=== PATIENT | female | born 1950 | race Caucasian/White ===

== ENCOUNTER 2022-05-21 11:13 | Emergency (ER) | payer MEDICARE, SELFPAY ==
--- NOTE | ~2022-05-21 | XR_ITS ---
EXAMINATION: XR chest 2V DATE: 05/21/2022 11:54 INDICATION: Cough and fever TECHNIQUE: PA and lateral views of the chest are obtained. COMPARISON: None available FINDINGS: The lungs are free of acute opacities. No pleural effusion or pneumothorax. The cardiomedia stinal silhouette is normal. There is moderate thoracic spondylosis. IMPRESSION: 1. No acute cardiopulmonary abnormality. Reviewed, dictated and finalized at location A.
[2022-05-21 11:22] VITALS: BP 155/83; PULSE 110; RESP 18; TEMP 37.1; O2SAT 97
[2022-05-21 11:24] VITALS: BP 155/83; PULSE 110; RESP 18; TEMP 37.1; O2SAT 97
--- NOTE | 2022-05-21 11:43 | ED.GENADULT ---
HPI - General Adult General Chief complaint: Upper Respiratory Infection Stated complaint: FEVER/CONGESTION Source: patient Mode of arrival: ambulatory Limitations: no limitations History of Present Illness HPI narrative: Patient presents for evaluation of sick symptoms for the last 2 days. Symptoms include fever, chills, nausea, productive cough of green/yellow sputum, sinus congestion, sinus drainage, sore throat, bilateral ear fullness, generalized body aches, exertional dyspnea, pleuritic chest pain and back pain. Her granddaughter has similar symptoms and they live in the same household. She has been taking tylenol for her symptoms. No personal hx of COVID. She received both doses of her COVID vaccine and a booster. She took a home COVID test yesterday which was negative. She does not smoke. She is diabetic. She states home BS run between 125-140. Related Data Home Medications Medication Instructions Recorded Confirmed allopurinol 300 mg tablet mg 05/21/22 candesartan 32 tablet 05/21/22 mg-hydrochlorothiazide 12.5 mg tablet meloxicam 7.5 mg tablet mg 05/21/22 metformin 500 mg tablet mg 05/21/22 simvastatin 20 mg tablet mg 05/21/22 Allergies Allergy/AdvReac Type Severity Reaction Status Date / Time erythromycin base Allergy Hives Verified 05/21/22 11:23 losartan Allergy Rash Verified 05/21/22 11:23 Penicillins Allergy Hives Verified 05/21/22 11:23 acetaminophen [From Percocet] AdvReac Nausea and Verified 05/21/22 11:23 Vomiting oxycodone [From Percocet] AdvReac Nausea and Verified 05/21/22 11:23 Vomiting Review of Systems Review of Systems: CONSTITUTIONAL: Reports fever and chills. EYES: Denies visual changes, redness, or discharge. ENT: Reports sinus congestion, drainage, sore throat and bilateral ear fullness CARDIOVASCULAR: Reports pleuritic chest pain. Denies chest pain otherwise. Denies palpitations, or edema. RESPIRATORY:Reports productive cough of yellow/green sputum and exertional dyspnea. Denies SOB at rest GASTROINTESTINAL: Reports nausea. Denies abdominal pain, vomiting, or diarrhea. GENITOURINARY: Denies dysuria or hematuria. SKIN: Denies rash or itching. MUSCULOSKELETAL: Reports generalized body aches and back pain NEUROLOGIC: Denies headache, numbness, dizziness, or weakness. PSYCHIATRIC: Denies anxiety or depression. PMFSH Past Medical History Medical History (Updated 05/21/22 @ 12:29 by Thomas Rinaldi [facility], ) Diabetes Hyperlipidemia Hypertension Surgical History Surgical History History of carpal tunnel surgery History of hysterectomy History of left knee replacement Family History Family History Mother Heart disease Social History Social History Smoking status: Never smoker Substance use: never Living arrangements: with family Spiritual care concerns: No Exam Narrative: GENERAL: Well-appearing, well-nourished, and in no acute distress. HEAD: Normocephalic, atraumatic. EYES: PERRLA and EOMI. ENT: Nares clear, no rhinorrhea or epistaxis. Mucous membranes moist. Oropharynx without tonsillar hypertrophy exudate or other lesions. Bilateral TMs pearly cummings nonbulging NECK: Supple. No adenopathy or masses. No carotid bruits or JVD CHEST: Clear to auscultation. No respiratory distress. No wheezes rales or rhonchi HEART: Regular rate and rhythm. No murmur heard. Normal peripheral pulses. ABDOMEN: Soft, nontender, nondistended, normal active bowel sounds. EXTREMITIES: Normal range of motion. No edema. SKIN: Warm, dry, no rash. NEURO: No focal deficits. Alert and oriented x3. PSYCH: Normal mood and affect. Course Course Emergency Course: This is a 71-year-old female who presented for evaluation of sick symptoms. Chest x-ray was normal. COVID was negat
== END 2022-05-21 12:45 | disposition home or self-care (01) ==
PROVIDERS: Emergency Provider Nurse Practitioner
DX: B34.9 Viral infection, unspecified (principal); Z20.822 Contact with and (suspected) exposure to COVID-19; E11.9 Type 2 diabetes mellitus without complications; E78.5 Hyperlipidemia, unspecified; I10 Essential (primary) hypertension; Z96.652 Presence of left artificial knee joint
CPT/HCPCS: 71046; 87426; 99213; C9803; G0463

== ENCOUNTER 2022-06-24 16:30 | Emergency (ER) | payer MEDICARE, SELFPAY ==
[2022-06-24 16:35] VITALS: BP 158/93; PULSE 112; RESP 16; O2SAT 98
--- NOTE | 2022-06-24 16:36 | ED.SKABFB ---
HPI - Skin/Abscess/Foreign Bdy General Chief complaint: Extremity Problem,Nontraumatic Stated complaint: INFECTION IN GROIN AREA Time Seen by Provider: 06/24/22 16:36 Source: patient Mode of arrival: ambulatory Limitations: no limitations History of Present Illness HPI narrative: Ms. Rice is a 71-year-old female patient presenting to the clinic today with complaints of possible infection in her groin. She reports that she has been having right-sided hip/groin pain for over 1 month. Recently had x-rays done approximately 2 weeks ago that showed mild to moderate osteoarthritis of the right hip. She feels as though her right hip is more swollen and tender to palpation over her right hip joint. Pain is more so in the morning but as she gets moving during the day the pain eases some. She is having trouble sleeping at night due to this pain as well. Pain is sharp and radiating into the back of her hip and down her right leg. She has been taking Tylenol and meloxicam for the pain with little relief. Rates pain currently 8/10. She denies any recent falls or any trauma to the right hip. She denies any urinary symptoms. Pain does not worsen when she bears down or is sitting on the stool. Related Data Home Medications Medication Instructions Recorded Confirmed allopurinol 300 mg tablet 100 mg PO DAILY 05/21/22 06/24/22 candesartan 32 1 tablet PO DAILY 05/21/22 06/24/22 mg-hydrochlorothiazide 12.5 mg tablet meloxicam 7.5 mg tablet 7.5 mg PO BID 05/21/22 06/24/22 metformin 500 mg tablet 500 mg PO BID 05/21/22 06/24/22 simvastatin 20 mg tablet 20 mg PO DAILY 05/21/22 06/24/22 cholecalciferol (vitamin D3) 125 125 mcg PO DAILY 06/24/22 06/24/22 mcg (5,000 unit) tablet (Vitamin D3) cyclobenzaprine 10 mg tablet 10 mg PO DAILY PRN Muscle Pain 06/24/22 06/24/22 lansoprazole 15 mg capsule,delayed 15 mg PO DAILY 06/24/22 06/24/22 release Allergies Allergy/AdvReac Type Severity Reaction Status Date / Time erythromycin base Allergy Hives Verified 06/24/22 16:46 losartan Allergy Rash Verified 06/24/22 16:46 Penicillins Allergy Hives Verified 06/24/22 16:46 acetaminophen [From Percocet] AdvReac Nausea and Verified 06/24/22 16:46 Vomiting lisinopril AdvReac Unknown Verified 06/24/22 16:46 oxycodone [From Percocet] AdvReac Nausea and Verified 06/24/22 16:46 Vomiting Review of Systems Review of Systems: Pertinent positives per HPI. Patient denies any fever, chills, rash, headache, visual changes, dizziness, cough, runny nose, sore throat, shortness of breath, chest pain, palpitations, nausea, vomiting, diarrhea, constipation, abdominal pain, or any urinary issues. [facility] Past Medical History Medical History Diabetes Hyperlipidemia Hypertension Surgical History Surgical History History of carpal tunnel surgery History of hysterectomy History of left knee replacement Family History Family History Mother Heart disease Social History Social History Smoking status: Never smoker Substance use: never Spiritual care concerns: No Comments At the time of my signature, I reviewed and agree with the nursing past medical, surgical, social, and family history. There is no relevant family history pertinent to the patient complaint. Exam Narrative: General: Well-developed, well nourished, obese, in no apparent distress Head: Normocephalic, atraumatic. Cardio: Regular rate and rhythm, s1 and s2 normal, no murmur appreciated. Resp: Clear to auscultation bilaterally, no rhonchi, rales, wheezing or rubs. Musculoskeletal: No deformity, no swelling when compared to the left hip, tender to palpation over the right lateral and anterior hip, worsening of pain with hip
== END 2022-06-24 17:19 | disposition home or self-care (01) ==
PROVIDERS: Emergency Provider Nurse Practitioner Family
DX: M25.551 Pain in right hip (principal); E11.9 Type 2 diabetes mellitus without complications; E78.5 Hyperlipidemia, unspecified; I10 Essential (primary) hypertension; Z96.652 Presence of left artificial knee joint
CPT/HCPCS: 99213; G0463

== ENCOUNTER 2022-08-09 09:23 | Outpatient (RCR) | payer MEDICARE, SELFPAY ==
--- NOTE | 2022-08-09 14:57 | PTOPEVAL1 ---
Assessment and note entered by Jose Rueda, PT Evaluation Information Assessment Status Evaluation Diagnosis R hip pain Onset about 3 months ago Subjective Information Patient reports about 3 months ago she noticed she was having trouble sleeping on her R side and she started to feel a bump on the R hip. Since then she has had more pain causing her to progress from a cane to a wheeled walker. Patient's leg has given out on her. She reports she previously has had a lipoma on her back and it has presented like this. She has an MD appt with a surgeon on to look at it. Reported Pain Level Pain Score 5: Self Report Additional Pain Score Comments Main pain is in her R hip, but also has some pain in her groin and knee. Assessment PT Clinical Summary Natalia is a 72 year old female coming into the clinic today with R hip pain, She has tightness in the hamstring and IT band along with weakness in the R hip. Patient may benefit from skilled physical therapy to work on her tightness and strengthen her hip along with US and manual therapy to help decrease pain and loosen tight muscles. Plan of Care Interventions Gait Training,Hot Pack/Cold Pack,Manual Therapy, Neuro Re-education,Patient/Caregiver Educati, Therapeutic Activities,Therapeutic Exercise, Ultrasound PT Services Indicated Yes Treatment Frequency and 1-2x/wk per 3 weeks Duration These treatments will address the objective and functional deficits as defined above. The patient will be advanced safely and appropriately in order for the patient to progress towards his/her prior level of function. Additional exercises will be introduced and as well as a comprehensive home exercise program upon discharge, if needed, ?to ensure carryover of functional gains achieved in the clinic. This treatment plan has been reviewed and agreement upon by the patient.
--- NOTE | 2022-10-31 13:06 | PCPTNOTE ---
Admitting Provider: Attending Provider: Dennis Isaac Patient:Natalia Rice Date of :1950 Patient has not returned for any further treatments since 08/09/2022, therefore (he/she) will be discharged at this time. Patient?s initial visit was on 08/09/2022 09:30 and (he/she) had a total of ____1____ visits and cancelled all three scheduled appointments The goals have been not met. Thank you for referring this patient to [facility]. Please review, sign, date and return this discharge summary LUDMILA. I have been updated about the patient's current status and I agree with discharge from the above service at this time. Referring Physician Date
== END 2022-10-31 14:58 | disposition home or self-care (01) ==
LOC: ANHPT 09:23
DX: M25.551 Pain in right hip (principal)
CPT/HCPCS: 97035; 97110; 97161

== ENCOUNTER 2022-09-08 01:53 | Day surgery (SDC) | payer MEDICARE, SELFPAY ==
[2022-09-07 16:02] VITALS: BMI 36.1
[2022-09-08] VITALS (10 sets, daily range): BP systolic 101–158; BP diastolic 50–90; PULSE 66–94; RESP 12–20; TEMP 37.1; O2SAT 96–100; BMI 36.3
[2022-09-08 08:03] LABS: Basophils Absolute Auto 0.1 K/mm3 (0.0-0.1); Basophils Percent Auto 0.8 % (0.2-1.2); Eosinophils Absolute Auto 0.2 K/mm3 (0-0.3); Eosinophils Percent Auto 1.7 % (0-4.4); Hematocrit 40.8 % (37.0-47.0); Hemoglobin 13.2 g/dL (12.0-15.0); Immature Granulocyte Absolute 0.04 K/mm3 (0.00-0.031); Immature Granulocyte Percent A 0.4 % (0-0.5); Lymphocytes Absolute Auto 3.07 K/mm3 (0.9-3.2); Lymphocytes Percent Auto 31.3 % (18.3-44.2); Mean Corpuscular HGB Conc 32.4 g/dl (32-36); Mean Corpuscular Hemoglobin 28.8 pg (26-34); Mean Corpuscular Volume 89.1 fl (80-100); Mean Platelet Volume 9.7 fl (7.4-10.4); Monocytes Absolute Auto 0.9 K/mm3 (0.1-0.6); Monocytes Percent Auto 9.1 % (2.6-8.5); Neutrophils Absolute Auto 5.6 K/mm3 (1.3-6.7); Neutrophils Percent Auto 56.7 % (45.5-73.1); Platelet Count Result 382 k/mm3 (150-375); Red Blood Count 4.58 M/mm3 (4.2-5.4); White Blood Count 9.8 K/mm3 (4.5-10.0)
[2022-09-08 08:10] LABS: Anion Gap 12 mmol/L (8-16); Blood Urea Nitrogen 22 mg/dL (7-17); Calcium 9.4 mg/dL (8.4-10.2); Carbon Dioxide 22 mmol/L (22-30); Chloride 105 mmol/L (98-107); Estimated CRCL calculation 51 ml/min; Estimated Glomerular Filt Rate > 60; Glucose 154 mg/dL (65-110); Potassium 3.8 mmol/L (3.4-5.0); Sodium 139 mmol/L (137-145)
[2022-09-08 08:36] LABS: INR 1.1; Prothrombin Time 13.3 Seconds (11.1-14.7)
--- NOTE | 2022-09-08 09:34 | WPDHPUPDATE1 ---
History and Physical Update Update Date/Time: 09/08/22 09:34 History and Physical has been reviewed, including an updated exam of the patient. There are NO changes in the patient's condition. Risks, benefits, and alternatives have been discussed and questions answered. Patient agrees to proceed with procedure.
--- NOTE | 2022-09-08 09:34 | WPDMODSED ---
Moderate Sedation Note-Pt Data Patient Data Diagnosis: Abnormal stress test Present Complaint: Abnormal stress test Procedure to be performed/Plan: Coronary angiography, LHC, +/- PCI Allergies Allergy/AdvReac Type Severity Reaction Status Date / Time erythromycin base Allergy Hives Verified 09/08/22 07:31 losartan Allergy Rash Verified 09/08/22 07:31 Penicillins Allergy Hives Verified 09/08/22 07:31 lisinopril AdvReac Unknown Verified 09/08/22 07:31 oxycodone [From Percocet] AdvReac Nausea and Verified 09/08/22 07:31 Vomiting Home Medications Medication Instructions Recorded Confirmed Type allopurinol 300 mg tablet 100 mg PO DAILY 05/21/22 09/07/22 History candesartan 32 1 tablet PO DAILY 05/21/22 09/07/22 History mg-hydrochlorothiazide 12.5 mg tablet meloxicam 7.5 mg tablet 7.5 mg PO BID 05/21/22 09/07/22 History metformin 500 mg tablet 500 mg PO BID 05/21/22 09/07/22 History simvastatin 20 mg tablet 20 mg PO DAILY 05/21/22 09/07/22 History cholecalciferol (vitamin D3) 125 125 mcg PO DAILY 06/24/22 09/07/22 History mcg (5,000 unit) tablet (Vitamin D3) lansoprazole 15 mg capsule,delayed 15 mg PO DAILY 06/24/22 09/07/22 History release Current Medications: Active Medications Sodium Chloride (Normal Saline Iv) 500 mls @ 100 mls/hr IV CONT .Q5H YAMEL Sedation/Anesthesia: No previous sedation/anesthesia problems (including family history). [facility] Past Medical History Medical History Diabetes Hyperlipidemia Hypertension Surgical History Surgical History History of carpal tunnel surgery History of hysterectomy History of left knee replacement Family History Family History Mother Heart disease Social History Social History Smoking status: Never smoker Alcohol use details: occasional Substance use: never Substance use type: does not use Living arrangements: with family Spiritual care concerns: No Mod Sed Physical Exam Physical Exam Pre Procedural Exam: Normal: Appearance, Lungs, Heart Rate, Heart Rhythm, Neuro Exam, Abdomen, Extremities and Skin Hours since solid foods: 12 Hours since liquid intake: 8 Mallampati Classification: class III Internal Medicine - PN: Obj Da Vital Signs Vital Signs: Vital Signs - 24 hr 09/08/22 07:33 Temperature 37.1 C Pulse Rate 94 Respiratory Rate 19 Blood Pressure 158/90 H Pulse Oximetry 97 Oxygen Delivery Room Air Meds/Results Medications: Active Medications Generic Name Dose Route Start Last Admin Trade Name Freq PRN Reason Stop Dose Admin Sodium Chloride 500 mls @ 100 mls/hr 09/08/22 07:00 Normal Saline Iv IV CONT .Q5H YAMEL Labs 09/08/22 07:30 09/08/22 07:30 Labs: Laboratory Results - last 24 hr 09/08/22 09/08/22 09/08/22 07:30 07:30 07:30 WBC 9.8 RBC 4.58 Hgb 13.2 Hct 40.8 MCV 89.1 MCH 28.8 MCHC 32.4 RDW 14.0 Plt Count 382 H MPV 9.7 Immature Gran % (Auto) 0.4 Neut % (Auto) 56.7 Lymph % (Auto) 31.3 Garfield % (Auto) 9.1 H Eos % (Auto) 1.7 Baso % (Auto) 0.8 Lymph # (Auto) 3.07 Garfield # (Auto) 0.9 H Eos # (Auto) 0.2 Baso # (Auto) 0.1 Abs Immat Gran (auto) 0.04 H Absolute Neuts (auto) 5.6 Absolute Nucleated RBC 0.0 Nucleated RBC % 0.0 PT 13.3 INR 1.1 Sodium 139 Potassium 3.8 Chloride 105 Carbon Dioxide 22 Anion Gap 12 BUN 22 H Creatinine 0.90 Estim Creat Clear Calc 51 Estimated GFR > 60 Glucose 154 H Calcium 9.4 ASA Classification/Sedation ASA Classification/Sedation ASA Class: II Emergent: No Risks: Risks, benefits and alternatives explained and patient/family accepted plan for sedation. Patient re-evaluated immed
--- NOTE | 2022-09-08 09:36 | WPDCARDPROC ---
Cardiac Cath Procedure Note Date of procedure:: 09/08/22 Performing physician:: CATHETERIZATION LABORATORY REPORT Procedure Date: 09/08/2022 Casino Gaming Inspector: Obdulio Alfonso M.D., [facility]? Referring Physician: Dr. Taylor ? Anesthesia: Versed and Fentanyl were ordered and given in my presence at 09:30, procedure ended at 10:00. Supervision of nurse monitored moderate sedation with Versed and Fentanyl was provided for 30 minutes. Total of Versed 2mg and Fentanyl 50mcg were administered by the Wind Development Director RN Gabby Castaneda. Pre-op Diagnosis: Coronary artery disease Post-op Diagnosis: Nonobstructive coronary arteries Procedure(s): Coronary angiography Access Site: Right radial artery Brief History and Clinical Indications: Patient is a 72-year-old female who is referred for cardiac cath for abnormal stress test. All risks, benefits and alternatives to left heart catheterization with or without percutaneous coronary intervention was discussed at length with the patient. Risk of complications including but not limited to bleeding, infection, arrhythmia, stroke, worsening kidney function, blood loss, groin hematoma, limb loss, emergency coronary artery bypass grafting, and even were discussed with the patient and all questions were answered. The patient understood and wished to proceed. Time out called, patient name, date of , medical record number, allergies, procedure performed, identify Casino Gaming Inspector, patient and staff member concurred with accurate data, procedure carried on. Findings: LEFT HEART CATHETERIZATION FINDINGS: 1. Left main: The left main coronary artery is widely patent without any significant obstructive disease. 2. Left anterior descending: The LAD and the diagonal branches have mild luminal irregularities without any significant obstructive angiographic disease. 3. Left circumflex: The left circumflex artery and the main marginal branches have mild luminal irregularities without any significant obstructive angiographic disease. 4. Right coronary artery: The RCA has mild luminal irregularities without any significant obstructive angiographic disease. The RCA is the dominant vessel. Description of Procedure: Informed consent signed and placed in the chart. Patient transferred to research laboratory manager room. Prepped and draped in usual sterile fashion. 2% lidocaine injected subcutaneously in right wrist area. 22-gauge venipuncture catheter used to access the right radial artery with the Seldinger technique. 6-FR slender sheath placed in right radial artery. Nitroglycerine and Verapamil were given intraarterial through the sheath. [employer] wire advanced under fluoroscopy 5F FL 3.5 diagnostic catheter engaged Left Main Coronary Artery. 5F Tig 4 diagnostic catheter engaged Right Coronary Artery Multiple orthogonal angiogram obtained and reviewed Unable to cross the LV to obtain LVEDP with a 5F Pigtail catheter. Hemostasis was achieved by application of TR band. ? Assessment: Nonobstructive coronary arteries Post Operative Condition: Stable No significant blood loss Disposition: Home Plan: The patient will be monitored in the recovery area. Discharge home after post-cath bed rest is completed The above findings were discussed with the referring physician. Continue aggressive medical therapy and risk factor modification. ? Obdulio Alfonso M.D. Interventional Cardiology
--- NOTE | 2022-09-08 10:40 | SUR.PHASEII ---
phase II started @1030 in [employer] MACHINE OPERATOR 5. TR band over right radial puncture site with 12cc of air. No bleeding for hematoma, see meditech for vitals. pt educated about restricting movement of right arm. call light placed within reach.
== END 2022-09-08 13:40 | disposition home or self-care (01) ==
PROVIDERS: Visit Provider Internal Medicine
PROC: (CPT 93454; principal; 2022-09-08 08:30)
DX: I25.10 Atherosclerotic heart disease of native coronary artery without angina pectoris (principal); R94.39 Abnormal result of other cardiovascular function study; I10 Essential (primary) hypertension; E11.9 Type 2 diabetes mellitus without complications; E78.5 Hyperlipidemia, unspecified; Z79.84 Long term (current) use of oral hypoglycemic drugs
CPT/HCPCS: 36415; 80048; 85025; 85610; 93454; A9270; C1769; C1887; C1894; J1644; J2250; J3010; J7040

== ENCOUNTER 2023-06-05 10:00 | Outpatient (RCR) | payer MEDICARE, SELFPAY ==
--- NOTE | 2023-03-10 14:44 | PTOPEVAL1 ---
Assessment and note entered by Jose Rueda, PT Evaluation Information Assessment Status Evaluation Diagnosis low back pain Subjective Information Patient reports having low back pain that is also going down the RLE all the way down to the toes and besides pain causing a feeling of the leg feeling heavy or that it will give out on her. Increased symptoms when she stiffens up, but also with more than about 5 minutes of activity at a time. Was here last July for R hip pain and she was going to have a surgeon look at removing a lipoma, but had cardiac concerns that have now been taken care of. Patient also stopped taking her Simvastatin because she heard it causes cramping. (Told patient to check with her doctor and she should never just stop taking any medicine cold turkey without letting her doctor know.) Has been having this increased cramping for 3-4 weeks is going to see her primary to check her electrolytes. Patient also has trouble with sleeping and is using a rollator to get around. Reported Pain Level Pain Score 5: Self Report Assessment PT Clinical Summary Linn is a 72 year old female coming into the clinic with a diagnosis of low back pain. The pain radiated down the RLE. Patient has a very tight piriformis on the R along with tenderness in palpation of that piriformis and BECKY PSIS. Weakness in her core and hips, along with a forward lean gait pattern. Physical therapy will work on stretching and strengthening noted deficits along with manual and modalities for pain as warranted. Plan of Care Interventions Electrical Stimulation,Gait Training,Hot Pack/Cold Pack,Manual Therapy,Mechanical Traction,Neuro Re- education,Patient/Caregiver Education,Therapeutic Activities,Therapeutic Exercise,Ultrasound Other Interventions cupping, taping, IASTM PT Services Indicated Yes Treatment Frequency and 1-2x/wk for 4 weeks Duration These treatments will address the objective and functional deficits as defined above. The patient will be advanced safely and appropriately in order for the patient to progress towards his/her prior level of function. Additional exercises will be introduced and as well as a comprehensive home exercise program upon discharge, if needed, ?to ensure carryover of functional gains achieved in the clinic. This treatment plan has been reviewed and agreement upon by the patient.
--- NOTE | 2023-03-10 14:44 | OPREHPOC ---
Outpatient Therapy Plan of Care This is a Multidisciplinary Plan of Care that may contain components documented by all disciplines (PT, OT, and ST.) PT Problem 1 PT Problem #1 Knowledge Deficit PT Goal 1 Goal Independent with HEP Target Visit 6 PT Problem 2 PT Problem #2 Pain PT Goal 1 Goal decreased pain to 5/10 at worst first thing in the morning Target Visit 6 PT Goal 2 Goal centralized pain to above the R knee instead of down to the toes. Target Visit 6 PT Problem 3 PT Problem #3 Impaired Flexibility PT Goal 1 Goal Mild tightness of the R piriformis. Target Visit 6 PT Problem 4 PT Problem #4 Impaired Strength PT Goal 1 Goal grossly 4+/5 BECKY LE Target Visit 6 PT Goal 2 Goal Able to do 15 posterior pelvic tilts supine without increased pain Target Visit 6
--- NOTE | 2023-04-04 15:46 | PTOPPROG ---
Assessment and note entered by Michael Jimenez, PT Evaluation Information Assessment Status Progress Diagnosis low back pain Subjective Information Reports that she feels therapy has really helped at this time. Pain is down but she still has trouble off and on and is still limited in transfers and mobility. Pain is no longer radiating all the way to her foot and is now to her knee. Feels therapy has really helped and would like to continue. Assessment PT Clinical Summary Patient has made excellent progress with therapy but is still limited by pain and mobility issues. She has responded well to hip mobilization and core activation and will continue to do so with the integration of lateral hip strength. She has requested continuation as she feels it has significantly helped her. Plan of Care Interventions Gait Training,Manual Therapy,Neuro Re-education, Therapeutic Activities,Therapeutic Exercise Other Interventions cupping, taping, IASTM PT Services Indicated Yes Treatment Frequency and 2x/week for 4 weeks Duration These treatments will address the objective and functional deficits as defined above. The patient will be advanced safely and appropriately in order for the patient to progress towards his/her prior level of function. Additional exercises will be introduced and as well as a comprehensive home exercise program upon discharge, if needed, ?to ensure carryover of functional gains achieved in the clinic. This treatment plan has been reviewed and agreement upon by the patient.
--- NOTE | 2023-04-04 15:47 | OPREHPOC ---
Outpatient Therapy Plan of Care This is a Multidisciplinary Plan of Care that may contain components documented by all disciplines (PT, OT, and ST.) PT Problem 1 PT Problem #1 Knowledge Deficit PT Goal 1 Goal Independent with HEP Target Visit 6 Progress Partially Met PT Problem 2 PT Problem #2 Pain PT Goal 1 Goal decreased pain to 5/10 at worst first thing in the morning Target Visit 6 Progress Partially Met PT Goal 2 Goal centralized pain to above the R knee instead of down to the toes. Target Visit 6 Progress Partially Met Comment At and slightly below kneebut not consistenly PT Problem 3 PT Problem #3 Impaired Flexibility PT Goal 1 Goal Mild tightness of the R piriformis. Target Visit 6 Progress Partially Met Comment Mobility improve but some hinderance in groin pain PT Problem 4 PT Problem #4 Impaired Strength PT Goal 1 Goal grossly 4+/5 BECKY LE Target Visit 6 Progress Partially Met Comment Continues to show some hip weakness and Left knee weakness, but improving PT Goal 2 Goal Able to do 15 posterior pelvic tilts supine without increased pain Target Visit 6 Progress Met
--- NOTE | 2023-04-25 08:33 | PCPTNOTE ---
Pt. canceled 04/25/23 appointment noting that she is sick today.
--- NOTE | 2023-05-02 13:15 | OPREHPOC ---
Outpatient Therapy Plan of Care This is a Multidisciplinary Plan of Care that may contain components documented by all disciplines (PT, OT, and ST.) PT Problem 1 PT Problem #1 Knowledge Deficit PT Goal 1 Goal Independent with HEP Target Visit 6 Progress Partially Met PT Problem 2 PT Problem #2 Pain PT Goal 1 Goal decreased pain to 5/10 at worst first thing in the morning Target Visit 6 Progress Met PT Goal 2 Goal centralized pain to above the R knee instead of down to the toes. Target Visit 6 Progress Met Comment At and slightly below kneebut not consistenly PT Problem 3 PT Problem #3 Impaired Flexibility PT Goal 1 Goal Mild tightness of the R piriformis. Target Visit 6 Progress Met Comment Mobility improve but some hinderance in groin pain PT Problem 4 PT Problem #4 Impaired Strength PT Goal 1 Goal grossly 4+/5 BECKY LE Target Visit 6 Progress Partially Met Comment Continues to show some hip abductors and extensors weakness compared to the rest of the LE. PT Goal 2 Goal Able to do 15 posterior pelvic tilts supine without increased pain Target Visit 6 Progress Met PT Problem 5 PT Problem #5 Pain PT Goal 1 Goal centralize pain to the groin or above Target Visit 20 PT Goal 2 Goal no more than 3/10 pain in the last week Target Visit 20
--- NOTE | 2023-05-02 13:15 | PTOPPROG ---
Assessment and note entered by Jose Rueda, PT Evaluation Information Assessment Status Progress Diagnosis low back pain Subjective Information Patient reports it is getting better a little bit at a time, pain no longer below her knee. She reports she is trying to do more including going to the [facility] which has a walking path and NuStep machine she can use to help stay more active. Also is seeing her primary doctor soon and is going to let them know about progress, but also ask if there are less conservative treatment options. Assessment PT Clinical Summary Linn is a 72 year old female coming into the clinic with a diagnosis of low back pain. The patient was evaluated 03/10/23 and has attended 13 visits so far. Patient's radiating pain is continuing to centralize now completely above the knee and pain has improved to no more than 5/10 in the AM when she is at her most stiff. Physical therapy recommend continue to work with her to try to centralize to no more radiating than the groin along with reducing pain to no more than 3/10. Plan of Care Interventions Electrical Stimulation,Gait Training,Hot Pack/Cold Pack,Manual Therapy,Neuro Re-education,Patient/ Caregiver Education,Therapeutic Activities, Therapeutic Exercise,Ultrasound Other Interventions cupping, taping, IASTM PT Services Indicated Yes Treatment Frequency and 1-2x/wk for 8 visits Duration These treatments will address the objective and functional deficits as defined above. The patient will be advanced safely and appropriately in order for the patient to progress towards his/her prior level of function. Additional exercises will be introduced and as well as a comprehensive home exercise program upon discharge, if needed, ?to ensure carryover of functional gains achieved in the clinic. This treatment plan has been reviewed and agreement upon by the patient.
--- NOTE | 2023-05-24 10:22 | PCPTNOTE ---
Pt. canceled 05/24/23 appointment noting that she had an emergency and would not be able to make it.
--- NOTE | 2023-05-30 13:38 | PCPTNOTE ---
Pt. canceled 05/30/23 and 06/01/23 appointments stating she fell over the weekend and has been hurting a lot.
--- NOTE | 2023-06-05 12:09 | OPREHPOC ---
Outpatient Therapy Plan of Care This is a Multidisciplinary Plan of Care that may contain components documented by all disciplines (PT, OT, and ST.) PT Problem 1 PT Problem #1 Knowledge Deficit PT Goal 1 Goal Independent with HEP Target Visit 22 Progress Met PT Problem 2 PT Problem #2 Pain PT Goal 1 Goal decreased pain to 5/10 at worst first thing in the morning Target Visit 22 Progress Partially Met PT Goal 2 Goal centralized pain to above the R knee instead of down to the toes. Target Visit 22 Progress Partially Met Comment At and slightly below kneebut not consistenly PT Problem 3 PT Problem #3 Impaired Flexibility PT Goal 1 Goal Mild tightness of the R piriformis. Target Visit 6 Progress Met Comment Mobility improve but some hinderance in groin pain PT Problem 4 PT Problem #4 Impaired Strength PT Goal 1 Goal grossly 4+/5 BECKY LE Target Visit 22 Progress Partially Met Comment Continues to show some hip abductors and extensors weakness compared to the rest of the LE. PT Goal 2 Goal Able to do 15 posterior pelvic tilts supine without increased pain Target Visit 6 Progress Met PT Problem 5 PT Problem #5 Pain PT Goal 1 Goal centralize pain to the groin or above Target Visit 22 PT Goal 2 Goal no more than 3/10 pain in the last week Target Visit 22
--- NOTE | 2023-06-05 12:09 | PTOPPROG ---
Assessment and note entered by Michael Jimenez, PT Evaluation Information Assessment Status Progress Diagnosis Low back pain Subjective Information Reports that she felt she was doing really well prior to fall. Her back is still improved but she continues to struggle with pain in the back and buttock. She contacted her knee MD to let him know about her injury. She feels that she is not inhibited by her knee trauma and does not feel there is any structural issue. Assessment PT Clinical Summary Patient has made considerable progress with pain levels and mobility. Continues to be hindered by pain and gait but has improved objectively in motion and gait cycle. Will continue to benefit from skilled therapy to continue to emphasize pain centralization and diminishment and monitor recent trauma to L knee. Plan of Care Interventions Electrical Stimulation,Gait Training,Hot Pack/Cold Pack,Manual Therapy,Neuro Re-education,Patient/ Caregiver Education,Therapeutic Activities, Therapeutic Exercise,Ultrasound Other Interventions cupping, taping, IASTM PT Services Indicated Yes Treatment Frequency and 1-2x/wk for 8 visits Duration These treatments will address the objective and functional deficits as defined above. The patient will be advanced safely and appropriately in order for the patient to progress towards his/her prior level of function. Additional exercises will be introduced and as well as a comprehensive home exercise program upon discharge, if needed, ?to ensure carryover of functional gains achieved in the clinic. This treatment plan has been reviewed and agreement upon by the patient.
--- NOTE | 2023-06-14 11:13 | PCPTNOTE ---
This treatment is being continued on visit number [id number] Please see documentation on both accounts to view progress. Completed interventions, outcomes, and problems have been marked as Inactive to facilitate the copying of the Care plan routine for recurring accounts.
== END 2023-06-05 11:15 | disposition home or self-care (01) ==
LOC: ANHPT 10:00
DX: M54.50 Low back pain, unspecified (principal)
CPT/HCPCS: 97110; 97140; 97161

== ENCOUNTER 2023-07-03 11:00 | Outpatient (RCR) | payer MEDICARE, SELFPAY ==
--- NOTE | 2023-06-14 11:15 | PCPTNOTE ---
This treatment is being continued from visit number [id number]. Please see documentation on both accounts to view progress. Completed interventions, outcomes, and problems have been marked as Inactive to facilitate the copying of the Care plan routine for recurring accounts.
--- NOTE | 2023-07-03 12:21 | OPREHPOC ---
Outpatient Therapy Plan of Care This is a Multidisciplinary Plan of Care that may contain components documented by all disciplines (PT, OT, and ST.) PT Problem 1 PT Problem #1 Knowledge Deficit PT Goal 1 Goal Independent with HEP Target Visit 6 Progress Met PT Problem 2 PT Problem #2 Pain PT Goal 1 Goal decreased pain to 5/10 at worst first thing in the morning Target Visit 6 Progress Met PT Goal 2 Goal centralized pain to above the R knee instead of down to the toes. Target Visit 6 Progress Met Comment At and slightly below kneebut not consistency PT Problem 3 PT Problem #3 Impaired Flexibility PT Goal 1 Goal Mild tightness of the R piriformis. Target Visit 6 Progress Met Comment Mobility improve but some hinderance in groin pain PT Problem 4 PT Problem #4 Impaired Strength PT Goal 1 Goal grossly 4+/5 BECKY LE Target Visit 6 Progress Partially Met Comment Continues to show some hip abductors and extensors weakness compared to the rest of the LE. PT Goal 2 Goal Able to do 15 posterior pelvic tilts supine without increased pain Target Visit 6 Progress Met PT Problem 5 PT Problem #5 Pain PT Goal 1 Goal centralize pain to the groin or above Target Visit 20 Progress Met PT Goal 2 Goal no more than 3/10 pain in the last week Target Visit 20 Progress Met
--- NOTE | 2023-07-03 12:21 | PTOPDC ---
Assessment and note entered by Michael Jimenez, PT Discharge Information Assessment Status Discharge Diagnosis low back pain Subjective Information Reports that she is much improved since starting therapy. Pain is significantly down and overall she is seeing improved mobility. Agrees that she is suitable for discharge to HEP at this time. Reported Pain Level Pain Score 4: Self Report Assessment PT Clinical Summary Patient has met all goals for therapy at this time and is suitable for discharge to HEP. Needs to continues to emphasize hip strengthening as part of HEP. Plan of Care PT Services Indicated No
== END 2023-07-03 13:13 | disposition home or self-care (01) ==
LOC: ANHPT 11:00
DX: M54.50 Low back pain, unspecified (principal)
CPT/HCPCS: 97110; 97140

== ENCOUNTER 2023-08-28 16:20 | Emergency (ER) | payer MEDICARE, SELFPAY ==
--- NOTE | 2023-08-28 16:23 | ED.URI ---
HPI - URI/Sore Throat General Chief Complaint: Upper Respiratory Infection Stated Complaint: Cough;Bodyache;Flu test Time Seen by Provider: 08/28/23 16:23 Source: patient Mode of arrival: ambulatory Limitations: no limitations History of Present Illness HPI Narrative: Patient is a 73-year-old female who presents cough, sinus congestion, body aches and fatigue. Patient has been exposed to influenza B and symptoms started yesterday. Patient denies any fever, chills, nausea, vomiting, diarrhea. Patient has history of pneumonia. Has been taking [id number] medication with moderate relief. Related Data Home Medications Medication Instructions Recorded Confirmed allopurinol 300 mg tablet 100 mg PO DAILY 05/21/22 08/28/23 candesartan 32 1 tablet PO DAILY 05/21/22 08/28/23 mg-hydrochlorothiazide 12.5 mg tablet meloxicam 7.5 mg tablet 7.5 mg PO BID 05/21/22 08/28/23 metformin 500 mg tablet 500 mg PO BID 05/21/22 08/28/23 simvastatin 20 mg tablet 20 mg PO DAILY 05/21/22 08/28/23 cholecalciferol (vitamin D3) 125 125 mcg PO DAILY 06/24/22 08/28/23 mcg (5,000 unit) tablet (Vitamin D3) lansoprazole 15 mg capsule,delayed 15 mg PO DAILY 06/24/22 08/28/23 release albuterol sulfate 90 mcg/actuation 2 puff inhalation QID PRN 08/28/23 08/28/23 aerosol inhaler (ProAir HFA) Shortness Of Breath Or Wheezing metoprolol succinate 25 mg 25 mg PO DAILY 08/28/23 08/28/23 tablet,extended release 24 hr Allergies Allergy/AdvReac Type Severity Reaction Status Date / Time erythromycin base Allergy Hives Verified 09/08/22 07:31 losartan Allergy Rash Verified 09/08/22 07:31 Penicillins Allergy Hives Verified 09/08/22 07:31 tramadol Allergy Hallucinati Verified 08/28/23 16:33 ng lisinopril AdvReac Unknown Verified 09/08/22 07:31 oxycodone [From Percocet] AdvReac Nausea and Verified 09/08/22 07:31 Vomiting Lavendar Allergy Sneezing Uncoded 08/28/23 16:39 Pneumonia Vaccine Allergy Swelling Uncoded 08/28/23 16:39 Ragweed Allergy Sneezing Uncoded 08/28/23 16:39 Shingles Vaccine Allergy Swelling Uncoded 08/28/23 16:39 Review of Systems Review of Systems: All systems reviewed & are unremarkable except as noted in HPI and below Constitutional: Constitutional: Denies body ache(s), Reports chills, Reports fatigue, Reports fever(s), Denies headache(s), Denies malaise and Denies weakness Eyes: Eyes: Denies blurry vision, Denies itchy eyes and Denies loss of vision ENT: Denies otalgia, Denies headache(s), Reports nasal congestion, Denies sinus pain and Denies sore throat Cardiovascular: Cardiovascular: Denies chest pain, Denies irregular heart rhythm and Denies dyspnea Respiratory: Respiratory: Reports cough and Denies dyspnea Gastrointestinal: Gastrointestinal: Denies abdominal pain, Denies diarrhea, Denies nausea and Denies vomiting Musculoskeletal: Musculoskeletal: Denies back pain, Denies myalgias and Denies arthralgias Integumentary/Breasts: Skin/Breast: Denies pruritus and Denies rash Neurologic: Denies headache(s), Denies loss of vision and Denies weakness Psychiatric: Psychiatric: Reports no additional psychiatric complaints Endocrine: Endocrine: Denies fatigue Allergic/Immunologic: Allergic/Immunologic: Denies itchy eyes PMFSH Past Medical History Medical History Diabetes Hyperlipidemia Hypertension Surgical History Surgical History History of carpal tunnel surgery History of hysterectomy History of left knee replacement Family History Family History Mother Heart disease Social History Social History Smoking status: Never smoker Alcohol use details: occasional Substance use: never Substance use type: does not use Living arrangements: with family Spiritual
[2023-08-28 16:39] VITALS: BP 132/83; PULSE 86; RESP 16; TEMP 37.3; O2SAT 100
[2023-08-28 16:40] VITALS: BP 132/83; PULSE 86; RESP 16; TEMP 37.3; O2SAT 100
== END 2023-08-28 17:21 | disposition home or self-care (01) ==
PROVIDERS: Emergency Provider Nurse Practitioner Family
DX: J10.1 Influenza due to other identified influenza virus with other respiratory manifestations (principal); Z20.822 Contact with and (suspected) exposure to COVID-19; E11.9 Type 2 diabetes mellitus without complications; Z79.84 Long term (current) use of oral hypoglycemic drugs; E78.5 Hyperlipidemia, unspecified; I10 Essential (primary) hypertension; Z96.652 Presence of left artificial knee joint
CPT/HCPCS: 87426; 87804; 99213; C9803; G0463

== ENCOUNTER 2024-04-18 09:42 | Outpatient (CLI) | payer MEDICARE, SELFPAY ==
--- NOTE | ~2024-04-18 | MR_ITS ---
EXAMINATION: MR lumbar spine wo con DATE: 04/18/2024 11:10 INDICATION: Low back pain and right leg radiculopathy TECHNIQUE: Magnetic resonance imaging (MRI) of the lumbar spine was performed without intravenous con trast. Sequences included sagittal T2-weighted FSE, sagittal T2-weighted FS FSE, sagittal T1-weighted FSE, and axial T2-weighted FSE. COMPARISON: None FINDINGS: 15 degrees lumbar dextroscoliosis. 2 mm retrolisthesis L1 on L2. 4 mm anterolisthesis L4 on L5. Verte bral body heights are normal. Severe disc height loss at L1-L2. Moderate left-sided predominant disc height loss at L2-L3, moderate right-sided predominant disc height loss at L5-S1, mild to moderate ri ght-sided predominant disc height loss at L4-L5 and mild disc height loss at L3-L4. Fibrofatty degene rative endplate changes at L1-L2 and along the left superior endplate of L4. Marrow signal is otherwi se unremarkable. The conus medullaris terminates at L1. There is normal signal in the caudal spinal c ord. Paravertebral soft tissues are unremarkable. The following disc levels are specifically discusse d: T12-L1: Disc is minimally bulging. There is mild left and moderate right facet joint osteoarthritis. There is no neural foraminal stenosis. There is no central canal stenosis. L1-L2: Disc is bulging. There is hypertrophy of the ligamentum flavum. There is moderate right and se mallory left facet joint osteoarthritis. There is moderate right and mild to moderate left neural forami nal stenosis. There is moderate central canal stenosis. L2-L3: Disc is mildly bulging. There is severe bilateral facet joint osteoarthritis. There is moderat e left and mild right neural foraminal stenosis. There is mild to moderate central canal stenosis. L3-L4: Disc is bulging. There is hypertrophy of the ligamentum flavum. There is severe bilateral fac et joint osteoarthritis. There is mild right and mild to moderate left neural foraminal stenosis. The re is moderate central canal stenosis. L4-L5: Disc is bulging with annular fissure and central disc extrusion which extends 1.5 cm cephalad to the level of the inferior endplate of L4. There is hypertrophy of the ligamentum flavum. There is severe bilateral facet joint osteoarthritis. There is moderate bilateral neural foraminal stenosis. T here is severe central canal stenosis. L5-S1: Disc is bulging with annular fissure and superimposed central small disc protrusion. There is moderate left and severe right facet joint osteoarthritis. There is mild left and moderate right neur al foraminal stenosis. There is mild central canal stenosis. IMPRESSION: 1. 15 degrees lumbar dextroscoliosis with severe spondylosis. Reviewed, dictated and finalized at location A.
== END 2024-04-18 09:43 | disposition home or self-care (01) ==
LOC: CHSIMG 09:45
DX: M54.16 Radiculopathy, lumbar region (principal); M43.06 Spondylolysis, lumbar region; M41.86 Other forms of scoliosis, lumbar region
CPT/HCPCS: 72148

== ENCOUNTER 2024-05-30 12:35 | Emergency (ER) | payer MEDICARE, SELFPAY ==
--- NOTE | 2024-05-30 12:38 | ED.URI ---
HPI - URI/Sore Throat General Chief Complaint: Upper Respiratory Infection Stated Complaint: Sore Throat/Fever/BodyAche Time Seen by Provider: 05/30/24 12:38 Source: patient, RN notes reviewed and old records reviewed Mode of arrival: ambulatory Limitations: no limitations History of Present Illness HPI Narrative: Patient presents accompanied by her daughter. She reports 3 days of fever,ear pain, cough, sore throat, nasal congestion. Coincidentally, she was bitten by a mosquito. She is hopeful that her symptoms are not indicative of West Nile virus. patient was reassured that she appears very healthy, and this is an unlikely diagnosis Related Data Home Medications Medication Instructions Recorded Confirmed allopurinol 300 mg tablet 100 mg PO DAILY 05/21/22 05/30/24 candesartan 32 1 tablet PO DAILY 05/21/22 05/30/24 mg-hydrochlorothiazide 12.5 mg tablet meloxicam 7.5 mg tablet 7.5 mg PO BID 05/21/22 05/30/24 metformin 500 mg tablet 500 mg PO BID 05/21/22 05/30/24 simvastatin 20 mg tablet 20 mg PO DAILY 05/21/22 05/30/24 lansoprazole 15 mg capsule,delayed 15 mg PO DAILY 06/24/22 05/30/24 release albuterol sulfate 90 mcg/actuation 2 puff inhalation QID PRN 08/28/23 05/30/24 aerosol inhaler (ProAir HFA) Shortness Of Breath Or Wheezing metoprolol succinate 25 mg 25 mg PO DAILY 08/28/23 05/30/24 tablet,extended release 24 hr coenzyme Q10 300 mg capsule (Co 300 mg PO DAILY 05/30/24 05/30/24 Q-10) gabapentin 100 mg capsule 100 mg PO TID 05/30/24 05/30/24 hydrocodone 10 mg-acetaminophen 1 tablet PO BID 05/30/24 05/30/24 325 mg tablet magnesium glycinate 100 mg (as 200 mg PO DAILY 05/30/24 05/30/24 glycinate) tablet Allergies Allergy/AdvReac Type Severity Reaction Status Date / Time erythromycin base Allergy Hives Verified 09/08/22 07:31 losartan Allergy Rash Verified 09/08/22 07:31 Penicillins Allergy Hives Verified 09/08/22 07:31 tramadol Allergy Hallucinati Verified 08/28/23 16:33 ng lisinopril AdvReac Unknown Verified 09/08/22 07:31 oxycodone [From Percocet] AdvReac Nausea and Verified 09/08/22 07:31 Vomiting Lavendar Allergy Sneezing Uncoded 08/28/23 16:39 Pneumonia Vaccine Allergy Swelling Uncoded 08/28/23 16:39 Ragweed Allergy Sneezing Uncoded 08/28/23 16:39 Shingles Vaccine Allergy Swelling Uncoded 08/28/23 16:39 Review of Systems Review of Systems: All systems reviewed & are unremarkable except as noted in HPI and below Constitutional: Constitutional: Reports as per HPI and Reports no additional constitutional complaints ENT: Reports system reviewed and no additional complaints, except as documented and Reports as per HPI Cardiovascular: Cardiovascular: Reports as per HPI and Reports no additional cardiovascular complaints Respiratory: Respiratory: Reports as per HPI and Reports no additional respiratory complaints Gastrointestinal: Gastrointestinal: Reports no additional gastrointestinal complaints [facility] Past Medical History Medical History Diabetes Hyperlipidemia Hypertension Surgical History Surgical History History of carpal tunnel surgery History of hysterectomy History of left knee replacement Family History Family History Mother Heart disease Social History Social History Smoking status: Never smoker Alcohol use details: occasional Substance use: never Substance use type: does not use Living arrangements: with family Spiritual care concerns: No Comments At the time of my signature, I reviewed and agree with the nursing past medical, surgical, social, and family history. There is no relevant family history pertinent to the patient complaint. Exam Const: General: cooperative, no acute distress, alert and awake
[2024-05-30 12:50] VITALS: BP 144/81; PULSE 97; RESP 16; TEMP 36.6; O2SAT 98
[2024-05-30 13:00] LABS: EDSTREPNEGPOS1 Negative
[2024-05-30 13:04] LABS: EDINFLUASCREEN Negative; EDINFLUBSCREEN Negative
== END 2024-05-30 13:22 | disposition home or self-care (01) ==
PROVIDERS: Emergency Provider Nurse Practitioner Family
DX: H66.002 Acute suppurative otitis media without spontaneous rupture of ear drum, left ear (principal); Z20.822 Contact with and (suspected) exposure to COVID-19; E11.9 Type 2 diabetes mellitus without complications; E78.5 Hyperlipidemia, unspecified; I10 Essential (primary) hypertension
CPT/HCPCS: 87426; 87804; 87880; 99213; G0463

== ENCOUNTER 2024-07-20 12:22 | Outpatient (CLI) | payer MEDICARE, SELFPAY ==
[2024-07-20 13:42] LABS: Anion Gap 11 mmol/L (4-12); Blood Urea Nitrogen 17 mg/dL (7-17); Calcium 9.6 mg/dL (8.4-10.2); Carbon Dioxide 24 mmol/L (22-30); Chloride 104 mmol/L (98-107); Estimated Glomerular Filt Rate 55; Glucose 124 mg/dL (65-110); Potassium 4.2 mmol/L (3.4-5.0); Sodium 139 mmol/L (137-145)
== END 2024-07-20 12:23 | disposition home or self-care (01) ==
DX: N28.9 Disorder of kidney and ureter, unspecified (principal); I10 Essential (primary) hypertension
CPT/HCPCS: 36415; 80048

== ENCOUNTER 2024-09-16 17:13 | Outpatient (CLI) | payer MEDICARE, SELFPAY ==
[2024-09-16 18:14] LABS: Anion Gap 7 mmol/L (4-12); Blood Urea Nitrogen 19 mg/dL (7-17); Calcium 8.9 mg/dL (8.4-10.2); Carbon Dioxide 25 mmol/L (22-30); Chloride 105 mmol/L (98-107); Estimated Glomerular Filt Rate 54; Glucose 117 mg/dL (65-110); Potassium 3.9 mmol/L (3.4-5.0); Sodium 137 mmol/L (137-145)
== END 2024-09-16 17:14 | disposition home or self-care (01) ==
DX: E87.5 Hyperkalemia (principal); N28.9 Disorder of kidney and ureter, unspecified; I10 Essential (primary) hypertension
CPT/HCPCS: 36415; 80048

== ENCOUNTER 2024-10-14 11:39 | Outpatient (CLI) | payer MEDICARE, SELFPAY ==
[2024-10-14 13:36] LABS: Hematocrit 40.5 % (37.0-47.0); Mean Corpuscular HGB Conc 32.1 g/dl (32-36); Mean Corpuscular Hemoglobin 29.1 pg (26-34); Mean Corpuscular Volume 90.8 fl (80-100); Platelet Count Result 337 k/mm3 (150-375); Red Blood Count 4.46 M/mm3 (4.2-5.4); Red Cell Distribution Width 13.6 % (11.5-14.5); White Blood Count 10.3 K/mm3 (4.5-10.0)
[2024-10-14 13:37] LABS: Add Urine Microscopic? NO; Appearance Urine Clear (Clear); Bilirubin Urine Negative (Negative); Blood Urine Negative (Negative); Color Urine Yellow (Yellow); Glucose Urine UA 1+ mg/dL (Negative); Ketones Urine Negative (Negative); Leukocyte Esterase Ur Negative LEU/UL (Negative); Nitrate Urine Negative (Negative); Protein Urine Negative (Negative); Specific Grav Ur 1.011 (1.001-1.035); Urobilinogen Urine 0.2 mg/dL (<2.0)
[2024-10-14 13:46] LABS: Prothrombin Time 13.9 Seconds (11.1-14.7)
[2024-10-14 13:47] LABS: Partial Thromboplastin Time 24.8 Seconds (22.3-36.8)
[2024-10-14 14:15] LABS: Hemoglobin A1C 7.2 % (<5.7)
--- OUTSIDE RECORDS SUMMARY | 2024-10-17 13:06 | XMS_ITS | Data Portability ---
Author Organization [place] - [facility], DISP[facility] Vascular Address [address] [place] [address] Assessment No assessment recorded. Plan of Treatment Reminders Order Date Submit Date Provider Last Modified By Organization Details Last Modified Time Details Appointments None recorded. Lab None recorded. Referral physical therapist referral - patient has right-sided buttock pain with radiation down her leg consistent with sciatica as well as osteoarthri tis in her right knee please call patient to schedule appointment for physical therapy 2022 023 [email or web address] [facility] (Outpatient Physical Therapy), [address], [place], [address], 3 12:38:38 Procedures None recorded. Surgeries None recorded. Imaging None recorded. Medication Orders Kenalog 40 mg/mL suspension for injection 2022 023 [email or web address] Not available 10:07:54 tramadol 50 mg tablet 2022 023 [facility] #[id number], [address] [place], [address], 21:32:26 Patient TargetsNo targets recorded. Patient Instructions Encounter Date Encounter Id Patient Instructions Last Modified By Organization Details Last Modified Time 02/23/[id number] at this point we elected to inject her knee this is done under sterile technique and patient tolerated well we will see how she progresses with this as well as some tramadol we are going to put her in a physical therapy program and see how she does over time I will see her back for re-evaluation in 6 weeks [email or web address] Not available 02/24/2023 21:34:56 Reason for Referral Physical Therapist Referral for Low back pain patient has right-sided buttock pain with radiation down her leg consistent with sciatica as well as osteoarthritis in her right knee please call patient to schedule appointment for physical therapy Referring Physician: Pedro Isaac, Orthopedic Surgery, Encounter Date: 02/23/2023 Results Created Date Observation Date Name Description Value Unit Range Abnormal Flag Note LastModifiedBy Organization Detail LastModifiedTime 07/29/20 22 2022 XR, knee, 4 or more view No observ ation record ed. [id number] [facility] [address], [place], [address], 01/10/2023 20:44:21 Result Notes None recorded. Problems Name Problem SNOMED Code Status Onset Date Resolution Date Notes Provider Name and Address Organization Details Recorded Time Osteoarthri tis of right knee joint 0496185223178 00 Active 2022 Pedro Isaac MD [address] [place] [address], [id number] , [facility] 3 21:30:25 Low back pain 658769475 Active 2022 Pedro Isaac MD [address] [place] [address], [phone] , [facility] 3 21:32:45 Pain of right knee joint 6042848788967 00 Active 2022 Marianela Marley [facility] 3 15:54:34 Pain of right knee joint 4402962130588 00 Active 2022 Pedro Isaac MD [address] [place] [address], [address] , [facility] 3 15:55:12 Problem Notes None recorded. Procedures Surgical History Date Name Laterality Status Provider Name and Address Organization Details Recorded Time 02/24/20 23 Cortisone Injection (Dequervains/ Greater Trochantric/ Lateral Epicondylitis/ Medial Epicondylitis / Shoulder/ Subacromial Space/ Knee/ Trigger Finger or Plantar Fascia) completed Pedro Isaac MD [address] [place], [address], [facility] 02/24/2023 21:30:11 01/27/20 17 total replacement of right knee joint completed Not Available [facility] 10/02/2022 05:13:17 Hand completed Not Available [facility] 04/2023 05:13:17 Hysterectomy completed Not Available [facility] 10/02/2022 05:13:17 Imaging Results Imaging Date Name Status LastModified by Organiz ation Details LastModified Time 2022 XR, knee, 4 or more view completed [id number] [facility] [address], [place], [address], 01/10/2023 20:44:21 Procedure Notes None recorded. Medical Equipment None Reported. Allergies Allergen ID Allergen Name Allergen Category Reaction Reaction Severity Criticality Documentation Date Start Date Code Code System Note Provider Name and Address Organization Details Recorded Time 120375 Prinivil medicatio n Not available Not available Not available 10/02/2022 91985 4 RxNorm Not Available [facility] 3 05:15:29 749141 acetamino phen / oxycodone medicatio n Not available Not available Not available 10/02/2022 91647 3 RxNorm Not Available [facility] 3 05:15:29 080244 Product containin g penicilli n and antibioti c (product) medicatio n Not available Not available Not available 10/02/2022 99634 05 SNOMED Not Available [facility] 3 05:15:29 224848 losartan medicatio n Not available Not available Not available 10/02/2022 35772 RxNorm Not Available [facility] 3 05:15:29 987922 erythromy clara medicatio n Not available Not available Not available 10/02/2022 4053 RxNorm Not Available [facility] 3 05:15:29 403235 lavender extract food Not available Not available Not available 02/23/2023 10230 67 RxNorm Patsy Kujawa [facility] 3 12:05:40 568211 ragweed pollen environme nt Not available Not available Not available 02/23/2023 78404 UNK Patsy Farrell [facility] 3 12:05:47 820581 Shingrix medicatio n Not available Not available Not available 02/23/2023 23095 26 RxNorm Patsy Farrell [facility] 3 12:05:59 714808 Pneumococ sue vaccine Not available Not available Not available Not available 02/23/2023 75548 7 [facility] 12:06:06 310991 tramadol medicatio n nausea Not available Not available 05/26/2023 66509 RxNorm Marianela - VIVIAN Marley [facility] 3 14:29:46 Medications Name Sig Start Date Stop Date Status Note LastModified by Organization Details LastModified Time metformin 500 mg tablet TAKE 1 TABLET BY MOUTH TWICE A DAY active Not Available Not Available No t Available candesartan 32 mg-hydrochl orothiazide 12.5 mg tablet TAKE 1 TABLET BY MOUTH EVERY DAY active Not Available Not Available No t Available clindamycin HCl 300 mg capsule 02/23 completed Not Available Not Available Not Available hydrocodone 5 mg-acetamin ophen 325 mg tablet Take 1 tablet every 6 hours by oral route. 2022 active Not Available Not Available Not Avai lable prednisone 20 mg tablet 02/23 completed Not Available Not Available Not Available clindamycin HCl 150 mg capsule 02/23 completed Not Available Not Available Not Available Tylenol Arthritis Pain 650 mg tablet,exte nded release Take 2 tablets every 8 hours by oral route as needed. active Not Available Not Available No t Available sulfamethox azole 800 mg-trimetho prim 160 mg tablet TAKE 1 TABLET BY MOUTH EVERY 12 HOURS DIRECTED FOR 3 DAYS active Not Available Not Available No t Available hydrocodone 10 mg-acetamin ophen 325 mg tablet TAKE 1 TABLET BY MOUTH EVERY 6 HOURS active Not Available Not Available No t Available tramadol 50 mg tablet TAKE 1 TABLET BY MOUTH EVERY 6 HOURS active Not Available Not Available No t Available Prevacid 15 mg capsule,del ayed release Take 1 capsule every day by oral route. 2021 active Not Available Not Available Not Demetrius labchuck Kenalog 40 mg/mL suspension for injection Take 40 mg by injection route. 2022 active Not Available Not Available Not Demetrius labchuck meloxicam 7.5 mg tablet TAKE 2 TABLETS BY MOUTH EVERY DAY active Not Available Not Available No t Available Tylenol 500 mg tablet Take 2 tablets every 6 hours by oral route. 02/23 completed Not Available Not Available Not Available simvastatin 20 mg tablet TAKE 1 TABLET BY MOUTH EVERY DAY IN THE EVENING active Not Available Not Available No t Available allopurinol 300 mg tablet TAKE 1 TABLET BY MOUTH EVERY DAY active Not Available Not Available No t Available metoprolol succinate ER 25 mg tablet,exte nded release 24 hr TAKE 1 TABLET BY MOUTH EVERY DAY active Not Available Not Available No t Available methylpredn isolone 4 mg tablets in a dose pack TAKE 6 TABLETS ON DAY 1 DIRECTED ON PACKAGE AND DECREASE BY 1 TAB EACH DAY FOR A TOTAL OF 6 DAYS active Not Available Not Available No t Available ondansetron 4 mg disintegrat ing tablet active Not Available Not Available N ot Available Arthritis Rub Extra Strength Stop Pain brand of arthritis rub 2021 active Not Available Not Available Not Demetrius labchuck ProAir HFA 90 mcg/actuati on aerosol inhaler Inhale 2 puffs every 4 hours by inhalatio n route. 2021 active Not Available Not Available Not Demetrius labchuck Caltrate 600 plus D 1 daily 2021 active Not Available Not Available Not Avai lable TRUEplus Lancets 33 gauge TEST ONCE DAILY DX: E11.9 active Not Available Not Available No t Available True Metrix Glucose Test Strip USE TO TEST DAILY FOR DX E11.9 active Not Available Not Available No t Available Vitals Date Recorded Body height Provider Name an d Address Organization Details Last Updated DateTime 02/23/2023 154.94 cm Patsy Farrell [facility] 02/23/2023 12:17:31 Date Recorded Body mass index (BMI) Body weight Provider Name and Address Organization Details Last Updated DateTime 02/23/2023 37.9 kg/m2 13534.63 g [facility]23 12:04:39 Date Recorded Pain severity - 0-10 verbal numeric rating [Score] - Reported Provider Name and Address Organization Details Last Updated DateTime 02/23/2023 6 [facility] 02/23/2023 12:04:41 Date Recorded Pain severity - 0-10 verbal numeric rating [Score] - Reported Body weight Provider Name and Address Organization Details Last Updated DateTime 10/02/2022 6 72413.1 g Not Available [facility] 05:14:02 Social History Question Answer Notes LastModified by Organizat ion Details LastModified Time Tobacco Smoking Status Never Smoker Not Available [facility] 10/02/2022 05:13:11 What Was The Date Of Your Most Recent Tobacco Screening? 02/23/2023 [email or web address] Information not available 02/23/2023 Sex: Unknown Functional Status None recorded. Mental Status None recorded. Family History Nothing Reported. Medical History No medical history recorded. Gynecological HistoryNo gynecological history recorded. Obstetrics History GPAL:G 0 P 0 0 0 0 Past Encounters Encounter ID Performer Location Encounter Start Date Encounter Closed Date Diagnosis/Indication Diagnosis SNOMED-CT Code Diagnosis ICD10 Code Diagnosis Note [id number] [facility] [address] [place] [address] 07/07/2022 00:00:00 07/07/2022 16:45:05 [id number] [facility] [address] [place] [address] 2022 00:00:00 07/29/2022 07:02:20 [id number] Pedro Isaac MD [facility] [address] [place] [address] 02/23/2023 11:11:26 02/27/2023 03:53:04 Osteoarthritis of right knee joint 4919875601 92807 M17.11 Low back pain 845189445 M54.50 Health Concerns Section Related Observation LastModified by Organization Detai ls LastModified Time None Recorded Concern Status LastModified by Organization Details LastModified Time None Recorded Advance Directives Directive None Recorded Payers Encounter Date Sequence Insurance Name Policy Number Policy Russell Covered Member ID Russell Member ID Guarantor Name 02/23/2023 1 [place] Natalia Rice [id number] Natalia Rice 02/23/2023 2 [employer] - [employer] (MEDICARE SUPPLEMENT) Natalia Rice [id number] Natalia Rice Notes Date Note Type Note Provider Name and Address Organization Details Recorded Time 02/23/2023 text/html Natalia is a 72-year-old patient returns for evaluation of increasing pain in her right knee she has also developed pain in her lower back. She has had a history of trochanteric bursitis in her hip but this is doing well x-rays at [facility] were performed on her knee which revealed [id number] degenerative changes. She has been taking topical Tylenol Arthritis. Most of her discomfort is in her lower back region. Pedro Isaac MD [address] [place], [address], [facility] 02/24/2023 21:35:17 OBGyn Episode No OBEpisode recorded.
--- OUTSIDE RECORDS SUMMARY | 2024-10-17 13:06 | XMS_ITS | Data Portability ---
Author Organization [facility] Address [address] [place] [address] Care Team Providers Care Construction Field Engineer Name Role Phone RALPH MARIE Car Supervisor Assessment No assessment recorded. Plan of Treatment Reminders Order Date Submit Date Provider Last Modified By Organization Details Last Modified Time Details Appointments None recorded . Lab None recorded . Referral rheumato logist referral 2017 018 shirinhillkhang Isaac MD, [address] [place], [address], 8 13:00:32 Procedures None recorded . Surgeries None recorded . Imaging electroc ardiogra m 2017 018 SUGEY In-Office Order, Internal Use Only DO Not Attach Compendium DO Not Attach Compendium, Do Not Delete/merge, [id number] 8 10:05:16 Medication Orders levoflox acin 500 mg tablet [address] [facility], [address], 8 11:24:39 Cheratus sin AC 10 mg-100 mg/5 mL oral liquid [address] [facility], [address], 8 11:25:30 candesar isaac 32 mg-hydro chloroth iazide 12.5 mg tablet 2017 018 INTERFACE [facility], [address], [place], [address], 8 11:41:15 levoflox acin 750 mg tablet 2018 019 INTERFACE [facility], [address] [place], [address], 9 15:11:25 albutero l sulfate HFA 90 mcg/actu ation aerosol inhaler 2018 019 INTERFACE [facility], [address], [place], [address], 9 15:16:30 Patient TargetsNo targets recorded. Patient Instructions Encounter Date Encounter Id Patient Instructions Last Modified By Organization Details Last Modified Time 12/18/[id number] Take medications as prescribed. Return in 1 week if symptoms worsen. home and rest Cool mist vaporizer in bedroom. Increase oral fluids Menthol cough drops, such as Holley? s Mentholyptus, or Charly? s Vaporub to chest to help with cough, and open nasal passages. Robitussin, generic, 2 teaspoon as directed on package to help loosen secretions, soothe throat, and help cough. May use Robitussin CF, or DM if this doesn? t help with the coughing. May use over the counter pseudoephedrine (if no high blood pressure) and Benadryl as directed on package for decongestant Equal parts honey and lemon juice mixture, give 1 to 2 teaspoon as needed for cough. Over the counter Tylenol or Ibuprofen as directed on package as needed for pain and fever. Warm oral fluids such as warm tea, with honey and lemon juice, or chicken noodle soup Return to clinic for any concerns, or worsening of symptoms, or no improvement in 7 days Labs next visit in 3 months Not available 12/18/2017 16:42:49 03/23/2018 [id number] osteoarthritis: care instructions [email or web address] Not available 03/23/2018 11:44:19 avoid added salt , get at least 64oz of water to drink daily, take a 30 minute nonstop walk daily, take your medicine as prescribed, monitor your blood pressure occasionally, especially with any symptoms such as headache or vision changes. Uncontrolled blood pressure can lead to increased risk of heart attack and stroke, kidney dialysis please return in 3 months [email or web address] Not available 03/26/2018 10:04:28 11/23/2018 [id number] Take antibiotics as prescribed until gone, they work for longer than they are taken. Cool mist vaporizer in bedroom. Menthol cough drops, such as Holley? s Mentholyptus, to help with cough, and open nasal passages. Nasal saline spray, Nasogel, or rinse as directed on package to help loosen secretions. Gargle and spit warm salt water as needed to soothe throat and cut secretions. Robitussin, generic, as directed on package to help loosen secretions, soothe throat, and help cough. Try Robitussin CF (generic). Equal parts honey and lemon juice mixture; give one teaspoon as needed for cough. Over the counter Tylenol or Ibuprofen as directed on package as needed for pain and fever. Over the counter decongestants such as Pseudophedrine HCL in the mornings or Benadryl at bedtime as directed on package to help dry secretions. Return to clinic for any concerns, or worsening of symptoms, or no improvement in 7 days. May need a dose of steroid to help dry secretions. 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 Referral for Osteoarthritis Referring Physician: Marcelino Garcia, Family Medicine, Encounter Date: 03/23/2018 Results Created Date Observation Date Name Description Value Unit Range Abnormal Flag Note LastModifiedBy Organization Detail LastModifiedTime 03/12/20 18 03/13/2018 CBC w/ auto diff WBC 8.0 x10e3 /uL 3.4-10 .8 Not Available [facility] ([facility]) [address] [facility], [place], [address], 03/13/2018 17:06:39 03/12/20 18 03/13/2018 CBC w/ auto diff RBC 5.03 x10e6 /uL 3.77-5 .28 Not Available [facility] ([facility]) [address] [facility], [place], [address], 03/13/2018 17:06:39 03/12/20 18 03/13/2018 CBC w/ auto diff hemoglobin 13.6 g/dL 11.1-1 5.9 Not Available [facility] ([facility]) [address] [facility], [place], [address], 03/13/2018 17:06:39 03/12/20 18 03/13/2018 CBC w/ auto diff hematocrit 42.0 % 34.0-4 6.6 Not Available [facility] ([facility]) [address] [place], [address], 03/13/2018 17:06:39 03/12/20 18 03/13/2018 CBC w/ auto diff MCV 84 fL 79-97 Not Available [facility] ([facility]) [address] [place], [address], 03/13/2018 17:06:39 03/12/20 18 03/13/2018 CBC w/ auto diff MCH 27.0 pg 26.6-3 3.0 Not Available [facility] ([facility]) [address] [facility], [place], [address], 03/13/2018 17:06:39 03/12/20 18 03/13/2018 CBC w/ auto diff MCHC 32.4 g/dL 31.5-3 5.7 Not Available [facility] ([facility]) [address] [facility], [place], [address], 03/13/2018 17:06:39 03/12/20 18 03/13/2018 CBC w/ auto diff RDW 14.2 % 12.3-1 5.4 Not Available [facility] ([facility]) [address] [facility], [place], [address], 03/13/2018 17:06:39 03/12/20 18 03/13/2018 CBC w/ auto diff platelets 305 x10e3 /uL 150-37 9 Not Available [facility] ([facility]) [address] [place], [address], 03/13/2018 17:06:39 03/12/20 18 03/13/2018 CBC w/ auto diff neutrophils 68 % not estab. Not Available [facility] ([facility]) [address] [place], [address], 03/13/2018 17:06:39 03/12/20 18 03/13/2018 CBC w/ auto diff lymphs 24 % not estab. Not Available [facility] ([facility]) [address] [place], [address], 03/13/2018 17:06:39 03/12/20 18 03/13/2018 CBC w/ auto diff monocytes 6 % not estab. Not Available [facility] ([facility]) [address] [place], [address], 03/13/2018 17:06:39 03/12/20 18 03/13/2018 CBC w/ auto diff eos 2 % not estab. Not Available [facility] ([facility]) [address] [place], [address], 03/13/2018 17:06:39 03/12/20 18 03/13/2018 CBC w/ auto diff basos 0 % not estab. Not Available [facility] ([facility]) [address] [place], [address], 03/13/2018 17:06:39 03/12/20 18 03/13/2018 CBC w/ auto diff immature cells ASSISTANT IMPORT MANAGER Not Available [facility] ([facility]) [address] [place], [address], 03/13/2018 17:06:39 03/12/20 18 03/13/2018 CBC w/ auto diff neutrophils (absolute) 5.4 x10e3 /uL 1.4-7. 0 Not Available [facility] ([facility]) [address] [place], [address], 03/13/2018 17:06:39 03/12/20 18 03/13/2018 CBC w/ auto diff lymphs (absolute) 1.9 x10e3 /uL 0.7-3. 1 Not Available [facility] ([facility]) [address] [facility], [place], [address], 03/13/2018 17:06:39 03/12/20 18 03/13/2018 CBC w/ auto diff monocytes(ab solute) 0.5 x10e3 /uL 0.1-0. 9 Not Available [facility] ([facility]) [address] [facility], [place], [address], 03/13/2018 17:06:39 03/12/20 18 03/13/2018 CBC w/ auto diff eos (absolute) 0.2 x10e3 /uL 0.0-0. 4 Not Available [facility] ([facility]) [address] [facility], [place], [address], 03/13/2018 17:06:39 03/12/20 18 03/13/2018 CBC w/ auto diff baso (absolute) 0.0 x10e3 /uL 0.0-0. 2 Not Available [facility] ([facility]) [address] [facility], [place], [address], 03/13/2018 17:06:39 03/12/20 18 03/13/2018 CBC w/ auto diff immature granulocytes 0 % not estab. Not Available [facility] ([facility]) [address] [facility], [place], [address], 03/13/2018 17:06:39 03/12/20 18 03/13/2018 CBC w/ auto diff immature grans (abs) 0.0 x10e3 /uL 0.0-0. 1 Not Available [facility] ([facility]) [address] [facility], [place], [address], 03/13/2018 17:06:39 03/12/20 18 03/13/2018 CBC w/ auto diff NRBC ASSISTANT IMPORT MANAGER Not Available [facility] ([facility]) [address] [facility] [place], [address], 03/13/2018 17:06:39 03/12/20 18 03/13/2018 CBC w/ auto diff hematology comments: ASSISTANT IMPORT MANAGER Not Available [facility] ([facility]) [address] [facility] [place], [address], 03/13/2018 17:06:39 03/12/20 18 03/13/2018 CMP, serum or plasm a glucose 122 mg/dL 65-99 above high normal Not Available [facility] ([facility]) [address] [facility] [place], [address], 03/13/2018 17:06:40 03/12/20 18 03/13/2018 CMP, serum or plasm a BUN 25 mg/dL 8-27 Not Available [facility] ([facility]) [address] [facility] [place], [address], 03/13/2018 17:06:40 03/12/20 18 03/13/2018 CMP, serum or plasm a creatinine 0.98 mg/dL 0.57-1 .00 Not Available [facility] ([facility]) [address] [facility] [place], [address], 03/13/2018 17:06:40 03/12/20 18 03/13/2018 CMP, serum or plasm a eGFR if nonafricn AM 60 mL/mi n/1.7 3 >59 Not Available [facility] ([facility]) [address] [facility] [place], [address], 03/13/2018 17:06:40 03/12/20 18 03/13/2018 CMP, serum or plasm a eGFR if africn AM 70 mL/mi n/1.7 3 >59 Not Available [facility] ([facility]) [address] [facility] [place], [address], 03/13/2018 17:06:40 03/12/20 18 03/13/2018 CMP, serum or plasm a BUN/creatini ne ratio 26 12-28 Not Available [facility] ([facility]) [address] [place], [address], 03/13/2018 17:06:40 03/12/20 18 03/13/2018 CMP, serum or plasm a sodium 138 mmol/ L 134-14 4 Not Available [facility] ([facility]) [address] [place], [address], 03/13/2018 17:06:40 03/12/20 18 03/13/2018 CMP, serum or plasm a potassium 4.5 mmol/ L 3.5-5. 2 Not Available [facility] ([facility]) [address] [place], [address], 03/13/2018 17:06:40 03/12/20 18 03/13/2018 CMP, serum or plasm a chloride 99 mmol/ L 96-106 Not Available [facility] ([facility]) [address] [place], [address], 03/13/2018 17:06:40 03/12/20 18 03/13/2018 CMP, serum or plasm a carbon dioxide, total 22 mmol/ L 20-29 Ple ase note refer ence ronny cha Not Available [facility] ([facility]) [address] [place], [address], 03/13/2018 17:06:40 03/12/20 18 03/13/2018 CMP, serum or plasm a calcium 9.5 mg/dL 8.7-10 .3 Not Available [facility] ([facility]) [address] [place], [address], 03/13/2018 17:06:40 03/12/20 18 03/13/2018 CMP, serum or plasm a protein, total 7.3 g/dL 6.0-8. 5 Not Available [facility] [address] [facility] [place], [address], 03/13/2018 17:06:40 03/12/20 18 03/13/2018 CMP, serum or plasm a albumin 4.1 g/dL 3.6-4. 8 Not Available [facility] ([facility] [address] [facility] [place], [address], 03/13/2018 17:06:40 03/12/20 18 03/13/2018 CMP, serum or plasm a globulin, total 3.2 g/dL 1.5-4. 5 Not Available [facility] ([facility] [address] [facility] [place], [address], 03/13/2018 17:06:40 03/12/20 18 03/13/2018 CMP, serum or plasm a A/G ratio 1.3 1.2-2. 2 Not Available [facility] ([facility]) [address] [facility] [place], [address], 03/13/2018 17:06:40 03/12/20 18 03/13/2018 CMP, serum or plasm a bilirubin, total 0.3 mg/dL 0.0-1. 2 Not Available [facility] ([facility]) [address] [facility] [place], [address], 03/13/2018 17:06:40 03/12/20 18 03/13/2018 CMP, serum or plasm a alkaline phosphatase 89 IU/L 39-117 Not Available [facility] ([facility]) [address] [facility] [place], [address], 03/13/2018 17:06:40 03/12/20 18 03/13/2018 CMP, serum or plasm a AST (SGOT) 16 IU/L 0-40 Not Available [facility] ([facility]) [address] [facility] [place], [address], 03/13/2018 17:06:40 03/12/20 18 03/13/2018 CMP, serum or plasm a ALT (SGPT) 15 IU/L 0-32 Not Available [facility] ([facility]) [address] [facility], [place], [address], 03/13/2018 17:06:40 03/12/20 18 03/13/2018 lipid panel , serum cholesterol, total 171 mg/dL 100-19 9 Not Available [facility] ([facility]) [address] [facility], [place], [address], 03/13/2018 17:06:40 03/12/20 18 03/13/2018 lipid panel , serum triglyceride s 136 mg/dL 0-149 Not Available [facility] ([facility]) [address] [facility], [place], [address], 03/13/2018 17:06:40 03/12/20 18 03/13/2018 lipid panel , serum HDL cholesterol 44 mg/dL >39 Not Available [facility] ([facility]) [address] [facility], [place], [address], 03/13/2018 17:06:40 03/12/20 18 03/13/2018 lipid panel , serum VLDL cholesterol sue 27 mg/dL 5-40 Not Available [facility] ([facility]) [address] [facility], [place], [address], 03/13/2018 17:06:40 03/12/20 18 03/13/2018 lipid panel , serum LDL cholesterol calc 100 mg/dL 0-99 above high normal Not Available [facility] ([facility]) [address] [facility], [place], [address], 03/13/2018 17:06:40 03/12/20 18 03/13/2018 lipid panel , serum comment: ASSISTANT IMPORT MANAGER Not Available [facility] ([facility]) [address] [facility], [place], [address], 03/13/2018 17:06:40 03/12/20 18 03/13/2018 cardi ovasc ular asses sment panel , serum interpretati on Note Suppl ement al repor t is avail able. Not Available [facility] ([facility]) [address] [facility], [place], [address], 03/13/2018 17:06:41 03/12/20 18 03/13/2018 cardi ovasc ular asses sment panel , serum pdf image . Not Available [facility] ([facility]) [address] [facility], [place], [address], 03/13/2018 17:06:41 03/12/20 18 03/13/2018 speci men statu s repor t specimen status report TNP No Polym edco OC sampl ing bottl e recei britta. TEST: 40020 9 Occul t Blood , Fecal , [place] Not Available [facility] ([facility]) [address] [facility], [place], [address], 03/13/2018 17:06:41 11/15/19 20 11/15/2019 surgi sue patho logy study raúl [facility] surgical pathology Premi er Patho logy [address] [facility] [address] Phone : [phone] Fax: Depar tment of Patho logy Patho logy Repor t SURGI SUE FINAL REPOR T Patie nt Name: OSCAR LEE mary# : [id number] : 1949 (Age: 69) Locat ion: [facility] Gende r: F Colle cted Date: 2019 Med Rec #: [id number] Date Recei britta: 2019 Date Repor nuria: 2019 Provi eliseo: AMAN Saravia NP Speci men(s ) A: Polyp s, ascen ding colon B: Polyp , sigmo id colon C: Polyp s, rectu m Final Patho logic Diagn osis A. COLON , ASCEN DING, POLYP S; BIOPS Y: -FRAG MENTS OF TUBUL AR ADENO MA -NEGA TIVE FOR HIGH- GRADE DYSPL GEOVANY B. SIGMO ID COLON , POLYP ; BIOPS Y: -FRAG MENTS OF TUBUL AR ADENO MA -NEGA TIVE FOR HIGH- GRADE DYSPL GEOVANY C. RECTU M, POLYP S; BIOPS Y: -FRAG MENTS OF COLON IC MUCOS A WITH REACT CHANCE AND HYPER PLAST IC TURK ES -NEGA TIVE FOR DYSPL GEOVANY Sparkle ctron icall y Romana d Out YOGESH Jane MD Patho logis t [facility]:i fh Micro scopi c Descr iptio n: Micro scopi c exami natio n is perfo rmed and the findi ngs suppo rt the final diagn osis. Clini sue Histo ry Not provi ded Gross Descr iptio n A. The speci men is recei britta in a singl e forma cecilia-f illed conta iner label ed with the patie nt's name (Ar raman), (07/28 ), and poly ps ascen ding colon . The speci men consi sts of a 0.8 x 0.7 x 0.3 [address] gate of multi ple pink- isaac, soft tissu e fragm ents. The speci men is entir manjit submi tted intac t as A1. B. The speci men is recei britta in a singl e forma cecilia-f illed conta iner label ed with the patie nt's name (Ar raman), (07/28 ), and poly p sigmo id colon . The speci men consi sts of a 0.9 x 0.5 x 0.[address] of multi ple pink- isaac, soft tissu e fragm ents. The speci men is entir manjit submi tted intac t as B1. C. The speci men is recei britta in a singl e forma cecilia-f illed conta iner label ed with the patie nt's name (Ar Melendez r), (07/28 ), and poly ps rectu m. The speci men consi sts of two pink- isaac, soft tissu e fragm ents each measu ring 0.3 cm in [facility]. The speci men is entir manjit submi tted intac t as C1. :ifh Geraldo ng Fee Code( s): 34653 (3) Not Available [facility] ([facility]) [address] [place], [address], 11/19/2019 13:19:09 11/28/19 18 11/17/2017 pulse oxime try (PROC ) No observ ation record ed. BARCODE Not Available 2017 12:29:55 12/21/19 18 12/18/2017 elect verena marcos am No observ ation record ed. BARCODE Not Available 2017 10:05:16 Result Notes None recorded. Problems Name Problem SNOMED Code Status Onset Date Resolution Date Notes Provider Name and Address Organization Details Recorded Time Respiratory tract infection 933536607 Active 2018 Marcelino SCALESC Attn: Miah castillo,[address] [place], [place], [address] [place] [address] 2, [facility] 9 15:10:43 Essential hypertension 26618396 Active Marcelino SCALESC Attn: Miah castillo,[address] [place], [place], [address] [place] [address] 2, [facility] 6 21:24:12 Musculoskeleta l symptom 99010379 Active Poornima Luna null, [place] - [facility] 5 13:18:24 Hyperlipidemia 88941549 Active [place] Valles Attn: Miah castillo,[address] [place], [address], [place] - [facility] 6 20:47:20 Impaired glucose tolerance 4272531 Active [place] Valles Attn: Miah castillo,[address] [place], [address], [facility] - [facility] 6 20:47:20 Joint pain 61335410 Active Poornima Luna null, [place] - [facility] 5 13:18:24 Vitamin D deficiency 29126435 Active Odalys Wetzel ASSISTANT IMPORT MANAGER-C Attn: Miah castillo,[address] [facility], [place], [address], [facility] - [facility] 6 20:47:20 Osteoarthritis 640698768 Active Marcelino Jose ASSISTANT IMPORT MANAGER-C Attn: Miah g,[address] [facility], [place], [address], [facility] - [facility] 6 21:24:12 Upper respiratory infection 76981610 Active Poornima willis, [place] - [facility] 4 12:24:26 Problem Notes None recorded. Procedures Surgical History Date Name Laterality Status Provider Name and Address Organization Details Recorded Time Arthroscopic Surgery completed December KERRI Carpenter [facility] 09/15/2014 12:16:27 Hysterectomy completed December KERRI Carpenter [facility] 09/15/2014 12:16:27 Imaging Results Imaging Date Name Status LastModified by Organization Details LastModified Time 11/17/2017 pulse oximetry (PROC) completed BARCODE Information not available 11/27/2017 12:29:55 12/18/2017 electrocardiogram completed BARCODE Informa tion not available 12/20/2017 10:05:16 Procedure Notes None recorded. Medical Equipment None Reported. Allergies Allergen ID Allergen Name Allergen Category Reaction Reaction Severity Criticality Documentation Date Start Date Code Code System Note Provider Name and Address Organization Details Recorded Time [id number] 2824e Pneumococ sue vaccine Not available Not available Not available Not available 08/01/2017 52877 7 RxNorm Not Available Not Available Not Available [id number] ae407 amlodipin e / benazepri l medicatio n angioedem a moderate Not available 03/23/2018 82966 3 RxNorm Not Available Not Available Not Available [id number] 2824e Product containin g penicilli n and antibioti c (product) medicatio n Not available Not available Not available 09/15/2014 81565 05 SNOMED Not Available Not Available Not Available [id number] [id number] 2824e erythromy clara medicatio n Not available Not available Not available 09/15/2014 4053 RxNorm Not Available Not Available Not Available [id number] 3841f acetamino phen / oxycodone medicatio n vomiting Not available Not available 03/17/2017 22952 3 RxNorm Not Available Not Available Not Available Medications Name Sig Start Date Stop Date Status Note LastModified by Organization Details LastModified Time Prescript ion - Clarifica tion 11/06 completed Not Available Not Available Not Available losartan 50 mg tablet Take 1 tablet every day by oral route for 90 days. 11/06 completed Not Available Not Available Not Available cyclobenz aprine 10 mg tablet Take 1 tablet every 12 hours by oral route as needed. active Not Available Not Available No t Available prednison e 10 mg tablet Take 4 tablets every day by oral route. 11/23 completed Not Available Not Available Not Available candesart an 32 mg-hydroc hlorothia zide 12.5 mg tablet Take 1 tablet every day by oral route with meals. active Not Available Not Available No t Available clindamyc in HCl 300 mg capsule 11/23 completed Not Available Not Available Not Available azithromy calra 250 mg tablet TAKE 2 TABLETS (500 MG) BY ORAL ROUTE ONCE DAILY FOR 1 DAY THEN 1 TABLET (250 MG) BY ORAL ROUTE ONCE DAILY FOR 4 DAYS active Not Available Not Available No t Available hydrocodo ne 5 mg-acetam inophen 325 mg tablet 12/18 completed Not Available Not Available Not Available lisinopri l 20 mg tablet Take 1 tablet every day by oral route for 30 days. 03/23 completed Not Available Not Available Not Available prednison e 20 mg tablet Take 2 tablets every day by oral route with breakfas t for 7 days. 11/22 completed Not Available Not Available Not Available clindamyc in HCl 150 mg capsule 11/23 completed Not Available Not Available Not Available meloxicam 7.5 mg tablet TAKE 1 OR 2 TABLETS DAILY NEEDED active Not Available Not Available No t Available doxycycli ne monohydra te 100 mg capsule Take 1 capsule twice a day by oral route for 10 days. 11/06 completed Not Available Not Available Not Available simvastat in 20 mg tablet TAKE ONE TABLET DAILY EVERY EVENING active Not Available Not Available No t Available hydrochlo rothiazid e 12.5 mg capsule TAKE ONE CAPSULE DAILY 03/08 completed Not Available Not Available Not Available candesart an 32 mg tablet Take 1 tablet every day by oral route for 90 days. 11/06 completed Not Available Not Available Not Available hydrochlo rothiazid e 25 mg tablet Take 1 tablet every day by oral route. active Not Available Not Available No t Available mupirocin 2 % topical ointment 11/22 completed Not Available Not Available Not Available levofloxa clara 500 mg tablet Take 1 tablet every 24 hours by oral route for 7 days. 03/23 completed Not Available Not Available Not Available levofloxa clara 750 mg tablet Take 1 tablet every day by oral route for 8 days. active Not Available Not Available No t Available albuterol sulfate HFA 90 mcg/actua tion aerosol inhaler Inhale 2 puffs every 6 hours by inhalati on route as needed for cough, wheeze, or shortnes s of breath. 2018 active Not Available Not Available Not Avai lable metoprolo l tartrate 25 mg tablet Take 1 tablet every day by oral route for 90 days. 03/17 completed Not Available Not Available Not Available Vytorin 10 mg-40 mg tablet Take 1 tablet every day by oral route. 07/23 completed Not Available Not Available Not Available hydrochlo rothiazid e 12.5 mg tablet Take 1 tablet every day by oral route for 90 days. 03/08 completed 11/22/17: TAKES 2 TABLETS DAILY Not Available Not Available Not Available Virtussin AC 10 mg-100 mg/5 mL oral liquid Take 10 mL every 4-6 hours by oral route as needed. 03/23 completed Not Available Not Available Not Available Vitals Date Recorded Body height Provider Name an d Address Organization Details Last Updated DateTime 12/18/2017 152.4 cm EVELYN Guzmán SI 12/19/19 18 15:43:53 Date Recorded Heart rate Provider Name an d Address Organization Details Last Updated DateTime 12/18/2017 96 /min EVELYN Guzmán [facility] 12/19/19 18 15:48:39 Date Recorded Respiratory rate Provider Name a nd Address Organization Details Last Updated DateTime 12/18/2017 18 /min Pricilla Aaltorre LPN [facility] 12/19/19 18 15:48:51 Date Recorded Body temperature Provider Name a nd Address Organization Details Last Updated DateTime 12/18/2017 98.4 [degF] Pricilla Alatorre LPN [facility] 018 15:49:41 Date Recorded Body height Provider Name an d Address Organization Details Last Updated DateTime 03/23/2018 152.4 cm KERRI Da Silva [facility] 03/23 11:20:06 Date Recorded Body mass index (BMI) Body weight Provider Name and Address Organization Details Last Updated DateTime 03/23/2018 40.2 kg/m2 91797.03 g KERRI Da Silva [facility] 03/23/2018 11:21:46 Date Recorded Respiratory rate Provider Name a nd Address Organization Details Last Updated DateTime 03/23/2018 18 /min KERRI Da Silva [facility] 03/23/2018 11:21:52 Date Recorded Heart rate Provider Name an d Address Organization Details Last Updated DateTime 03/23/2018 80 /min KERRI Da Silva [facility] 03/23 11:28:24 Date Recorded Body height Provider Name an d Address Organization Details Last Updated DateTime 11/23/2018 152.4 cm KERRI Da Silva [facility] 11/23 15:07:01 Date Recorded Body mass index (BMI) Body weight Provider Name and Address Organization Details Last Updated DateTime 11/23/2018 41.2 kg/m2 06224.99 g KERRI Da Silva [facility] 11/23/2018 15:07:13 Date Recorded Respiratory rate Provider Name a nd Address Organization Details Last Updated DateTime 11/23/2018 18 /min KERRI Da Silva [facility] 11/23/2018 15:07:15 Date Recorded Body temperature Provider Name a nd Address Organization Details Last Updated DateTime 11/23/2018 98.7 [degF] KERRI Da Silva [facility] 11/23/2018 15:07:18 Date Recorded Heart rate Provider Name an d Address Organization Details Last Updated DateTime 11/23/2018 80 /min KERRI Da Silva [facility] 11/23 15:07:52 Date Recorded Systolic blood pressure Diastolic blood pressure Provider Name and Address Organization Details Last Updated DateTime 12/18/2017 166 mm[Hg] 84 mm[Hg] Pricilla Alatorre LPN [facility] 12/18/2017 15:48:48 Date Recorded Systolic blood pressure Diastolic blood pressure Provider Name and Address Organization Details Last Updated DateTime 03/23/2018 134 mm[Hg] 80 mm[Hg] Noni Luna RN [facility] 03/23/2018 11:28:18 Date Recorded Systolic blood pressure Diastolic blood pressure Provider Name and Address Organization Details Last Updated DateTime 11/23/2018 140 mm[Hg] 80 mm[Hg] Noni Luna RN [facility] 11/23/2018 15:07:09 Social History Question Answer Notes LastModified by Organizat ion Details LastModified Time Tobacco Smoking Status Never Smoker December KERRI Carpenter, [facility] 09/15/2014 12:17:34 What Is Your Level Of Alcohol Consumption? Occasional Information not available 09/15/2014 What Was The Date Of Your Most Recent Tobacco Screening? 11/06/2017 Information n ot available 04/18/2019 Sex: Unknown Functional Status None recorded. Mental Status None recorded. Family History Relationship Description Onset Age of this Age Resolved Age Notes LastModified by Organization Details LastModified Time Mother Diabetes mellitus [email or web address] Not available 2015 14:40:21 Mother Heart disease [email or web address] Not available 2015 14:40:21 Mother Hypertensive disorder [email or web address] Not available 2015 14:40:21 Mother Hypercholest erolemia [email or web address] Not available 2015 14:40:21 Mother Osteoporosis Not availa ble 10/13/2015 14:40:21 Medical History Condition Response High Blood Pressure Y High Cholesterol Y Gynecological History Statement/Question Response If Post Menopausal, Age at Menopause 43 Obstetrics History GPAL:G 0 P 0 0 0 0 Immunizations Vaccine Type Date Status Note Provider Nam e and Address Organization Details Recorded Time Influenza, split virus, quadrivalent, preservative 6 completed Not Available [facility] 10/12/2019 02:32:32 Influenza, split virus, quadrivalent, preservative 7 completed Not Available [facility] 10/12/2019 02:50:28 Tdap 7 completed Not Available [facility] 10/12/2019 02:39:53 Influenza, split virus, quadrivalent, preservative 8 completed Not Available [facility] 10/12/2019 02:43:07 Influenza, split virus, quadrivalent, PF 5 completed Not Available [facility] 10/12/2019 02:32:08 Past Encounters Encounter ID Performer Location Encounter Start Date Encounter Closed Date Diagnosis/Indication Diagnosis SNOMED-CT Code Diagnosis ICD10 Code Diagnosis Note [id number] [facility] ([facility] [address] [place] [address] 09/15/2014 12:02:48 09/15/2014 12:32:08 Upper respiratory infection 77205009 [id number] Poornima Luna [facility] ([facility] [address] [place] [address] 07/23/2015 11:24:12 07/23/2015 13:18:58 Essential hypertension 33007281 I10 Musculoske letal symptom 14710625 R29.91 Hyperlipidemia 71251956 E78.5 Impaired g lucose tolerance 5463325 R73.02 Joint pain 55627594 M25. 50 Offered referral to rheumatolo gist; pt will consider & call if desires to proceed with referral Active or passive immunization 482780270 Z23 [id number] Ira Dunia [facility] ([facility] [address] [place] [address] 10/01/2015 11:58:20 10/01/2015 14:37:[id number] [facility] ([facility] [address] [place] [address] 10/13/2015 14:20:56 10/13/2015 20:48:04 Hyperlipidemia 28577330 E78.5 continue Simvastati n and check lipids 3 months with LFTs Impaired g lucose tolerance 0637408 R73.02 Dietary handout Keep working on diet and increased exercise, weight loss Essential hypertension 53435351 I10 Screening for malignant neoplasm of breast 050133338 Z12.39 Recommend yearly mammograms after age 50 Screening for malignant neoplasm of colon 814705420 Z12.11 COLONOSCOP Y RECOMMENDE D AT 50 YRS OF AGE If you decline Colonoscop y, will ask you to do yearly stool cards for blood in the stool. Postmenopausal state 764 69869 Z78.0 Calcium 600mg twice daily (may take once daily if you take in several dairy products/s ervings daily) Vitamin D 1000iu daily Vitamin D deficiency 347 19743 E55.9 Check levels with next lab test. Osteoarthritis 161733621 M19.90 trial of Mobic for OA symptoms [id number] Marcelino Garcia NP-C [facility] ([facility]) [address] [place] [address] 03/21/2016 11:09:44 03/21/2016 15:56:01 Essential hypertension 01362268 I10 Osteoarthritis 862400668 M19.90 [id number] Lily Carpenter RN [facility] ([facility]) [address] [place] [address] 07/01/2016 10:44:35 07/01/2016 11:03:01 Active or passive immunization 122417175 Z23 [id number] Marcelino Garcia NP-C [facility] ([facility]) [address] [place] [address] 12/08/2016 09:45:54 12/09/2016 10:23:51 Pain in left knee 0403836516 18823 M25.562 Arthritis 8195489 M19.90 Adult heal th examination 654287115 Z00.01 Fatigue 08389628 R53.83 Essential hypertension 69918509 I10 Obesity 385247233 E66.9 [id number] Marcelino Garcia NP-C [facility] ([facility]) [address] [place] [address] 03/17/2017 13:49:43 03/20/2017 14:56:11 Replacement of total knee joint 359247557 Z96.361 [id number] Marcelino Garcia NP-C [facility] ([facility]) [address] [place] [address] 08/01/2017 15:31:19 08/07/2017 11:11:39 Cough 90403681 R05 Respirator y tract infection 112646169 J98.8 Essential hypertension 46958735 I10 Osteoarthritis 811137325 M19.90 [id number] Noni Luna RN [facility] ([facility]) [address] [place] [address] 08/08/2017 12:16:12 08/08/2017 15:38:21 Administration of influenza vaccine 15855923 Z23 Active or passive immunization 012943338 Z23 [id number] Marcelino Garcia NP-C [facility] ([facility]) [address] [place] [address] 11/06/2017 15:25:43 11/08/2017 18:07:03 Essential hypertension 23697018 I10 Sleep john sarai disturbance 52255683 G47.9 Irregular heart beat 361 200403 R00.8 Snoring 41466631 R06.83 Joint pain 10178423 M25. 50 [id number] Marcelino Garcia ASSISTANT IMPORT MANAGER-C [facility] ([facility]/) [address] [place] [address] 11/22/2017 14:30:57 11/23/2017 12:42:48 Essential hypertension 90290067 I10 Sleep john sarai disturbance 83693187 G47.9 will consider sleep study test at a later date Irregular heart beat 361 876744 R00.8 [id number] Marcelino Garcia NP-C [facility] ([facility]/) [address] [place] [address] 12/18/2017 15:37:24 12/18/2017 17:27:04 Respiratory tract infection 651465523 J98.8 Irregular heart beat 361 445524 R00.8 [id number] Noni Luna RN [facility] ([facility]) [address] [place] [address] 03/12/2018 10:54:46 03/12/2018 15:27:50 [id number] Marcelino Garcia NP-C [facility] ([facility]) [address] [place] [address] 03/23/2018 10:56:24 03/26/2018 17:30:56 Essential hypertension 90736514 I10 Osteoarthritis 354257408 M19.90 [id number] Marcelino Garcia NP-C [facility] ([facility]) [address] [place] [address] 07/13/2018 15:16:25 07/18/2018 15:43:13 Administration of influenza vaccine 02347118 Z23 [id number] Marcelino EUCEDA [facility] (/) [address] [place] [address] 11/23/2018 14:24:55 11/26/2018 17:18:41 Respiratory tract infection 217695950 J98.8 Health Concerns Section Related Observation LastModified by Organization Detai ls LastModified Time None Recorded Concern Status LastModified by Organization Details LastModified Time None Recorded Advance Directives Directive None Recorded Payers Encounter Date Sequence Insurance Name Policy Number Policy Russell Covered Member ID Russell Member ID Guarantor Name 12/18/2017 1 [place] Natalia A Rice [id number] Natalia Rice 12/18/2017 2 [employer] (MEDICARE SUPPLEMENT) Natalia A Rice [id number] Natalia Rice 03/12/2018 1 [place] Natalia A Rice [id number] Natalia Rice 03/12/2018 2 [employer] [place] (MEDICARE SUPPLEMENT) Natalia A Rice [id number] Natalia Rice 03/23/2018 1 [place] Natalia A Rice [id number] Natalia Rice 03/23/2018 2 [employer] [place] [employer] (MEDICARE SUPPLEMENT) Natalia A Rice [id number] Natalia Rice 07/13/2018 1 [place] Natalia A Rice [id number] Natalia Rice 07/13/2018 2 [employer] - [employer] [place] [employer] (MEDICARE SUPPLEMENT) Natalia A Rice [id number] Natalia Rice 11/23/2018 2 [employer] - [employer] (MEDICARE SUPPLEMENT) Natalia A Rice [id number] Natalia Rice 11/23/2018 1 [place] Natalia Rice [id number] Natalia Rice Notes Date Note Type Note Provider Name and Address Organization Details Recorded Time 12/18/2017 text/html Here for productive cough and sinus drainage x 1 week. Also wants to see about having EKG repeated. Denies fever, chills, shortness of breath, chest pain, or palpitations Marcelino Garcia ASSISTANT IMPORT MANAGER-C Attn: [address] , [place], [address], [facility] 12/19/2017 13:23:51 03/23/2018 text/html has begun having trouble with her blood pressure again, feels side effects again after having been started on prinivil. would like to go back on atacand hct because it worked to control her blood pressure and she felt good. also has notice worsening hand and joint pain, feels like her knuckles are getting bigger. no chest pain, shortness of breath, or dizziness Marcelino Garcia ASSISTANT IMPORT MANAGER-C Attn: [address] , [place], [address], [facility] 03/26/2018 10:04:41 11/23/2018 text/html cough, shortness of breath, wheezing, fever and chills for past week, went to an urgent care and was given an inhaler. preparing to fly to daughters house and doesn't want to be sick Marcelino Garcia ASSISTANT IMPORT MANAGER-C Attn: [address] , [place], [address], [facility] 11/23/2018 16:03:54 OBGyn Episode No OBEpisode recorded.
== END 2024-10-14 11:40 | disposition home or self-care (01) ==
LOC: ANHSURGERY 11:53
PROVIDERS: Visit Provider Neurological Surgery
DX: M43.16 Spondylolisthesis, lumbar region (principal); Z01.818 Encounter for other preprocedural examination
CPT/HCPCS: 36415; 81003; 83036; 85027; 85610; 85730

== ENCOUNTER 2024-10-30 13:24 | Inpatient (IN) | payer MEDICARE, SELFPAY ==
[2024-10-14 12:17] VITALS: BP 150/79; PULSE 94; RESP 16; TEMP 36.8; O2SAT 98; BMI 35.8
--- NOTE | 2024-10-14 12:43 | PC.NURSE ---
Report to the Outpatient Waiting Room, entrance under the green pavilion located off [facility], at time __9:00AM on date ___10/29/24____. Planned Procedure Time: ____11:00AM____.? Time changes happen often and if your time is changed the preop area will call you the afternoon before. - You and your visitor will be asked to self-screen and do not enter if you have any COVID symptoms. Please call surgeon if you need to reschedule. - A mask is optional within the hospital at this time. Patients may have clear liquids (water, carbonated beverages, clear teas, apple juice) until 3 hours prior to surgery with a maximum of 20 ounces. - No food from midnight until time of surgery and no smoking. This includes no chewing gum, candy or mints. Take only the following medications with a SIP of water on the morning of surgery: METROPROLOL. MAY USE ALBUTEROL INHALER OR TAKE GABAPENTIN OR HYDROCODONE NEEDED DO NOT STOP ANY OF YOUR OTHER PRESCRIPTION MEDICATIONS PRIOR TO SURGERY EXCEPT THE FOLLOWING Medications to discontinue per physician ____NONE Date to take last dose Please no make-up, nail nepalese, hairspray, perfume, deodorant, or body powder the day of surgery.? No jewelry (including any body piercings) or valuables the day of surgery, leave them at home.? Please take a shower or bath the night before, or the morning of, surgery with an antibacterial soap.? Wear comfortable, loose fitting clothing.? Children are encouraged to wear pajamas. - Jewelry must be removed prior to entering the operating room.? Rings and piercings that are not removed may be cut off. - The hospital will not accept responsibility for valuables.? - Please leave all valuables, including medications, at home the day of surgery. If you are going home after surgery, a licensed dolly driver must drive you home.? - NO public transportation without another adult if you receive anesthesia. - We recommend that an adult stay with you for 24 hours following discharge. - We also recommend that you do not drive, make important decision, drink alcoholic beverages, or take any drugs that were not prescribed by your health care provider for at least 24 hours after your discharge time. Follow any additional instructions given to you from your surgeon. Telephone instructions given to __PATIENT & DAUGHTER and asked if any additional questions and then verbalized understanding. Patient advised to call surgeon office or pre surgery nurse liaison [phone] if any additional questions.
[2024-10-29] VITALS (14 sets, daily range): BP systolic 91–155; BP diastolic 45–113; PULSE 85–103; RESP 8–20; TEMP 35.7–37; O2SAT 94–100
--- OUTSIDE RECORDS SUMMARY | 2024-10-29 00:35 | XMS_ITS | Encounter Summary ---
Author Organization [facility] Address [facility] [place] [address] [place] [address] Care Team Providers Care Service Girl Name Role Phone Marcelino Garcia FISH FLIPPER Primary Care Provider [phone] Meeta Melton MD Unavailable [phone] Encounter Details Date Type Department Care Team (Late st Contact Info) Description 12/28/[address] 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
--- OUTSIDE RECORDS SUMMARY | 2024-10-29 00:35 | XMS_ITS | Encounter Summary ---
Author Organization [facility] Address [facility] [place] [address] [place] [address] Care Team Providers Care Algologist Name Role Phone Marcelino Garcia NP Primary Care Provider [phone] Meeta Melton MD Unavailable [phone] Encounter Details Date Type Department Care Team (Late st Contact Info) Description 12/18/2017 Abstract [facility] [address] [address] Abstract, Doc [facility] Social History Tobacco Use Types Packs/Day Years Used Date Smoking Tobacco: Never Smokeless Tobacco: Never Alcohol Use Standard Drinks/Week Comments Yes 0 (1 standard drink = 0.6 oz pur e alcohol) occasional Comments Unknown Sex and Gender Information Value Date Recorded Sex Assigned at Not on file 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 Gender Identity Not on file Sexual Orientation Not on file documented as of this encounter Plan of Treatment Not on file documented as of this encounter Procedures Procedure Name Priority Date/Time Associated Diagnosis Comments LIPID PANEL (OUTSIDE LAB) Routine 12/09/2016 CMP (OUTSIDE LAB) Routine 12/08/2016 CBC (OUTSIDE LAB) Routine 12/08/2016 documented in this encounter Results * LIPID PANEL (OUTSIDE LAB) (12/09/2016) CHOLESTEROL 199 TRIGLYCERIDES 166 HDL 49 LDL (CALCULATED) 117 VLDL CALCULATION 33 12/09/2016 us Doc [facility] Abstract LAB-OUTSIDE/ABSTRACTED Final Result * CMP (OUTSIDE LAB) (12/08/2016) SODIUM S/P/B 139 POTASSIUM S/P/B 4.2 CHLORIDE S/P/B 99 CO2 23 BUN 16 CREATININE S/P/B 0.80 0.5 - 1.0 EGFR NON-AFR. AMER. 78 <=90 CALCIUM S/P/B 9.7 GLUCOSE 128 mg/dL TOTAL PROTEIN S/P/B 7.4 ALBUMIN S/P/B 4.3 3.5 - 5.0 AST 22 ALT 23 ALKALINE PHOSPHATASE S/P/B 91 BILIRUBIN TOTAL S/P/B 0.5 12/08/2016 us Doc [facility] Abstract LAB-OUTSIDE/ABSTRACTED Final Result * CBC (OUTSIDE LAB) (12/08/2016) WBC 8.5 HGB 13.4 HCT 41.9 PLT 389 RBC 4.85 12/08/2016 us Doc [facility] Abstract LAB-OUTSIDE/ABSTRACTED Final Result documented in this encounter Visit Diagnoses Not on filedocumented in this encounter Care Teams Algologist Relationship Specialty Start Date End Date Marcelino Garcia NP [address] [place] [address] PCP - General 11/09/17 Meeta Melton MD [address] [place] [address] CARDIOVASCULAR DISEASE 11/09/17 documented as of this encounter
--- OUTSIDE RECORDS SUMMARY | 2024-10-29 00:35 | XMS_ITS | Data Portability ---
Author Organization [facility] [place] [address] Assessment No assessment recorded. Plan of Treatment Reminders Order Date Submit Date Provider Last Modified By Organization Details Last Modified Time Details Appointments None recorded. Lab urinalysis, dipstick 2022 023 [facility] (Lab), [address], [place], [address], 3 12:59:17 HbA1c (hemoglobin A1c), blood 2022 023 [facility] (Lab), [address], [place], [address], 4 15:49:10 coronary risk panel, serum 2022 023 [facility] (Lab), [address], [place], [address], 4 16:00:06 CBC 2023 024 [facility] (Lab), [address] [place], [address], 4 15:49:25 CMP, serum or plasma 2023 024 [facility] (Lab), [address] [place], [address], 4 16:20:26 TSH, serum or plasma 2023 024 [facility] (Lab), [address], [place], [address], 4 16:46:42 vitamin B12, serum 2023 024 [facility] (Lab), [address], [place], [address], 4 17:22:56 folate, serum 2023 024 [facility] (Lab), [address], [place], [address], 4 17:23:00 microalbumi n/creatinin e, ratio panel, urine 2023 024 [facility] (Lab), [address], [place], [address], 4 16:14:36 vitamin D, 25-hydroxy, total, serum 2023 024 [facility] (Lab), [address] [place], [address], 4 16:14:47 Referral None recorded. Procedures None recorded. Surgeries None recorded. Imaging MAMMO, screening, bilateral, w/ CAD - pt will call to schedule [email or web address] (Imaging), [address], [address], 4 16:01:04 MRI, lumbar spine, w/o contrast - right leg radiculopat hy the past one year, worse the past 6 months. 2023 024 [facility], [address] [place], [address], 4 13:13:22 Medication Orders meloxicam 7.5 mg tablet [address]/Pharmacy #[id number], [address] [place], [address], 4 13:19:31 allopurinol 300 mg tablet 2022 023 [facility]/Pharmacy #[id number], [address] [place], [address], 3 12:46:15 metoprolol succinate ER 25 mg tablet,exte nded release 24 hr 2022 023 [id number] [address] [place], [address], 3 12:46:15 simvastatin 20 mg tablet 2022 023 [facility]/Pharmacy #[id number], [address] [place], [address], 3 12:46:15 meloxicam 15 mg tablet 2023 024 [facility]/Pharmacy #[id number], [address] [place], [address], 4 13:19:24 candesartan 32 mg-hydrochl orothiazide 12.5 mg tablet 2023 024 [facility]/Pharmacy #[id number], [address] [place], [address], 4 12:49:08 metoprolol succinate ER 25 mg tablet,exte nded release 24 hr [address]/Pharmacy #[id number], [address] [place], [address], 4 13:08:06 hydrocodone 10 mg-acetamin ophen 325 mg tablet 2023 024 [facility]acy #[id number], [address] [place], [address], 13:30:44 gabapentin 100 mg capsule 2023 024 [facility] #[id number], [address] [place], [address], 13:54:04 Patient TargetsNo targets recorded. Patient Instructions Encounter Date Encounter Id Patient Instructions Last Modified By Organization Details Last Modified Time 05/12/2023 [id number] preventing falls : care instructions Not available 05/12/2023 12:33:06 preventing falls : care instructions Not available 05/12/2023 12:33:06 Discussed and explained advance directives such as standard forms to the {{patient caregiv er patient and caregiver}}. Face to face discussion lasted for a duration of ___ minutes. f/u in 6 months, routine f/u in one year, MWV Not available 05/12/2023 12:40:25 01/05/2024 [id number] f/u in 3 months, cs agreement signed. (routine f/u) Not available 01/05/2024 13:04:07 04/12/2024 [id number] f/u in 3 mos, routine Not available 04/12/2024 12:49:42 Hospital Discharge Instructions Patient Instructions None recorded. Patient Goals None recorded. Results Created Date Observation Date Name Description Value Unit Range Abnormal Flag Note LastModifiedBy Organization Detail LastModifiedTime 01/28/20 23 01/27/2023 Urina lysis compl ete panel - Urine U.COLOR Yellow YELLOW Not Available [facility] (Lab) [address], [place], [address], Not Available 01/28/20 23 01/27/2023 Urina lysis compl ete panel - Urine U.CLARITY Clear CLEAR Not Available [facility] (Lab) [address], [place], [address], Not Available 01/28/20 23 01/27/2023 Urina lysis compl ete panel - Urine U.GLU Negati ve NEGATI VE Not Available [facility] (Lab) [address], [place], [address], Not Available 01/28/20 23 01/27/2023 Urina lysis compl ete panel - Urine U.BILIRBN Negati ve NEGATI VE Not Available [facility] (Lab) [address], [place], [address], Not Available 01/28/20 23 01/27/2023 Urina lysis compl ete panel - Urine U.KET Negati ve NEGATI VE Not Available [facility] (Lab) [address], [place], [address], Not Available 01/28/20 23 01/27/2023 Urina lysis compl ete panel - Urine U.SPGR 1.015 1.001- 1.020 Not Available [facility] (Lab) [address], [place], [address], Not Available 01/28/20 23 01/27/2023 Urina lysis compl ete panel - Urine U.PH 6.0 5.0-8. 0 Not Available [facility] (Lab) [address], [place], [address], Not Available 01/28/20 23 01/27/2023 Urina lysis compl ete panel - Urine U.BLOOD Negati ve NEGATI VE Not Available [facility] (Lab) [address], [place], [address], Not Available 01/28/20 23 01/27/2023 Urina lysis compl ete panel - Urine U.PROTEIN Negati ve NEGATI VE Not Available [facility] (Lab) [address], [place], [address], Not Available 01/28/20 23 01/27/2023 Urina lysis compl ete panel - Urine U.NITRITE Negati ve NEGATI VE Not Available [facility] (Lab) [address], [place], [address], Not Available 01/28/20 23 01/27/2023 Urina lysis compl ete panel - Urine U.UROB. 0.2 E.U./d L 0.1-1. 0 Not Available [facility] (Lab) [address], [place], [address], Not Available 01/28/20 23 01/27/2023 Urina lysis compl ete panel - Urine U.LEUK. Negati ve NEGATI VE Not Available [facility] (Lab) [address], [place], [address], Not Available 01/28/20 23 01/27/2023 Urina lysis compl ete panel - Urine - Micros copic: Not Available [facility] (Lab) [address], [place], [address], Not Available 01/28/20 23 01/27/2023 Urina lysis compl ete panel - Urine U.WBC 0-1 Not Available [facility] (Lab) [address], [place], [address], Not Available 01/28/20 23 01/27/2023 Urina lysis compl ete panel - Urine U.RBC None Seen Not Available [facility] (Lab) [address] [place], [address], Not Available 01/28/20 23 01/27/2023 Urina lysis compl ete panel - Urine U.EPI'S 1-4 Not Available [facility] (Lab) [address] [place], [address], Not Available 01/28/20 23 01/27/2023 Urina lysis compl ete panel - Urine U.BACT None Seen Not Available [facility] (Lab) [address], [place], [address], Not Available 01/28/20 23 01/27/2023 CBC panel - Blood by Autom ated count WBC 8.0 10*3 3.9-10 .4 Not Available [facility] (Lab) [address], [place], [address], Not Available 01/28/20 23 01/27/2023 CBC panel - Blood by Autom ated count RBC 4.21 10*6 3.78-5 .29 Not Available [facility] (Lab) [address], [place], [address], Not Available 01/28/20 23 01/27/2023 CBC panel - Blood by Autom ated count HGB 12.2 g/dl 12.0-1 6.0 Not Available [facility] (Lab) [address], [place], [address], Not Available 01/28/20 23 01/27/2023 CBC panel - Blood by Autom ated count HCT 37.6 % 37.0-4 7.0 Not Available [facility] (Lab) [address], [place], [address], Not Available 01/28/20 23 01/27/2023 CBC panel - Blood by Autom ated count MCV 89.3 fl 82.0-1 00.0 Not Available [facility] (Lab) [address], [place], [address], Not Available 01/28/20 23 01/27/2023 CBC panel - Blood by Autom ated count MCH 29 pg 26-33 Not Available [facility] (Lab) [address], [place], [address], Not Available 01/28/20 23 01/27/2023 CBC panel - Blood by Autom ated count MCHC 32 g/dl 31-34 Not Available [facility] (Lab) [address], [place], [address], Not Available 01/28/20 23 01/27/2023 CBC panel - Blood by Autom ated count RDW 14.5 % 11.8-1 5.7 Not Available [facility] (Lab) [address], [place], [address], Not Available 01/28/20 23 01/27/2023 CBC panel - Blood by Autom ated count PLT 418 10*3 150-45 0 Not Available [facility] (Lab) [address], [place], [address], Not Available 01/28/20 23 01/27/2023 CBC panel - Blood by Autom ated count MPV 9.5 fl 8.7-12 .2 Not Available [facility] (Lab) [address], [place], [address], Not Available 01/28/20 23 01/27/2023 CBC panel - Blood by Autom ated count NEUT% 55.4 % 40.0-7 5.0 Not Available [facility] (Lab) [address], [place], [address], Not Available 01/28/20 23 01/27/2023 CBC panel - Blood by Autom ated count IMGRANS% 0.3 % 0.0-2. 0 Not Available [facility] (Lab) [address], [place], [address], Not Available 01/28/20 23 01/27/2023 CBC panel - Blood by Autom ated count LYMPH% 34.0 % 20.0-4 0.0 Not Available [facility] (Lab) [address], [place], [address], Not Available 01/28/20 23 01/27/2023 CBC panel - Blood by Autom ated count MONO% 7.7 % 0.0-10 .0 Not Available [facility] (Lab) [address], [place], [address], Not Available 01/28/20 23 01/27/2023 CBC panel - Blood by Autom ated count EOS% 2.0 % 0.0-4. 0 Not Available [facility] (Lab) [address], [place], [address], Not Available 01/28/20 23 01/27/2023 CBC panel - Blood by Autom ated count BASOS% 0.6 % 0.0-1. 0 Not Available [facility] (Lab) [address], [place], [address], Not Available 01/28/20 23 01/27/2023 CBC panel - Blood by Autom ated count ANC 4.41 10^3/ uL 1.50-8 .00 Not Available [facility] (Lab) [address], [place], [address], Not Available 01/28/20 23 01/27/2023 CBC panel - Blood by Autom ated count _ Not Available [facility] (Lab) [address], [place], [address], Not Available 01/28/20 23 01/27/2023 Thyro tropi n [Unit s/vol ume] in Serum or Plasm a TSH 2.50 uIu/m L 0.47-4 .68 Not Available [facility] (Lab) [address], [place], [address], Not Available 01/28/20 23 01/27/2023 Hemog lobin A1c/H emogl obin. total in Blood HGB A1C 7.1 % 4.0-6. 0 Not Available [facility] (Lab) [address], [place], [address], Not Available 01/28/20 23 01/27/2023 Hemog lobin A1c/H emogl obin. total in Blood INDICATION Indica chastity an Ave. Glucos e of: Not Available [facility] (Lab) [address], [place], [address], Not Available 01/28/20 23 01/27/2023 Hemog lobin A1c/H emogl obin. total in Blood AVE.GLU 151-16 5 mg/dl for the last 30-120 Days Not Available [facility] (Lab) [address], [place], [address], Not Available 01/28/20 23 01/27/2023 Compr ehens usman metab olic 2000 panel - Serum or Plasm a NA 138 mmol/ L 137-14 5 Not Available [facility] (Lab) [address], [place], [address], Not Available 01/28/20 23 01/27/2023 Compr ehens usman metab olic 2000 panel - Serum or Plasm a K+ 4.9 mmol/ L 3.5-5. 1 Not Available [facility] (Lab) [address], [place], [address], Not Available 01/28/20 23 01/27/2023 Compr ehens usman metab olic 2000 panel - Serum or Plasm a CL 105 mmol/ L 98-107 Not Available [facility] (Lab) [address], [place], [address], Not Available 01/28/20 23 01/27/2023 Compr ehens usman metab olic 2000 panel - Serum or Plasm a CO2 26 mmol/ L 22-30 Not Available [facility] (Lab) [address], [place], [address], Not Available 01/28/20 23 01/27/2023 Compr ehens usman metab olic 2000 panel - Serum or Plasm a GLUC 123 mg/dL 70-106 Not Available [facility] (Lab) [address], [place], [address], Not Available 01/28/20 23 01/27/2023 Compr ehens usman metab olic 2000 panel - Serum or Plasm a BUN 15.0 mg/dL 7.0-17 .0 Not Available [facility] (Lab) [address], [place], [address], Not Available 01/28/20 23 01/27/2023 Compr ehens usman metab olic 2000 panel - Serum or Plasm a CREAT 0.7 mg/dl 0.5-1. 0 Not Available [facility] (Lab) [address], [place], [address], Not Available 01/28/20 23 01/27/2023 Compr ehens usman metab olic 2000 panel - Serum or Plasm a ALK.PHOS 82 U/L 38-126 Not Available [facility] (Lab) [address], [place], [address], Not Available 01/28/20 23 01/27/2023 Compr ehens usman metab olic 2000 panel - Serum or Plasm a ALT 27 U/L 1-34 Not Available [facility] (Lab) [address], [place], [address], Not Available 01/28/20 23 01/27/2023 Compr ehens usman metab olic 2000 panel - Serum or Plasm a AST 28 U/L 14-36 Not Available [facility] (Lab) [address], [place], [address], Not Available 01/28/20 23 01/27/2023 Compr ehens usman metab olic 2000 panel - Serum or Plasm a ALB 3.9 g/dl 3.4-4. 8 Not Available [facility] (Lab) [address], [place], [address], Not Available 01/28/20 23 01/27/2023 Compr ehens usman metab olic 2000 panel - Serum or Plasm a TBIL 0.60 mg/dl 0.20-1 .30 Not Available [facility] (Lab) [address], [place], [address], Not Available 01/28/20 23 01/27/2023 Compr ehens usman metab olic 2000 panel - Serum or Plasm a TP 6.5 g/dl 6.3-8. 2 Not Available [facility] (Lab) [address], [place], [address], Not Available 01/28/20 23 01/27/2023 Compr ehens usman metab olic 2000 panel - Serum or Plasm a CA 9.9 mg/dl 8.4-10 .2 Not Available [facility] (Lab) [address], [place], [address], Not Available 01/28/20 23 01/27/2023 Compr ehens usman metab olic 2000 panel - Serum or Plasm a GAP 7.0 mmol/ L 6.0-16 .0 Not Available [facility] (Lab) [address], [place], [address], Not Available 01/28/20 23 01/27/2023 Compr ehens usman metab olic 2000 panel - Serum or Plasm a B/C 21.43 7.00-3 0.00 Not Available [facility] (Lab) [address], [place], [address], Not Available 01/28/20 23 01/27/2023 Compr ehens usman metab olic 2000 panel - Serum or Plasm a OSMO 278 mos/k g 273-30 4 Not Available [facility] (Lab) [address], [place], [address], Not Available 01/28/20 23 01/27/2023 Compr ehens usman metab olic 2000 panel - Serum or Plasm a A/G RATIO 1.50 0.90-2 .30 Not Available [facility] (Lab) [address], [place], [address], Not Available 01/28/20 23 01/27/2023 Compr ehens usman metab olic 2000 panel - Serum or Plasm a GLOBULIN 2.6 g/dl 2.2-3. 9 Not Available [facility] (Lab) [address], [place], [address], Not Available 01/28/20 23 01/27/2023 Compr ehens usman metab olic 2000 panel - Serum or Plasm a GFR- AA Greate r Than 60 mL/mi n/1.7 3_m^2 Not Available [facility] (Lab) [address], [place], [address], Not Available 01/28/20 23 01/27/2023 Compr ehens usman metab olic 2000 panel - Serum or Plasm a GFR- OTHER Greate r Than 60 mL/mi n/1.7 3_m^2 It is recom karie d that for: GFR value s great er than 60 mL/mi n/1.7 3 sq.me ters - no addit ional renal evalu ation is requi red GFR value s less than 60 mL/mi n/1.7 3 sq.me ters - compl ete evalu ation for renal disea se GFR value s less than 60 mL/mi n/1.7 3 sq.me ters - consu ltati on with a Nephr ologi st Not Available [facility] (Lab) [address], [place], [address], Not Available 01/28/20 23 01/27/2023 Coron shukri heart disea se 2Y risk [#] Karol ChoiD'Ag ivan o 2000 CHOL 150 mg/dl 127-20 0 Not Available [facility] (Lab) [address], [place], [address], Not Available 01/28/20 23 01/27/2023 Coron shukri heart disea se 2Y risk [#] Karol ChoiD'Ag ivan o 2000 TRIG 237 mg/dl 0-200 Not Available [facility] (Lab) [address], [place], [address], Not Available 01/28/20 23 01/27/2023 Coron shukri heart disea se 2Y risk [#] Karol Maloney'Ag ivan o 2000 HDL 52 mg/dl 30-80 Not Available [facility] (Lab) [address], [place], [address], Not Available 01/28/20 23 01/27/2023 Coron shukri heart disea se 2Y risk [#] Karol Maloney'Ag ivan o 2000 LDL 50.6 mg/dl 0.0-13 0.0 Not Available [facility] (Lab) [address], [place], [address], Not Available 01/28/20 23 01/27/2023 Coron shukri heart disea se 2Y risk [#] Karol Maloney'Ag ivan o 2000 VLDL. 47 mg/dl 2-30 Not Available [facility] (Lab) [address], [place], [address], Not Available 01/28/20 23 01/27/2023 Coron shukri heart disea se 2Y risk [#] Karol ChoiD'Ag ivan o 2000 CHOL-HDL 2.9 0.0-5. 0 Pavithra stero l/HDL Ratio (Risk assoc iated with pavithra stero l/HDL ratio ) _ Risk Femal e Ratio Male Ratio 1/2 [place] [address] 3.27 4.43 [place] [address] [facility] 4.44 4.97 2 x [place] [facility] [facility] 7.05 9.55 3 x [place] [facility] 11.04 23.39 Not Available [facility] (Lab) [address], [place], [address], Not Available 01/28/20 23 01/27/2023 Micro album in/Cr eatin ine panel in [facility] Urine MICROALB <6.00 mg/L 0.00-3 0.00 Not Available [facility] (Lab) [address], [place], [address], Not Available 01/28/20 23 01/27/2023 Micro album in/Cr eatin ine panel in [facility] Urine UR.CREATRND 35.5 MG/DL NO ESTABL ISHED REFERE NCE RANGE FOR THIS TEST Not Available [facility] (Lab) [address], [place], [address], Not Available 01/28/20 23 01/27/2023 Micro album in/Cr eatin ine panel in [facility] Urine MAL/CR 16.90 Mg/G 0.00-3 0.00 Not Available [facility] (Lab) [address], [place], [address], Not Available 01/28/20 23 01/27/2023 25-Hy droxy vitam in D3+25 -Hydr oxyvi tamin D2 [Mass /volu me] in Serum or Plasm a VITD 44.00 ng/mL 30.00- 100.00 Refer ence Range : <20 ng/mL - Defic ient 20 - <30 ng/mL - Insuf ficie nt 30 - 100 ng/mL - Suffi cient >100 ng/mL - Poten tial Toxic ity Not Available [facility] (Lab) [address], [place], [address], Not Available 05/12/20 23 05/12/2023 urina lysis , dipst ick U.COLOR Yellow YELLOW Not Available [facility] (Lab) [address], [place], [address], Not Available 05/12/20 23 05/12/2023 urina lysis , dipst ick U.CLARITY Slight ly Cloudy CLEAR Not Available [facility] (Lab) [address], [place], [address], Not Available 05/12/20 23 05/12/2023 urina lysis , dipst ick U.GLU Negati ve NEGATI VE Not Available [facility] (Lab) [address], [place], [address], Not Available 05/12/20 23 05/12/2023 urina lysis , dipst ick U.BILIRBN 1+ NEGATI VE Not Available [facility] (Lab) [address], [place], [address], Not Available 05/12/20 23 05/12/2023 urina lysis , dipst ick U.KET Trace NEGATI VE Not Available [facility] (Lab) [address], [place], [address], Not Available 05/12/20 23 05/12/2023 urina lysis , dipst ick U.SPGR 1.020 1.001- 1.020 Not Available [facility] (Lab) [address], [place], [address], Not Available 05/12/20 23 05/12/2023 urina lysis , dipst ick U.PH 5.5 5.0-8. 0 Not Available [facility] (Lab) [address], [place], [address], Not Available 05/12/20 23 05/12/2023 urina lysis , dipst ick U.BLOOD Trace- intact NEGATI VE Not Available [facility] (Lab) [address], [place], [address], Not Available 05/12/20 23 05/12/2023 urina lysis , dipst ick U.PROTEIN Negati ve NEGATI VE Not Available [facility] (Lab) [address], [place], [address], Not Available 05/12/20 23 05/12/2023 urina lysis , dipst ick U.NITRITE Negati ve NEGATI VE Not Available [facility] (Lab) [address], [place], [address], Not Available 05/12/20 23 05/12/2023 urina lysis , dipst ick U.UROB. 0.2 E.U./d L 0.1-1. 0 Not Available [facility] (Lab) [address], [place], [address], Not Available 05/12/20 23 05/12/2023 urina lysis , dipst ick U.LEUK. Negati ve NEGATI VE Not Available [facility] (Lab) [address], [place], [address], Not Available 05/12/20 23 05/12/2023 urina lysis , micro scopi c U.WBC 1-2 Not Available [facility] (Lab) [address], [place], [address], Not Available 05/12/20 23 05/12/2023 urina lysis , micro scopi c U.RBC 0-2 Not Available [facility] (Lab) [address], [place], [address], Not Available 05/12/20 23 05/12/2023 urina lysis , micro scopi c U.EPI'S 4-8 Not Available [facility] (Lab) [address], [place], [address], Not Available 05/12/20 23 05/12/2023 urina lysis , micro scopi c U.BACT 1+ Not Available [facility] (Lab) [address], [place], [address], Not Available 05/12/20 23 05/12/2023 urina lysis , micro scopi c U.MUCUS Rare Not Available [facility] (Lab) [address], [place], [address], Not Available 05/12/20 23 05/12/2023 urina lysis , micro scopi c U.CASTS 0-2 Hyalin e casts Not Available [facility] (Lab) [address], [place], [address], Not Available 05/14/20 23 05/14/2023 Bacte mj ident ified in Urine by Cultu re FINAL Microb iology result s Resul t Flag (Norm al) URINE TYPE: Clean Catch Mid-S tream FINAL RESUL T: MIXED ANNAMARIA L URETH RAL TAMIKO . NOT INDIC ATIVE OF UTI. NEW SPECI MEN NOT REQUI RED. Not Available [facility] (Lab) [address], [place], [address], Not Available 01/05/20 24 01/05/2024 25-Hy droxy vitam in D3+25 -Hydr oxyvi tamin D2 [Mass /volu me] in Serum or Plasm a VITD 41.90 ng/mL 30.00- 100.00 Refer ence Range : <20 ng/mL - Defic ient 20 - <30 ng/mL - Insuf ficie nt 30 - 100 ng/mL - Suffi cient >100 ng/mL - Poten tial Toxic ity Not Available [facility] (Lab) [address], [place], [address], Not Available 01/05/20 24 01/05/2024 Cobal king (Sue min B12) [Mass /volu me] in Serum or Plasm a VIT B12 932.0 pg/mL 239.0- 931.0 Pleas e note: Altho ugh the refer ence range for Vitam in B12 is 239 - 931 pg/mL , it has been repor nuria that betwe en 5% and 10% of patie nts with value s betwe en 200 and 400 pg/mL may exper ience neuro psych iatri c and hemat ologi c abnor malit ies due to occul t B12 defic iency , less than 1% of patie nts with value s above 400 pg/mL will have sympt oms. Not Available [facility] (Lab) [address], [place], [address], Not Available 01/05/20 24 01/05/2024 Hemog lobin A1c/H emogl obin. total in Blood HGB A1C 7.4 % 4.0-6. 0 Not Available [facility] (Lab) [address], [place], [address], Not Available 01/05/20 24 01/05/2024 Hemog lobin A1c/H emogl obin. total in Blood INDICATION Indica chastity an Ave. Glucos e of: Not Available [facility] (Lab) [address], [place], [address], Not Available 01/05/20 24 01/05/2024 Hemog lobin A1c/H emogl obin. total in Blood AVE.GLU 151-16 5 mg/dl for the last 30-120 Days Not Available [facility] (Lab) [address], [place], [address], Not Available 01/05/20 24 01/05/2024 Compr ehens usman metab olic 2000 panel - Serum or Plasm a NA 137 mmol/ L 137-14 5 Not Available [facility] (Lab) [address], [place], [address], Not Available 01/05/20 24 01/05/2024 Compr ehens usman metab olic 2000 panel - Serum or Plasm a K+ 4.7 mmol/ L 3.5-5. 1 Not Available [facility] (Lab) [address], [place], [address], Not Available 01/05/20 24 01/05/2024 Compr ehens usman metab olic 2000 panel - Serum or Plasm a CL 103 mmol/ L 98-107 Not Available [facility] (Lab) [address], [place], [address], Not Available 01/05/20 24 01/05/2024 Compr ehens usman metab olic 2000 panel - Serum or Plasm a CO2 24 mmol/ L 22-30 Not Available [facility] (Lab) [address] [place], [address], Not Available 01/05/20 24 01/05/2024 Compr ehens usman metab olic 2000 panel - Serum or Plasm a GLUC 147 mg/dL 70-106 Not Available [facility] (Lab) [address] [place], [address], Not Available 01/05/20 24 01/05/2024 Compr ehens usman metab olic 2000 panel - Serum or Plasm a BUN 26.0 mg/dL 7.0-17 .0 Not Available [facility] (Lab) [address] [place], [address], Not Available 01/05/20 24 01/05/2024 Compr ehens usman metab olic 1999 panel - Serum or Plasm a CREAT 1.0 mg/dl 0.5-1. 0 Not Available [facility] (Lab) [address], [place], [address], Not Available 01/05/20 24 01/05/2024 Compr ehens usman metab olic 2000 panel - Serum or Plasm a ALK.PHOS 90 U/L 38-126 Not Available [facility] (Lab) [address], [place], [address], Not Available 01/05/20 24 01/05/2024 Compr ehens usman metab olic 2000 panel - Serum or Plasm a ALT 23 U/L 1-34 Not Available [facility] (Lab) [address], [place], [address], Not Available 01/05/20 24 01/05/2024 Compr ehens usman metab olic 2000 panel - Serum or Plasm a AST 28 U/L 14-36 Not Available [facility] (Lab) [address], [place], [address], Not Available 01/05/20 24 01/05/2024 Compr ehens usman metab olic 2000 panel - Serum or Plasm a ALB 4.5 g/dl 3.4-4. 8 Not Available [facility] (Lab) [address], [place], [address], Not Available 01/05/20 24 01/05/2024 Compr ehens usman metab olic 2000 panel - Serum or Plasm a TBIL 0.50 mg/dl 0.20-1 .30 Not Available [facility] (Lab) [address], [place], [address], Not Available 01/05/20 24 01/05/2024 Compr ehens usman metab olic 2000 panel - Serum or Plasm a TP 7.3 g/dl 6.3-8. 2 Not Available [facility] (Lab) [address], [place], [address], Not Available 01/05/20 24 01/05/2024 Compr ehens usman metab olic 1999 panel - Serum or Plasm a CA 10.1 mg/dl 8.4-10 .2 Not Available [facility] (Lab) [address], [place], [address], Not Available 01/05/20 24 01/05/2024 Compr ehens usman metab olic 1999 panel - Serum or Plasm a GAP 10.0 mmol/ L 6.0-16 .0 Not Available [facility] (Lab) [address], [place], [address], Not Available 01/05/20 24 01/05/2024 Compr ehens usman metab olic 1999 panel - Serum or Plasm a B/C 26.00 7.00-3 0.00 Not Available [facility] (Lab) [address], [place], [address], Not Available 01/05/20 24 01/05/2024 Compr ehens usman metab olic 2000 panel - Serum or Plasm a OSMO 281 mos/k g 273-30 4 Not Available [facility] (Lab) [address], [place], [address], Not Available 01/05/20 24 01/05/2024 Compr ehens usman metab olic 2000 panel - Serum or Plasm a A/G RATIO 1.61 0.90-2 .30 Not Available [facility] (Lab) [address], [place], [address], Not Available 01/05/20 24 01/05/2024 Compr ehens usman metab olic 2000 panel - Serum or Plasm a GLOBULIN 2.8 g/dl 2.2-3. 9 Not Available [facility] (Lab) [address], [place], [address], Not Available 01/05/20 24 01/05/2024 Compr ehens usman metab olic 1999 panel - Serum or Plasm a GFR- AA Greate r Than 60 mL/mi n/1.7 3_m^2 Not Available [facility] (Lab) [address], [place], [address], Not Available 01/05/20 24 01/05/2024 Compr ehens usman metab olic 1999 panel - Serum or Plasm a GFR- OTHER 58 SEE INTERP RETATI ON BELOW It is recom karie d that for: GFR value s great er than 60 mL/mi n/1.7 3 sq.me ters - no addit ional renal evalu ation is requi red GFR value s less than 60 mL/mi n/1.7 3 sq.me ters - compl ete evalu ation for renal disea se GFR value s less than 60 mL/mi n/1.7 3 sq.me ters - consu ltati on with a Nephr ologi st Not Available [facility] (Lab) [address], [place], [address], Not Available 01/05/20 24 01/05/2024 Micro album in/Cr eatin ine panel in rando m Urine MICROALB <6.00 mg/L 0.00-3 0.00 Not Available [facility] (Lab) [address], [place], [address], Not Available 01/05/20 24 01/05/2024 Micro album in/Cr eatin ine panel in rando m Urine UR.CREATRND 73.4 MG/DL NO ESTABL ISHED REFERE NCE RANGE FOR THIS TEST Not Available [facility] (Lab) [address], [place], [address], Not Available 01/05/20 24 01/05/2024 Micro album in/Cr eatin ine panel in rando m Urine MAL/CR 8.17 Mg/G 0.00-3 0.00 Not Available [facility] (Lab) [address], [place], [address], Not Available 01/05/20 24 01/05/2024 Thyro tropi n [Unit s/vol ume] in Serum or Plasm a TSH 3.03 uIu/m L 0.47-4 .68 Not Available [facility] (Lab) [address], [place], [address], Not Available 01/05/20 24 01/05/2024 Folat e [Mass /volu me] in Serum or Plasm a FOLATE 18.2 ng/mL Refer ence Range : Low: <2.76 ng/mL Borde rline : 2.76- 5.4 ng/mL Annamaria l: >5.4 ng/mL Not Available [facility] (Lab) [address], [place], [address], Not Available 01/05/20 24 01/05/2024 CBC panel - Blood by Autom ated count WBC 8.4 10*3 3.9-10 .4 Not Available [facility] (Lab) [address], [place], [address], Not Available 01/05/20 24 01/05/2024 CBC panel - Blood by Autom ated count RBC 4.50 10*6 3.78-5 .29 Not Available [facility] (Lab) [address], [place], [address], Not Available 01/05/20 24 01/05/2024 CBC panel - Blood by Autom ated count HGB 13.4 g/dl 12.0-1 6.0 Not Available [facility] (Lab) [address], [place], [address], Not Available 01/05/20 24 01/05/2024 CBC panel - Blood by Autom ated count HCT 40.7 % 37.0-4 7.0 Not Available [facility] (Lab) [address], [place], [address], Not Available 01/05/20 24 01/05/2024 CBC panel - Blood by Autom ated count MCV 90.4 fl 82.0-1 00.0 Not Available [facility] (Lab) [address], [place], [address], Not Available 01/05/20 24 01/05/2024 CBC panel - Blood by Autom ated count MCH 30 pg 26-33 Not Available [facility] (Lab) [address], [place], [address], Not Available 01/05/20 24 01/05/2024 CBC panel - Blood by Autom ated count MCHC 33 g/dl 31-34 Not Available [facility] (Lab) [address], [place], [address], Not Available 01/05/20 24 01/05/2024 CBC panel - Blood by Autom ated count RDW 13.4 % 11.8-1 5.7 Not Available [facility] (Lab) [address], [place], [address], Not Available 01/05/20 24 01/05/2024 CBC panel - Blood by Autom ated count PLT 333 10*3 150-45 0 Not Available [facility] (Lab) [address], [place], [address], Not Available 01/05/20 24 01/05/2024 CBC panel - Blood by Autom ated count MPV 10.3 fl 8.7-12 .2 Not Available [facility] (Lab) [address], [place], [address], Not Available 01/05/20 24 01/05/2024 CBC panel - Blood by Autom ated count NEUT% 56.1 % 40.0-7 5.0 Not Available [facility] (Lab) [address], [place], [address], Not Available 01/05/20 24 01/05/2024 CBC panel - Blood by Autom ated count IMGRANS% 0.1 % 0.0-2. 0 Not Available [facility] (Lab) [address], [place], [address], Not Available 01/05/20 24 01/05/2024 CBC panel - Blood by Autom ated count LYMPH% 33.6 % 20.0-4 0.0 Not Available [facility] (Lab) [address], [place], [address], Not Available 01/05/20 24 01/05/2024 CBC panel - Blood by Autom ated count MONO% 7.2 % 0.0-10 .0 Not Available [facility] (Lab) [address], [place], [address], Not Available 01/05/20 24 01/05/2024 CBC panel - Blood by Autom ated count EOS% 2.3 % 0.0-4. 0 Not Available [facility] (Lab) [address], [place], [address], Not Available 01/05/20 24 01/05/2024 CBC panel - Blood by Autom ated count BASOS% 0.7 % 0.0-1. 0 Not Available [facility] (Lab) [address], [place], [address], Not Available 01/05/20 24 01/05/2024 CBC panel - Blood by Autom ated count ANC 4.71 10^3/ uL 1.50-8 .00 Not Available [facility] (Lab) [address], [place], [address], Not Available 01/05/20 24 01/05/2024 CBC panel - Blood by Autom ated count _ Not Available [facility] (Lab) [address], [place], [address], Not Available 01/05/20 24 01/05/2024 Coron shukri heart disea se 2Y risk [#] Frami nghawa .D'Ag ivan o 2000 CHOL 180 mg/dl 127-20 0 Not Available [facility] (Lab) [address], [place], [address], Not Available 01/05/20 24 01/05/2024 Coron shukri heart disea se 2Y risk [#] Frami ngham StephD'Ag ivan o 2000 TRIG 343 mg/dl 0-200 Not Available [facility] (Lab) [address], [place], [address], Not Available 01/05/20 24 01/05/2024 Coron shukri heart disea se 2Y risk [#] Frami ngham .D'Ag ivan o 2000 HDL 50 mg/dl 30-80 Not Available [facility] (Lab) [address], [place], [address], Not Available 01/05/20 24 01/05/2024 Coron shukri heart disea se 2Y risk [#] Frami ngham StephD'Ag ivan o 2000 LDL 61.4 mg/dl 0.0-13 0.0 Not Available [facility] (Lab) [address], [place], [address], Not Available 01/05/20 24 01/05/2024 Coron shukri heart disea se 2Y risk [#] Frami nghawa ChoiD'Ag ivan o 2000 VLDL. 69 mg/dl 2-30 Not Available [facility] (Lab) [address], [place], [address], Not Available 01/05/20 24 01/05/2024 Coron shukri heart disea se 2Y risk [#] Karol hendricks .D'Ag ivan o 1999 CHOL-HDL 3.6 0.0-5. 0 Pavithra stero l/HDL Ratio (Risk assoc iated with pavithra stero l/HDL ratio ) _ Risk Femal e Ratio Male Ratio 1/2 [place] ge 3.27 4.43 [place] ge 4.44 4.97 2 x [place] 7.05 9.55 3 x [place] ge 11.04 23.39 Not Available [facility] (Lab) [address], [place], [address], Not Available 07/28/20 22 XR Knee Views EXAM DESCRI PTION: XR RT KNEE REASON FOR STUDY: Pt states right knee pain for last six months . No injury . Stiffn ess and joint achine ss. Diffic ulty with ambula tion at timesD uratio n: six months TECHNI QUE: 4 radiog raphic views acquir ed of the right knee. COMPAR HELEN: 2021 FINDIN GS: There is no defini te eviden ce of acute displa katia fractu re or disloc ation involv ing the right knee. There are tricom partme ntal degene rative change s right knee with joint space narrow ing and spurri ng. There is no signif icant joint effusi on. IMPRES AMINATA: 1. Tricom partme ntal degene rative change s of the right knee withou t defini te eviden ce of acute displa katia fractu re or disloc ation. PS: PSD: 7:58 AMT: 022 7:58 AMRepo rt ID: [id number] 7Readi ng Locati on: CRPACS [id number] Arnav Allen ation Date: 2021 07:58 Not Available [facility] (Imaging) [address], [place], [address], Not Available 01/05/20 24 DBT Breas t - bilat eral scree ivan - SCR MAMM BEN BILBIL ATERAL DIGITA L SCREEN ING MAMMOG MARYAM 3D/2D WITH CAD WITH MEDIOL ATERAL OBLIQU E CRANIO CAUDAL : 024The study was acquir ed using full field digita l techno logy and interp reted from soft copy. Layla monreal study was also evalua nuria with ICAD versio n 7.2. 2D digita l mammog raphic views, as well as 3D digita l tomosy nthesi s were perfor med in the CC and MLO projec tions. CLINIC AL: Routin e screen ing. Douglas monreal has no compla ints. COMPAR ISONS: Compar helen is made to exams dated: 03/29/20 22, 022, and 01/29/20 21 [facility]. BREAST TISSUE :The tissue of both breast s is predom inantl y fatty. FINDIN GS: No signif icant masses , calcif icatio ns, or other findin gs are seen in either breast . There has been no signif icant interv al change .IMPRE SSION: BI-RAD 1 NEGATI VETher e is no mammog raphic eviden ce of malign rodriguez. A 1 year screen ing mammog maryam is recomm ended. (01/05) A letter will be sent to the douglas monreal with these result s.The douglas monreal will be entere d into a remind er system with a target due date of 1 year for her next screen ing exam.E urbano lancaster y signed by: Jessica haider/laci rad: 4 16:30: 15 Imagin g Techno logist (s): Bruna l Javier, RT(R)( M)ARDM S,RV, [facility] ip Hospit [place] er sent: Normal Exam Readin g locati on: LAUB- RADS: 1 Negati Vale Yuen , MDDict ation Date: 2023 13:24 Not Available [facility] (Imaging) [address] [place] [address] , [place], [address], Not Available Result Notes Documentation Provider Name and Address Organization Details Recorded Time Mammo, Screening, Tomosynthesis, Bilateral : Mammogram Mammo, Screening, Tomosynthesis, Bilateral : IMPRESSION: BI-RAD 1 NEGATIVE There is no mammographic evidence of malignancy. A 1 year screening mammogram is recommended.(01/05/2025) -order placed. Landy Eisenberg LPN [address] [place] [address], [address], [facility] 01/10/2024 14:17:28 Problems Name Problem SNOMED Code Status Onset Date Resolution Date Notes Provider Name and Address Organization Details Recorded Time History of cardiac catheter ization 78894767900 100 Active [address] Thomas Penaloza at [facility] ([facility]), no signific ant stenosis . Sloane Lu DNP [address] [place] [address], [address] , [facility] 3 12:22:05 Respir[address] ory tract infectio n 543021532 Completed 201805/12/2023 Removal Reason: resolved Sloane uL DNP [address] [place] [address], [address] , [facility] 3 12:22:35 Pain in left arm 625015061 Completed 201805/12/2023 Removal Reason: resolved Sloane Lu DNP [address] [place] [address], [address] , [facility] 3 12:25:31 Vitamin D deficien cy 21282519 Active 2018 Sloane Lu DNP [address] [place] [address], [address] , [facility] 3 12:22:47 Arthriti s 5602643 Active 2018 Sloane Lu DNP [address] [place] [address], [address] , [facility] 3 12:21:59 Joint pain 60723343 Active 2018 Sloane Lu DNP [address] [place] [address], [address] , [facility] 3 12:24:34 Impaired glucose toleranc e 0679007 Completed 201805/12/2023 Removal Reason: type 2 diabetes Sloane Lu DNP [address] [place] [address], [address] , [facility] 3 12:24:24 Irregula r heart beat 768267590 Active 2022 PACs and PVCs Sloane Lu DNP [address] [place] [address], [address] , 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 4 13:10:55 Lumbar spondylo sis 992718388 Active 2023 Sloane Lu DNP [address] [place] [address], [address] , [facility] 4 08:23:21 Arthriti s 9701933 Completed 201804/30/2020 Sloane Lu DNP [address] [place] [address], [address] , [facility] 3 12:21:59 Hyperten sive disorder 24969796 Active 2018 Sloane Lu DNP [address] [place] [address], [address] , [facility] 3 12:22:13 Irritabl e bowel syndrome 33164909 Active 2018 Sloane Lu DNP [address] [place] [address], [address] , [facility] 3 12:24:28 Pain in left arm 289439275 Completed 201804/30/2020 Sloane Lu DNP [address] [place] [address], [address] , [facility] 3 12:25:31 Osteoart hritis 908042905 Active 2018 B/L knees, lumbar spine, R foot w left total knee arthropl asty. Uses rollator walker for ambulati on Sloane Lu DNP [address] [place] [address], [address] , [facility] 4 13:12:10 Hyperlip idemia 82394241 Active 2018 Poornima Luna CNP [address] [place] [address], [address] , [facility] 9 14:55:59 Prediabe chastity 309920598 Completed 201802/12/2019 Removal Reason: converte d to diabetes type 2 Poornima Luna CNP [address] [place] [address], [address] , [facility] 9 17:39:00 Vitamin D deficien cy 00369282 Completed 201804/30/2020 Sloane Lu DNP [address] [place] [address], [address] , [facility] 3 12:22:47 Joint pain 30048919 Completed 201804/30/2020 Sloane Lu DNP [address] [place] [address], [address] , [facility] 3 12:24:34 Impaired glucose toleranc e 2447053 Completed 201804/30/2020 Sloane Lu DNP [address] [place] [address], [address] , [facility] 3 12:24:24 Respir[address] ory tract infectio n 354138991 Completed 201804/30/2020 Sloane Lu DNP [address] [place] [address], [address] , [facility] 3 12:22:35 Heart irregula r Completed 201804/30/2020 Sloane Lu DNP [address] [place] [address], [address] , [facility] 3 12:26:52 Sleep pattern disturba coe 71791894 Active 2018 Sloane Lu DNP [address] [place] [address], [address] , [facility] 3 12:22:39 Type 2 diabetes mellitus 93787957 Active 2018 Sloane Lu DNP [address] [place] [address], [address] , [facility] 3 12:22:43 Hyperuri cemia 44401559 Active Poornima Luna, [employer] [address] [place] [address], [address] , [facility] 9 12:05:12 Osteopen ia 725179467 Active 201803/18/22 Dexa (R femoral neck -1.5) Sloane Lu DNP [address] [place] [address], [address] , [facility] 3 12:22:55 Lumbar radiculo kendrick 878056353 Active 2021 Landy Eisenberg LPN [address] [place] [address], [address] , [facility] 3 12:14:46 Microsco pic hematuri a 199177727 Completed 202105/12/2023 04/15/22. Rare RBC on urine micro. Continue to observe unless pt becomes symptoma tic Removal Reason: resolved . Normal urine 01/27/23 Sloane Lu DNP [address] [place] [address], [address] , [facility] 3 12:24:09 Degenera tion of lumbar interver tebral disc 41448533 Active 2021 Sloane Lu DNP [address] [place] [address], [place], [address] , [facility] 3 12:22:02 Problem Notes None recorded. Procedures Surgical History Date Name Laterality Status Provider Name and Address Organization Details Recorded Time 01/05/20 24 Most Recent Mammogram completed Landy Eisenberg LPN [address] [place] [address], [address], [facility] 04/12/2024 11:53:08 09/08/20 22 cardiac catheterization completed Sloane Lu DNP [address] [place] [address], [address], [facility] 10/21/2022 12:35:38 07/14/20 22 STH Injection completed Landy Eisenberg LPN [address] [place] [address], [address], [facility] 07/14/2022 12:13:36 11/15/19 20 COLONOSCOPY (SURG) completed Emelina Napier LPN [address] [place] [address], [address], [facility] 11/14/2019 09:45:46 11/15/19 20 COLONOSCOPY (SURG) completed Not Available [facility] 01/22/2022 03:45:09 09/05/20 19 mammography completed Landy Eisenberg LPN [address] [place] [address], [address], [facility] 09/13/2019 11:21:37 06/20/20 19 STH Injection completed Landy Eisenberg LPN [address] [place] [address], [address], [facility] 06/20/2019 13:04:44 02/09/20 18 Peripheral IV Removal completed Naomi Garcia [address] [place] [address], [address], [facility] 02/08/2018 14:43:59 02/09/20 18 Peripheral IV Insertion completed Naomi Garcia [address] [place] [address], [address], [facility] 02/08/2018 14:43:37 release of [id number] deformity completed Landy Eisenberg [employer] [address] [place] [address], [address], [facility] 01/31/2019 14:31:01 Total knee arthroplasty completed Sloane Lu [address], [address], [facility] 04/07/2022 14:49:26 excision of tumor of soft tissue of back completed Landy Eisenberg [address], [address], [facility] 01/31/2019 14:31:55 Hysterectomy completed Landy Eisenberg [employer] [address] [place] [address], [address], [facility] 02/01/2019 14:25:15 Arthroscopic Surgery completed Landy Eisenberg [address], [address], [facility] 02/01/2019 14:25:52 Joint Replacement completed Landy Eisenberg [address], [address], [facility] 03/02/2023 12:54:47 Imaging Results Imaging Date Name Status LastModified by [facility]iz [facility] Details LastModified Time 2022 XR Knee Views active Not Available [facility] (Imaging) [address] [place], [address], Not Available 01/05/2024 DBT Breast - bilateral screening active Not Available [facility] (Imaging) [address] [facility] [place], [address], Not Available Procedure Notes None recorded. Medical Equipment None Reported. Allergies Allergen ID Allergen Name Allergen Category Reaction Reaction Severity Criticality Documentation Date Start Date Code Code System Note Provider Name and Address Organization Details Recorded Time 03301 Product containin g penicilli n and antibioti c (product) medicatio n anaphylax is moderate Not available 01/31/2019 00303 05 SNOMED child will Lu, [facility] [address] [place], [address], [facility] 2 14:44:11 44599 acetamino phen / oxycodone medicatio n rash severe Not available 01/31/2019 74313 3 RxNorm Cabrina Mesfinrobb , [employer] [address] [place], [address], [facility] 9 13:19:47 66131 Prinivil medicatio n dizziness moderate Not available 01/31/201911014 4 RxNorm Cabrina Mesfinrobb , [employer] [address] [place], [address], [facility] 9 13:20:08 83927 losartan medicatio n rash moderate Not available 01/31/2019 56482 RxNorm Cabrina Mesfinrobb , [employer] [address] [place] [address], [address], [facility] 9 13:20:34 47245 Erythroci n medicatio n dizziness moderate Not available 01/31/2019 36072 3 RxNorm Cabrina Harobb , [employer] [address] [place], [address], [facility] 9 13:20:58 44921 lisinopri l medicatio n cough moderate Not available 01/31/2019 85731 RxNorm Lularina Mesfinrobb , [employer] [address] [place], [address], [facility] 9 13:21:22 19413 Pneumococ sue vaccine Not available Not available Not available Not available 02/01/2019 74677 7 RxNorm COULD NOT BONITA ATE MANUEL Eisenberg , [employer] [address] [place], [address], [facility] 9 14:30:28 77327 amlodipin e / benazepri l medicatio n angioedem a moderate Not available 02/01/2019 26277 3 RxNorm Landy Eisenberg , [employer] [address] [place], [address], [facility] 9 14:29:34 48177 tramadol medicatio n vomiting Not available [facility] 05/12/2023 80131 RxNorm Landy Eisenberg , [employer] [address] [place], [address], [facility] 3 12:11:52 Medications Name Sig Start Date Stop Date Status Note LastModified by Organization Details LastModified Time cyclobenz aprine 10 mg tablet 11/24 completed Not Available Not Available Not Available metformin 500 mg tablet TAKE 1 TABLET BY MOUTH TWICE A DAY DX E11.65 04/12 completed Not Available Not Available Not Available candesart an 32 mg-hydroc hlorothia zide 12.5 mg tablet TAKE 1 TABLET BY MOUTH EVERY DAY 2023 active Not Available Not Available Not Avai lable clindamyc in HCl 300 mg capsule Take 1 capsule every 6 hours by oral route as directed for 7 days. 05/12 completed Not Available Not Available Not Available hydrocodo ne 5 mg-acetam inophen 325 mg tablet Take 1 tablet every 6 hours by oral route as needed. 01/04 completed Not Available Not Available Not Available meloxicam 15 mg tablet Take 1 tablet every day by oral route, for osteoart hritis. 2023 active Not Available Not Available Not Avai lable prednison e 20 mg tablet 07/14 completed Not Available Not Available Not Available Zithromax Z-Horace 250 mg tablet TAKE 2 TABLETS (500 MG) BY ORAL ROUTE ONCE DAILY FOR 1 DAY THEN 1 TABLET (250 MG) BY ORAL ROUTE ONCE DAILY FOR 4 DAYS 09/13 completed Not Available Not Available Not Available clindamyc in HCl 150 mg capsule 01/04 completed Not Available Not Available Not Available allopurin ol 100 mg tablet TAKE ONE TABLET DAILY 04/30 completed Not Available Not Available Not Available sulfameth oxazole 800 mg-trimet hoprim 160 mg tablet TAKE 1 TABLET BY MOUTH EVERY 12 HOURS DIRECTED FOR 3 DAYS 01/04 completed Not Available Not Available Not Available hydrocodo ne 10 mg-acetam inophen 325 mg tablet Take 1 tablet twice a day by oral route as needed, for chronic pain. 2023 active PDMR checked. Last filled #60 tabs on 04/10/24. Refill appropri ate. Refills submitte d #60 tabs on 05/09/24, 06/08/24, and 07/06/24 to [place], [place]. Not Available Not Available Not Available tramadol 50 mg tablet TAKE 1 TABLET BY MOUTH EVERY 6 HOURS 05/12 completed Not Available Not Available Not Available meloxicam 7.5 mg tablet TAKE 2 TABLETS BY MOUTH EVERY DAY 2023 active Not Available Not Available Not Avai lable simvastat in 20 mg tablet TAKE 1 TABLET BY MOUTH EVERY DAY IN THE EVENING 2023 active Not Available Not Available Not Avai lable metformin 1,000 mg tablet Take 1 tablet twice a day by oral route as directed , for Type 2 diabetes mellitus . 2023 active Not Available Not Available Not Avai lable codeine 10 mg-guaife nesin 100 mg/5 mL oral liquid Take 10 mL every 4 hours by oral route. 04/30 completed Not Available Not Available Not Available allopurin ol 300 mg tablet TAKE 1 TABLET BY MOUTH EVERY DAY 2023 active Not Available Not Available Not Avai lable gabapenti n 100 mg capsule TAKE 1 CAPSULE BY MOUTH THREE TIMES A DAY NEEDED active Not Available Not Available No t Available metoprolo l succinate ER 25 mg tablet,ex tended release 24 hr Take 1 tablet every day by oral route, for hyperten aminata. 2023 active Not Available Not Available Not Avai lable methylpre dnisolone 4 mg tablets in a dose pack TAKE 6 TABLETS ON DAY 1 DIRECTED ON PACKAGE AND DECREASE BY 1 TAB EACH DAY FOR A TOTAL OF 6 DAYS 01/04 completed Not Available Not Available Not Available ondansetr on 4 mg disintegr ating tablet 01/04 completed Not Available Not Available Not Available Vitamin D3 25 mcg (1,000 unit) capsule Take 3 capsules every day by oral route. active Not Available Not Available No t Available calcium 1200 mg daily 2021 active Not Available Not Available Not Avai lable Sue-Citra te Takes 2 daily active Not Available Not Available No t Available ProAir HFA 90 mcg/actua tion aerosol inhaler Inhale 2 puffs every 4 hours by inhalati on route. active Not Available Not Available No t Available TRUEplus Lancets 33 gauge TEST ONCE DAILY DX: E11.9 active Not Available Not Available No t Available TRUEplus Lancets 28 gauge TEST ONCE DAILY DX: E11.9 2023 active Not Available Not Available Not Avai lable Lancets,U ltra Thin 26 gauge Test Once Daily For Dx Code E11.65 2022 active Not Available Not Available Not Avai lable True Metrix Glucose Test Strip Use to test daily for dx E11.9 2023 active Not Available Not Available Not Avai lable True Comfort Lancet 30 gauge Use to test blood sugars once a day E11.9 2023 active Not Available Not Available Not Avai lable Vitals Date Recorded Body height Body mass index (BMI) Body weight Heart rate Respiratory rate Body temperature Oxygen saturation Oxygen saturation in Arterial blood by Pulse oximetry Systolic blood pressure Diastolic blood pressure Provider Name and Address Organization Details Last Updated DateTime 3 154.94 cm 36.6 kg/m2 07345 g 87 /min 18 /min 98.6 [degF] 99 % 99 % 144 mm[Hg] 76 mm[Hg] Landy Eisenberg , [employer] [address] [facility], [place], [address] [place] [address] 3 12:19:10 Date Recorded Body height Body mass index (BMI) Body weight Oxygen saturation Oxygen saturation in Arterial blood by Pulse oximetry Heart rate Respiratory rate Body temperature Systolic blood pressure Diastolic blood pressure Provider Name and Address Organization Details Last Updated DateTime 3 154.94 cm 36.6 kg/m2 04293 g 96 % 96 % 90 /min 22 /min 98.5 [degF] 136 mm[Hg] 88 mm[Hg] Landy Eisenberg LPN [address] [place], [address], [facility] 3 12:03:19 Date Recorded Body height Body mass index (BMI) Body weight Oxygen saturation Oxygen saturation in Arterial blood by Pulse oximetry Heart rate Body temperature Respiratory rate Systolic blood pressure Diastolic blood pressure Provider Name and Address Organization Details Last Updated DateTime 4 154.94 cm 36.6 kg/m2 02537 g 98 % 98 % 105 /min 98.5 [degF] 24 /min 162 mm[Hg] 88 mm[Hg] Landy Eisenberg LPN [address] [place] [address], [address], [facility] 4 12:22:38 Date Recorded Body height Body mass index (BMI) Body weight Oxygen saturation Oxygen saturation in Arterial blood by Pulse oximetry Heart rate Respiratory rate Body temperature Systolic blood pressure Diastolic blood pressure Provider Name and Address Organization Details Last Updated DateTime 4 154.94 cm 35.9 kg/m2 76408 g 95 % 95 % 77 /min 22 /min 98.1 [degF] 132 mm[Hg] 66 mm[Hg] Landy Eisenberg LPN [address] [place], [address], [facility] 4 11:56:27 Social History Question Answer Notes LastModified by Organizat ion Details LastModified Time Tobacco Smoking Status Never Smoker Landy Eisenberg LPN [address] [place], [address],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
--- OUTSIDE RECORDS SUMMARY | 2024-10-29 00:35 | XMS_ITS | Data Portability ---
Author Organization [place] - [facility], DISP[facility] Address [address] [place] [address] Assessment No assessment recorded. Plan of Treatment [...] appointment for physical therapy 2022 023 [email or web address] [facility] (Outpatient Physical Therapy), [address], [place], [address], 3 12:38:38 Procedures None recorded. Surgeries None recorded. Imaging None recorded. Medication Orders Kenalog 40 mg/mL suspension for injection 2022 023 [email or web address] Not available 10:07:54 tramadol 50 mg tablet 2022 023 [facility] #[id number], [address] [place], [address], 21:32:26 Patient TargetsNo targets recorded. Patient Instructions Encounter Date Encounter Id Patient Instructions Last Modified By Organization Details Last Modified Time 02/23/[id number] at this point we elected to inject her knee this is done under sterile technique and patient tolerated well we will see how she progresses with this as well as some tramadol we are going to put her in a physical therapy program and see how she does over time I will see her back for re-evaluation in 6 weeks [email or web address] Not available 02/24/2023 21:34:56 Reason for Referral [...] more view No observ ation record ed. [id number] [facility] [address], [place], [address], 01/10/2023 20:44:21 Result Notes None recorded. Problems Name Problem SNOMED Code Status Onset Date Resolution Date Notes Provider Name and Address Organization Details Recorded Time Osteoarthri tis of right knee joint 9410522517271 00 Active 2022 Pedro Isaac MD [address] [place] [address], [phone] , [facility] 3 21:30:25 Low back pain 353074664 Active 2022 Pedro Isaac MD [address] [place] [address], [phone] , [facility] 3 21:32:45 Pain of right knee joint 0523316566028 00 Active 2022 Marianela Marley [facility] 3 15:54:34 Pain of right knee joint 1976616807422 00 Active 2022 Pedro Isaac MD [address] [place] [address], [phone] , [facility] 3 15:55:12 Problem Notes None recorded. Procedures Surgical History Date Name Laterality Status Provider Name and Address Organization Details Recorded Time 02/24/20 23 Cortisone Injection (Dequervains/ Greater Trochantric/ Lateral Epicondylitis/ Medial Epicondylitis / Shoulder/ Subacromial Space/ Knee/ Trigger Finger or Plantar Fascia) completed Pedro Isaac MD [address] [place], [address], [facility] 02/24/2023 21:30:11 01/27/20 17 total replacement of right knee joint completed Not Available [facility] 10/02/2022 05:13:17 Hand completed Not Available [facility] 04/2023 05:13:17 Hysterectomy completed Not Available [facility] 10/02/2022 05:13:17 Imaging Results Imaging Date Name Status LastModified by Organiz ation Details LastModified Time 2022 XR, knee, 4 or more view completed [id number] [facility] [address], [place], [address], 01/10/2023 20:44:21 Procedure Notes None recorded. Medical Equipment None Reported. Allergies Allergen ID Allergen Name Allergen Category Reaction Reaction Severity Criticality Documentation Date Start Date Code Code System Note Provider Name and Address Organization Details Recorded Time 101782 Prinivil medicatio n Not available Not available Not available 10/02/2022 67431 4 RxNorm Not Available [facility] 3 05:15:29 034342 acetamino phen / oxycodone medicatio n Not available Not available Not available 10/02/2022 01058 3 RxNorm Not Available [facility] 3 05:15:29 419414 Product containin g penicilli n and antibioti c (product) medicatio n Not available Not available Not available 10/02/2022 87237 05 SNOMED Not Available [facility] 3 05:15:29 199097 losartan medicatio n Not available Not available Not available 10/02/2022 71283 RxNorm Not Available [facility] 3 05:15:29 098919 erythromy clara medicatio n Not available Not available Not available 10/02/2022 4053 RxNorm Not Available [facility] 3 05:15:29 928969 lavender extract food Not available Not available Not available 02/23/2023 88204 67 RxNorm Patsy Kujawa [facility] 3 12:05:40 963835 ragweed pollen environme nt Not available Not available Not available 02/23/2023 13703 UNK Patsy Farrell [facility] 3 12:05:47 878650 Shingrix medicatio n Not available Not available Not available 02/23/2023 59911 26 RxNorm Patsy Farrell [facility] 3 12:05:59 355050 Pneumococ sue vaccine Not available Not available Not available Not available 02/23/2023 77471 7 [facility] 3 12:06:06 448602 tramadol medicatio n nausea Not available Not available 05/26/2023 09930 RxNorm Marianela - VIVIAN Marley [facility] 3 14:29:46 Medications Name Sig Start [...] active Not Available Not Available Not Avai labchuck TRUEplus Lancets 33 gauge TEST ONCE DAILY DX: E11.9 active Not Available Not Available No t Available True Metrix Glucose Test Strip USE TO TEST DAILY FOR DX E11.9 active Not Available Not Available No t Available Vitals Date Recorded Body height Body mass index (BMI) Body weight Pain severity - 0-10 verbal numeric rating [Score] - Reported Provider Name and Address Organization Details Last Updated DateTime 02/23/2023 154.94 cm 37.9 kg/m2 80005.63 g 6 [facility] 02/23/2023 12:04:41 Date Recorded Pain severity - 0-10 verbal numeric rating [Score] - Reported Body weight Provider Name and Address Organization Details Last Updated DateTime 10/02/2022 6 08674.1 g Not Available [facility] 05:14:02 Social History Question Answer Notes LastModified by Organizat ion Details LastModified Time Tobacco Smoking Status Never Smoker Not Available [facility] 10/02/2022 05:13:11 What Was The Date Of [...] SNOMED-CT Code Diagnosis ICD10 Code Diagnosis Note [id number] [facility] [address] [place] [address] 07/07/2022 00:00:00 07/07/2022 16:45:05 [id number] DISP[facility] [address] [place] [address] 2022 00:00:00 07/29/2022 07:02:20 [id number] Pedro Isaac MD [facility] [address] [place] [address] 02/23/2023 11:11:26 02/27/2023 03:53:04 Osteoarthritis of right knee joint [id number] 31537 M17.11 Low back pain 767352545 M54.50 Health Concerns Section Related Observation LastModified by Organization Detai ls LastModified Time None Recorded Concern Status LastModified by Organization Details LastModified Time None Recorded Advance Directives Directive None Recorded Payers Encounter Date Sequence Insurance Name Policy Number Policy Russell Covered Member ID Russell Member ID Guarantor Name 02/23/2023 1 [place] Natalia Rice [id number] Natalia Rice 02/23/2023 2 [employer] SU[employer]AL - [employer] (MEDICARE SUPPLEMENT) Natalia Rice [id number] Natalia Rice Notes Date Note Type Note Provider Name and Address Organization Details Recorded Time 02/23/2023 text/html Natalia is a 72-year-old patient returns for evaluation of increasing pain in her right knee she has also developed pain in her lower back. 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 She has been taking topical Tylenol Arthritis. Most of her discomfort is in her lower back region. Pedro Isaac MD [address] [place], [address], [facility] 02/24/2023 21:35:17 OBGyn Episode No OBEpisode recorded.
--- OUTSIDE RECORDS SUMMARY | 2024-10-29 00:35 | XMS_ITS | Referral Summary ---
Author Organization [facility] Address [address] [place] [address] Care Team Providers Care School Counselor Name Role Phone Unavailable Primary Care Provider Unavailabl e Source Comments [facility],non-owned Affiliates and Associated Physician Practices is amultiple site organization consisting of ambulatory clinics and hospital sitesin [place], [place], [place] and [place]. This disclosure is being madepursuant to the Care Everywhere program and may not contain all information available regarding this patient. Last updated 18.[facility] Allergies Active Allergy Reactions Criticality Noted Date Comments Erythromycin Other 11/14/2018 Body cramps all over Losartan Cardiac Injury High 11/14/2018 Penicillins Swelling High 11/14/2018 Oxycodone-Acetaminophen Vomiting High 11/14/2018 Lisinopril Itching,Vomiting 11/14/2018 Medications * Be aware that medications may not be up to date on this document. Alwaysverify current medications with the patient. Medication Sig Dispensed Refills Start Date End Date Status Cyclobenzaprine HCl (FLEXERIL PO) Active SIMVASTATIN PO Active MELOXICAM PO Active albuterol HFA (PROVENTIL;VENTOLIN; PROAIR) 108 (90 BASE) MCG/ACT inhaler Inhale 2 puffs by mouth every 6 hours as needed for Shortness of Breath, Wheezing or Cough 1 Inhaler 11/14/2018 Active predniSONE (DELTASONE) 10 MG tablet 5 tabs PO x 1 day, 4 tabs PO x 1 day, 3 tabs PO x 1 day, 2 tabs PO x 1 day, 1 tab PO x 1 day 15 tablet 11/14/2018 Active Social History Tobacco Use Types Packs/Day Years Used Date Smoking Tobacco: Never Smokeless Tobacco: Never Sex and Gender Information Value Date Recorded Sex Assigned at Not on file Gender Identity Not on file Sexual Orientation Not on file Last Filed Vital Signs Vital Sign Reading Time Taken Comments Blood Pressure 122/74 11/14/2018 5:35 PM GEAR TOOTH LAPPING MACHINE OPERATOR Pulse 98 11/14/2018 5:35 PM GEAR TOOTH LAPPING MACHINE OPERATOR Temperature 37.5 ??C (99.5 ??F) 11/14/2018 5:35 PM CS T Respiratory Rate 18 11/14/2018 5:35 PM GEAR TOOTH LAPPING MACHINE OPERATOR Oxygen Saturation 97% 11/14/2018 5:53 PM GEAR TOOTH LAPPING MACHINE OPERATOR Inhaled Oxygen Concentration - - Weight 90.7 kg (200 lb) 11/14/2018 5:35 PM GEAR TOOTH LAPPING MACHINE OPERATOR Height 156.2 cm (5' 1.5 ) 11/14/2018 5:35 PM GEAR TOOTH LAPPING MACHINE OPERATOR Body Mass Index 37.18 11/14/2018 5:35 PM GEAR TOOTH LAPPING MACHINE OPERATOR Plan of Treatment Not on file Additional Health Concerns Infection Onset Date Last Indicated 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
--- OUTSIDE RECORDS SUMMARY | 2024-10-29 00:35 | XMS_ITS | Clinical Summary ---
Author Organization [facility] [employer] Address [address] [place] [address] Care Team Providers Care Inside Sales Agent Name Role Phone Unavailable Primary Care Provider Unavailabl e Source Comments [facility],non-owned Affiliates and Associated Physician Practices is amultiple site organization consisting of ambulatory clinics and hospital sitesin [place], [place], [place] and [place]. This disclosure is being madepursuant to the Care Everywhere program and may not contain all information available regarding this patient. Last updated 18.[facility] [employer] Allergies Active Allergy Reactions Criticality Noted Date [...] Comments Blood Pressure 122/74 11/14/2018 5:35 PM CHORE TENDER Pulse 98 11/14/2018 5:35 PM CHORE TENDER Temperature 37.5 ??C (99.5 ??F) 11/14/2018 5:35 PM CS T Respiratory Rate 18 11/14/2018 5:35 PM CHORE TENDER Oxygen Saturation 97% 11/14/2018 5:53 PM CHORE TENDER Inhaled Oxygen Concentration - - Weight 90.7 kg (200 lb) 11/14/2018 5:35 PM CHORE TENDER Height 156.2 cm (5' 1.5 ) 11/14/2018 5:35 PM CHORE TENDER Body Mass Index 37.18 11/14/2018 5:35 PM CHORE TENDER Plan of Treatment Health Maintenance Due Date Last Done Comments BONE DENSITY TESTING 1950 COLOGUARD (AGES 45-75) - COL ON CA SCREENING 1950 COLON MONITORING 1950 COLONOSCOPY - COLON CA SCREENING 1950 CT COLONOGRAPHY - COLON CA SCREENING 1950 Colorectal Cancer Screening 1950 FIT - COLON CA SCREENING 1950 FLEX SIG - COLON CA SCREENING 1950 MAMMOGRAM 1950 MEDICARE AWV ? 12 MONTHS 1950 HEPATITIS C SCREENING 07/23/1969 DTAP/TDAP/TD VACCINES (1 - Tdap) 1970 PNEUMOCOCCAL VACCINE 50+ (1 of 1 - PCV) 2001 ZOSTER VACCINE (1 of 2) 2001 SCREENING FOR DIABETES 11/14/2018 COVID-19 VACCINE ( - 2023-2 5 season) 2024 INFLUENZA VACCINE (#1) 2024 DEPRESSION SCREENING 09/25/2024 Respiratory Syncytial Virus (RSV) Vaccine Pt: or over 60 yrs (1 - 1-dose 75+ series) 2026 HEPATITIS B VACCINE Aged Out No longe r eligible based on patient's age to complete this topic HIB VACCINE Aged Out No longer eligi ble based on patient's age to complete this topic HPV VACCINE Aged Out No longer eligi ble based on patient's age to complete this topic MENINGOCOCCAL (Group B) VACCINE Aged Out No longer eligible based on patient's age to complete this topic MENINGOCOCCAL VACCINE Aged Out No geovanny dwayne eligible based on patient's age to complete this topic Additional Health Concerns Infection Onset Date Last Indicated 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
--- OUTSIDE RECORDS SUMMARY | 2024-10-29 00:35 | XMS_ITS | Clinical Summary ---
Author Organization [facility] Address [facility]ly [facility] [place] [address] [place] [address] Care Team Providers Care Civil Geotechnical Engineer Name Role Phone Marcelino Garcia NP Primary Care Provider [phone] Meeta Melton MD Unavailable [phone] Allergies Active Allergy Reactions Criticality Noted Date Comments Erythromycin Unknown 12/18/2017 Losartan Other (see comment) 01/17/2018 Sweats, dizziness, low back pain Penicillins Unknown 12/18/2017 Oxycodone-Acetaminophen Nausea and Vomiting Pneumococcal Vaccines Unknown 12/18/2017 Medications albuterol sulfate HFA 108 (90 BASE) MCG/ACT inhaler Inhale 2 puffs into the lungs every 6 (six) hours as needed for Wheezing. Active meloxicam 7.5 MG tablet Take 7.5 mg by mouth daily. Active simvastatin 20 MG tablet Take 20 mg by mouth nightly at bedtime. Active hydrochlorothia zide 12.5 MG tablet Take 25 mg by mouth every morning. Active cyclobenzaprine 10 MG tablet Take 10 mg by mouth 3 (three) times daily as needed for Muscle Spasms. Active lisinopril 20 MG tablet Take 1 tablet (20 mg total) by mouth daily. 30 tablet 11 02/13/2018 Active Active Problems Problem Noted Date Diagnosed Date Left ventricular hypertrophy 01/17/2018 Hypertension, essential 12/19/2017 Irregular heart beat Hyperlipidemia Family History Medical History Relation Comments Diabetes Mother Heart Disease Mother Relation Status Comments Mother Social History Tobacco Use Types Packs/Day Years Used Date Smoking Tobacco: Never Smokeless Tobacco: Never Alcohol Use Standard Drinks/Week Comments Yes 0 (1 standard drink = 0.6 oz pur e alcohol) very rare Comments Unknown Sex and Gender Information Value Date Recorded Sex Assigned at Not on file Legal Sex Female 1:53 PM NUMEROLOGIST Gender Identity Not on file Sexual Orientation Not on file Last Filed Vital Signs Vital Sign Reading Time Taken Comments Blood Pressure 184/106 01/17/2018 12:51 PM CDT Pulse 124 01/17/2018 12:44 PM CDT Temperature - - Respiratory Rate - - Oxygen Saturation 97% 01/17/2018 12:44 PM CDT Inhaled Oxygen Concentration - - Weight 95.3 kg (210 lb) 01/17/2018 12:44 PM CDT Height 157.5 cm (5' 2 ) 01/17/2018 12:44 PM CDT Body Mass Index 38.41 01/17/2018 12:44 PM CDT Plan of Treatment Health Maintenance Due Date Last Done Comments Hepatitis C 1969 DTaP, Tdap and Td Vaccines ( 1 - Tdap) 1970 Mammogram Screening 1991 Zoster Vaccines (1 of 2) 2001 AAA SCREENING 2016 Annual Medicare Wellness Visit 2016 Dexa Scan (General) 2016 COVID-19 Vaccine ( - 2023-2 5 season) 2024 Influenza Adult (#1) 2024 RSV Immunization or 60+ Years (1 - 1-dose 75+ series) 2026 Colorectal Cancer Screening Colonoscopy (10 Years) 01/18/2028 Postponed from (Patient will follow up with PCP) Meningococcal B Vaccine Aged Out No l onger eligible based on patient's age to complete this topic Meningococcal Vaccine Aged Out No geovanny dwayne eligible based on patient's age to complete this topic RSV Immunizations Under 20 Months Aged Out No longer eligible based on patient's age to complete this topic Insurance MEDICARE [employer] [facility] [facility] MEDICARE [facility] Advance Directives Documents on File Type Date Recorded Patient Senior Marketing Specialist Expl anation Advance Directives and Living Will 02/07/2018 3:45 PM 07/01/2003 - P[facility]O.A. F [facility] Dwayne Care Teams Civil Geotechnical Engineer Relationship Specialty Start Date End Date Marcelino Garcia NP [address] [place] [address] PCP - General 11/09/17 Meeta Melton MD [address] [place] [address] CARDIOVASCULAR DISEASE 11/09/17
--- OUTSIDE RECORDS SUMMARY | 2024-10-29 00:35 | XMS_ITS | Patient Health Summary ---
Author Organization [facility] [employer] Address [address] [place] [address] Care Team Providers Care Gyroscope Repairer Name Role Phone Unavailable Primary Care Provider Unavailabl e Note from [facility],non-owned Affiliates and Associated Physician Practices is amultiple site organization consisting of ambulatory clinics and hospital sitesin [place], [place], [place] and [place]. This disclosure is being madepursuant to the Care Everywhere program and may not contain all information available regarding this patient. Last updated 18.[facility] [employer] Allergies * Erythromycin(Other) * Losartan(Cardiac Injury) -High Criticality * Penicillins(Swelling) -High Criticality * Oxycodone-Acetaminophen(Vomiting) -High Criticality * Lisinopril(Itching,Vomiting) Medications * Be aware that medications may not be up to date on this document. Alwaysverify current medications with the patient. * Cyclobenzaprine HCl (FLEXERIL PO) * SIMVASTATIN PO * MELOXICAM PO * albuterol HFA (PROVENTIL;VENTOLIN;PROAIR) 108 (90 BASE) MCG/ACT inhaler (Started 11/14/2018) Inhale 2 puffs by mouth every 6 hours as needed for Shortness of Breath, Wheezing or Cough * predniSONE (DELTASONE) 10 MG tablet(Started 11/14/2018) 5 tabs PO x 1 day, 4 tabs PO x 1 day, 3 tabs PO x 1 day, 2 tabs PO x 1 day, 1 tab PO x 1 day Social History Tobacco Use Types Packs/Day Years Used Date Smoking Tobacco: Never Smokeless Tobacco: Never Sex and Gender Information Value Date Recorded Sex Assigned at Not on file Gender Identity Not on file Sexual Orientation Not on file Last Filed Vital Signs Vital Sign Reading Time Taken Comments Blood Pressure 122/74 11/14/2018 5:35 PM MARKETING OPERATIONS COORDINATOR Pulse 98 11/14/2018 5:35 PM MARKETING OPERATIONS COORDINATOR Temperature 37.5 ??C (99.5 ??F) 11/14/2018 5:35 PM CS T Respiratory Rate 18 11/14/2018 5:35 PM MARKETING OPERATIONS COORDINATOR Oxygen Saturation 97% 11/14/2018 5:53 PM MARKETING OPERATIONS COORDINATOR Inhaled Oxygen Concentration - - Weight 90.7 kg (200 lb) 11/14/2018 5:35 PM MARKETING OPERATIONS COORDINATOR Height 156.2 cm (5' 1.5 ) 11/14/2018 5:35 PM MARKETING OPERATIONS COORDINATOR Body Mass Index 37.18 11/14/2018 5:35 PM MARKETING OPERATIONS COORDINATOR Procedures * GROSS + MICRO EXAM(Performed 11/29/2012) * GROSS + MICRO EXAM(Performed 08/23/2012) Results * GROSS + MICRO EXAM (11/29/2012 8:50 AM MARKETING OPERATIONS COORDINATOR) Only the most recent of2 resultswithin the time period is included. Result CASE NUMBER [id number] Comment: ORDERING PHYSICIAN ??SANTANA SALGADO SPECIMEN TYPE ?Trapezium-Right Thumb Date of Surgery ?11/29/2012 1356 Surgeon ?SANTANA SALGADO SPECIMEN SOURCE ? Right thumb basal joint tissue *Pre Op Dx ? Right thumb basal joint tissue GROSS DESCRIPTION ? The specimen submitted labeled right thumb basal joint tissue consists of multiple fragments of bony tissue having an irregular articular surface. ??Random section is submitted for microscopic following decalcification into cassette A1. ??The fragments measure up to 2 x 1.5 x 1 cm. SPN/cwh Grossed by ? Homar DEAN *MICROSCOPIC EXAM ? Sections of the decalcified material show roughened and irregularly thinned articular cartilage. ?? RBS/cwh Read by ?WILLIAM JACOBS M.D. DIAGNOSIS ? RIGHT THUMB BASAL JOINT TISSUE ? - DEGENERATIVE CHANGES CONSISTENT WITH OSTEOARTHRITIS. RBS/cwh RELEASED BY ?WILLIAM JACOBS MD MISCELLANEOUS SAMPLES / Unknown 11/29/2012 8:50 AM MARKETING OPERATIONS COORDINATOR 11/30/2012 11:08 AM MARKETING OPERATIONS COORDINATOR Historical Provider LAB - PATHOLOGY/C YTOLOGY ORDERABLES
--- OUTSIDE RECORDS SUMMARY | 2024-10-29 00:36 | XMS_ITS | Clinical Summary ---
Author Organization [facility] Address [address] [place] [address] Phone Care Team Providers Care Internet Sales Representative Name Role Phone Sloane Lu APRN, ASSISTANT PROFESSOR OF RADIOLOGY Primary Care Provi eliseo Tl Cintron MD Unavailable [phone] Allergies Active Allergy Reactions Criticality Noted Date Comments Erythromycin Unknown Medium 07/05/2024 Lisinopril Other (see Comments),Unknown Medium Losartan Rash Medium 07/05/2024 Oxycodone-Acetaminophen Rash High 07/05/2024 Penicillins Anaphylaxis Medium 07/05/2024 Pneumococcal Vaccine Unknown 07/05/2024 Tramadol Vomiting High 07/05/2024 Medications candesartan-hydro chlorothiazide (ATACAND HCT) 32-12.5 MG TabletIndications :Essential (primary) hypertension TAKE 1 TABLET BY MOUTH EVERY DAY 90 Tablet 1 024 Active True Metrix Blood Glucose Test Strip USE TO TEST DAILY FOR DX E11.9 024 Active [employer] Lancets Ultra-Thin 30G Misc USE TO TEST BLOOD SUGARS ONCE A DAY E11.9 024 Active albuterol (ProAir HFA) 108 (90 Base) MCG/ACT Aerosol Solution take 2 Puffs by inhalation every 4 hours as needed. Active metoprolol Succinate (TOPROL-XL) 25 MG TABLET SR 24 HRIndications:Tac hycardia, unspecified,Hyper tension, unspecified type TAKE 1 TABLET EVERY DAY BY ORAL ROUTE, FOR HYPERTENSION. 90 Tablet 1 Active meloxicam (MOBIC) 15 MG TabletIndications :Osteoarthritis of multiple joints, unspecified osteoarthritis type TAKE 1 TABLET EVERY DAY BY ORAL ROUTE, FOR OSTEOARTHRITI S. 90 Tablet 1 024 Active gabapentin (NEURONTIN) 100 MG CapsuleIndication s:Lumbar radiculopathy TAKE 1 CAPSULE BY MOUTH 3 TIMES A DAY NEEDED 90 Capsule 3 024 Active traMADol (ULTRAM) 50 MG Tablet Take 50 mg by mouth every 6 hours as needed. Active metFORMIN (GLUCOPHAGE) 500 MG Tablet TAKE 1 TABLET BY MOUTH TWICE A DAY 180 Tablet 1 Active simvastatin (ZOCOR) 20 MG TabletIndications :Hyperlipidemia associated with type 2 diabetes mellitus (HCC) TAKE 1 TABLET BY MOUTH EVERY DAY IN THE EVENING 90 Tablet 1 024 Active allopurinol (ZYLOPRIM) 300 MG TabletIndications :Hyperuricemia without signs of inflammatory arthritis and tophaceous disease TAKE 1 TABLET BY MOUTH EVERY DAY 90 Tablet Active HYDROcodone-aceta minophen (NORCO) 10-325 MG TabletIndications :Pain Take 1 Tablet by mouth 2 times daily as needed for Moderate or more severe pain for up to 30 days. Indications: Pain 60 Tablet 025 2024 Active allopurinol (ZYLOPRIM) 300 MG Tablet Take 1 Tablet by mouth daily. 024 2024 Discontinued HYDROcodone-aceta minophen (NORCO) 10-325 MG TabletIndications :Pain Take 1 Tablet by mouth 2 times daily as needed for Moderate or more severe pain for up to 30 days. Indications: Pain 60 Tablet 024 2024 Discontinued(R eorder) Active Problems Problem Noted Date Diagnosed Date Other chronic pain 07/09/2024 Assessment & Plan (10/15/2024 5:03 PM FUSING MACHINE TENDER): 08/19/24: pt called with request for Hydrocodone refill to [facility] (her usual pharmacy. PDMP reviewed. Last filled #60 tabs on 07/15/24. Refill appropriate. #60 tabs submitted to [facility] in [place]. 09/17/24: Request for hydrocodone refill. [place] PDMP checked and last filled #60 tabs on 08/19/24. Refill appropriate and submitted at 0740 to [place], [place] #60 tabs, no refills. 10/15/2024: Pt requesting hydrocodone refill. Hydrocodone 10 mg - 325 mg refill submitted number 60 tablets available on 10/18/2024. [place] checked and last filled number 60 tablets on 09/17/2024 Assessment & Plan (09/17/2024 7:43 AM FUSING MACHINE TENDER): 08/19/24: pt called with request for Hydrocodone refill to [facility] (her usual pharmacy. PDMP reviewed. Last filled #60 tabs on 07/15/24. Refill appropriate. #60 tabs submitted to [facility] in [place]. 09/17/24: Request for hydrocodone refill. [place] PDMP checked and last filled #60 tabs on 08/19/24. Refill appropriate and submitted at 0740 to [place], [place] #60 tabs, no refills. Assessment & Plan (08/19/2024 12:23 PM FUSING MACHINE TENDER): 08/19/24: pt called with request for Hydrocodone refill to [facility] (her usual pharmacy. PDMP reviewed. Last filled #60 tabs on 07/15/24. Refill appropriate. #60 tabs submitted to [facility] in [place]. Assessment & Plan (07/09/2024 9:06 AM CDT): From [facility] documentation: 01/05/24: Requesting hydrocodone medication for chronic pain. Osteoarthritis 06/11/2022: From radiographs-IMPRESSION: Lumbar rotary dextroscoliosis with moderate diffuse degenerative disc disease most severe at L1-L2 and L4-L5 with severe inferior lumbar facet osteoarthritis. Mnjz-sf-aaxtonui right hip osteoarthritis. Ubas-ue-fgwavueo tricompartmental right knee osteoarthritis. Mild right midfoot osteoarthritis with a moderate-sized plantar calcaneal spur. 01/05/24: controlled substance agreement discussed and reviewed with pt. Signed in ofc today. copy to patient. Rx hydrocodone 10 mg po BID PRN for moderate to severe pain. 01/09/24: Notification from pharmacy per pt case that only 7 day's supply was dispensed on 01/05/24. Needs new Rx one month supply. PDMR checked. The 7 day supply is not showing on PDMR. New Rx sent #60 tabs. Earliest fill date 01/11/24. 03/08/24: Pt case request for hydrocodone refill. PDMR checked, last filled #60 tabs on 01/29/24. Refill appropriate. 04/10/24: Pt case requesting Hydrocodone refill. PDMR checked, last filled #60 tabs on 03/08/24. Refill appropriate. Rx sent to [place], [place] #60 tabs 04/12/24: Had just filled hydrocodone and not yet taken any tablets from the bottle. Brought Rx to visit for provider review. Sinus tachycardia 07/09/2024 Assessment & Plan (07/09/2024 9:17 AM CDT): From [facility] documentation: egular rhythm, tachycardic rate. Trending back to 10/2020. Saw Dr. Melton in the past, but did not like her, so she never went back. Work up discussed with pt for further evaluation of tachycardia. She agrees to same. Pt denies CP, but has SOB for a long time with exertion. BP in office 134/82. Due to tachycardia will add metoprolol. Pt was advised to start medication after Holter monitoring is completed. 06/11/22: Holter monitor completed: Sinus rhythm predominant with avg heart rate of 81 bpm. Max rate 139, minimum HR 61. Rare premature atrial and ventricular contractions, combined they are no more than 0.3% of total heart beats (VERY low burden of ectopic beats) 07/11/22: Echo completed: No gross abnormality. Trace mitral and tricuspid regurgitation 07/14/22: Has cardiology appt 08/23/22. (Dr Thomas Penaloza at [facility]), continue as planned. Suggest starting metoprolol 25 mg ER as previously ordered, d/t tachycardia. Pt states HR monitored at homes and is usually ~100 bpm. Denies CP. SOB is at baseline for her 01/05/24: Remains under the care of replacer. Taking metoprolol succ ER 25 mg daily for sinus tachycardia. Has f/u appt with replacer 02/22/24 - DR Penaloza. Following every 6 mos. R00.0: Tachycardia, unspecified Encounter for preventative a dult health care exam with abnormal findings 07/09/2024 Assessment & Plan (07/09/2024 9:27 AM CDT): 07/09/24: MWV completed today. Ovarian failure due to procedure 07/09/2024 Assessment & Plan (07/09/2024 12:29 PM CDT): 07/09/24: 07/09/24: DEXA scan order placed and will take order and complete at her chosen facility. Impaired mobility and endurance 07/09/2024 Assessment & Plan (07/09/2024 12:30 PM CDT): 07/09/24: Would like a lightweight wheelchair. Pt states she is Unable to walk more than 200 feet w/o rest 2/2 LE weakness, tingling, and pain. Her legs start to feel like they will give out on her. She must rest and allow the feeling and strength to return to her legs before walking again. She is using her rollator currently in her home. Has arm mobility and strength to be able to independently operate a manual wheelchair. States her home environment is large enough to accommodate wheelchair. Has walk-in shower that can accommodate wheelchair. Fell early Monday morning in her home while closing a door, lost balance, and fell. Reached for her rollator to avoid a fall, but it fell on top of her. Lightweight wheelchair order placed. Influenza vaccine administered 07/09/2024 Assessment & Plan (07/09/2024 12:30 PM CDT): 07/09/24: influenza vaccine completed in ofc today per pt request. Hyperuricemia 07/05/2024 Assessment & Plan (07/09/2024 9:19 AM CDT): From [facility] documentation: E79.0: Hyperuricemia without signs of inflammatory arthritis and tophaceous disease. Takes allopurinol 300 mg daily. Lumbar spondylosis 04/23/2024 Assessment & Plan (07/09/2024 12:28 PM CDT): From [facility] documentation: lumbar spine (radiographs) 06/11/22 showing Lumbar rotary dextroscoliosis with moderate diffuse degenerative disc disease most severe at L1-L2 and L4-L5 with severe inferior lumbar facet osteoarthritis. 07/09/24: Lumbar radiculopathy/ lumbar spondylosis: Following with spine surgeon, Dr Cintron at [facility]. Planning for lumbar spine surgery. Morbid (severe) obesity due to excess calories 0 02/22/2024 Irregular heart beat 05/12/2023 Overview (07/05/2024): PACs and PVCs Assessment & Plan (07/09/2024 9:18 AM CDT): From [facility] documentation: PACs and PVCs - Holter Monitor 06/11/22 Arthralgia of right knee 02/27/2023 Low back pain 02/24/2023 History of cardiac catheterization 09/11/2022 Overview (07/05/2024): Follows with Dr Thomas Penaloza at [facility] ([facility]), no significant stenosis. Assessment & Plan (07/09/2024 9:23 AM CDT): From [facility] documentation: Follows with Dr Thomas Penaloza at [facility] ([facility]), no significant stenosis. Pre-operative clearance 08/23/2022 Premature atrial contractions 08/23/2022 Degeneration of lumbar intervertebral disc 06/11 Assessment & Plan (07/09/2024 12:27 PM CDT): Chronic, with chronic back pain. 04/12/24: low back pain with numbness/tingling/ stretching pain of the R leg. Onset 1 yr ago, worse the past 6 months. Clinical exam findings suggest nerve impingement coordinating with L4-L5 nerve root. She has muscle weakness also associated with these nerve roots on the right side. Ordering MRI. Pt wants to complete at [facility] in [place], closer to home where she lives with her daughter. Post MRI wants referral to pain consumer loan specialist, Dr Frances, who has office in [place], [place]. Rx gabapentin 100 mg po TID PRN for neuropathic pain of the R leg. Advised regarding drowsy warning and potential synergistic effect with hydrocodone. Also, monitor her BP as this may decrease BP. Call the office for any concerns. Pt and daughter Marianela state understanding. 07/09/24: Lumbar radiculopathy/ lumbar spondylosis: Following with spine surgeon, Dr Cintron at [facility]. Planning for lumbar spine surgery. Lumbar radiculopathy 04/07/2022 Assessment & Plan (07/09/2024 12:28 PM CDT): From [facility] Documentation: Chronic. Takes meloxicam Worst level of pain 9/10 when wt bearing or sitting. Pain decreases to 3/10 with hydrocodone and resting in either side lying position. Never resolves to 0/10. 04/12/24: low back pain with numbness/tingling/ stretching pain of the R leg. Onset 1 yr ago, worse the past 6 months. Clinical exam findings suggest nerve impingement coordinating with L4-L5 nerve root. She has muscle weakness also associated with these nerve roots on the right side. Ordering MRI. Pt wants to complete at [facility] in [place], closer to home where she lives with her daughter. Post MRI wants referral to pain consumer loan specialist, Dr Frances, who has office in [place], [place]. Rx gabapentin 100 mg po TID PRN for neuropathic pain of the R leg. Advised regarding drowsy warning and potential synergistic effect with hydrocodone. Also, monitor her BP as this may decrease BP. Call the office for any concerns. Pt and daughter Marianela state understanding. 07/09/24: Lumbar radiculopathy/ lumbar spondylosis: Following with spine surgeon, Dr Cintron at [facility]. Planning for lumbar spine surgery. Osteopenia 09/16/2019 Overview (07/05/2024): 03/18/22 Dexa (R femoral neck -1.5) Assessment & Plan (07/09/2024 12:29 PM CDT): From [facility] documentation: Low bone mass, slight decline since last Dexa in 2019. Med list says she is taking Vit D3 supplement, but not calcium. It was recommended in 2019. 03/18/22: AP LUMBAR SPINE L1-L4: Total BMD is 1.223 g/cm2 T-score is 1.6 Most recent prior BMD was 1.195 g/cm2 Dissimilar scan types or analysis methods precludes assessment for calculating a significant change. LEFT HIP: Current Total BMD is 0.909 g/cm2 T-score is -0.3 Most recent prior Total BMD was 0.861 g/cm2 Dissimilar scan types or analysis methods precludes assessment for calculating a significant change. Current femoral neck BMD is 0.785 g/cm2 T-score is -0.6 RIGHT HIP: Current Total BMD is 0.885 g/cm2 T-score is -0.5 Most recent prior Total BMD was 0.862 g/cm2 Dissimilar scan types or analysis methods precludes assessment for calculating a significant change. Current femoral neck BMD is 0.679 g/cm2 T-score is -1.5 FRAX: 10 year risk for a major osteoporotic fracture is 12 %, 10 year risk for a hip fracture is 1.8 % IMPRESSION: Low bone mass (based on right femoral neck BMD/T-score). 07/09/24: DEXA scan order placed and will take order and complete at her chosen facility. Type 2 diabetes mellitus 02/07/2019 Assessment & Plan (07/09/2024 9:10 AM CDT): From [facility] documentation: Historical hyperglycemia/ diet controlled. Started Metformin 3 months ago for new dx of T2DM. 11/24/21 A1c of 7.5. 03/08/22: A1c of 6.6% 10/21/22: Due for A1c. Will delay until other labs are due in November. Discussed lifestyle modification, nutrition to decrease A1c and CV risk. 01/05/24: A1c drawn in ofc today. Obtained urine specimen for microalbumin/ creat ratio. A1c= 7.4%. A1c above goal of <7.0%. Increase Metformin to 1,000 mg BID (advise her to start with her current 500 mg Rx, by doing 1,000 in am and 500 in the pm, then advance to full 1,000 mg BID to decrease risk of diarrhea side effects Pain in joint 02/01/2019 Sleep pattern disturbance 02/01/2019 Arthritis 01/31/2019 Assessment & Plan (07/09/2024 9:16 AM CDT): From [facility] Documentation: Chronic low back and bilateral knees. Hx of left total knee arthroplasty. 06/11/2022: From radiographs-IMPRESSION: lumbar rotary dextroscoliosis with moderate diffuse degenerative disc disease most severe at L1-L2 and L4-L5 with severe inferior lumbar facet osteoarthritis. Ledc-pl-bhcfjqqd right hip osteoarthritis. Sort-se-rnfzluyj tri-compartmental right knee osteoarthritis. Mild right midfoot osteoarthritis with a moderate-sized plantar calcaneal spur. 01/05/24: Refill meloxicam at 15 mg strength. Also CS agreement signed today for hydrocodone 10 mg PO BID PRN #60 tabs. Hyperlipidemia 01/31/2019 Assessment & Plan (07/09/2024 12:27 PM CDT): From [facility] documentation: Statin compliant: simvastatin 20 mg po HS Discussed healthy sources of [place] 3s, oils, nuts, eggs, lean meats. Avoid vegetable seed oils, etc. 05/12/23: Needs fasting lipid panel. Last checked January 2023 triglycerides elevated. patient is statin compliant-simvastatin 20 mg daily in the evening. 01/05/24: lipid panel drawn in ofc today. Lipids: triglycerides are high and reflects the increase in A1c. Imperative to follow diabetic nutrition plan and decrease carb consumption. chol 180, trig 343, HDL 50, LDL 61.4 - remaining portion of lipid panel looks good. 07/09/24: fasting lipid panel drawn in ofc today Hypertensive disorder 01/31/2019 Assessment & Plan (07/09/2024 9:09 AM CDT): From [facility] documentation: 10/21/22: BP 144/76 in office today 01/05/24: BP in ofc today 162/88 mmHg. Routine lab orders placed and drawn in ofc. Refill candesartan 32 mg-HCTZ 12.5 mg sent to pharmacy. Irritable bowel syndrome 01/31/2019 Assessment & Plan (07/09/2024 9:19 AM CDT): Stable Vitamin D deficiency 01/31/2019 Assessment & Plan (07/09/2024 9:11 AM CDT): From [facility] documentation: takes Vit D3 supplement. 3000 units daily. 01/27/23: Vitamin D level therapeutic-44 01/05/24: Lab draw in ofc for Vit D level. Vit D = 41.90, sufficient. Continue daily supplement. Left ventricular hypertrophy 01/17/2018 Encounters Date Type Department Care Team Description 10/15/2024 Telephone [facility] [address] [place], [place] [phone] Sloane Lu APRN, ASSISTANT PROFESSOR OF RADIOLOGY 10/08/2024 Refill [facility] [address] [place], [place] [phone] Sloane Lu FLOOR MANAGER, ASSISTANT PROFESSOR OF RADIOLOGY Medication Refill 09/24/2024 [facility] [address] [place], [place] [phone] Sloane Lu, FLOOR MANAGER, ASSISTANT PROFESSOR OF RADIOLOGY 09/16/2024 Telephone [facility] [address] [place], [place] [phone] Sloane Lu, FLOOR MANAGER, ASSISTANT PROFESSOR OF RADIOLOGY 08/23/2024 Refill [facility] [address] [place], [place] [phone] Sloane Lu, FLOOR MANAGER, ASSISTANT PROFESSOR OF RADIOLOGY Medication Refill 08/19/2024 Refill [facility] [address] [place], [place] [phone] Sloane Lu FLOOR MANAGER, ASSISTANT PROFESSOR OF RADIOLOGY 08/16/2024 [facility] [address] [place], [place] [phone] Sloane Lu, FLOOR MANAGER, ASSISTANT PROFESSOR OF RADIOLOGY from Last 3 Months Immunizations Immunization Administration Dates Next Due Hepatitis B Vaccine, Pediatric/adolescent 1995,02/28/1996 Influenza Vaccine, Quadrivalent, PF 07/23/2015 Influenza, High-dose, Quadrivalent 07/14/2022, Influenza, Injectable, Quadrivalent 07/13/2018,1 10/08/2016,07/01/2016 Influenza, Quadrivalent, Adjuvanted 08/10/2021 Influenza, Trivalent, Adjuvanted, PF 07/09/2024 Influenza, high-dose, trivalent, PF 06/20/2019 Sars-cov-2 (Covid-19) Vaccine, Unspecified 12/13 TDAP Vaccine 08/08/2017 Zoster Vaccine, live 07/04/2000 Family History Medical History Relation Name Comments Diabetes Mother Heart Disease Mother High Cholesterol Mother Hypertension Mother Osteoporosis Mother Relation Name Status Comments Mother Social History Tobacco Use Types Packs/Day Years Used Date Smoking Tobacco: Never Smokeless Tobacco: Never Tobacco Cessation:Counseling Given: No Alcohol Use Standard Drinks/Week Comments Never 0 (1 standard drink = 0.6 oz pur e alcohol) [facility] Utilities Answer Date Recorded In the past 12 months has [employer], oil, or water [employer] threatened to shut off services in your home? No 07/09/2024 Social Connection and Isolation Panel [NHANES] A nswer Date Recorded In a typical week, how many times do you talk on the phone with family, friends, or neighbors? Three times a week 07/09/2024 How often do you get togethe r with friends or relatives? Twice a week 07/09/2024 How often do you attend chur or confucianism services? Never 07/09/2024 Do you belong to any clubs o r organizations such as latter-day groups, unions, fraternal or athletic groups, or school groups? No 07/09/2024 How often do you attend meet ings of the clubs or organizations you belong to? Never 07/09/2024 Are you , , di vorced, , never , or living with a partner? 07/09/2024 AUDIT-C Answer Date Recorded Q1: How often do you have a drink containing alcohol? Never 07/09/2024 Q2: How many drinks containi ng alcohol do you have on a typical day when you are drinking? Patient does not drink Q3: How often do you have si x or more drinks on one occasion? Never 07/09/2024 Overall Financial Resource Strain (CARDIA) Answe r Date Recorded How hard is it for you to pa y for the very basics like food, housing, medical care, and heating? Not very hard 07/09/2024 [facility] Occupational Stress Questionnaire Answer Date Recorded Do you feel stress - tense, restless, nervous, or anxious, or unable to sleep at night because your mind is troubled all the time - these days? Not at all 07/09/2024 Exercise Vital Sign Answer Date Recorde d On average, how many days pe r week do you engage in moderate to strenuous exercise (like a brisk walk)? 0 days 07/09/2024 On average, how many minutes do you engage in exercise at this level? 0 min 07/09/2024 Hunger Vital Sign Answer Date Recorded Within the past 12 months, y ou worried that your food would run out before you got the money to buy more. Never true 07/09/20 24 Within the past 12 months, t he food you bought just didn't last and you didn't have money to get more. Never true 07/09/2024 PRAPARE - Transportation Answer Date Re corded In the past 12 months, has l ack of transportation kept you from medical appointments or from getting medications? No 06/25 In the past 12 months, has l ack of transportation kept you from meetings, work, or from getting things needed for daily living? No 07/09/2024 Housing Stability Vital Sign Answer Steven e Recorded In the last 12 months, was t here a time when you were not able to pay the mortgage or rent on time? No 07/09/2024 Number of Times Moved in the Last Year Not on fi le 07/09/2024 At any time in the past 12 m [facility], were you homeless or living in a long-term (including now)? No 07/09/2024 Comments Unknown Sex and Gender Information Value Date Recorded Sex Assigned at Not on file Legal Sex Female 1:40 PM CDT Gender Identity Female 04/08/2024 1:40 PM CDT Sexual Orientation Not on file Last Filed Vital Signs Vital Sign Reading Time Taken Comments Blood Pressure 164/82 07/09/2024 11:09 AM CDT Pulse 80 07/09/2024 11:09 AM CDT Temperature 36.6 ??C (97.9 ??F) 07/09/2024 11:09 AM C DT Respiratory Rate 17 07/09/2024 11:09 AM CDT Oxygen Saturation 95% 07/09/2024 11:09 AM CDT Inhaled Oxygen Concentration - - Weight 86.6 kg (191 lb) 07/09/2024 11:09 AM CDT Height 152.4 cm (5') 07/09/2024 11:09 AM CDT Body Mass Index 37.3 07/09/2024 11:09 AM CDT Plan of Treatment Health Maintenance Due Date Last Done Comments DEXA Bone Density 1950 Diabetes: Eye Exam 1950 Diabetes: Foot Exam 1950 Hepatitis C Virus (HCV) Screening 1950 Pneumococcal Immunization (50+ years) (1 of 2 - PCV) 1970 Cologuard 2001 Immunochemical Fecal Occult Blood 2001 Zoster Immunization (1 of 2) 2001 07/04/2000 SARS-COV-2 Immunization ( season) 2024 12/19/2021, 12/13/2021, 06/14/2021, Additional history exists Diabetes: Hemoglobin A1c 01/07/2025 024, 01/05/2024, 03/08/2022 Diabetes: Nephropathy Screening 07/09/2025 07/09/2024 Mammogram 01/04/2026 01/05/2024, 01/28/2021 Respiratory Syncytial Virus (RSV) Immunization (Adult) (1 - 1-dose 75+ series) 2026 Td Immunization Every 10 Years (Adults With 1 Tdap) 08/08/2027 08/08/2017 Colonoscopy 11/14/2029 11/14/2019 Colorectal Cancer Screening 11/14/2029 11/14/2019 Hepatitis B Immunization Aged Out 03/27/1996, 01/1996 No longer eligible based on patient's age to complete this topic TdaP Immunization Discontinued 08/08/2017 Influenza Immunization Completed , 07/14/2022, 08/10/2021, Additional history exists Meningococcal Immunization (ACWY) Aged Out No longer eligible based on patient's age to complete this topic Rotavirus Immunization Aged Out No lo nger eligible based on patient's age to complete this topic Procedures Procedure Name Priority Date/Time Associated Diagnosis Comments CMP (COMPREHENSIVE METABOLIC PANEL) Routine 07/09/2024 12:10 PM CDT Hypertension, unspecified type HEMOGLOBIN A1C W/ ESTIMATED GLUCOSE Routine 07/09/2024 12:10 PM CDT Hyperlipidemia, unspecified hyperlipidemia type Hypertension, unspecified type Type 2 diabetes mellitus with hyperglycemia, without long-term current use of insulin (HCC) from Last 3 Months or Most Recently Relevant to Health Maintenance Results * (ABNORMAL) HEMOGLOBIN A1C W/ ESTIMATED GLUCOSE (07/09/2024 12:10 PM CDT) HGB-A1C 6.4(H) 4.0 - 6.0 % 07/09/2024 2:38 PM CDT [facility] Est Average Glucose 137.0 mg/dL 07/09/2024 2:38 PM CDT [facility] [facility] Blood Venipuncture / Unknown 07/09/2024 12:10 PM CDT 07/09/2024 12:11 PM CDT us Sloane Lu APRN, ASSISTANT PROFESSOR OF RADIOLOGY CHEMISTRY ORDERABLE S Final Result [facility] [address] [place] [address], * (ABNORMAL) CMP (COMPREHENSIVE METABOLIC PANEL) (07/09/2024 12:10 PM CDT) SODIUM 140 137 - 145 mmol/L 07/09/2024 2:29 PM CDT [facility] POTASSIUM 5.5(H) 3.5 - 5.1 mmol/L 07/09/2024 2:29 PM CDT [facility] CHLORIDE 104 98 - 107 mmol/L 07/09/2024 2:29 PM CDT [facility] CO2, VENOUS 23 22 - 30 mmol/L 07/09/2024 2:29 PM [facility] GLUCOSE 131(H) 70 - 106 mg/dL 07/09/2024 2:29 PM [facility] BUN 21(H) 7 - 17 mg/dL 07/09/2024 2:29 PM [facility] CREATININE, BLOOD 1.10(H) 0.52 - 1.04 mg/dL 07/09/2024 2:29 PM [facility] ALKALINE PHOSPHATASE 97 38 - 126 U/L 07/09/2024 2:29 PM [facility] SGPT (ALT) 20 1 - 34 U/L 07/09/2024 2:29 PM [facility] SGOT (AST) 56(H) 14 - 36 U/L 07/09/2024 2:29 PM [facility] ALBUMIN 4.7 3.5 - 5.0 g/dL 07/09/2024 2:29 PM [facility] T BILI 0.7 0.2 - 1.3 mg/dL 07/09/2024 2:29 PM [facility] TOTAL PROTEIN 8.0 6.3 - 8.2 g/dL 07/09/2024 2:29 PM [facility] CALCIUM 10.1 8.4 - 10.2 mg/dL 07/09/2024 2:29 PM [facility] ANION GAP 13.0 6.0 - 16.0 mmol/L 07/09/2024 2:29 PM [facility] BUN/CREATININE RATIO 19 7 - 30 ratio 07/09/2024 2:29 PM [facility] A/G RATIO 1.4 0.9 - 2.3 07/09/2024 2:29 PM [facility] GLOBULIN 3.3 2.2 - 3.9 g/dL 07/09/2024 2:29 PM [facility] GFR, ESTIMATED 53(L) >60 07/09/2024 2:29 PM [facility] OSMOLALITY 284 273 - 304 mOsm/kg 07/09/2024 2:29 PM [facility] Blood Venipuncture / Unknown 07/09/2024 12:10 PM CDT 07/09/2024 12:11 PM CDT us Sloane Lu APRN, CNP CHEMISTRY ORDERABLE S Final Result [facility] [place] [address] [place] [address], from Last 3 Months or Most Recently Relevant to Health Maintenance Insurance MEDICARE [employer] MEDICARE SUP Advance Directives Documents on File Type Date Recorded Patient [employer] Tutor Expl anation Other Advance Directive 07/23/2024 10:57 AM CPAP Order Other Advance Directive 07/22/2024 3:01 PM 07/20/2024 BMP Other Advance Directive 06/28/2024 10:[address] Cintron Care Teams Internet Sales Representative Relationship Specialty Start Date End Date Sloane Lu APRN, ASSISTANT PROFESSOR OF RADIOLOGY [address] [place] [address] PCP - General Solderer Torch 07/09/24 Tl Cintron MD [address] [place] [id number] Neurological Surgery 07/09/24
--- OUTSIDE RECORDS SUMMARY | 2024-10-29 00:36 | XMS_ITS | Referral Summary ---
Author Organization [place] [address] [address] [place] [address] [address] [place] [address] Care Team Providers Care Traffic Division Commanding Officer Name Role Phone Sloane Lu NP Primary Care Provider [phone] Encounters Date Type Department Care Team Description 10/03/2024 Orders Only [facility] [address] [place] [address] [address] [place] [address] ProviderJazzy MD 10/03/2024 10:00 AM SPD MANAGER Office Visit [facility] [address] [place] [address] [address] [place] [address] Thomas Taylor MD Hypertension associated with diabetes (HCC) (Primary Dx); Hyperlipidemia associated with type 2 diabetes mellitus (HCC); Sinus tachycardia; Premature atrial contractions; Morbid (severe) obesity due to excess calories (HCC); Pre-operative cardiovascular examination from Last 3 Months Allergies Active Allergy Reactions Criticality Noted Date Comments Erythromycin Other (See comments),Unknown Low 12/18/2017 Body cramps all over Lisinopril Itching,Vomiting Low 11/14/2018 Losartan Other (See comments) High 01/17/2018 Sweats, dizziness, low back pain Oxycodone-Acetaminophen Nausea And Vomiting,Vomiting High 12/18/2017 Penicillins Swelling,Hives High 12/18/2017 Pneumococcal Vaccine Edema Medium 12/18/2017 Severe edema Varicella-Zoster Ge Vac,2 Of 2 Edema Medium 08/23/2022 Severe edema Medications candesartan-hyd rochlorothiazid (ATACAND HCT) 32-12.5 mg per tablet Take 1 tablet by mouth daily 2 Active allopurinoL (ZYLOPRIM) 300 mg tablet Take 1 tablet (300 mg total) by mouth daily 2 Active simvastatin (ZOCOR) 20 mg tablet Take 1 tablet (20 mg total) by mouth nightly 2 Active albuterol HFA (PROVENTIL HFA,VENTOLIN HFA,PROAIR HFA) 90 mcg/actuation inhaler every 4 hours 9 Active metoprolol XL (TOPROL-XL) 25 mg extended release tablet Take 1 tablet (25 mg total) by mouth daily 2 Active lansoprazole (PREVACID) 15 mg capsule daily Active calcium carbonate-vit D3-min 600 mg calcium- 400 unit tablet Take by mouth Active metFORMIN (GLUCOPHAGE) 1,000 mg tablet Take 1 tablet (1,000 mg total) by mouth 2 (two) times a day with meals 4 Active coenzyme Q10 300 mg capsule Take 1 capsule (300 mg total) by mouth daily Active MAGNESIUM GLYCINATE ORAL Take 200 mg by mouth daily Active icosapent ethyL (VASCEPA) 1 gram capsule Take 1 capsule (1 g total) by mouth 2 (two) times a day 60 capsule 11 4 02/22/20 25 Active meloxicam (MOBIC) 7.5 mg tablet Take 2 tablets (15 mg total) by mouth daily 2 10/03/19 25 Discontinu ed(Therapy completed) Active Problems Problem Noted Date Diagnosed Date Pre-operative cardiovascular examination 025 Hypertriglyceridemia 02/22/2024 Morbid (severe) obesity due to excess calories 0 02/22/2024 Pre-operative clearance 08/23/2022 Sinus tachycardia 08/23/2022 Premature atrial contractions 08/23/2022 Rheumatoid arthritis 08/23/2022 Hyperlipidemia associated with type 2 diabetes m ellitus 08/23/2022 Hypertension associated with diabetes 08/23/2022 Abnormal electrocardiogram 08/23/2022 Social History Tobacco Use Types Packs/Day Years Used Date Smoking Tobacco: Never Smokeless Tobacco: Never Tobacco Cessation:Counseling Given: Not Answered AUDIT-C Answer Date Recorded Q1: How often do you have a drink containing alc ohol? Monthly or less 08/23/2022 Q2: How many drinks containi ng alcohol do you have on a typical day when you are drinking? 1 or 2 08/23/2022 Q3: How often do you have si x or more drinks on one occasion? Never 08/23/2022 Comments Unknown Sex and Gender Information Value Date Recorded Sex Assigned at Not on file Legal Sex Female 11:03 AM CDT Gender Identity Not on file Sexual Orientation Not on file Last Filed Vital Signs Vital Sign Reading Time Taken Comments Blood Pressure 134/82 10/03/2024 10:12 AM SPD MANAGER Pulse 100 10/03/2024 10:12 AM SPD MANAGER Temperature - - Respiratory Rate - - Oxygen Saturation 96% 10/03/2024 10:12 AM SPD MANAGER Inhaled Oxygen Concentration - - Weight 86.2 kg (190 lb) 10/03/2024 10:12 AM SPD MANAGER Height 154.9 cm (5' 1 ) 10/03/2024 10:12 AM SPD MANAGER Body Mass Index 35.9 10/03/2024 10:12 AM SPD MANAGER Plan of Treatment Not on file Procedures Procedure Name Priority Date/Time Associated Diagnosis Comments ELECTROCARDIOGRAM REPORT Routine 025 11:29 AM SPD MANAGER Hypertension associated with diabetes (HCC) Sinus tachycardia Premature atrial contractions Pre-operative cardiovascular examination LIPID PANEL Routine 07/09/2024 11:29 AM CDT from Last 3 Months or Most Recently Relevant to Health Maintenance Results * Electrocardiogram Report (10/03/2024 11:29 AM SPD MANAGER) Thomas Taylor MD ECG ORDERABLES Final Res ult * Lipid panel (07/09/2024 11:29 AM CDT) SCRIBED Cholesterol, Total 149 <200 EXTERNAL LAB SCRIBED HDL 45 >40 EXTERNAL LAB SCRIBED LDL 51 <100 EXTERNAL LAB SCRIBED Triglycerides 264 <150 EXTERNAL LAB Blood Historical Provider LAB BLOOD ORDERABLES Edit ed Result - Final EXTERNAL LAB from Last 3 Months or Most Recently Relevant to Health Maintenance Insurance MEDICARE [facility] MEDICARE SUPPLEMENT INSURANCE [facility] SUPPLE[facility] INSURANCE Care Teams Traffic Division Commanding Officer Relationship Specialty Start Date End Date Sloane Lu NP PCP - General Nurse Practitioner 06/30/22
--- OUTSIDE RECORDS SUMMARY | 2024-10-29 00:36 | XMS_ITS | Clinical Summary ---
Author Organization [facility] [address] [facility] [address] [place] [address] Care Team Providers Care Tool Specialist Name Role Phone Sloane Lu NP Primary Care Provider [phone] Allergies Active Allergy Reactions Criticality Noted Date [...] associated with diabetes 08/23/2022 Abnormal electrocardiogram 08/23/2022 Encounters Date Type Department Care Team Description 10/03/2024 10:00 AM ARMED SECURITY OFFICER Office Visit [facility] [address] [facility] [address] [place] [address] Thomas Taylor MD Hypertension associated with diabetes (HCC) (Primary Dx); Hyperlipidemia associated with type 2 diabetes mellitus (HCC); Sinus tachycardia; Premature atrial contractions; Morbid (severe) obesity due to excess calories (HCC); Pre-operative cardiovascular examination 10/03/2024 Orders Only [facility] [address] [facility] [address] [place] [address] Provider, MD Jazzy from Last 3 Months Surgical History Surgery Date Site/Laterality Comments HYSTERECTOMY TOTAL KNEE ARTHROPLASTY Left Medical History Medical History Date Comments Hypertension Diabetes mellitus (HCC) Rheumatoid arthritis (HCC) Social History Tobacco Use Types Packs/Day Years [...] on file Sexual Orientation Not on file Obstetrics History Last Filed Vital Signs Vital Sign Reading Time Taken Comments Blood Pressure 134/82 10/03/2024 10:12 AM ARMED SECURITY OFFICER Pulse 100 10/03/2024 10:12 AM ARMED SECURITY OFFICER Temperature - - Respiratory Rate - - Oxygen Saturation 96% 10/03/2024 10:12 AM ARMED SECURITY OFFICER Inhaled Oxygen Concentration - - Weight 86.2 kg (190 lb) 10/03/2024 10:12 AM ARMED SECURITY OFFICER Height 154.9 cm (5' 1 ) 10/03/2024 10:12 AM ARMED SECURITY OFFICER Body Mass Index 35.9 10/03/2024 10:12 AM ARMED SECURITY OFFICER Plan of Treatment Health Maintenance Due Date Last Done Comments Albumin Creatinine Ratio, Urine 1951 Breast Cancer Screening-Mammogram 1951 Colon Cancer Screening-Colonoscopy 1950 Depression Screening 1951 Fall Risk Assessment 1951 Hemoglobin A1C 1951 Hepatitis C Screening 1951 Osteoporosis Screening-Bone Density Scan 1951 eGFR 1951 Dilated Eye Exam 1951 Foot Exam 1951 Pneumococcal vaccine 65+ (1 of 2 - PCV) 1957 Zoster Vaccine (1 of 2) 2001 07/04/2000 Well Visit 65+ 2016 Covid-19 Vaccine ( - 2023-2 5 season) 2024 12/19/2021, 12/13/2021, 06/14/2021, Additional history exists Lipid Panel 07/09/2025 07/09/2024, 06/25, 01/05/2024, Additional history exists DTaP/Tdap/Td Vaccine (2 - Td or Tdap) 08/08/2027 08/08/2017 Influenza Vaccine Completed 07/09/2024, , 08/10/2021, Additional history exists Procedures Procedure Name Priority Date/Time Associated Diagnosis Comments ELECTROCARDIOGRAM REPORT Routine 025 11:29 AM ARMED SECURITY OFFICER Hypertension associated with diabetes (HCC) Sinus tachycardia Premature atrial contractions Pre-operative cardiovascular examination LIPID PANEL Routine 07/09/2024 11:29 AM CDT from Last 3 Months or Most Recently Relevant to Health Maintenance Results * Electrocardiogram Report (10/03/2024 11:29 AM ARMED SECURITY OFFICER) Thomas Taylor MD ECG ORDERABLES Final Res [...] Recently Relevant to Health Maintenance Insurance MEDICARE [facility] MEDICARE SUPPLEMENT INSURANCE MEDICARE [facility] MEDICARE SUPPLEMENT INSURANCE Member Subscriber Plan / Payer ( fective 2022-Present) Name:Natalia Rice Relation to Subscriber:Self Name:Natalia Rice Payer ID:[id number] (NAIC) Group ID:Not on file Type:Medication Review Address: [address] [place] [address] Care Teams Tool Specialist Relationship Specialty Start Date End Date Sloane Lu NP PCP - General Nurse Practitioner 06/30/22
--- OUTSIDE RECORDS SUMMARY | 2024-10-29 00:36 | XMS_ITS | Data Portability ---
Author Organization [facility] [place] Address [address] [place] [address] Care Team Providers Care Sat Instructor Name Role Phone RALPH MARIE Die Casting Machine Setter Assessment No assessment recorded. Plan of Treatment Reminders Order Date Submit Date Provider Last Modified By Organization Details Last Modified Time Details Appointments None recorded . Lab None recorded . Referral rheumato logist referral 2017 018 shirinhillipskerri Isaac MD, [address] [place], [address], 8 13:00:32 Procedures None recorded . Surgeries None recorded . Imaging electroc ardiogra m 2017 018 SUGEY In-Office Order, Internal Use Only DO Not Attach Compendium DO Not Attach Compendium, Do Not Delete/merge, [address] 8 10:05:16 Medication Orders levoflox acin 500 mg tablet [address] [facility], [address], 8 11:24:39 Cheratus sin AC 10 mg-100 mg/5 mL oral liquid [address] [facility], [address], 8 11:25:30 candesar isaac 32 mg-hydro chloroth iazide 12.5 mg tablet 2017 018 INTERFACE [facility], [address] [facility], [place], [address], 8 11:41:15 levoflox acin 750 mg tablet 2018 019 INTERFACE [facility], [address] [place], [address], 9 15:11:25 albutero l sulfate HFA 90 mcg/actu ation aerosol inhaler 2018 019 INTERFACE [facility], [address] [facility], [place], [address], 9 15:16:30 Patient TargetsNo targets recorded. Patient Instructions Encounter Date Encounter Id Patient Instructions Last Modified By Organization Details Last Modified Time 12/18/[id number] Take medications as prescribed. Return in 1 [...] days Labs next visit in 3 months [email or web address] Not available 12/18/2017 16:42:49 03/23/2018 [id number] osteoarthritis: care instructions [email or web address] Not available 03/23/2018 11:44:19 avoid added salt [...] kidney dialysis please return in 3 months [email or web address] Not available 03/26/2018 10:04:28 11/23/2018 [id number] Take antibiotics as prescribed until gone, they [...] dose of steroid to help dry secretions. [email or web address] Not available 11/23/2018 15:12:10 Reason for Referral Bellperson Referral for Osteoarthritis Referring Physician: Marcelino Garcia, Family Medicine, Encounter Date: 03/23/2018 Results Created Date Observation Date Name Description Value Unit Range Abnormal Flag Note LastModifiedBy Organization Detail LastModifiedTime 03/12/20 18 03/13/2018 CBC w/ auto diff WBC 8.0 x10e3 /uL 3.4-10 .8 Not Available [facility] ([facility]) [address] [facility], [place], [address], 03/13/2018 17:06:39 03/12/20 18 03/13/2018 CBC w/ auto diff RBC 5.03 x10e6 /uL 3.77-5 .28 Not Available [facility] ([facility]) [address] [facility], [place], [address], 03/13/2018 17:06:39 03/12/20 18 03/13/2018 CBC w/ auto diff hemoglobin 13.6 g/dL 11.1-1 5.9 Not Available [facility] ([facility]) [address] [facility], [place], [address], 03/13/2018 17:06:39 03/12/20 18 03/13/2018 CBC w/ auto diff hematocrit 42.0 % 34.0-4 6.6 Not Available [facility] ([facility]) [address] [place], [address], 03/13/2018 17:06:39 03/12/20 18 03/13/2018 CBC w/ auto diff MCV 84 fL 79-97 Not Available [facility] ([facility]) [address] [place], [address], 03/13/2018 17:06:39 03/12/20 18 03/13/2018 CBC w/ auto diff MCH 27.0 pg 26.6-3 3.0 Not Available [facility] ([facility]) [address] [facility], [place], [address], 03/13/2018 17:06:39 03/12/20 18 03/13/2018 CBC w/ auto diff MCHC 32.4 g/dL 31.5-3 5.7 Not Available [facility] ([facility]) [address] [facility], [place], [address], 03/13/2018 17:06:39 03/12/20 18 03/13/2018 CBC w/ auto diff RDW 14.2 % 12.3-1 5.4 Not Available [facility] ([facility]) [address] [facility], [place], [address], 03/13/2018 17:06:39 03/12/20 18 03/13/2018 CBC w/ auto diff platelets 305 x10e3 /uL 150-37 9 Not Available [facility] ([facility]) [address] [place], [address], 03/13/2018 17:06:39 03/12/20 18 03/13/2018 CBC w/ auto diff neutrophils 68 % not estab. Not Available [facility] ([facility]) [address] [place], [address], 03/13/2018 17:06:39 03/12/20 18 03/13/2018 CBC w/ auto diff lymphs 24 % not estab. Not Available [facility] ([facility]) [address] [place], [address], 03/13/2018 17:06:39 03/12/20 18 03/13/2018 CBC w/ auto diff monocytes 6 % not estab. Not Available [facility] ([facility]) [address] [place], [address], 03/13/2018 17:06:39 03/12/20 18 03/13/2018 CBC w/ auto diff eos 2 % not estab. Not Available [facility] ([facility]) [address] [place], [address], 03/13/2018 17:06:39 03/12/20 18 03/13/2018 CBC w/ auto diff basos 0 % not estab. Not Available [facility] ([facility]) [address] [place], [address], 03/13/2018 17:06:39 03/12/20 18 03/13/2018 CBC w/ auto diff immature cells SENIOR TECHNICAL SUPPORT ENGINEER Not Available [facility] ([facility]) [address] [place], [address], 03/13/2018 17:06:39 03/12/20 18 03/13/2018 CBC w/ auto diff neutrophils (absolute) 5.4 x10e3 /uL 1.4-7. 0 Not Available [facility] ([facility]) [address] [facility] [place], [address], 03/13/2018 17:06:39 03/12/20 18 03/13/2018 CBC w/ auto diff lymphs (absolute) 1.9 x10e3 /uL 0.7-3. 1 Not Available [facility] ([facility]) [address] [facility], [place], [address], 03/13/2018 17:06:39 03/12/20 18 03/13/2018 CBC w/ auto diff monocytes(ab solute) 0.5 x10e3 /uL 0.1-0. 9 Not Available [facility] ([facility]) [address] [facility], [place], [address], 03/13/2018 17:06:39 03/12/20 18 03/13/2018 CBC w/ auto diff eos (absolute) 0.2 x10e3 /uL 0.0-0. 4 Not Available [facility] ([facility]) [address] [facility], [place], [address], 03/13/2018 17:06:39 03/12/20 18 03/13/2018 CBC w/ auto diff baso (absolute) 0.0 x10e3 /uL 0.0-0. 2 Not Available [facility] ([facility]) [address] [facility], [place], [address], 03/13/2018 17:06:39 03/12/20 18 03/13/2018 CBC w/ auto diff immature granulocytes 0 % not estab. Not Available [facility] ([facility]) [address] [facility], [place], [address], 03/13/2018 17:06:39 03/12/20 18 03/13/2018 CBC w/ auto diff immature grans (abs) 0.0 x10e3 /uL 0.0-0. 1 Not Available [facility] ([facility]) [address] [facility], [place], [address], 03/13/2018 17:06:39 03/12/20 18 03/13/2018 CBC w/ auto diff NRBC SENIOR TECHNICAL SUPPORT ENGINEER Not Available [facility] ([facility]) [address] [facility] [place], [address], 03/13/2018 17:06:39 03/12/20 18 03/13/2018 CBC w/ auto diff hematology comments: SENIOR TECHNICAL SUPPORT ENGINEER Not Available [facility] ([facility]) [address] [facility] [place], [address], 03/13/2018 17:06:39 03/12/20 18 03/13/2018 CMP, serum or plasm a glucose 122 mg/dL 65-99 above high normal Not Available [facility] ([facility]) [address] [facility] [place], [address], 03/13/2018 17:06:40 03/12/20 18 03/13/2018 CMP, serum or plasm a BUN 25 mg/dL 8-27 Not Available [facility] ([facility]) [address] [facility] [place], [address], 03/13/2018 17:06:40 03/12/20 18 03/13/2018 CMP, serum or plasm a creatinine 0.98 mg/dL 0.57-1 .00 Not Available [facility] ([facility]) [address] [facility] [place], [address], 03/13/2018 17:06:40 03/12/20 18 03/13/2018 CMP, serum or plasm a eGFR if nonafricn AM 60 mL/mi n/1.7 3 >59 Not Available [facility] ([facility]) [address] [facility] [place], [address], 03/13/2018 17:06:40 03/12/20 18 03/13/2018 CMP, serum or plasm a eGFR if africn AM 70 mL/mi n/1.7 3 >59 Not Available [facility] ([facility]) [address] [facility] [place], [address], 03/13/2018 17:06:40 03/12/20 18 03/13/2018 CMP, serum or plasm a BUN/creatini ne ratio 26 12-28 Not Available [facility] ([facility]) [address] [place], [address], 03/13/2018 17:06:40 03/12/20 18 03/13/2018 CMP, serum or plasm a sodium 138 mmol/ L 134-14 4 Not Available [facility] ([facility]) [address] [place], [address], 03/13/2018 17:06:40 03/12/20 18 03/13/2018 CMP, serum or plasm a potassium 4.5 mmol/ L 3.5-5. 2 Not Available [facility] ([facility]) [address] [place], [address], 03/13/2018 17:06:40 03/12/20 18 03/13/2018 CMP, serum or plasm a chloride 99 mmol/ L 96-106 Not Available [facility] ([facility]) [address] [place], [address], 03/13/2018 17:06:40 03/12/20 18 03/13/2018 CMP, serum or plasm a carbon dioxide, total 22 mmol/ L 20-29 Ple ase note refer ence ronny cha Not Available [facility] ([facility]) [address] [place], [address], 03/13/2018 17:06:40 03/12/20 18 03/13/2018 CMP, serum or plasm a calcium 9.5 mg/dL 8.7-10 .3 Not Available [facility] ([facility]) [address] [place], [address], 03/13/2018 17:06:40 03/12/20 18 03/13/2018 CMP, serum or plasm a protein, total 7.3 g/dL 6.0-8. 5 Not Available [facility] ([facility] [address] [facility] [place], [address], 03/13/2018 17:06:40 03/12/20 18 03/13/2018 CMP, serum or plasm a albumin 4.1 g/dL 3.6-4. 8 Not Available [facility] ([facility]) [address] [place] [place], [address], 03/13/2018 17:06:40 03/12/20 18 03/13/2018 CMP, serum or plasm a globulin, total 3.2 g/dL 1.5-4. 5 Not Available [facility] ([facility]) [address] [place] [place], [address], 03/13/2018 17:06:40 03/12/20 18 03/13/2018 CMP, serum or plasm a A/G ratio 1.3 1.2-2. 2 Not Available [facility] ([facility]) [address] [facility] [place], [address], 03/13/2018 17:06:40 03/12/20 18 03/13/2018 CMP, serum or plasm a bilirubin, total 0.3 mg/dL 0.0-1. 2 Not Available [facility] ([facility]) [address] [facility] [place], [address], 03/13/2018 17:06:40 03/12/20 18 03/13/2018 CMP, serum or plasm a alkaline phosphatase 89 IU/L 39-117 Not Available [facility] ([facility]) [address] [facility] [place], [address], 03/13/2018 17:06:40 03/12/20 18 03/13/2018 CMP, serum or plasm a AST (SGOT) 16 IU/L 0-40 Not Available [facility] ([facility]) [address] [facility] [place], [address], 03/13/2018 17:06:40 03/12/20 18 03/13/2018 CMP, serum or plasm a ALT (SGPT) 15 IU/L 0-32 Not Available [facility] ([facility]) [address] [facility], [place], [address], 03/13/2018 17:06:40 03/12/20 18 03/13/2018 lipid panel , serum cholesterol, total 171 mg/dL 100-19 9 Not Available [facility] ([facility]) [address] [facility], [place], [address], 03/13/2018 17:06:40 03/12/20 18 03/13/2018 lipid panel , serum triglyceride s 136 mg/dL 0-149 Not Available [facility] ([facility]) [address] [facility], [place], [address], 03/13/2018 17:06:40 03/12/20 18 03/13/2018 lipid panel , serum HDL cholesterol 44 mg/dL >39 Not Available [facility] ([facility]) [address] [facility], [place], [address], 03/13/2018 17:06:40 03/12/20 18 03/13/2018 lipid panel , serum VLDL cholesterol sue 27 mg/dL 5-40 Not Available [facility] ([facility]) [address] [facility], [place], [address], 03/13/2018 17:06:40 03/12/20 18 03/13/2018 lipid panel , serum LDL cholesterol calc 100 mg/dL 0-99 above high normal Not Available [facility] ([facility]) [address] [facility], [place], [address], 03/13/2018 17:06:40 03/12/20 18 03/13/2018 lipid panel , serum comment: SENIOR TECHNICAL SUPPORT ENGINEER Not Available [facility] ([facility]) [address] [facility], [place], [address], 03/13/2018 17:06:40 03/12/20 18 03/13/2018 cardi ovasc ular asses sment panel , serum interpretati on Note Suppl ement al repor t is avail able. Not Available [facility] ([facility]) [address] [facility], [place], [address], 03/13/2018 17:06:41 03/12/20 18 03/13/2018 cardi ovasc ular asses sment panel , serum pdf image . Not Available [facility] ([facility]) [address] [facility], [place], [address], 03/13/2018 17:06:41 03/12/20 18 03/13/2018 speci men statu s repor t specimen status report TNP No Polym edco OC sampl ing bottl e recei britta. TEST: [id number] Occul t Blood , Fecal , [place] Not Available [facility] ([facility]) [address] [facility], [place], [address], 03/13/2018 17:06:41 11/15/19 20 11/15/2019 surgi sue patho logy study raúl [facility] surgical [facility] [address] [place] [address] Phone : [phone] Fax: Depar tment of Patho logy Patho logy Repor t SURGI SUE FINAL REPOR T Patie nt Name: OSCAR LEE mary# : [id number] : 1949 (Age: 69) Locat ion: [facility] Gende r: F Colle cted Date: 2019 Med Rec #: [id number] Date Recei britta: 2019 Date Repor [...] each measu ring 0.3 cm in [facility]. The speci men is entir manjit submi tted intac t as C1. :ifh Geraldo ng Fee Code( s): 89062 (3) Not Available [facility] ([facility]) [address] [place], [address], 11/19/2019 13:19:09 11/28/19 18 11/17/2017 pulse oxime try (PROC ) No observ ation record ed. BARCODE Not Available 2017 12:29:55 12/21/19 18 12/18/2017 elect verena marcos am No observ ation record ed. BARCODE Not Available 2017 10:05:16 Result Notes None recorded. Problems Name Problem SNOMED Code Status Onset Date Resolution Date Notes Provider Name and Address Organization Details Recorded Time Respiratory tract infection 043565347 Active 2018 Marcelino SCALESC Attn: Miah castillo,[address] [place], [place], [address] [place] [address] 2, [facility] 9 15:10:43 Essential hypertension 51488192 Active Marcelino SCALESC Attn: Miah castillo,[address] [place], [place], [address] [place] [address] 2, [facility] - [facility] 6 21:24:12 Musculoskeleta l symptom 58581296 Active Poornima Luna null, [place] - [facility] 5 13:18:24 Hyperlipidemia 46999378 Active [place] Valles Attn: Miah castillo,[address] [place], [address], [place] - [facility] 6 20:47:20 Impaired glucose tolerance 5863505 Active [place] Valles Attn: Miah castillo,[address] [place], [address], [facility] - [facility] 6 20:47:20 Joint pain 44764328 Active Poornima Luna null, [place] - [facility] 5 13:18:24 Vitamin D deficiency 97943424 Active Odalys Wetzel SENIOR TECHNICAL SUPPORT ENGINEER-C Attn: Miah castillo,[address] [facility], [place], [address], [facility] - [facility] 6 20:47:20 Osteoarthritis 616765717 Active Marcelino Jose SENIOR TECHNICAL SUPPORT ENGINEER-C Attn: Miah g,[address], [place], [address], [place] - [facility] 6 21:24:12 Upper respiratory infection 86130403 Active Poornima willis, [place] - [facility] 4 12:24:26 Problem Notes None recorded. Procedures Surgical History Date Name Laterality Status Provider Name and Address Organization Details Recorded Time Arthroscopic Surgery completed December KERRI Carpenter [facility] 09/15/2014 12:16:27 Hysterectomy completed December KERRI Carpenter [facility] 09/15/2014 12:16:27 Imaging Results Imaging Date Name [...] Name and Address Organization Details Recorded Time 159935 Pneumococ sue vaccine Not available Not available Not available Not available 08/01/2017 75490 7 RxNorm Not Available Not Available Not Available 560880 amlodipin e / benazepri l medicatio n angioedem a moderate Not available 03/23/2018 10397 3 RxNorm Not Available Not Available Not Available 65735 Product containin g penicilli n and antibioti c (product) medicatio n Not available Not available Not available 09/15/2014 52210 05 SNOMED Not Available Not Available Not Available 61407 erythromy clara medicatio n Not available Not available Not available 09/15/2014 4053 RxNorm Not Available Not Available Not Available 25771 acetamino phen / oxycodone medicatio n vomiting Not available Not available 03/17/2017 68139 3 RxNorm Not Available Not Available Not [...] Not Available Not Available Not Available azithromy clara 250 mg tablet TAKE 2 TABLETS (500 [...] Not Available Vitals Date Recorded Body height Heart rate Respiratory rate Body temperature Systolic blood pressure Diastolic blood pressure Provider Name and Address Organization Details Last Updated DateTime 8 152.4 cm 96 /min 18 /min 98.4 [degF] 166 mm[Hg] 84 mm[Hg] Pricilla Alatorre LPN [place] - [facility] 8 15:48:48 Date Recorded Body height Body mass index (BMI) Body weight Respiratory rate Heart rate Systolic blood pressure Diastolic blood pressure Provider Name and Address Organization Details Last Updated DateTime 8 152.4 cm 40.2 kg/m2 21761.0 3 g 18 /min 80 /min 134 mm[Hg] 80 mm[Hg] Noni Luna RN [place] - [facility] 8 11:28:18 Date Recorded Body height Body mass index (BMI) Body weight Respiratory rate Body temperature Heart rate Systolic blood pressure Diastolic blood pressure Provider Name and Address Organization Details Last Updated DateTime 9 152.4 cm 41.2 kg/m2 63967.9 9 g 18 /min 98.7 [degF] 80 /min 140 mm[Hg] 80 mm[Hg] Noni Luna RN [facility] 9 15:07:09 Social History Question Answer Notes LastModified by Organizat ion Details LastModified Time Tobacco Smoking Status Never Smoker December KERRI Carpenter, [facility] 09/15/2014 12:17:34 What Is Your Level Of [...] virus, quadrivalent, preservative 6 completed Not Available [facility] 10/12/2019 02:32:32 Influenza, split virus, quadrivalent, preservative 7 completed Not [facility] 10/12/2019 02:50:28 Tdap 7 completed Not Available [facility] 10/12/2019 02:39:53 Influenza, split virus, quadrivalent, preservative 8 completed Not Available [facility] 10/12/2019 02:43:07 Influenza, split virus, quadrivalent, PF 5 completed Not Available [facility] 10/12/2019 02:32:08 Past Encounters Encounter ID Performer Location Encounter Start Date Encounter Closed Date Diagnosis/Indication Diagnosis SNOMED-CT Code Diagnosis ICD10 Code Diagnosis Note [id number] Poornima Luna [facility] (/) [address] [place] [address] 09/15/2014 12:02:48 09/15/2014 12:32:08 Upper respiratory [facility] 38415526 [id number] [facility] [address] [place] [address] 07/23/2015 11:24:12 07/23/2015 13:18:58 Essential hypertension 84838264 I10 Musculoske letal symptom 35818231 R29.91 Hyperlipidemia 31646722 E78.5 Impaired g lucose tolerance 7702491 R73.02 Joint pain 55184937 M25. 50 Offered referral to rheumatolo gist; pt will consider & call if desires to proceed with referral Active or passive immunization 048589614 Z23 [id number] Ira Duque [facility] (IM/) [address] [place] [address] 10/01/2015 11:58:20 10/01/2015 14:37:38 [id number] [place] Valles [facility] (/) [address] [place] [address] 10/13/2015 14:20:56 10/13/2015 20:48:04 Hyperlipidemia 85738532 E78.5 continue Simvastati n and check lipids 3 months with LFTs Impaired g lucose tolerance 9329904 R73.02 Dietary handout Keep working on diet and increased exercise, weight loss Essential hypertension 36270908 I10 Screening for malignant neoplasm of breast 881963127 Z12.39 Recommend yearly mammograms after age 50 Screening for malignant neoplasm of colon 719226713 Z12.11 COLONOSCOP Y RECOMMENDE D AT 50 YRS OF AGE If you decline Colonoscop y, will ask you to do yearly stool cards for blood in the stool. Postmenopausal state 764 07605 Z78.0 Calcium 600mg twice daily (may take once daily if you take in several dairy products/s ervings daily) Vitamin D 1000iu daily Vitamin D deficiency 347 64085 E55.9 Check levels with next lab test. Osteoarthritis 783854083 M19.90 trial of Mobic for OA symptoms [id number] Marcelino Garcia NP-C [facility] (IM/[facility]) [address] [place] [address] 03/21/2016 11:09:44 03/21/2016 15:56:01 Essential hypertension 10464218 I10 Osteoarthritis 579857436 M19.90 [id number] Liyl Carpenter RN [facility] (IM/BH) [address] [place] [address] 07/01/2016 10:44:35 07/01/2016 11:03:01 Active or passive immunization 643231429 Z23 [id number] Marcelino Garcia NP-C [facility] (IM/[facility]) [address] [place] [address] 12/08/2016 09:45:54 12/09/2016 10:23:51 Pain in left knee 7602455441 71276 M25.562 Arthritis 4965311 M19.90 Adult heal th examination 970912502 Z00.01 Fatigue 17683601 R53.83 Essential hypertension 52199801 I10 Obesity 724063252 E66.9 [id number] Marcelino EUCEDA [facility] (IM/[facility]) [address] [place] [address] 03/17/2017 13:49:43 03/20/2017 14:56:11 Replacement of total knee joint 172126681 Z96.780 [id number] [facility] [address] [place] [address] 08/01/2017 15:31:19 08/07/2017 11:11:39 Cough 80030874 R05 Respirator y tract infection 105838695 J98.8 Essential hypertension 64761892 I10 Osteoarthritis 343837887 M19.90 [id number] Noni Luna RN [facility] (IM/[facility]) [address] [place] [address] 08/08/2017 12:16:12 08/08/2017 15:38:21 Administration of influenza vaccine 00349319 Z23 Active or passive immunization 153212073 Z23 [id number] Marcelino Garcia SENIOR TECHNICAL SUPPORT ENGINEER-C [facility] (IM/[facility]) [address] [place] [address] 11/06/2017 15:25:43 11/08/2017 18:07:03 Essential hypertension 72933206 I10 Sleep john sarai disturbance 25632216 G47.9 Irregular heart beat 361 624723 R00.8 Snoring 07658760 R06.83 Joint pain 81384852 M25. 50 [id number] Marcelino Garcia SENIOR TECHNICAL SUPPORT ENGINEER-C [facility] (IM/[facility]) [address] [place] [address] 11/22/2017 14:30:57 11/23/2017 12:42:48 Essential hypertension 98896113 I10 Sleep john sarai disturbance 37865510 G47.9 will consider sleep study test at a later date Irregular heart beat 361 718856 R00.8 [id number] Marcelino Garcia SENIOR TECHNICAL SUPPORT ENGINEER-C [facility] (IM/[facility]) [address] [place] [address] 12/18/2017 15:37:24 12/18/2017 17:27:04 Respiratory tract infection 667528093 J98.8 Irregular heart beat 361 809013 R00.8 [id number] Noni Luna RN [facility] (IM/[facility]) [address] [place] [address] 03/12/2018 10:54:46 03/12/2018 15:27:50 [id number] Marcelino Garcia NP-C [facility] (IM/[facility]) [address] [place] [address] 03/23/2018 10:56:24 03/26/2018 17:30:56 Essential hypertension 69693096 I10 Osteoarthritis 259460226 M19.90 [id number] Marcelino Garcia NP-C [facility] (IM/[facility]) [address] [place] [address] 07/13/2018 15:16:25 07/18/2018 15:43:13 Administration of influenza vaccine 88646092 Z23 [id number] Marcelino Garcia SENIOR TECHNICAL SUPPORT ENGINEER-C [facility] (IM/[facility]) [address] [place] [address] 11/23/2018 14:24:55 11/26/2018 17:18:41 Respiratory tract infection 267225538 J98.8 Health Concerns Section Related Observation LastModified by Organization Detai ls LastModified Time None Recorded Concern Status LastModified by Organization Details LastModified Time None Recorded Advance Directives Directive None Recorded Payers Encounter Date Sequence Insurance Name Policy Number Policy Russell Covered Member ID Russell Member ID Guarantor Name 12/18/2017 1 [place] Natalia A Rice [id number] Natalia Rice 12/18/2017 2 [employer] [place] (MEDICARE SUPPLEMENT) Natalia A Rice [id number] Natalia Rice 03/12/2018 1 [place] Natalia A Irce [id number] Natalia Rice 03/12/2018 2 [employer] - [place] [place] (MEDICARE SUPPLEMENT) Natalia A Rice [id number] Natalia Rice 03/23/2018 [place] Natalia A Rice [id number] Natalia Rice 03/23/2018 2 [employer] - [employer] [place] (MEDICARE SUPPLEMENT) Natalia A Rice [id number] Natalia Rice 07/13/2018 1 [place] Natalia A Rice [id number] Natalia Rice 07/13/2018 2 [employer] - [employer] (MEDICARE SUPPLEMENT) Natalia A Rice [id number] Natalia Rice 11/23/2018 2 [employer] - [employer] (MEDICARE SUPPLEMENT) Natalia A Rice [id number] Natalia Rice 11/23/2018 1 [place] Natalia Rice [id number] Natalia Rice Notes Date Note Type Note Provider Name and Address Organization Details Recorded Time 12/18/2017 text/html Here for productive cough and sinus drainage x 1 week. Also wants to see about having EKG repeated. Denies fever, chills, shortness of breath, chest pain, or palpitations Marcelino Garcia SENIOR TECHNICAL SUPPORT ENGINEER-C Attn: [address] [facility], [place], [address], [place] [facility] 12/19/2017 13:23:51 03/23/2018 text/html has begun having [...] shortness of breath, or dizziness Marcelino Garcia SENIOR TECHNICAL SUPPORT ENGINEER-C Attn: [address] [place], [address], [facility] [place] 03/26/2018 10:04:41 11/23/2018 text/html cough, shortness of breath, wheezing, fever and chills for past week, went to an urgent care and was given an inhaler. preparing to fly to daughters house and doesn't want to be sick Marcelino Garcia SENIOR TECHNICAL SUPPORT ENGINEER-C Attn: [address] [place], [address], [facility] [place] 11/23/2018 16:03:54 OBGyn Episode No OBEpisode recorded.
--- OUTSIDE RECORDS SUMMARY | 2024-10-29 00:36 | XMS_ITS | Encounter Summary ---
Author Organization [facility] Address [facility] [place] [address] [place] [address] Care Team Providers Care Cash Analyst Name Role Phone Marcelino Garcia PATHOLOGY SECRETARY Primary Care Provider [phone] Meeta Melton MD Unavailable [phone] Encounter Details Date Type Department Care Team (Late st Contact Info) Description 03/16/[address] 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
[2024-10-29] MEDS: LACTATED RINGERS 1,000 ML 30 ML IV CONT ×3 (08:25→13:20)
--- NOTE | 2024-10-29 08:54 | P.HP_ITS ---
H&P: HPI History of Present Illness Date/Time: 10/29/24 08:54 Chief Complaint: Back and leg pain Narrative: Natalia is here today for L4-5 and L5-S1 posterior lumbar interbody fusion. Her main complaint continues to be progressive tingling in her right lower extremity that extends all the way down to the dorsum of the foot. She is a 73-year-old female with a progressive history of problems related to her back and lower extremities worse on the right side. The pain in the right lower extremity extends all the way down to the calf with the new tingling extending to the foot. She notices some proximal weakness in the right lower extremity that sometimes is apparent when she walks and she is concerned about falling. She therefore uses a rolling walker all of the time. While her pain does seem to be worse when she stands walks it does not completely go away if she sits, especially the back pain. She has participated in physical therapy within the last 2 years for this problem but without specific diagnostic testing to tell her what was being treated exactly. She has not seen a ski edge painter for this problem. Pain is limiting, distracting and severe on a daily basis. She walks very little, at this point and always uses the walker. She has had an MRI evaluation which is available for our review today. She does not have new bowel or bladder difficulty or incontinence. She has a number of concerning issues including diabetes, high potassium discovered recently, osteopenia and cardiac disease. she is to see her power system dispatcher next in September. Her most recent hemoglobin A1c was below 7. Her potassium has been normalized. Review of Systems Review of Systems: All systems reviewed & are unremarkable except as noted in HPI and below Denies chills, Denies fever, Denies weight gain and Denies weight loss Eyes Denies change in vision and Denies diplopia ENT Denies disequilibrium Card Denies chest pain and Denies dyspnea Resp Denies cough and Denies dyspnea GI Denies abdominal pain, Denies change in bowel habits, Denies fecal incontinence and Denies vomiting Denies hematuria, Denies oliguria, Denies difficulty urinating, Denies dysuria, Denies urinary frequency, Denies urinary hesitancy, Denies urinary incontinence and Denies urinary urgency Musc Reports as per HPI Skin/ Breast Reports system reviewed and no additional complaints, except as documented Neuro Reports as per HPIPsych Reports no additional complaints, Denies depression and Denies hopelessness Endo Reports no additional complaints and Denies polyuria Ronaldo/ Lymph Reports no additional complaints Aller/ Immun Reports no additional complaints [facility] Past Medical History Medical History Diabetes Hyperlipidemia Hypertension Lumbar spondylosis Surgical History Surgical History History of carpal tunnel surgery History of hysterectomy History of left knee replacement Family History Family History Mother Heart disease Social History Social History (Updated 10/22/24 @ 11:58 by Lily Washington MA) Smoking status: Never smoker Alcohol intake: current Alcohol use details: occasional Substance use: never Substance use type: does not use Do You Feel Safe in your Home?: Yes Lack of Transportation: No Lack of Food: Sometimes True Current Housing: I Have Housing Concerned About Future Housing: No Difficulty Paying Gas/Electric Bills: No Difficulty Paying for Meds: No Currently Unemployed: No Education: High School Diploma/GED Difficulty w/ Childcare or Family Care: No Living arrangements: with family Additional living arrangements comments: DAUGHTER Spiritual care concerns: No Meds Home Medications and Allergies Home Medications ?Medication ?Instructions ?Recorded ?Confirmed ?Type allopurinol 300 mg tablet 100 mg PO DAILY 05/21/22 10/14/24 History candesartan 32 1 tablet PO DAILY 05/21/22 10/14/24 History mg-hydrochlorothiazide 12.5 mg tablet simvastatin 20 mg tablet 20 mg PO DAILY 05/21/22 10/14/24 History lansoprazole 15 mg capsule,delayed 15 mg PO DAILY 06/24/22 10/14/24 History release albuterol sulfate 90 mcg/actuation 2 puff inhalation QID PRN 08/28/23 10/14/24 History aerosol inhaler (ProAir HFA) Shortness Of Breath Or Wheezing inhalational spacing device #1 ea 08/28/23 10/14/24 Rx (Aerochamber MV spacer) metoprolol succinate 25 mg 25 mg PO DAILY 08/28/23 10/14/24 History tablet,extended release 24 hr gabapentin 100 mg capsule 100 mg PO TID 05/30/24 10/14/24 History hydrocodone 10 mg-acetaminophen 1 tablet PO BID 05/30/24 10/14/24 History 325 mg tablet metformin 1,000 mg tablet 1,000 mg PO BID 10/14/24 10/14/24 History Allergies Allergy/AdvReac Type Severity Reaction Status Date / Time Penicillins Allergy Severe Hives Verified 10/22/24 11:52 erythromycin base Allergy Hives Verified 10/22/24 11:52 losartan Allergy Rash Verified 10/22/24 11:52 lisinopril AdvReac Unknown Verified 10/22/24 11:52 oxycodone (From Percocet) AdvReac Nausea and Verified 10/22/24 11:52 Vomiting tramadol AdvReac Hallucinati Verified 10/22/24 11:52 ng Pneumonia Vaccine Allergy Intermediate Swelling Uncoded 10/22/24 11:52 Lavendar Allergy Sneezing Uncoded 10/22/24 11:52 Ragweed Allergy Sneezing Uncoded 10/22/24 11:52 Shingles Vaccine Allergy Swelling Uncoded 10/22/24 11:52 Exam Narrative: General: cooperative, no acute distress, well developed, alert and awake Orientation/Consciousness: oriented to person, oriented to place and oriented to time Constitutional Limitations: no limitations Other: The patient is a normally developed, normal appearing male sitting on the examination table in no acute distress. He is awake, alert, and oriented x3 with good fund of knowledge, recall of events, and fluent speech. [facility] Head: normocephalic and atraumatic Ears: external ears normal Face/Nose/Sinus: Normal external nose present Eyes Eyelids: eyelids normal Pupils: Yes Pupils normal by confrontation EOM: EOMs intact bilaterally Neck General: Yes no meningeal signs, Yes supple and Yes no JVD Resp Effort/Inspection: normal respiratory effort and able to speak in complete sentences Cardio Rate: Yes regular rate GI Inspection: No abdominal distension Musc Other: Examination of the back reveals no tenderness. Range of motion of the back is Limited in all planes secondary to patient being tentative about falling, stiffness and discomfort.. Straight leg raise is negative bilaterally. Torey?s test is negative bilaterally. Skin General: normal color Neuro General: Yes oriented to person, Yes oriented to place, Yes oriented to time, Yes normal cognition and Yes no meningeal signs Cranial Nerves: Yes CN's II-XII intact bilaterally Other: Motor: Strength is normal, 5/5, throughout all muscle groups of the bilateral lower extremities to direct confrontation. Sensory: Sensation is intact to light touch throughout the lower extremities bilaterally. Reflexes: Deep tendon reflexes are difficult to elicit the knees or ankles bilaterally. There is no clonus. Gait: Gait, station, and transfers are independent for short periods of time and over short distances. Transfers are slow. She uses a rolling walker. She leans forward as she walks. Psych Appearance: grossly normal Mental status: Yes mental status grossly normal Mood: congruent mood Affect: Yes normal affect Speech/Movement: Normal speech and movement present Attitude: Yes cooperative Thought Content: Normal thought content Assessment and Plan Assessment and plan (1) Spondylolisthesis at L4-L5 level: Code(s): M43.16 - Spondylolisthesis, lumbar region Status: Acute Assessment and Plan: Natalia is a 73-year-old female with back and leg pain. I continue to recommend L4-5 and L5-S1 posterior lumbar interbody fusion to deal with the bulk of the serious issues in her back and the things that cause her back and especially right lower extremity problems. She has a number of potential complicating factors including diabetes, which recently has been demonstrated to be well controlled, rheumatoid arthritis and some cardiac issues. All these will be evaluated over the next months. She also may have a new bone density study she was found to be osteopenic on the last one. she has not however had any new treatment for that issue. I described to her again the operation described above, its risks, potential benefits, the operative and postoperative course in detail and answered all her questions personally. We discussed risks including but not limited to permanent neurologic deficit secondary to nerve root injury, need for reoperation secondary to infection, bleeding, CSF leak, adjacent level disease, recurrent residual pathology or instability, failure of the procedure to relieve her pain or symptoms, persistent pain, medical complications related anesthesia or surgery, etc.. She indicates understanding and elects to proceed with that operation in October after evaluation of all the above stated symptoms and clearances from her other doctors. we answered all her questions today. (2) Lumbar spondylosis: Code(s): M47.816 - Spondylosis without myelopathy or radiculopathy, lumbar region Status: Acute (3) Lumbar stenosis with neurogenic claudication: Code(s): M48.062 - Spinal stenosis, lumbar region with neurogenic claudication Status: Acute
--- NOTE | 2024-10-29 09:02 | P.PNAN_ITS ---
Anes - Initial Pre Proc Eval Procedure: Operation Date: 10/29/24 11:00 Proposed Procedures p L4-5 L5-S1 Posterior Lumbar Interbody Fusion - Tl Cintron MD Date/Time: 10/29/24 09:02 Surgeon: Tl Cintron MD Pre Op Diagnosis: L4-5 L5S1 Spondolistheisis Stenosis Patient Data Age: 74 Gender: F Height: 1.55 m Weight: 86 kg Last Vital Signs Temp 36.8 C 10/14/24 12:17 Pulse 94 10/14/24 12:17 Resp 16 10/14/24 12:17 BP 150/79 H 10/14/24 12:17 Pulse Ox 98 10/14/24 12:17 O2 Del Method Room Air 10/14/24 12:17 Allergies Allergy/AdvReac Type Severity Reaction Status Date / Time Penicillins Allergy Severe Hives Verified 10/22/24 11:52 erythromycin base Allergy Hives Verified 10/22/24 11:52 losartan Allergy Rash Verified 10/22/24 11:52 lisinopril AdvReac Unknown Verified 10/22/24 11:52 oxycodone (From Percocet) AdvReac Nausea and Verified 10/22/24 11:52 Vomiting tramadol AdvReac Hallucinati Verified 10/22/24 11:52 ng Pneumonia Vaccine Allergy Intermediate Swelling Uncoded 10/22/24 11:52 Lavendar Allergy Sneezing Uncoded 10/22/24 11:52 Ragweed Allergy Sneezing Uncoded 10/22/24 11:52 Shingles Vaccine Allergy Swelling Uncoded 10/22/24 11:52 Home Medications ?Medication ?Instructions ?Recorded ?Confirmed ?Type allopurinol 300 mg tablet 100 mg PO DAILY 05/21/22 10/14/24 History candesartan 32 1 tablet PO DAILY 05/21/22 10/14/24 History mg-hydrochlorothiazide 12.5 mg tablet simvastatin 20 mg tablet 20 mg PO DAILY 05/21/22 10/14/24 History lansoprazole 15 mg capsule,delayed 15 mg PO DAILY 06/24/22 10/14/24 History release albuterol sulfate 90 mcg/actuation 2 puff inhalation QID PRN 08/28/23 10/14/24 History aerosol inhaler (ProAir HFA) Shortness Of Breath Or Wheezing inhalational spacing device #1 ea 08/28/23 10/14/24 Rx (Aerochamber MV spacer) metoprolol succinate 25 mg 25 mg PO DAILY 08/28/23 10/14/24 History tablet,extended release 24 hr gabapentin 100 mg capsule 100 mg PO TID 05/30/24 10/14/24 History hydrocodone 10 mg-acetaminophen 1 tablet PO BID 05/30/24 10/14/24 History 325 mg tablet metformin 1,000 mg tablet 1,000 mg PO BID 10/14/24 10/14/24 History Patient hx anesthesia problems: none Family hx anesthesia problems: none Results Review: All pre-operative results and documents have been reviewed as part of the pre- operative evaluation. [facility] Past Medical History Medical History Lumbar spondylosis Diabetes Hyperlipidemia Hypertension Surgical History Surgical History History of left knee replacement History of carpal tunnel surgery History of hysterectomy Family History Family History Mother Heart disease Social History Social History Smoking status: Never smoker Alcohol intake: current Alcohol use details: occasional Substance use: never Substance use type: does not use Do You Feel Safe in your Home?: Yes Lack of Transportation: No Lack of Food: Sometimes True Current Housing: I Have Housing Concerned About Future Housing: No Difficulty Paying Gas/Electric Bills: No Difficulty Paying for Meds: No Currently Unemployed: No Education: High School Diploma/GED Difficulty w/ Childcare or Family Care: No Living arrangements: with family Additional living arrangements comments: DAUGHTER Spiritual care concerns: No Anes - Eval Final PreProcedure Day of Procedure 10/29/24 09:02 Patient weight: obese Heart: regular rate and rhythm Lungs: clear to auscultation Airway: Mallampati scale class II Neurological: alert and oriented Last oral intake: >/= 8 hours ASA classification: III Emergent: no Anesthetic plan: proceed Anesthesia type and monitoring: general ETT and standard monitoring Results Review: All pre-operative results and documents have been reviewed as part of the pre- operative evaluation. Informed Consent: The patient's anesthetic plan and its attendant risks and benefits were discussed with the patient/family/POA. Questions were solicited and answers provided to the satisfaction of the patient/family/POA.
--- NOTE | 2024-10-29 09:02 | WPDHPUPDATE1 ---
History and Physical Update Update Date/Time: 10/29/24 09:02 History and Physical has been reviewed, including an updated exam of the patient. There are NO changes in the patient's condition. Risks, benefits, and alternatives have been discussed and questions answered. Patient agrees to proceed with procedure.
[2024-10-29] MEDS: ceFAZolin 2 GM/D5W 50 ML 2 GM/50 ML BAG IVPB (09:25)
[2024-10-29 09:29] LABS: Glucose Point of Care 169 mg/dl (65-105)
[2024-10-29] MEDS: LIDO 1%/EPINEPHRINE 1:100,000 20 ML VIAL 10 ML INFILTRATE (10:12)
--- NOTE | 2024-10-29 13:22 | W.PM.PROC2 ---
Procedure Note - Detailed Date of Procedure 10/29/24 Pre-op Diagnosis L4-5 L5S1 Spondolistheisis Stenosis Post-op Diagnosis Same Procedure Performed L4-5 and L5-S1 complete laminectomy and bilateral facetectomy, L4-5 and L5-S1 complete diskectomy and interbody arthrodesis utilizing titanium interbody devices and local autograft, L4-5 and L5-S1 pedicle screw instrumentation am. Surgeon Tl Cintron MD Anesthesia General Description of Procedure The patient was brought to the operating room in the supine position, was sedated, intubated placed under general anesthesia in routine fashion. He was then turned into the prone position on a Rubens frame. The of operation on her back was examined, marked for incision, prepped and draped in routine sterile fashion. Incision was marked over the L4 through S1 spinous processes in the midline. This area was injected with 0.5% lidocaine with [id number] epinephrine. Intravenous antibiotics given prior to incision. Incision was made with a 10 blade scalpel down to the lumbodorsal fascia. A subperiosteal dissection of the muscle soft tissue away from spinous process and lamina was performed with a subperiosteal elevator and Bovie cautery. A verifying x-rays obtained to verify the level of operation. The spinous processes at L4-L5 were removed with a Neymar rongeur. Kerrison punches, curved curettes and Fatimahksell rongeur were used to remove lamina in the midline until the soft contents of the canal were encountered. Midas-Donnie drill was used to resect the pars bilaterally at L4-L5. The inferior to cut the process and facet of L4-L5 could then be removed bilaterally. These post spinous processes were stripped free of soft tissue and morselized for later use as interbody autograft. Kerrison punches and curved curettes were used to define a plane with the dura and removed bone and ligament flush with the pedicle and through the foramina widely decompressing the exiting nerve roots. With the thecal sac retracted and protected the disc space was entered bilaterally using an 11 blade scalpel. Screw was a very sizes, curettes Veress configurations, a pituitary rongeur and a rasp were used to remove as much cartilaginous endplate and disc material as possible down to bleeding cortical flat surfaces on the opposing bones. The disc space was then sized and 10 mm interbody device were chosen at each level. These were filled with local autograft bone. The disc space was likewise filled with local autograft bone medially and anteriorly. The interbody devices were then placed 2-3 mm countersink within the disc space bilaterally. Pedicle screw instrumentation was performed at L4, L5 and S1 by observing and palpating the pedicle awl hole was made superior to the process above the pedicle using Midas Donnie drill. The pedicle was then cannulated with a pedicle probe, checked for continuity with the ball probe, tapped with a 5.5 mm tap and a 6.5 x 50 mm screw was placed in each pedicle on each side except L5 and S1 were 45 mm screws were placed. Rods were placed into the screw heads on either side and secured in position using the caps that purpose. These are definitively tightened with a torque and anti torque device. A verifying x-rays obtained to verify good position of the instrumentation which was confirmed. The wound was then copiously irrigated with bacitracin irrigation all bleeding stopped with bipolar cautery. A medium Hemovac drain was left in the subfascial position buried out the inferior right of the incision. The wound was then closed in layered fashion with 2-0 Vicryl interrupted sutures in the lumbodorsal fascia and Taylor's layer. 3-0 Vicryl buried interrupted sutures were placed in the dermis and skin was closed with a running 4-0 Monocryl subcuticular stitch and dressed with Dermabond. The patient was allowed to wake up in the operating room and was taken to the recovery room in stable condition. There were no immediate complications of this operation. All counts were reported correct at the end the case. Blood loss was 400 cc. The patient was neurologically at her baseline postoperatively. CPT codes: 59461, 97238, 19714, 40159, 85536, 655781, 21902 x 2 Estimated Blood Loss 400 Complications No immediate complications Condition Stable Disposition PACU [facility] Billing Surgery - Charge Forward: Surgery Billing
[2024-10-29] MEDS: HYDROmorphone HCL INJ (*CRX) 1 MG/ML SYR 0.5 MG IV PUSH ×4 (13:30→18:54)
[2024-10-29 13:37] LABS: Glucose Point of Care 200 mg/dl (65-105)
[2024-10-29] MEDS: fentaNYL CITRATE INJ (*CRX) 100 MCG/2 ML VIAL 25 MCG IV PUSH ×3 (13:45→14:09)
--- NOTE | 2024-10-29 15:14 | ADMGEN ---
This patient, Natalia Rice, was admitted to [facility] Surg Room 317-02. Patient/family oriented to hospital policies and general routines including ID bracelet, bed and alarms, visiting hours, pain management, procedures, bathroom and other care routines, personal items, smoking policy, room service/diet, and visiting hours. Information on how to activate the Rapid Response Team has been discussed. Patient/Family are encouraged to report perceived risks to care and to ask questions if they do not understand what they are told or what they should do.
[2024-10-29] MEDS: KCL 20 MEQ/D5/0.45% SOD CHL 1,000 ML 100 ML IV CONT (16:18)
[2024-10-29] MEDS: GABAPENTIN 100 MG CAPSULE PO (16:21)
[2024-10-29] MEDS: metFORMIN HCL 500 MG TABLET 1000 MG PO (16:21)
[2024-10-29] MEDS: HYDROcodone/acetaminophen (*CRX) 10-325 MG TABLET 1 TAB PO ×2 (16:23→21:19)
[2024-10-29] MEDS: ONDANSETRON INJ 4 MG/2 ML VIAL IV PUSH (17:28)
[2024-10-29] MEDS: DOCUSATE SODIUM 100 MG CAPSULE PO (21:18)
[2024-10-29] MEDS: ceFAZolin 1 GM/NS 50 ML 1 GM/50 ML BAG IVPB (21:20)
--- NOTE | ~2024-10-30 | XR_ITS ---
EXAMINATION: XR fluoroscopy no charge DATE: 10/29/2024 12:51 INDICATION: L4 S1 posterior lumbar interbody fusion. TECHNIQUE: Single lateral fluoroscopic spot image of the lower lumbar spine was obtained during proce dure performed by Dr. Cintron. Radiologist was not present for the imaging or procedure. The amount of fluoroscopy time used during this procedure was 0.5 minutes. Total DAP was 5.966 Gycm^2 COMPARISON: None. FINDINGS: Image demonstrates discectomies and placement of interbody fusion device at L4-L5 and L5-S1. There is also been placement of bilateral pedicle screws at L4, L5 and S1. Soft tissue retractors project ove r the soft tissues posterior to the lower lumbar spine. IMPRESSION: 1. Fluoroscopy utilized during combined instrumented L4-S1 anterior and posterior spinal fusion. See procedure note note for further detail. Reviewed, dictated and finalized at location [facility]. [facility] FORMER IMPRESSION: 1. Fluoroscopy utilized during combined instrumented L4-S1 anterior and posteri or spinal fusion. See procedure note note for further detail.
[2024-10-30 00:19] VITALS: BP 111/55; PULSE 99; RESP 18; TEMP 37.2; O2SAT 96
[2024-10-30] MEDS: HYDROmorphone HCL INJ (*CRX) 1 MG/ML SYR 0.5 MG IV PUSH (01:01)
[2024-10-30] MEDS: KCL 20 MEQ/D5/0.45% SOD CHL 1,000 ML 100 ML IV CONT ×2 (02:56→13:53)
[2024-10-30] MEDS: HYDROcodone/acetaminophen (*CRX) 10-325 MG TABLET 1 TAB PO ×2 (02:57→09:31)
[2024-10-30 04:19] VITALS: BP 119/59; PULSE 92; RESP 18; TEMP 36.9; O2SAT 97
[2024-10-30] MEDS: ceFAZolin 1 GM/NS 50 ML 1 GM/50 ML BAG IVPB ×3 (05:00→23:51)
[2024-10-30 08:19] VITALS: BP 137/59; PULSE 111; RESP 20; TEMP 36.5; O2SAT 98
[2024-10-30] MEDS: CANDESARTAN CILEXETIL 16 MG TABLET 32 MG PO (09:30)
[2024-10-30 09:31] VITALS: PULSE 97
[2024-10-30] MEDS: metFORMIN HCL 500 MG TABLET 1000 MG PO ×2 (09:31→16:54)
[2024-10-30] MEDS: SIMVASTATIN 20 MG TABLET PO (09:31)
[2024-10-30] MEDS: allopurinoL 100 MG TABLET PO (09:31)
[2024-10-30] MEDS: METOPROLOL SUCCINATE EXT REL 25 MG TABCR PO (09:31)
[2024-10-30] MEDS: hydroCHLOROthiazide 12.5 MG CAPSULE PO (09:31)
[2024-10-30] MEDS: DOCUSATE SODIUM 100 MG CAPSULE PO ×2 (09:33→20:30)
[2024-10-30] MEDS: PANTOPRAZOLE 40 MG TABLET PO (09:34)
[2024-10-30] MEDS: GABAPENTIN 100 MG CAPSULE PO ×3 (09:34→16:54)
--- NOTE | 2024-10-30 10:18 | WPDNEUROSGPN ---
Progress Note: A&P Assessment and Plan (1) Status post lumbar spinal arthrodesis: Code(s): Z98.1 - Arthrodesis status Status: Acute Plan -Remove larkin catheter this morning -Keep hemovac drain for now -PT/OT evaluations today -Will make some adjustments to pain medications -Start DVT ppx tonight Subjective Date/time seen: 10/30/24 10:18 Interval history: Doing well today with fairly tolerable back pain and no leg pain. She states the sensation in her legs has improved compared to before surgery. She is currently up in a chair for the first time since surgery; has not ambulated yet. Tolerating oral intake. She states she was taking 20mg of hydrocodone at a time before surgery, but typically just once a day. Review of Systems Review of Systems: All systems reviewed & are unremarkable except as noted in HPI and below Exam Narrative: AOx4 Incision c/d/i Full strength in lower extremities Sensation intact to light touch Objective Data Vital Signs Vital Signs: Vital Signs - 24 hr 10/29/24 13:20 10/29/24 13:35 10/29/24 13:45 Temperature 97.0 F L Pulse Rate 93 90 89 Respiratory Rate 18 18 18 Blood Pressure 130/113 H 107/52 L 91/61 L Pulse Oximetry 100 100 95 Oxygen Delivery Simple Face Mask Room Air Room Air Oxygen Flow Rate 8 10/29/24 14:00 10/29/24 14:15 10/29/24 14:30 Temperature Pulse Rate 89 88 91 Respiratory Rate 18 18 15 Blood Pressure 96/74 L 93/55 L 99/47 L Pulse Oximetry 100 98 99 Oxygen Delivery Room Air Room Air Room Air Oxygen Flow Rate 10/29/24 14:45 10/29/24 14:59 10/29/24 15:19 Temperature 96.2 F L Pulse Rate 85 90 87 Respiratory Rate 8 L 12 20 Blood Pressure 115/47 L 124/91 H 138/72 Pulse Oximetry 96 100 97 Oxygen Delivery Room Air Room Air Oxygen Flow Rate 10/29/24 16:00 10/29/24 16:19 10/29/24 17:00 Temperature 96.7 F L 96.5 F L 96.8 F L Pulse Rate 86 89 86 Respiratory Rate 20 20 20 Blood Pressure 127/51 L 101/45 L 119/55 L Pulse Oximetry 98 98 98 Oxygen Delivery Oxygen Flow Rate 10/29/24 20:00 10/29/24 20:19 10/30/24 00:19 Temperature 98.6 F 99.0 F Pulse Rate 103 H 99 Respiratory Rate 18 18 Blood Pressure 123/71 111/55 L Pulse Oximetry 94 96 Oxygen Delivery Room Air Oxygen Flow Rate 10/30/24 04:19 10/30/24 08:46 10/30/24 09:31 Temperature 98.5 F Pulse Rate 92 97 Respiratory Rate 18 Blood Pressure 119/59 L Pulse Oximetry 97 Oxygen Delivery Room Air Oxygen Flow Rate Intake/Output Intake/Output: Intake & Output 10/27/24 10/28/24 10/29/24 10/30/24 23:59 23:59 23:59 23:59 Intake Total 740 1150 Output Total 85 1400 Balance 655 -250 Meds/Results Medications: Active Medications Generic Name Dose Route Start Last Admin Trade Name Freq PRN Reason Stop Dose Admin Hydrocodone Bitart/Acetaminophen 1 tab 10/29/24 13:19 Hydrocodone/Acetaminophen (*Crx) 5-325 Mg Tablet PO Q4H PRN Mild Pain (1-3) Hydrocodone Bitart/Acetaminophen 1 tab 10/29/24 13:19 10/30/24 02:57 Hydrocodone/Acetaminophen (*Crx) 10-325 Mg Tablet PO 1 tab Q4H PRN Administration Moderate Pain (4-6) Hydrocodone Bitart/Acetaminophen 1 tab 10/29/24 17:00 10/30/24 09:31 Hydrocodone/Acetaminophen (*Crx) 10-325 Mg Tablet PO 1 tab BID YAMEL Administration Al Hydrox/Mg Hydrox/Simethicone 20 ml 10/29/24 13:19 Mag Hydrox/Al Hydrox/Simeth 30 Ml Udc PO Q4H PRN Indigestion/Heartburn Albuterol 2 puff 10/29/24 15:01 Albuterol Sulfate (*Sp) Aerosol 1 Puff INHALATION QID PRN Shortness Of Breath Or Wheezing Allopurinol 100 mg 10/30/24 09:00 10/30/24 09:31 Allopurinol 100 Mg Tablet PO 100 mg DAILY YAMEL Administration Bisacodyl 10 mg 10/29/24 13:19 Bisacodyl 10 Mg Suppository RECTAL DAILY PRN Constipation Candesartan Cilexetil 32 mg 10/30/24 09:00 10/30/24 09:30 Candesartan Cilexetil 16 Mg Tablet PO 32 mg QAM YAMEL Administration Cyclobenzaprine HCl 10 mg 10/29/24 13:19 Cyclobenzaprine Hcl 10 Mg Tablet PO TID PRN Muscle Spasms Docusate Sodium 100 mg 10/29/24 21:00 10/30/24 09:33 Docusate Sodium 100 Mg Capsule PO 100 mg Q12HR YAMEL Administration Fentanyl Citrate 25 mcg 10/29/24 08:38 10/29/24 14:09 Fentanyl Citrate Inj (*Crx) 100 Mcg/2 Ml Vial IV PUSH 25 mcg Q2M PRN Administration Pain Gabapentin 100 mg 10/29/24 17:00 10/30/24 09:34 Gabapentin 100 Mg Capsule PO 100 mg TID YAMEL Administration Hydrochlorothiazide 12.5 mg 10/30/24 09:00 10/30/24 09:31 Hydrochlorothiazide 12.5 Mg Capsule PO 12.5 mg QAM YAMEL Administration Hydromorphone HCl 0.5 mg 10/29/24 13:19 10/30/24 01:01 Hydromorphone Hcl Inj (*Crx) 1 Mg/Ml Syr IV PUSH 0.5 mg Q2H PRN Administration Pain Rated 7-10 Hydromorphone HCl 0.5 mg 10/29/24 13:26 10/29/24 14:40 Hydromorphone Hcl Inj (*Crx) 1 Mg/Ml Syr IV PUSH 0.5 mg Q5M PRN Administration Pain Lactated Ringer's 1,000 mls @ 30 mls/hr 10/29/24 08:10 10/29/24 13:20 Lr - Lactated Ringers Iv IV CONT Infused .Q24H YAMEL Infusion Lactated Ringer's 1,000 mls @ 30 mls/hr 10/29/24 08:40 10/29/24 13:20 Lr - Lactated Ringers Iv IV CONT 30 mls/hr .Q24H YAMEL Administration Cefazolin Sodium 1 gm in 50 mls @ 100 mls/hr 10/29/24 22:00 10/30/24 05:30 Ancef 1 Gm/Ns 50 Ml IVPB Infused Q8H YAMEL Infusion Potassium Chloride/Dextrose/Sod Cl 1,000 mls @ 100 mls/hr 10/29/24 13:20 10/30/24 02:56 Kcl 20 Meq/D5/0.45% Sod Chl IV CONT 100 mls/hr .Q10H YAMEL Administration Metformin HCl 1,000 mg 10/29/24 17:00 10/30/24 09:31 Metformin Hcl 500 Mg Tablet PO 1,000 mg BID YAMEL Administration Metoprolol Succinate 25 mg 10/30/24 09:00 10/30/24 09:31 Metoprolol Succinate Ext Rel 25 Mg Tabcr PO 25 mg DAILY YAMEL Administration Ondansetron HCl 4 mg 10/29/24 08:38 Ondansetron Inj 4 Mg/2 Ml Vial IV PUSH ONCE PRN Nausea Ondansetron HCl 4 mg 10/29/24 13:19 10/29/24 17:28 Ondansetron Inj 4 Mg/2 Ml Vial IV PUSH 4 mg Q8H PRN Administration Nausea And Vomiting Pantoprazole Sodium 40 mg 10/30/24 09:00 10/30/24 09:34 Pantoprazole 40 Mg Tablet PO 40 mg QAM YAMEL Administration Senna/Docusate Sodium 1 tab 10/29/24 13:19 Senna/Docusate Sodium Tablet PO HS PRN Constipation Simvastatin 20 mg 10/30/24 09:00 10/30/24 09:31 Simvastatin 20 Mg Tablet PO 20 mg DAILY YAMEL Administration Radiology Results: ITS Impressions Fluoroscopy 10/29/24 13:21 IMPRESSION: 1. Fluoroscopy utilized during combined instrumented L4-S1 anterior and posterior spinal fusion. See procedure note note for further detail. Labs Labs: Laboratory Results - last 24 hr 10/29/24 13:35 POC Capillary Glucose 200 H
[2024-10-30 11:47] LABS: Glucose Point of Care 214 mg/dl (65-105)
[2024-10-30 12:19] VITALS: BP 101/68; PULSE 120; RESP 18; TEMP 36.6; O2SAT 100
[2024-10-30] MEDS: ACETAMINOPHEN 500 MG TABLET 1000 MG PO ×3 (13:05→22:00)
--- NOTE | 2024-10-30 14:08 | WPDANESPN ---
Anes - Prog Note Post-Op Date/Time: 10/30/24 14:08 Cardiovascular status: normal Respiratory status: normal Airway patency: baseline Mental status: baseline Post-Op hydration status: normal Vital Signs: Last Vital Signs Temp 97.8 F 10/30/24 12:19 Pulse 120 H 10/30/24 12:19 Resp 18 10/30/24 12:19 BP 101/68 10/30/24 12:19 Pulse Ox 100 10/30/24 12:19 O2 Del Method Room Air 10/30/24 08:46 O2 Flow Rate 8 10/29/24 13:20 Pain Score (VAS): 0/10 I/O: Intake & Output 10/29/24 10/30/24 10/30/24 23:59 07:59 15:59 Intake Total 290 1150 1476 Output Total 1400 Balance 290 -250 1476 10/30/24 11:38 POC Capillary Glucose 214 H Post-procedural complaints: none Patient Feedback: Patient satisfied with anesthetic care.
[2024-10-30 16:44] LABS: Glucose Point of Care 182 mg/dl (65-105)
[2024-10-30] MEDS: ONDANSETRON INJ 4 MG/2 ML VIAL IV PUSH (18:22)
[2024-10-30 21:07] LABS: Glucose Point of Care 201 mg/dl (65-105)
[2024-10-30 21:32] VITALS: BP 96/44; PULSE 87; RESP 18; TEMP 36.9; O2SAT 96
[2024-10-31] VITALS (8 sets, daily range): BP systolic 96–112; BP diastolic 38–64; PULSE 81–92; RESP 18–20; TEMP 36.5–37.5; O2SAT 95–100
[2024-10-31] MEDS: KCL 20 MEQ/D5/0.45% SOD CHL 1,000 ML 30 ML IV CONT (01:18)
[2024-10-31] MEDS: ACETAMINOPHEN 500 MG TABLET 1000 MG PO ×4 (05:35→21:35)
[2024-10-31] MEDS: ceFAZolin 1 GM/NS 50 ML 1 GM/50 ML BAG IVPB ×3 (05:35→21:35)
[2024-10-31 08:34] LABS: Glucose Point of Care 163 mg/dl (65-105)
[2024-10-31] MEDS: metFORMIN HCL 500 MG TABLET 1000 MG PO ×2 (09:17→16:13)
[2024-10-31] MEDS: GABAPENTIN 100 MG CAPSULE PO ×3 (09:17→16:13)
[2024-10-31] MEDS: CANDESARTAN CILEXETIL 16 MG TABLET 32 MG PO (09:18)
[2024-10-31 09:19] LABS: Mean Platelet Volume 10.3 fl (7.4-10.4); Platelet Count Result 268 k/mm3 (150-375)
[2024-10-31] MEDS: METOPROLOL SUCCINATE EXT REL 25 MG TABCR PO (09:19)
[2024-10-31] MEDS: PANTOPRAZOLE 40 MG TABLET PO (09:19)
[2024-10-31] MEDS: allopurinoL 100 MG TABLET PO (09:19)
[2024-10-31] MEDS: DOCUSATE SODIUM 100 MG CAPSULE PO (09:19)
[2024-10-31] MEDS: ENOXAPARIN 40 MG/0.4 ML SYRINGE SUB-Q (09:20)
[2024-10-31] MEDS: hydroCHLOROthiazide 12.5 MG CAPSULE PO (09:20)
[2024-10-31] MEDS: ONDANSETRON INJ 4 MG/2 ML VIAL IV PUSH (09:33)
[2024-10-31 09:34] LABS: Estimated CRCL calculation 48 ml/min; Estimated Glomerular Filt Rate > 60
[2024-10-31 12:10] LABS: Glucose Point of Care 171 mg/dl (65-105)
--- NOTE | 2024-10-31 13:27 | WPDNEUROSGPN ---
Progress Note: A&P Assessment and Plan (1) Status post lumbar spinal arthrodesis: Code(s): Z98.1 - Arthrodesis status Status: Acute Plan -Remove hemovac drain -Therapy recommending one more day of treatment and discharge with home health -We discussed activity and wound care precautions today at bedside -Anticipate discharge home tomorrow Subjective Date/time seen: 10/31/24 13:27 Interval history: Doing well with soreness in her lower back and abdomen but with improved pain control compared to yesterday. The sensation in her legs continues to improve. She ambulated in the halls with therapy. She has voided independently since catheter removal. She has been having some increased acid reflux. Review of Systems Review of Systems: All systems reviewed & are unremarkable except as noted in HPI and below Exam Narrative: AOx4 Incision c/d/i Minimal output from hemovac Moving legs well with good strength Sensation intact to light touch Objective Data Vital Signs Vital Signs: Vital Signs - 24 hr 10/30/24 21:32 10/31/24 01:32 10/31/24 05:32 Temperature 98.4 F 97.7 F 98.1 F Pulse Rate 87 92 90 Respiratory Rate 18 18 18 Blood Pressure 96/44 L 96/38 L 109/56 L Pulse Oximetry 96 98 98 Oxygen Delivery 10/31/24 08:00 10/31/24 09:19 10/31/24 09:20 Temperature 99.2 F Pulse Rate 88 90 Respiratory Rate 18 18 Blood Pressure 110/58 L Pulse Oximetry 95 95 Oxygen Delivery Room Air Intake/Output Intake/Output: Intake & Output 10/28/24 10/29/24 10/30/24 10/31/24 23:59 23:59 23:59 23:59 Intake Total 740 4676 290 Output Total 85 1900 15 Balance 791 7732 275 Meds/Results Medications: Active Medications Generic Name Dose Route Start Last Admin Trade Name Freq PRN Reason Stop Dose Admin Acetaminophen 1,000 mg 10/30/24 10:35 10/31/24 09:35 Acetaminophen 500 Mg Tablet PO 1,000 mg Q6H YAMEL Administration Al Hydrox/Mg Hydrox/Simethicone 20 ml 10/29/24 13:19 Mag Hydrox/Al Hydrox/Simeth 30 Ml Udc PO Q4H PRN Indigestion/Heartburn Al Hydrox/Mg Hydrox/Simethicone 20 ml 10/30/24 10:32 Mag Hydrox/Al Hydrox/Simeth 30 Ml Udc PO Q4H PRN Indigestion/Heartburn Albuterol 2 puff 10/29/24 15:01 Albuterol Sulfate (*Sp) Aerosol 1 Puff INHALATION QID PRN Shortness Of Breath Or Wheezing Allopurinol 100 mg 10/30/24 09:00 10/31/24 09:19 Allopurinol 100 Mg Tablet PO 100 mg DAILY YAMEL Administration Bisacodyl 10 mg 10/30/24 10:32 Bisacodyl 10 Mg Suppository RECTAL DAILY PRN Constipation Calcium Carbonate 200 mg 10/31/24 13:05 Calcium Carbonate (Tums) 500 Mg (200 Mg Elemental) PO Q6H PRN Indigestion Candesartan Cilexetil 32 mg 10/30/24 09:00 10/31/24 09:18 Candesartan Cilexetil 16 Mg Tablet PO 32 mg QAM YAMEL Administration Cyclobenzaprine HCl 10 mg 10/29/24 13:19 Cyclobenzaprine Hcl 10 Mg Tablet PO TID PRN Muscle Spasms Dextrose 12.5 gm 10/30/24 12:49 Dextrose 50% 25 Gm/50 Ml Syringe IV PUSH PRN PRN Hypoglycemia Protocol Docusate Sodium 100 mg 10/30/24 21:00 10/31/24 09:19 Docusate Sodium 100 Mg Capsule PO 100 mg Q12HR YAMEL Administration Enoxaparin Sodium 40 mg 10/31/24 09:00 10/31/24 09:20 Enoxaparin 40 Mg/0.4 Ml Syringe SUB-Q 40 mg DAILY YAMEL Administration Fentanyl Citrate 25 mcg 10/29/24 08:38 10/29/24 14:09 Fentanyl Citrate Inj (*Crx) 100 Mcg/2 Ml Vial IV PUSH 25 mcg Q2M PRN Administration Pain Gabapentin 100 mg 10/29/24 17:00 10/31/24 12:09 Gabapentin 100 Mg Capsule PO 100 mg TID YAMEL Administration Glucagon 1 mg 10/30/24 12:49 Glucagon For Inj 1 Mg Vial IM PRN PRN Hypoglycemia Protocol Glucose 15 gm 10/30/24 12:49 Glucose Oral Gel 15 Gm Of Glucse In 37.5 Gm Tube PO PRN PRN Hypoglycemia Protocol Hydrochlorothiazide 12.5 mg 10/30/24 09:00 10/31/24 09:20 Hydrochlorothiazide 12.5 Mg Capsule PO 12.5 mg QAM YMAEL Administration Hydromorphone HCl 0.5 mg 10/30/24 10:34 Hydromorphone Hcl Inj (*Crx) 1 Mg/Ml Syr IV PUSH Q3H PRN Breakthrough Pain Cefazolin Sodium 1 gm in 50 mls @ 100 mls/hr 10/29/24 22:00 10/31/24 05:35 Ancef 1 Gm/Ns 50 Ml IVPB 100 mls/hr Q8H YAMEL Administration Potassium Chloride/Dextrose/Sod Cl 1,000 mls @ 30 mls/hr 10/29/24 13:20 10/31/24 01:18 Kcl 20 Meq/D5/0.45% Sod Chl IV CONT 30 mls/hr .Q24H YAMEL Administration Dextrose 1,000 mls @ 100 mls/hr 10/30/24 12:49 Dextrose 5% 1,000 Ml IVPB PRN PRN Hypoglycemia Protocol Insulin Aspart 3 - 6 units 10/30/24 13:00 10/31/24 12:14 Insulin Aspart (*Bkc) 100 Units/Ml SUB-Q Not Given TIDWM [facility] Protocol Metformin HCl 1,000 mg 10/29/24 17:00 10/31/24 09:17 Metformin Hcl 500 Mg Tablet PO 1,000 mg BID YAMEL Administration Metoprolol Succinate 25 mg 10/30/24 09:00 10/31/24 09:19 Metoprolol Succinate Ext Rel 25 Mg Tabcr PO 25 mg DAILY YAMEL Administration Ondansetron HCl 4 mg 10/29/24 08:38 Ondansetron Inj 4 Mg/2 Ml Vial IV PUSH ONCE PRN Nausea Ondansetron HCl 4 mg 10/30/24 10:32 10/31/24 09:33 Ondansetron Inj 4 Mg/2 Ml Vial IV PUSH 4 mg Q8H PRN Administration Nausea And Vomiting Oxycodone HCl 5 mg 10/30/24 10:34 Oxycodone Hcl (*Crx) 5 Mg Tab Ir PO Q4H PRN Pain Rated 4-6 Oxycodone HCl 10 mg 10/30/24 10:34 Oxycodone Hcl (*Crx) 5 Mg Tab Ir PO Q4H PRN Pain Rated 7-10 Pantoprazole Sodium 40 mg 10/30/24 09:00 10/31/24 09:19 Pantoprazole 40 Mg Tablet PO 40 mg QAM [facility] Administration Senna/Docusate Sodium 1 tab 10/30/24 10:32 Senna/Docusate Sodium Tablet PO HS PRN Constipation Simvastatin 20 mg 10/31/24 21:00 Simvastatin 20 Mg Tablet PO QHS [facility] Radiology Results: ITS Impressions Fluoroscopy 10/29/24 13:21 IMPRESSION: 1. Fluoroscopy utilized during combined instrumented L4-S1 anterior and posterior spinal fusion. See procedure note note for further detail. Labs Labs: Laboratory Results - last 24 hr 10/30/24 10/30/24 10/31/24 16:35 20:59 08:06 Plt Count MPV Creatinine Estim Creat Clear Calc Estimated GFR POC Capillary Glucose 182 H 201 H 163 H 10/31/24 10/31/24 08:49 11:54 Plt Count 268 MPV 10.3 Creatinine 0.91 Estim Creat Clear Calc 48 Estimated GFR > 60 POC Capillary Glucose 171 H
[2024-10-31] MEDS: CALCIUM CARBONATE (TUMS) 500 MG (200 MG ELEMENTAL) PO ×2 (13:53→21:53)
--- NOTE | 2024-10-31 14:43 | PCPTNOTE ---
On 10/31/24, the student, CASTRO Miles, provided care and completed [facility] documentation on this patient. I have reviewed the student's documentation and agree with the findings.
[2024-10-31 16:33] LABS: Glucose Point of Care 131 mg/dl (65-105)
[2024-10-31] MEDS: SIMVASTATIN 20 MG TABLET PO (21:35)
[2024-11-01 01:39] LABS: Glucose Point of Care 168 mg/dl (65-105)
[2024-11-01] MEDS: ceFAZolin 1 GM/NS 50 ML 1 GM/50 ML BAG IVPB (05:44)
[2024-11-01] MEDS: ACETAMINOPHEN 500 MG TABLET 1000 MG PO ×2 (05:44→12:29)
[2024-11-01] MEDS: KCL 20 MEQ/D5/0.45% SOD CHL 1,000 ML 30 ML IV CONT (05:45)
[2024-11-01] MEDS: CALCIUM CARBONATE (TUMS) 500 MG (200 MG ELEMENTAL) PO (05:52)
[2024-11-01 06:00] VITALS: BP 120/52; PULSE 96; RESP 18; TEMP 36.8; O2SAT 96
[2024-11-01 07:51] LABS: Glucose Point of Care 148 mg/dl (65-105)
[2024-11-01 07:52] LABS: Mean Platelet Volume 10.1 fl (7.4-10.4); Platelet Count Result 234 k/mm3 (150-375)
[2024-11-01 08:20] LABS: Estimated CRCL calculation 57 ml/min; Estimated Glomerular Filt Rate > 60
[2024-11-01] MEDS: CANDESARTAN CILEXETIL 16 MG TABLET 32 MG PO (10:46)
[2024-11-01 10:47] VITALS: PULSE 96
[2024-11-01] MEDS: allopurinoL 100 MG TABLET PO (10:47)
[2024-11-01] MEDS: METOPROLOL SUCCINATE EXT REL 25 MG TABCR PO (10:47)
[2024-11-01] MEDS: metFORMIN HCL 500 MG TABLET 1000 MG PO (10:47)
[2024-11-01] MEDS: PANTOPRAZOLE 40 MG TABLET PO (10:47)
[2024-11-01] MEDS: hydroCHLOROthiazide 12.5 MG CAPSULE PO (10:47)
[2024-11-01] MEDS: GABAPENTIN 100 MG CAPSULE PO ×2 (10:47→12:27)
[2024-11-01] MEDS: ENOXAPARIN 40 MG/0.4 ML SYRINGE SUB-Q (10:48)
[2024-11-01 11:41] LABS: Glucose Point of Care 141 mg/dl (65-105)
--- NOTE | 2024-11-01 12:41 | PCPTNOTE ---
On 11/01/24, the student, CASTRO Miles, provided care and completed [facility] documentation on this patient. I have reviewed the student's documentation and agree with the findings.
--- NOTE | 2024-11-01 14:09 | PC.NURSE ---
Rn took pts temp at 1400 and it was 100.[address] Cespedes and he states that it was okay to DC pt still since he didn't consider that a fever since it was under 101.5.
--- NOTE | 2024-11-01 14:39 | P.PNNEUSUR_ITS ---
Subjective Date/time seen: 11/01/24 14:39 Interval history: Mrs. Rice is s/p lumbar decompression and fusion, she was seen by my colleague Dr. Anderson yesterday. Her drain was removed and she ambulated with PT, however it was recommended she get another day of therapy prior to discharge. Today she is doin very well with no symptoms related to her surgery and is eager to go home. She moves all her extremities well 5/5 without focal deficit, her incision is c/d/i with some bruisin along the incision. Dermabond is intact. I have sent medications to her pharmacy and placed the discharge order and have sent a communication to Dr. Cintron, his ophthalmic medical technician, and our neuros urgery clinical specialty rep letting them know as well. Objective Data Vital Signs Vital Signs: Vital Signs - 24 hr 10/31/24 16:00 10/31/24 22:00 11/01/24 06:00 Temperature 98.1 F 98.2 F 98.2 F Pulse Rate 88 81 96 Respiratory Rate 18 20 18 Blood Pressure 112/59 L 111/47 L 120/52 L Pulse Oximetry 100 99 96 11/01/24 10:47 Temperature Pulse Rate 96 Respiratory Rate Blood Pressure Pulse Oximetry Intake/Output Intake/Output: Intake & Output 10/29/24 10/30/24 10/31/24 11/01/24 23:59 23:59 23:59 23:59 Intake Total 740 4676 2289 1623.5 Output Total 85 1900 15 3200 Balance 655 2776 2274 -1576.5 Meds/Results Medications: Active Medications Generic Name Dose Route Start Last Admin Trade Name Freq PRN Reason Stop Dose Admin Acetaminophen 1,000 mg 10/30/24 10:35 11/01/24 12:29 Acetaminophen 500 Mg Tablet PO 1,000 mg Q6H YAMEL Administration Al Hydrox/Mg Hydrox/Simethicone 20 ml 10/29/24 13:19 Mag Hydrox/Al Hydrox/Simeth 30 Ml Udc PO Q4H PRN Indigestion/Heartburn Al Hydrox/Mg Hydrox/Simethicone 20 ml 10/30/24 10:32 Mag Hydrox/Al Hydrox/Simeth 30 Ml Udc PO Q4H PRN Indigestion/Heartburn Albuterol 2 puff 10/29/24 15:01 Albuterol Sulfate (*Sp) Aerosol 1 Puff INHALATION QID PRN Shortness Of Breath Or Wheezing Allopurinol 100 mg 10/30/24 09:00 11/01/24 10:47 Allopurinol 100 Mg Tablet PO 100 mg DAILY YAMEL Administration Bisacodyl 10 mg 10/30/24 10:32 Bisacodyl 10 Mg Suppository RECTAL DAILY PRN Constipation Calcium Carbonate 200 mg 10/31/24 13:05 11/01/24 05:52 Calcium Carbonate (Tums) 500 Mg (200 Mg Elemental) PO 200 mg Q6H PRN Administration Indigestion Candesartan Cilexetil 32 mg 10/30/24 09:00 11/01/24 10:46 Candesartan Cilexetil 16 Mg Tablet PO 32 mg QAM YAMEL Administration Cyclobenzaprine HCl 10 mg 10/29/24 13:19 Cyclobenzaprine Hcl 10 Mg Tablet PO TID PRN Muscle Spasms Dextrose 12.5 gm 10/30/24 12:49 Dextrose 50% 25 Gm/50 Ml Syringe IV PUSH PRN PRN Hypoglycemia Protocol Docusate Sodium 100 mg 10/30/24 21:00 11/01/24 10:50 Docusate Sodium 100 Mg Capsule PO Not Given Q12HR [facility] Enoxaparin Sodium 40 mg 10/31/24 09:00 11/01/24 10:48 Enoxaparin 40 Mg/0.4 Ml Syringe SUB-Q 40 mg DAILY [facility] Administration Fentanyl Citrate 25 mcg 10/29/24 08:38 10/29/24 14:09 Fentanyl Citrate Inj (*Crx) 100 Mcg/2 Ml Vial IV PUSH 25 mcg Q2M PRN Administration Pain Gabapentin 100 mg 10/29/24 17:00 11/01/24 12:27 Gabapentin 100 Mg Capsule PO 100 mg TID YAMEL Administration Glucagon 1 mg 10/30/24 12:49 Glucagon For Inj 1 Mg Vial IM PRN PRN Hypoglycemia Protocol Glucose 15 gm 10/30/24 12:49 Glucose Oral Gel 15 Gm Of Glucse In 37.5 Gm Tube PO PRN PRN Hypoglycemia Protocol Hydrochlorothiazide 12.5 mg 10/30/24 09:00 11/01/24 10:47 Hydrochlorothiazide 12.5 Mg Capsule PO 12.5 mg QAM YAMEL Administration Hydromorphone HCl 0.5 mg 10/30/24 10:34 Hydromorphone Hcl Inj (*Crx) 1 Mg/Ml Syr IV PUSH Q3H PRN Breakthrough Pain Cefazolin Sodium 1 gm in 50 mls @ 100 mls/hr 10/29/24 22:00 11/01/24 05:44 Ancef 1 Gm/Ns 50 Ml IVPB 100 mls/hr Q8H YAMEL Administration Potassium Chloride/Dextrose/Sod Cl 1,000 mls @ 30 mls/hr 10/29/24 13:20 11/01/24 05:45 Kcl 20 Meq/D5/0.45% Sod Chl IV CONT 30 mls/hr .Q24H YAMEL Administration Dextrose 1,000 mls @ 100 mls/hr 10/30/24 12:49 Dextrose 5% 1,000 Ml IVPB PRN PRN Hypoglycemia Protocol Insulin Aspart 3 - 6 units 10/30/24 13:00 11/01/24 12:29 Insulin Aspart (*Bkc) 100 Units/Ml SUB-Q Not Given TIDWM [facility] Protocol Metformin HCl 1,000 mg 10/29/24 17:00 11/01/24 10:47 Metformin Hcl 500 Mg Tablet PO 1,000 mg BID YAMEL Administration Metoprolol Succinate 25 mg 10/30/24 09:00 11/01/24 10:47 Metoprolol Succinate Ext Rel 25 Mg Tabcr PO 25 mg DAILY YAMEL Administration Ondansetron HCl 4 mg 10/29/24 08:38 Ondansetron Inj 4 Mg/2 Ml Vial IV PUSH ONCE PRN Nausea Ondansetron HCl 4 mg 10/30/24 10:32 10/31/24 09:33 Ondansetron Inj 4 Mg/2 Ml Vial IV PUSH 4 mg Q8H PRN Administration Nausea And Vomiting Oxycodone HCl 5 mg 10/30/24 10:34 Oxycodone Hcl (*Crx) 5 Mg Tab Ir PO Q4H PRN Pain Rated 4-6 Oxycodone HCl 10 mg 10/30/24 10:34 Oxycodone Hcl (*Crx) 5 Mg Tab Ir PO Q4H PRN Pain Rated 7-10 Pantoprazole Sodium 40 mg 10/30/24 09:00 11/01/24 10:47 Pantoprazole 40 Mg Tablet PO 40 mg QAM YAMEL Administration Senna/Docusate Sodium 1 tab 10/30/24 10:32 Senna/Docusate Sodium Tablet PO HS PRN Constipation Simvastatin 20 mg 10/31/24 21:00 10/31/24 21:35 Simvastatin 20 Mg Tablet PO 20 mg QHS YAMEL Administration Radiology Results: ITS Impressions Fluoroscopy 10/29/24 13:21 IMPRESSION: 1. Fluoroscopy utilized during combined instrumented L4-S1 anterior and posterior spinal fusion. See procedure note note for further detail. Labs Labs: Laboratory Results - last 24 hr 10/31/24 10/31/24 11/01/24 16:19 21:26 07:30 Plt Count 234 MPV 10.1 Creatinine 0.75 Estim Creat Clear Calc 57 Estimated GFR > 60 POC Capillary Glucose 131 H 168 H 11/01/24 11/01/24 07:49 11:39 Plt Count MPV Creatinine Estim Creat Clear Calc Estimated GFR POC Capillary Glucose 148 H 141 H
== END 2024-11-01 15:30 | disposition home health service (06) | DRG 448 ==
LOC: ANHSURGERY 13:31 → ANH3MEDSUR 13:31
PROVIDERS: Neurological Surgery; Admitting Provider Neurological Surgery; Visit Provider Neurological Surgery
PROC: 0SG30AJ Fusion of Lumbosacral Joint with Interbody Fusion Device, Posterior Approach, Anterior Column, Open Approach (ICD-10-PCS; CPT 22612; principal; 2024-10-29 11:00)
DX: M48.062 Spinal stenosis, lumbar region with neurogenic claudication (principal); M47.816 Spondylosis without myelopathy or radiculopathy, lumbar region; M43.16 Spondylolisthesis, lumbar region; M06.9 Rheumatoid arthritis, unspecified; I10 Essential (primary) hypertension; E78.5 Hyperlipidemia, unspecified; E11.9 Type 2 diabetes mellitus without complications; Z79.84 Long term (current) use of oral hypoglycemic drugs; Z96.652 Presence of left artificial knee joint
CPT/HCPCS: 36415; 82565; 82948; 85049; 86850; 86900; 86901; 97110; 97116; 97161; 97165; 97530; 97535; 99199; A9270; C1713; J0690; J1100; J1171; J1650; J2003; J2004; J2250; J2371; J2405; J3010; J3480; J7120

== ENCOUNTER 2024-12-14 13:02 | Outpatient (CLI) | payer MEDICARE, SELFPAY ==
--- NOTE | ~2024-12-14 | XR_ITS ---
XR lumbar spine 2-3V 12/14/2024 13:24 Indication: Spinal stenosis. Radiculopathy. Procedure: 3 views lumbar spine Comparison: No prior studies for comparison. Findings: There is dextroscoliosis centered at L3 measuring approximately 11 degrees. There is fire management specialist ior spinal fusion at L4-S1. There is prosthetic disc devices at L4-5 and L5-S1. Hardware appears to b e intact. There is disc narrowing at L1-2 through L3-4. There is grade 1 spondylolisthesis at L4-5. Impression: 1: Severe lumbar spondylosis with dextroscoliosis and fusion at L4-S1. Reviewed, dictated and finalized at location B. Impression: 1: Severe lumbar spondylosis with dextroscoliosis and fusion at L4-S1.
--- OUTSIDE RECORDS SUMMARY | 2024-12-14 13:05 | XMS_ITS | Encounter Summary ---
Author Organization [facility] Address [facility] [place] [address] Care Team Providers Care Airfield Operations Specialist Name Role Phone Marcelino Garcia ANIMAL RIDE ATTENDANT Primary Care Provider [phone] Meeta Melton MD Unavailable [phone] Encounter Details Date Type Department Care Team (Late st Contact Info) Description 03/16/2018 Abstract [place] Conversion [address] [place] [address] , Generic Conversion, Social History Tobacco Use Types Packs/Day Years Used Date Smoking Tobacco: Never Smokeless Tobacco: Never Alcohol Use Standard Drinks/Week Comments Yes 0 (1 standard drink = 0.6 oz pur e alcohol) very rare Comments Unknown Sex and Gender Information Value Date Recorded Sex Assigned at Not on file Legal Sex Female 1:53 PM [employer]IGH [employer]CHO[employer]IC [employer] Gender Identity Not on file Sexual Orientation Not on file documented as of this encounter Plan of Treatment Not on file documented as of this encounter Visit Diagnoses Not on filedocumented in this encounter Care Teams Airfield Operations Specialist Relationship Specialty Start Date End Date Marcelino Garcia NP [address] [place] [address] PCP - General 11/09/17 Meeta Melton MD [address] [place] [address] CARDIOVASCULAR DISEASE 11/09/17 documented as of this encounter
--- OUTSIDE RECORDS SUMMARY | 2024-12-14 13:05 | XMS_ITS | Data Portability ---
Author Organization [facility] [place] [address] Assessment No assessment recorded. Plan of Treatment Reminders Order Date Submit Date Provider Last Modified By Organization Details Last Modified Time Details Appointments None recorded. Lab CBC 2023 024 [facility] (Lab), [address], [place], [address], 4 15:49:25 CMP, serum or plasma 2023 024 [facility] (Lab), [address], [place], [address], 4 16:20:26 TSH, serum or plasma 2023 024 [facility] (Lab), [address], [place], [address], 4 16:46:42 vitamin B12, serum 2023 024 [facility] (Lab), [address] [place], [address], 4 17:22:56 folate, serum 2023 024 [facility] (Lab), [address] [place], [address], 4 17:23:00 microalbumi n/creatinin e, ratio panel, urine 2023 024 [facility] (Lab), [address], [place], [address], 4 16:14:36 vitamin D, 25-hydroxy, total, serum 2023 024 [facility] (Lab), [address], [place], [address], 4 16:14:47 urinalysis, dipstick 2022 023 [facility] (Lab), [address], [place], [address], 3 12:59:17 HbA1c (hemoglobin A1c), blood 2022 023 [facility] (Lab), [address], [place], [address], 4 15:49:10 coronary risk panel, serum 2022 023 [facility] (Lab), [address], [place], [address], 4 16:00:06 Referral None recorded. Procedures None recorded. Surgeries None recorded. Imaging MRI, lumbar spine, w/o contrast - right leg radiculopat hy the past one year, worse the past 6 months. 2023 024 [facility], [address], [place], [address], 4 13:13:22 MAMMO, screening, bilateral, w/ CAD - pt will call to schedule [address] (Imaging), [address], [place], [address], 4 16:01:04 Medication Orders gabapentin 100 mg capsule [address]/Pharmacy #[id number], [address] [place], [address], 4 13:54:04 meloxicam 15 mg tablet 2023 024 [facility]/Pharmacy #[id number], [address] [place], [address], 4 13:19:24 candesartan 32 mg-hydrochl orothiazide 12.5 mg tablet 2023 024 [id number] [address] [place], [address], 4 12:49:08 metoprolol succinate ER 25 mg tablet,exte nded release 24 hr [address]/Pharmacy #[id number], [address] [place], [address], 4 13:08:06 hydrocodone 10 mg-acetamin ophen 325 mg tablet [address]/Pharmacy #[id number], [address] [place], [address], 4 13:30:44 meloxicam 7.5 mg tablet [address]/Pharmacy #[id number], [address] [place], [address], 4 13:19:31 allopurinol 300 mg tablet 2022 023 [id number] [address] [place], [address], 3 12:46:15 metoprolol succinate ER 25 mg tablet,exte nded release 24 hr 2022 023 [facility]/Pharmacy #[id number], [address] [place], [address], 3 12:46:15 simvastatin 20 mg tablet 2022 023 [facility]/Pharmacy #[id number], [address] [place], [address], 12:46:15 Patient TargetsNo targets recorded. Patient Instructions Encounter Date Encounter Id Patient Instructions Last Modified By Organization Details Last Modified Time 05/12/2023 [id number] preventing falls : care instructions Not available 05/12/2023 12:33:06 preventing falls : care instructions Not available 05/12/2023 12:33:06 Discussed and explained advance directives such as standard forms to the {{patient caregiv er patient and caregiver}}. Face to face discussion lasted for a duration of ___ minutes. f/u in 6 months, routine f/u in one year, MWV Not available 05/12/2023 12:40:25 01/05/2024 [id number] f/u in 3 months, cs agreement signed. (routine f/u) Not available 01/05/2024 13:04:07 04/12/2024 [id number] f/u in 3 mos, routine Not available 04/12/2024 12:49:42 Hospital Discharge Instructions Patient Instructions None recorded. Patient Goals None recorded. Results Created Date Observation Date Name Description Value Unit Range Abnormal Flag Note LastModifiedBy Organization Detail LastModifiedTime 01/28/20 23 01/27/2023 Urina lysis compl ete panel - Urine U.COLOR Yellow YELLOW Not Available [facility] (Lab) [address], [place], [address], Not Available 01/28/20 23 01/27/2023 Urina lysis compl ete panel - Urine U.CLARITY Clear CLEAR Not Available [facility] (Lab) [address], [place], [address], Not Available 01/28/20 23 01/27/2023 Urina lysis compl ete panel - Urine U.GLU Negati ve NEGATI VE Not Available [facility] (Lab) [address], [place], [address], Not Available 01/28/20 23 01/27/2023 Urina lysis compl ete panel - Urine U.BILIRBN Negati ve NEGATI VE Not Available [facility] (Lab) [address], [place], [address], Not Available 01/28/20 23 01/27/2023 Urina lysis compl ete panel - Urine U.KET Negati ve NEGATI VE Not Available [facility] (Lab) [address], [place], [address], Not Available 01/28/20 23 01/27/2023 Urina lysis compl ete panel - Urine U.SPGR 1.015 1.001- 1.020 Not Available [facility] (Lab) [address], [place], [address], Not Available 01/28/20 23 01/27/2023 Urina lysis compl ete panel - Urine U.PH 6.0 5.0-8. 0 Not Available [facility] (Lab) [address], [place], [address], Not Available 01/28/20 23 01/27/2023 Urina lysis compl ete panel - Urine U.BLOOD Negati ve NEGATI VE Not Available [facility] (Lab) [address], [place], [address], Not Available 01/28/20 23 01/27/2023 Urina lysis compl ete panel - Urine U.PROTEIN Negati ve NEGATI VE Not Available [facility] (Lab) [address], [place], [address], Not Available 01/28/20 23 01/27/2023 Urina lysis compl ete panel - Urine U.NITRITE Negati ve NEGATI VE Not Available [facility] (Lab) [address], [place], [address], Not Available 01/28/20 23 01/27/2023 Urina lysis compl ete panel - Urine U.UROB. 0.2 E.U./d L 0.1-1. 0 Not Available [facility] (Lab) [address], [place], [address], Not Available 01/28/20 23 01/27/2023 Urina lysis compl ete panel - Urine U.LEUK. Negati ve NEGATI VE Not Available [facility] (Lab) [address], [place], [address], Not Available 01/28/20 23 01/27/2023 Urina lysis compl ete panel - Urine - Micros copic: Not Available [facility] (Lab) [address], [place], [address], Not Available 01/28/20 23 01/27/2023 Urina lysis compl ete panel - Urine U.WBC 0-1 Not Available [facility] (Lab) [address], [place], [address], Not Available 01/28/20 23 01/27/2023 Urina lysis compl ete panel - Urine U.RBC None Seen Not Available [facility] (Lab) [address] [place], [address], Not Available 01/28/20 23 01/27/2023 Urina lysis compl ete panel - Urine U.EPI'S 1-4 Not Available [facility] (Lab) [address] [place], [address], Not Available 01/28/20 23 01/27/2023 Urina lysis compl ete panel - Urine U.BACT None Seen Not Available [facility] (Lab) [address], [place], [address], Not Available 01/28/20 23 01/27/2023 CBC panel - Blood by Autom ated count WBC 8.0 10*3 3.9-10 .4 Not Available [facility] (Lab) [address], [place], [address], Not Available 01/28/20 23 01/27/2023 CBC panel - Blood by Autom ated count RBC 4.21 10*6 3.78-5 .29 Not Available [facility] (Lab) [address], [place], [address], Not Available 01/28/20 23 01/27/2023 CBC panel - Blood by Autom ated count HGB 12.2 g/dl 12.0-1 6.0 Not Available [facility] (Lab) [address], [place], [address], Not Available 01/28/20 23 01/27/2023 CBC panel - Blood by Autom ated count HCT 37.6 % 37.0-4 7.0 Not Available [facility] (Lab) [address], [place], [address], Not Available 01/28/20 23 01/27/2023 CBC panel - Blood by Autom ated count MCV 89.3 fl 82.0-1 00.0 Not Available [facility] (Lab) [address], [place], [address], Not Available 01/28/20 23 01/27/2023 CBC panel - Blood by Autom ated count MCH 29 pg 26-33 Not Available [facility] (Lab) [address], [place], [address], Not Available 01/28/20 23 01/27/2023 CBC panel - Blood by Autom ated count MCHC 32 g/dl 31-34 Not Available [facility] (Lab) [address], [place], [address], Not Available 01/28/20 23 01/27/2023 CBC panel - Blood by Autom ated count RDW 14.5 % 11.8-1 5.7 Not Available [facility] (Lab) [address], [place], [address], Not Available 01/28/20 23 01/27/2023 CBC panel - Blood by Autom ated count PLT 418 10*3 150-45 0 Not Available [facility] (Lab) [address], [place], [address], Not Available 01/28/20 23 01/27/2023 CBC panel - Blood by Autom ated count MPV 9.5 fl 8.7-12 .2 Not Available [facility] (Lab) [address], [place], [address], Not Available 01/28/20 23 01/27/2023 CBC panel - Blood by Autom ated count NEUT% 55.4 % 40.0-7 5.0 Not Available [facility] (Lab) [address], [place], [address], Not Available 01/28/20 23 01/27/2023 CBC panel - Blood by Autom ated count IMGRANS% 0.3 % 0.0-2. 0 Not Available [facility] (Lab) [address], [place], [address], Not Available 01/28/20 23 01/27/2023 CBC panel - Blood by Autom ated count LYMPH% 34.0 % 20.0-4 0.0 Not Available [facility] (Lab) [address], [place], [address], Not Available 01/28/20 23 01/27/2023 CBC panel - Blood by Autom ated count MONO% 7.7 % 0.0-10 .0 Not Available [facility] (Lab) [address], [place], [address], Not Available 01/28/20 23 01/27/2023 CBC panel - Blood by Autom ated count EOS% 2.0 % 0.0-4. 0 Not Available [facility] (Lab) [address], [place], [address], Not Available 01/28/20 23 01/27/2023 CBC panel - Blood by Autom ated count BASOS% 0.6 % 0.0-1. 0 Not Available [facility] (Lab) [address], [place], [address], Not Available 01/28/20 23 01/27/2023 CBC panel - Blood by Autom ated count ANC 4.41 10^3/ uL 1.50-8 .00 Not Available [facility] (Lab) [address], [place], [address], Not Available 01/28/20 23 01/27/2023 CBC panel - Blood by Autom ated count _ Not Available [facility] (Lab) [address], [place], [address], Not Available 01/28/20 23 01/27/2023 Thyro tropi n [Unit s/vol ume] in Serum or Plasm a TSH 2.50 uIu/m L 0.47-4 .68 Not Available [facility] (Lab) [address], [place], [address], Not Available 01/28/20 23 01/27/2023 Hemog lobin A1c/H emogl obin. total in Blood HGB A1C 7.1 % 4.0-6. 0 Not Available [facility] (Lab) [address], [place], [address], Not Available 01/28/20 23 01/27/2023 Hemog lobin A1c/H emogl obin. total in Blood INDICATION Indica chastity an Ave. Glucos e of: Not Available [facility] (Lab) [address], [place], [address], Not Available 01/28/20 23 01/27/2023 Hemog lobin A1c/H emogl obin. total in Blood AVE.GLU 151-16 5 mg/dl for the last 30-120 Days Not Available [facility] (Lab) [address], [place], [address], Not Available 01/28/20 23 01/27/2023 Compr ehens usman metab olic 2000 panel - Serum or Plasm a NA 138 mmol/ L 137-14 5 Not Available [facility] (Lab) [address], [place], [address], Not Available 01/28/20 23 01/27/2023 Compr ehens usman metab olic 2000 panel - Serum or Plasm a K+ 4.9 mmol/ L 3.5-5. 1 Not Available [facility] (Lab) [address], [place], [address], Not Available 01/28/20 23 01/27/2023 Compr ehens usman metab olic 2000 panel - Serum or Plasm a CL 105 mmol/ L 98-107 Not Available [facility] (Lab) [address], [place], [address], Not Available 01/28/20 23 01/27/2023 Compr ehens usman metab olic 2000 panel - Serum or Plasm a CO2 26 mmol/ L 22-30 Not Available [facility] (Lab) [address], [place], [address], Not Available 01/28/20 23 01/27/2023 Compr ehens usman metab olic 2000 panel - Serum or Plasm a GLUC 123 mg/dL 70-106 Not Available [facility] (Lab) [address], [place], [address], Not Available 01/28/20 23 01/27/2023 Compr ehens usman metab olic 2000 panel - Serum or Plasm a BUN 15.0 mg/dL 7.0-17 .0 Not Available [facility] (Lab) [address], [place], [address], Not Available 01/28/20 23 01/27/2023 Compr ehens usman metab olic 2000 panel - Serum or Plasm a CREAT 0.7 mg/dl 0.5-1. 0 Not Available [facility] (Lab) [address], [place], [address], Not Available 01/28/20 23 01/27/2023 Compr ehens usman metab olic 2000 panel - Serum or Plasm a ALK.PHOS 82 U/L 38-126 Not Available [facility] (Lab) [address], [place], [address], Not Available 01/28/20 23 01/27/2023 Compr ehens usman metab olic 2000 panel - Serum or Plasm a ALT 27 U/L 1-34 Not Available [facility] (Lab) [address], [place], [address], Not Available 01/28/20 23 01/27/2023 Compr ehens usman metab olic 2000 panel - Serum or Plasm a AST 28 U/L 14-36 Not Available [facility] (Lab) [address], [place], [address], Not Available 01/28/20 23 01/27/2023 Compr ehens usman metab olic 2000 panel - Serum or Plasm a ALB 3.9 g/dl 3.4-4. 8 Not Available [facility] (Lab) [address], [place], [address], Not Available 01/28/20 23 01/27/2023 Compr ehens usman metab olic 2000 panel - Serum or Plasm a TBIL 0.60 mg/dl 0.20-1 .30 Not Available [facility] (Lab) [address], [place], [address], Not Available 01/28/20 23 01/27/2023 Compr ehens usman metab olic 2000 panel - Serum or Plasm a TP 6.5 g/dl 6.3-8. 2 Not Available [facility] (Lab) [address], [place], [address], Not Available 01/28/20 23 01/27/2023 Compr ehens usman metab olic 2000 panel - Serum or Plasm a CA 9.9 mg/dl 8.4-10 .2 Not Available [facility] (Lab) [address], [place], [address], Not Available 01/28/20 23 01/27/2023 Compr ehens usman metab olic 2000 panel - Serum or Plasm a GAP 7.0 mmol/ L 6.0-16 .0 Not Available [facility] (Lab) [address], [place], [address], Not Available 01/28/20 23 01/27/2023 Compr ehens usman metab olic 2000 panel - Serum or Plasm a B/C 21.43 7.00-3 0.00 Not Available [facility] (Lab) [address], [place], [address], Not Available 01/28/20 23 01/27/2023 Compr ehens usman metab olic 2000 panel - Serum or Plasm a OSMO 278 mos/k g 273-30 4 Not Available [facility] (Lab) [address], [place], [address], Not Available 01/28/20 23 01/27/2023 Compr ehens usman metab olic 2000 panel - Serum or Plasm a A/G RATIO 1.50 0.90-2 .30 Not Available [facility] (Lab) [address], [place], [address], Not Available 01/28/20 23 01/27/2023 Compr ehens usman metab olic 2000 panel - Serum or Plasm a GLOBULIN 2.6 g/dl 2.2-3. 9 Not Available [facility] (Lab) [address], [place], [address], Not Available 01/28/20 23 01/27/2023 Compr ehens usman metab olic 2000 panel - Serum or Plasm a GFR- AA Greate r Than 60 mL/mi n/1.7 3_m^2 Not Available [facility] (Lab) [address], [place], [address], Not Available 01/28/20 23 01/27/2023 Compr ehens [...] with a Nephr ologi st Not Available [facility] (Lab) [address], [place], [address], Not Available 01/28/20 23 01/27/2023 Coron shukri heart disea se 2Y risk [#] Karol ChoiD'Ag ivan o 2000 CHOL 150 mg/dl 127-20 0 Not Available [facility] (Lab) [address], [place], [address], Not Available 01/28/20 23 01/27/2023 Coron shukri heart disea se 2Y risk [#] Karol ChoiD'Ag ivan o 2000 TRIG 237 mg/dl 0-200 Not Available [facility] (Lab) [address], [place], [address], Not Available 01/28/20 23 01/27/2023 Coron shukri heart disea se 2Y risk [#] Karol Maloney'Ag ivan o 2000 HDL 52 mg/dl 30-80 Not Available [facility] (Lab) [address], [place], [address], Not Available 01/28/20 23 01/27/2023 Coron shukri heart disea se 2Y risk [#] Karol Maloney'Ag ivan o 2000 LDL 50.6 mg/dl 0.0-13 0.0 Not Available [facility] (Lab) [address], [place], [address], Not Available 01/28/20 23 01/27/2023 Coron shukri heart disea se 2Y risk [#] Karol Maloney'Ag ivan o 2000 VLDL. 47 mg/dl 2-30 Not Available [facility] (Lab) [address], [place], [address], Not Available 01/28/20 23 01/27/2023 Coron shukri heart disea se 2Y risk [#] Karol ChoiD'Ag ivan o 2000 CHOL-HDL 2.9 0.0-5. 0 Pavithra stero l/HDL Ratio (Risk assoc iated with pavithra stero l/HDL ratio ) _ Risk Femal e Ratio Male Ratio 1/2 [place] 3.27 4.43 [place] 4.44 4.97 2 x [place] 7.05 9.55 3 x [place] 11.04 23.39 Not Available [facility] (Lab) [address], [place], [address], Not Available 01/28/20 23 01/27/2023 Micro album in/Cr eatin ine panel in [facility] Urine MICROALB <6.00 mg/L 0.00-3 0.00 Not Available [facility] (Lab) [address], [place], [address], Not Available 01/28/20 23 01/27/2023 Micro album in/Cr eatin ine panel in [facility] Urine UR.CREATRND 35.5 MG/DL NO ESTABL ISHED REFERE NCE RANGE FOR THIS TEST Not Available [facility] (Lab) [address], [place], [address], Not Available 01/28/20 23 01/27/2023 Micro album in/Cr eatin ine panel in [facility] Urine MAL/CR 16.90 Mg/G 0.00-3 0.00 Not Available [facility] (Lab) [address], [place], [address], Not Available 01/28/20 23 01/27/2023 25-Hy droxy vitam in D3+25 -Hydr oxyvi tamin D2 [Mass /volu me] in Serum or Plasm a VITD 44.00 ng/mL 30.00- 100.00 Refer ence Range : <20 ng/mL - Defic ient 20 - <30 ng/mL - Insuf ficie nt 30 - 100 ng/mL - Suffi cient >100 ng/mL - Poten tial Toxic ity Not Available [facility] (Lab) [address], [place], [address], Not Available 05/12/20 23 05/12/2023 urina lysis , dipst ick U.COLOR Yellow YELLOW Not Available [facility] (Lab) [address], [place], [address], Not Available 05/12/20 23 05/12/2023 urina lysis , dipst ick U.CLARITY Slight ly Cloudy CLEAR Not Available [facility] (Lab) [address], [place], [address], Not Available 05/12/20 23 05/12/2023 urina lysis , dipst ick U.GLU Negati ve NEGATI VE Not Available [facility] (Lab) [address], [place], [address], Not Available 05/12/20 23 05/12/2023 urina lysis , dipst ick U.BILIRBN 1+ NEGATI VE Not Available [facility] (Lab) [address], [place], [address], Not Available 05/12/20 23 05/12/2023 urina lysis , dipst ick U.KET Trace NEGATI VE Not Available [facility] (Lab) [address], [place], [address], Not Available 05/12/20 23 05/12/2023 urina lysis , dipst ick U.SPGR 1.020 1.001- 1.020 Not Available [facility] (Lab) [address], [place], [address], Not Available 05/12/20 23 05/12/2023 urina lysis , dipst ick U.PH 5.5 5.0-8. 0 Not Available [facility] (Lab) [address], [place], [address], Not Available 05/12/20 23 05/12/2023 urina lysis , dipst ick U.BLOOD Trace- intact NEGATI VE Not Available [facility] (Lab) [address], [place], [address], Not Available 05/12/20 23 05/12/2023 urina lysis , dipst ick U.PROTEIN Negati ve NEGATI VE Not Available [facility] (Lab) [address], [place], [address], Not Available 05/12/20 23 05/12/2023 urina lysis , dipst ick U.NITRITE Negati ve NEGATI VE Not Available [facility] (Lab) [address], [place], [address], Not Available 05/12/20 23 05/12/2023 urina lysis , dipst ick U.UROB. 0.2 E.U./d L 0.1-1. 0 Not Available [facility] (Lab) [address], [place], [address], Not Available 05/12/20 23 05/12/2023 urina lysis , dipst ick U.LEUK. Negati ve NEGATI VE Not Available [facility] (Lab) [address], [place], [address], Not Available 05/12/20 23 05/12/2023 urina lysis , micro scopi c U.WBC 1-2 Not Available [facility] (Lab) [address], [place], [address], Not Available 05/12/20 23 05/12/2023 urina lysis , micro scopi c U.RBC 0-2 Not Available [facility] (Lab) [address], [place], [address], Not Available 05/12/20 23 05/12/2023 urina lysis , micro scopi c U.EPI'S 4-8 Not Available [facility] (Lab) [address], [place], [address], Not Available 05/12/20 23 05/12/2023 urina lysis , micro scopi c U.BACT 1+ Not Available [facility] (Lab) [address], [place], [address], Not Available 05/12/20 23 05/12/2023 urina lysis , micro scopi c U.MUCUS Rare Not Available [facility] (Lab) [address], [place], [address], Not Available 05/12/20 23 05/12/2023 urina lysis , micro scopi c U.CASTS 0-2 Hyalin e casts Not Available [facility] (Lab) [address], [place], [address], Not Available 05/14/20 23 05/14/2023 Bacte mj ident ified in Urine by Cultu re FINAL Microb iology result s Resul t Flag (Norm al) URINE TYPE: Clean Catch Mid-S tream FINAL RESUL T: MIXED ANNAMARIA L URETH RAL TAMIKO . NOT INDIC ATIVE OF UTI. NEW SPECI MEN NOT REQUI RED. Not Available [facility] (Lab) [address], [place], [address], Not Available 01/05/20 24 01/05/2024 25-Hy droxy vitam in D3+25 -Hydr oxyvi tamin D2 [Mass /volu me] in Serum or Plasm a VITD 41.90 ng/mL 30.00- 100.00 Refer ence Range : <20 ng/mL - Defic ient 20 - <30 ng/mL - Insuf ficie nt 30 - 100 ng/mL - Suffi cient >100 ng/mL - Poten tial Toxic ity Not Available [facility] (Lab) [address], [place], [address], Not Available 01/05/20 24 01/05/2024 Cobal king [...] pg/mL will have sympt oms. Not Available [facility] (Lab) [address], [place], [address], Not Available 01/05/20 24 01/05/2024 Hemog lobin A1c/H emogl obin. total in Blood HGB A1C 7.4 % 4.0-6. 0 Not Available [facility] (Lab) [address], [place], [address], Not Available 01/05/20 24 01/05/2024 Hemog lobin A1c/H emogl obin. total in Blood INDICATION Indica chastity an Ave. Glucos e of: Not Available [facility] (Lab) [address], [place], [address], Not Available 01/05/20 24 01/05/2024 Hemog lobin A1c/H emogl obin. total in Blood AVE.GLU 151-16 5 mg/dl for the last 30-120 Days Not Available [facility] (Lab) [address], [place], [address], Not Available 01/05/20 24 01/05/2024 Compr ehens usman metab olic 2000 panel - Serum or Plasm a NA 137 mmol/ L 137-14 5 Not Available [facility] (Lab) [address], [place], [address], Not Available 01/05/20 24 01/05/2024 Compr ehens usman metab olic 2000 panel - Serum or Plasm a K+ 4.7 mmol/ L 3.5-5. 1 Not Available [facility] (Lab) [address], [place], [address], Not Available 01/05/20 24 01/05/2024 Compr ehens usman metab olic 2000 panel - Serum or Plasm a CL 103 mmol/ L 98-107 Not Available [facility] (Lab) [address], [place], [address], Not Available 01/05/20 24 01/05/2024 Compr ehens usman metab olic 2000 panel - Serum or Plasm a CO2 24 mmol/ L 22-30 Not Available [facility] (Lab) [address] [place], [address], Not Available 01/05/20 24 01/05/2024 Compr ehens usman metab olic 2000 panel - Serum or Plasm a GLUC 147 mg/dL 70-106 Not Available [facility] (Lab) [address] [place], [address], Not Available 01/05/20 24 01/05/2024 Compr ehens usman metab olic 2000 panel - Serum or Plasm a BUN 26.0 mg/dL 7.0-17 .0 Not Available [facility] (Lab) [address] [place], [address], Not Available 01/05/20 24 01/05/2024 Compr ehens usman metab olic 1999 panel - Serum or Plasm a CREAT 1.0 mg/dl 0.5-1. 0 Not Available [facility] (Lab) [address], [place], [address], Not Available 01/05/20 24 01/05/2024 Compr ehens usman metab olic 2000 panel - Serum or Plasm a ALK.PHOS 90 U/L 38-126 Not Available [facility] (Lab) [address], [place], [address], Not Available 01/05/20 24 01/05/2024 Compr ehens usman metab olic 2000 panel - Serum or Plasm a ALT 23 U/L 1-34 Not Available [facility] (Lab) [address], [place], [address], Not Available 01/05/20 24 01/05/2024 Compr ehens usman metab olic 2000 panel - Serum or Plasm a AST 28 U/L 14-36 Not Available [facility] (Lab) [address], [place], [address], Not Available 01/05/20 24 01/05/2024 Compr ehens usman metab olic 2000 panel - Serum or Plasm a ALB 4.5 g/dl 3.4-4. 8 Not Available [facility] (Lab) [address], [place], [address], Not Available 01/05/20 24 01/05/2024 Compr ehens usman metab olic 2000 panel - Serum or Plasm a TBIL 0.50 mg/dl 0.20-1 .30 Not Available [facility] (Lab) [address], [place], [address], Not Available 01/05/20 24 01/05/2024 Compr ehens usman metab olic 2000 panel - Serum or Plasm a TP 7.3 g/dl 6.3-8. 2 Not Available [facility] (Lab) [address], [place], [address], Not Available 01/05/20 24 01/05/2024 Compr ehens usman metab olic 1999 panel - Serum or Plasm a CA 10.1 mg/dl 8.4-10 .2 Not Available [facility] (Lab) [address], [place], [address], Not Available 01/05/20 24 01/05/2024 Compr ehens usman metab olic 1999 panel - Serum or Plasm a GAP 10.0 mmol/ L 6.0-16 .0 Not Available [facility] (Lab) [address], [place], [address], Not Available 01/05/20 24 01/05/2024 Compr ehens usman metab olic 1999 panel - Serum or Plasm a B/C 26.00 7.00-3 0.00 Not Available [facility] (Lab) [address], [place], [address], Not Available 01/05/20 24 01/05/2024 Compr ehens usman metab olic 2000 panel - Serum or Plasm a OSMO 281 mos/k g 273-30 4 Not Available [facility] (Lab) [address], [place], [address], Not Available 01/05/20 24 01/05/2024 Compr ehens usman metab olic 2000 panel - Serum or Plasm a A/G RATIO 1.61 0.90-2 .30 Not Available [facility] (Lab) [address], [place], [address], Not Available 01/05/20 24 01/05/2024 Compr ehens usman metab olic 2000 panel - Serum or Plasm a GLOBULIN 2.8 g/dl 2.2-3. 9 Not Available [facility] (Lab) [address], [place], [address], Not Available 01/05/20 24 01/05/2024 Compr ehens usman metab olic 1999 panel - Serum or Plasm a GFR- AA Greate r Than 60 mL/mi n/1.7 3_m^2 Not Available [facility] (Lab) [address], [place], [address], Not Available 01/05/20 24 01/05/2024 Compr ehens [...] with a Nephr ologi st Not Available [facility] (Lab) [address], [place], [address], Not Available 01/05/20 24 01/05/2024 Micro album in/Cr eatin ine panel in rando m Urine MICROALB <6.00 mg/L 0.00-3 0.00 Not Available [facility] (Lab) [address], [place], [address], Not Available 01/05/20 24 01/05/2024 Micro album in/Cr eatin ine panel in rando m Urine UR.CREATRND 73.4 MG/DL NO ESTABL ISHED REFERE NCE RANGE FOR THIS TEST Not Available [facility] (Lab) [address], [place], [address], Not Available 01/05/20 24 01/05/2024 Micro album in/Cr eatin ine panel in rando m Urine MAL/CR 8.17 Mg/G 0.00-3 0.00 Not Available [facility] (Lab) [address], [place], [address], Not Available 01/05/20 24 01/05/2024 Thyro tropi n [Unit s/vol ume] in Serum or Plasm a TSH 3.03 uIu/m L 0.47-4 .68 Not Available [facility] (Lab) [address], [place], [address], Not Available 01/05/20 24 01/05/2024 Folat e [Mass /volu me] in Serum or Plasm a FOLATE 18.2 ng/mL Refer ence Range : Low: <2.76 ng/mL Borde rline : 2.76- 5.4 ng/mL Annamaria l: >5.4 ng/mL Not Available [facility] (Lab) [address], [place], [address], Not Available 01/05/20 24 01/05/2024 CBC panel - Blood by Autom ated count WBC 8.4 10*3 3.9-10 .4 Not Available [facility] (Lab) [address], [place], [address], Not Available 01/05/20 24 01/05/2024 CBC panel - Blood by Autom ated count RBC 4.50 10*6 3.78-5 .29 Not Available [facility] (Lab) [address], [place], [address], Not Available 01/05/20 24 01/05/2024 CBC panel - Blood by Autom ated count HGB 13.4 g/dl 12.0-1 6.0 Not Available [facility] (Lab) [address], [place], [address], Not Available 01/05/20 24 01/05/2024 CBC panel - Blood by Autom ated count HCT 40.7 % 37.0-4 7.0 Not Available [facility] (Lab) [address], [place], [address], Not Available 01/05/20 24 01/05/2024 CBC panel - Blood by Autom ated count MCV 90.4 fl 82.0-1 00.0 Not Available [facility] (Lab) [address], [place], [address], Not Available 01/05/20 24 01/05/2024 CBC panel - Blood by Autom ated count MCH 30 pg 26-33 Not Available [facility] (Lab) [address], [place], [address], Not Available 01/05/20 24 01/05/2024 CBC panel - Blood by Autom ated count MCHC 33 g/dl 31-34 Not Available [facility] (Lab) [address], [place], [address], Not Available 01/05/20 24 01/05/2024 CBC panel - Blood by Autom ated count RDW 13.4 % 11.8-1 5.7 Not Available [facility] (Lab) [address], [place], [address], Not Available 01/05/20 24 01/05/2024 CBC panel - Blood by Autom ated count PLT 333 10*3 150-45 0 Not Available [facility] (Lab) [address], [place], [address], Not Available 01/05/20 24 01/05/2024 CBC panel - Blood by Autom ated count MPV 10.3 fl 8.7-12 .2 Not Available [facility] (Lab) [address], [place], [address], Not Available 01/05/20 24 01/05/2024 CBC panel - Blood by Autom ated count NEUT% 56.1 % 40.0-7 5.0 Not Available [facility] (Lab) [address], [place], [address], Not Available 01/05/20 24 01/05/2024 CBC panel - Blood by Autom ated count IMGRANS% 0.1 % 0.0-2. 0 Not Available [facility] (Lab) [address], [place], [address], Not Available 01/05/20 24 01/05/2024 CBC panel - Blood by Autom ated count LYMPH% 33.6 % 20.0-4 0.0 Not Available [facility] (Lab) [address], [place], [address], Not Available 01/05/20 24 01/05/2024 CBC panel - Blood by Autom ated count MONO% 7.2 % 0.0-10 .0 Not Available [facility] (Lab) [address], [place], [address], Not Available 01/05/20 24 01/05/2024 CBC panel - Blood by Autom ated count EOS% 2.3 % 0.0-4. 0 Not Available [facility] (Lab) [address], [place], [address], Not Available 01/05/20 24 01/05/2024 CBC panel - Blood by Autom ated count BASOS% 0.7 % 0.0-1. 0 Not Available [facility] (Lab) [address], [place], [address], Not Available 01/05/20 24 01/05/2024 CBC panel - Blood by Autom ated count ANC 4.71 10^3/ uL 1.50-8 .00 Not Available [facility] (Lab) [address], [place], [address], Not Available 01/05/20 24 01/05/2024 CBC panel - Blood by Autom ated count _ Not Available [facility] (Lab) [address], [place], [address], Not Available 01/05/20 24 01/05/2024 Coron shukri heart disea se 2Y risk [#] Frami nghawa .D'Ag ivan o 2000 CHOL 180 mg/dl 127-20 0 Not Available [facility] (Lab) [address], [place], [address], Not Available 01/05/20 24 01/05/2024 Coron shukri heart disea se 2Y risk [#] Frami ngham StephD'Ag ivan o 2000 TRIG 343 mg/dl 0-200 Not Available [facility] (Lab) [address], [place], [address], Not Available 01/05/20 24 01/05/2024 Coron shukri heart disea se 2Y risk [#] Frami ngham .D'Ag ivan o 2000 HDL 50 mg/dl 30-80 Not Available [facility] (Lab) [address], [place], [address], Not Available 01/05/20 24 01/05/2024 Coron shukri heart disea se 2Y risk [#] Frami ngham StephD'Ag ivan o 2000 LDL 61.4 mg/dl 0.0-13 0.0 Not Available [facility] (Lab) [address], [place], [address], Not Available 01/05/20 24 01/05/2024 Coron shukri heart disea se 2Y risk [#] Frami nghawa ChoiD'Ag ivan o 2000 VLDL. 69 mg/dl 2-30 Not Available [facility] (Lab) [address], [place], [address], Not Available 01/05/20 24 01/05/2024 Coron shukri heart disea se 2Y risk [#] Karol hendricks .D'Ag ivan o 1999 CHOL-HDL 3.6 0.0-5. 0 Pavithra stero l/HDL Ratio (Risk assoc iated with pavithra stero l/HDL ratio ) _ Risk Femal e Ratio Male Ratio 1/2 [place] 3.27 4.43 [place] 4.44 4.97 2 x [place] 7.05 9.55 3 x [place] 11.04 23.39 Not Available [facility] (Lab) [address], [place], [address], Not Available 07/28/20 22 XR Knee Views [...] 7:58 AMT: 022 7:58 AMRepo rt ID: [id number] 7Readi ng Locati on: CRPACS [id number] Arnav Allen ation Date: 2021 07:58 Not Available [facility] (Imaging) [address], [place], [address], Not Available 01/05/20 24 DBT Breas t [...] dated: 03/29/20 22, 022, and 01/29/20 21 [facility]. BREAST TISSUE :The tissue [...] (s): Bruna l Javier, RT(R)( M)ARDM S,RV, [facility] ip Hospit allett er sent: Normal Exam Readin g locati on: LAUB- RADS: 1 Negati Vale Yuen , MDDict ation Date: 2023 13:24 Not Available [facility] (Imaging) [address] [place] [address] , [place], [address], Not Available Result Notes Documentation Provider Name and Address Organization Details Recorded Time Mammo, Screening, Tomosynthesis, Bilateral : Mammogram Mammo, Screening, Tomosynthesis, Bilateral : IMPRESSION: BI-RAD 1 NEGATIVE There is no mammographic evidence of malignancy. A 1 year screening mammogram is recommended.(01/05/2025) -order placed. Landy Eisenberg LPN [address] [place] [address], [address], [facility] 01/10/2024 14:17:28 Problems Name Problem SNOMED Code Status Onset Date Resolution Date Notes Provider Name and Address Organization Details Recorded Time History of cardiac catheter ization 94597001536 100 Active [address] Thomas Penaloza at [facility] ([facility]), no signific ant stenosis . Sloane Lu DNP [address] [place] [address], [address] , [facility] 3 12:22:05 Respirat ory tract infectio n 644121704 Completed 201805/12/2023 Removal Reason: resolved Sloane Lu DNP [address] [place] [address], [address] , [facility] 3 12:22:35 Pain in left arm 246529492 Completed 201805/12/2023 Removal Reason: resolved Sloane Lu DNP [address] [place] [address], [address] , [facility] 3 12:25:31 Vitamin D deficien cy 39701560 Active 2018 Sloane Lu DNP [address] [place] [address], [address] , [facility] 3 12:22:47 Arthriti s 2050057 Active 2018 Sloane Lu DNP [address] [place] [address], [address] , [facility] 3 12:21:59 Joint pain 76325458 Active 2018 Sloane Lu DNP [address] [place] [address], [address] , [facility] 3 12:24:34 Impaired glucose toleranc e 2575105 Completed 201805/12/2023 Removal Reason: type 2 diabetes Sloane Lu DNP [address] [place] [address], [address] , [facility] 3 12:24:24 Irregula r heart beat 396689896 Active 2022 PACs and PVCs Sloane Lu DNP [address] [place] [address], [address] , [facility] 3 12:27:03 Scoliosi s of lumbar spine 659838537 Active 2023 rotatary dextrosc oliosis Sloane Lu DNP [address] [place] [address], [address] , [facility] 4 13:10:55 Lumbar spondylo sis 396111057 Active 2023 Sloane Lu DNP [address] [place] [address], [address] , [facility] 4 08:23:21 Arthriti s 0425853 Completed 201804/30/2020 Sloane Lu DNP [address] [place] [address], [address] , [facility] 3 12:21:59 Hyperten sive disorder 19762102 Active 2018 Sloane Lu DNP [address] [place] [address], [address] , [facility] 3 12:22:13 Irritabl e bowel syndrome 06933679 Active 2018 Sloane Lu DNP [address] [place] [address], [address] , [facility] 3 12:24:28 Pain in left arm 433878773 Completed 201804/30/2020 Sloane Lu DNP [address] [place] [address], [address] , [facility] 3 12:25:31 Osteoart hritis 136059396 Active 2018 B/L knees, lumbar spine, R foot w left total knee arthropl asty. 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 Completed 201802/12/2019 Removal Reason: converte d to diabetes type 2 Poornima Luna CNP [address] [place] [address], [address] , [facility] 9 17:39:00 Vitamin D deficien cy 29387475 Completed 201804/30/2020 Sloane Lu DNP [address] [place] [address], [address] , [facility] 3 12:22:47 Joint pain 70965856 Completed 201804/30/2020 Sloane Lu DNP [address] [place] [address], [address] , [facility] 3 12:24:34 Impaired glucose toleranc e 1762820 Completed 201804/30/2020 Sloane Lu DNP [address] [place] [address], [address] , [facility] 3 12:24:24 Respirat ory tract infectio n 631179000 Completed 201804/30/2020 Sloane Lu DNP [address] [place] [address], [address] , [facility] 3 12:22:35 Heart irregula r Completed 201804/30/2020 Sloane Lu DNP [address] [place] [address], [address] , [facility] 3 12:26:52 Sleep pattern disturba nve 16918758 Active 2018 Sloane Lu DNP [address] [place] [address], [address] , [facility] 3 12:22:39 Type 2 diabetes mellitus 99787971 Active 2018 Sloane Lu DNP [address] [place] [address], [address] , [facility] 3 12:22:43 Hyperuri cemia 67802235 Active Poornima Luna, SLEEPING ROOM CLEANER [address] [place] [address], [address] , [facility] 9 12:05:12 Osteopen ia 584790847 Active 201803/18/22 Dexa (R femoral neck -1.5) Sloane Lu DNP [address] [place] [address], [address] , [facility] 3 12:22:55 Lumbar radiculo kendrick 842592682 Active 2021 Landy Eisenberg LPN [address] [place] [address], [address] , [facility] 3 12:14:46 Microsco pic hematuri a 950545597 Completed 202105/12/2023 04/15/22. Rare RBC on urine micro. Continue to observe unless pt becomes symptoma tic Removal Reason: resolved . Normal urine 01/27/23 Sloane Lu DNP [address] [place] [address], [address] , [facility] 3 12:24:09 Degenera tion of lumbar interver tebral disc 57667517 Active 2021 Sloane Lu DNP [address] [place] [address], [place], [address] , [facility] 3 12:22:02 Problem Notes None recorded. Procedures Surgical History Date Name Laterality Status Provider Name and Address Organization Details Recorded Time 01/05/20 24 Most Recent Mammogram completed Landy Eisenberg LPN [address] [place] [address], [address], [facility] 04/12/2024 11:53:08 09/08/20 22 cardiac catheterization completed Sloane Lu DNP [address] [place] [address], [address], [facility] 10/21/2022 12:35:38 07/14/20 22 STH Injection completed Landy Eisenberg LPN [address] [place] [address], [address], [facility] 07/14/2022 12:13:36 11/15/19 20 COLONOSCOPY (SURG) completed Emelina Napier LPN [address] [place] [address], [address], [facility] 11/14/2019 09:45:46 11/15/19 20 COLONOSCOPY (SURG) completed Not Available [facility] 01/22/2022 03:45:09 09/05/20 19 mammography completed Landy Eisenberg LPN [address] [place] [address], [address], [facility] 09/13/2019 11:21:37 06/20/20 19 STH Injection completed Landy Eisenberg LPN [address] [place] [address], [address], [facility] 06/20/2019 13:04:44 02/09/20 18 Peripheral IV Removal completed Naomi Garcia [address] [place] [address], [address], [facility] 02/08/2018 14:43:59 02/09/20 18 Peripheral IV Insertion completed Naomi Garcia [address] [place] [address], [address], [facility] 02/08/2018 14:43:37 release of pcusb-hk-swxh deformity completed Landy Eisenberg [employer] [address] [place] [address], [address], [facility] 01/31/2019 14:31:01 Total knee arthroplasty completed Sloane Lu [address], [address], [facility] 04/07/2022 14:49:26 excision of tumor of soft tissue of back completed Landy Eisenberg [address], [address], [facility] 01/31/2019 14:31:55 Hysterectomy completed Landy Eisenberg [employer] MA[employer] [address] [place] [address], [address], [facility] 02/01/2019 14:25:15 Arthroscopic Surgery completed Landy Eisenberg [address], [address], [facility] 02/01/2019 14:25:52 Joint Replacement completed Landy Eisenberg [address], [address], [facility] 03/02/2023 12:54:47 Imaging Results Imaging Date Name Status LastModified by Organiz [facility] Details LastModified Time 2022 XR Knee Views active Not Available [facility] (Imaging) [address] [place], [address], Not Available 01/05/2024 DBT Breast - bilateral screening active Not Available [facility] (Imaging) [address] [facility] [place], [address], Not Available Procedure Notes None recorded. Medical Equipment None Reported. Allergies Allergen ID Allergen Name Allergen Category Reaction Reaction Severity Criticality Documentation Date Start Date Code Code System Note Provider Name and Address Organization Details Recorded Time 12044 Product containin g penicilli n (product) medicatio n anaphylax is moderate Not available 01/31/2019 [id number] SNOMED child will Lu, [facility] [address] [place], [address], [facility] 2 14:44:11 59961 acetamino phen / oxycodone medicatio n rash severe Not available 01/31/2019 [id number] 3 RxNorm Cabrina Hackstadt , ATHLETE MANAGER [address] [place], [address], [facility] 9 13:19:47 21762 Prinivil medicatio n dizziness moderate Not available 01/31/2019 47473 4 RxNorm Cabrina Hamaristadt , ATHLETE MANAGER [address] [place], [address], [facility] 9 13:20:08 85174 losartan medicatio n rash moderate Not available 01/31/2019 [id number] RxNorm Cabrina Hackstadt , ATHLETE MANAGER [address] [place], [address], [facility] 9 13:20:34 70279 Erythroci n medicatio n dizziness moderate Not available 01/31/2019 25088 3 RxNorm Cabrina Hackstadt , ATHLETE MANAGER [address] [place], [address], [facility] 9 13:20:58 01590 lisinopri l medicatio n cough moderate Not available 01/31/2019 59841 RxNorm Cabrina Hackstadt , ATHLETE MANAGER [address] [place], [address], [facility] 9 13:21:22 77814 Pneumococ sue vaccine Not available Not available Not available Not available 02/01/2019 08653 7 RxNorm COULD NOT BONITA ATE LOSAR JACINTO Cabrina Hackstadt , ATHLETE MANAGER [address] [place], [address], [facility] 9 14:30:28 32743 amlodipin e / benazepri l medicatio n angioedem a moderate Not available 02/01/2019 76031 3 RxNorm Landy Eisenberg , ATHLETE MANAGER [address] [place], [address], [facility] 9 14:29:34 72520 tramadol medicatio n vomiting Not available [facility] 05/12/2023 [id number] RxNorm Landy Eisenberg , ATHLETE MANAGER [address] [place], [address], [facility] 3 12:11:52 Medications Name Sig Start Date [...] tabs on 05/09/24, 06/08/24, and 07/06/24 to [place], [place]. Not Available Not Available Not Available [...] 0-10 verbal numeric rating [Score] - Reported Heart rate Respiratory rate Body temperature Oxygen saturation Oxygen saturation in Arterial blood by Pulse oximetry Systolic blood pressure Diastolic blood pressure Provider Name and Address Organization Details Last Updated DateTime 3 154.94 cm 36.6 kg/m2 28367 g 0 87 /min 18 /min 98.6 [degF] 99 % 99 % 144 mm[Hg] 76 mm[Hg] Landy Eisenberg , ATHLETE MANAGER [address] [place], [address] [place] [address] 3 12:19:10 Date Recorded Body height Body mass index (BMI) Body weight Oxygen saturation Oxygen saturation in Arterial blood by Pulse oximetry Pain severity - 0-10 verbal numeric rating [Score] - Reported Heart rate Respiratory rate Body temperature Systolic blood pressure Diastolic blood pressure Provider Name and Address Organization Details Last Updated DateTime 3 154.94 cm 36.6 kg/m2 72758 g 96 % 96 % 0 90 /min 22 /min 98.5 [degF] 136 mm[Hg] 88 mm[Hg] Landy Eisenberg LPN [address] [place], [address], [facility] 3 12:03:19 Date Recorded Body height Body mass index (BMI) Body weight Oxygen saturation Oxygen saturation in Arterial blood by Pulse oximetry Heart rate Body temperature Respiratory rate Systolic blood pressure Diastolic blood pressure Provider Name and Address Organization Details Last Updated DateTime 4 154.94 cm 36.6 kg/m2 03856 g 98 % 98 % 105 /min 98.5 [degF] 24 /min 162 mm[Hg] 88 mm[Hg] Landy Eisenberg LPN [address] [place], [address], [facility] 4 12:22:38 Date Recorded Body height Body mass index (BMI) Body weight Oxygen saturation Oxygen saturation in Arterial blood by Pulse oximetry Heart rate Respiratory rate Body temperature Systolic blood pressure Diastolic blood pressure Provider Name and Address Organization Details Last Updated DateTime 4 154.94 cm 35.9 kg/m2 05529 g 95 % 95 % 77 /min 22 /min 98.1 [degF] 132 mm[Hg] 66 mm[Hg] Landy Eisenberg LPN [address] [place], [address], [facility] 4 11:56:27 Social History Question Answer Notes LastModified by Organizat ion Details LastModified Time Tobacco Smoking Status Never Smoker Landy Eisenberg LPN [address] [place], [address], [facility] 01/31/2019 14:27:54 Do You Have An Advance Directive? Yes jada Information not available 03/02/2023 What Is Your Level Of Alcohol Consumption? [facility] Information not available 03/02/2023 Are You Blind [...] available 03/02/2023 If Patient Spent Time In [facility] - Does The Patient Live In [facility]? No Information not available 03/02/2023 In The 14 Days Before Symptom Onset, Have You Had Close Contact With A Person Who Is Under Investigation For COVID-19 While That Person Was Ill? No Information not available 03/02/2023 In The 14 Days Before Symptom Onset, Did The Patient Spend Time In [facility]? No Information not available 03/02/2023 Have [...] Do You Have A Medical Power Of Senior Infrastructure Engineer? Yes Information not available 03/02/2023 What Was [...] 03/02/2023 What is your exercise level? Occasional Information not available 03/02/2023 Mental Status Question Answer Note LastModified by Organization D etails LastModified Time Do you have difficulty concentrating, remembering or making decisions? No Information no t available 03/02/2023 Family History Relationship Description Onset Age of this Age Resolved Age Notes LastModified by Organization Details LastModified Time Mother Diabetes mellitus elena Not available 05/2019 14:25:42 Mother Hypercholest erolemia API-27 Not available 2023 12:06:55 Mother Hypertensive disorder API-27 Not available 2023 12:06:55 Mother Osteoporosis API-27 Not availab le 01/05/2024 12:06:55 Mother Heart disease elena Not available 01/23 14:31:15 Medical History Condition Response Coronary Artery Disease N Other N Gout Y Atrial Fibrillation N Blood Diseases N Hyperthyroidism N Hernia N COPD N Depression N Hypothyroidism N Lung Disease N Developmental or Behavioral Disorders N Pacemaker N Difficulty Swallowing N Gastrointestinal Disease Y Anxiety Disorder N Autoimmune disease N Pylonephritis N Arthritis Y Difficulty seeing N Polyps N Blood Clot N Acid Reflux (GERD) N Cancer N Stroke N Diabetes: Last eye exam? N Bladder or Kidney Problems N Anger Issues N Back Injury N High Cholesterol Y Liver Disease N Kidney Disease N Allergies/Hayfever Y Ear or Hearing Problems Y GI Problems N Anemia N Constipation N Heart Attack ([place]) N Mental Illness N Diabetes Y Bleeding [...] virus, quadrivalent, preservative 0 completed Not Available [facility] 05/12/2023 11:50:13 SARS-COV-2 (COVID-19) vaccine, UNSPECIFIED 1 completed Not Available [facility] 05/12/2023 11:50:13 Influenza, split virus, quadrivalent, preservative 1 completed Not Available [facility] 05/12/2023 11:50:13 COVID-19, mRNA, LNP-S, PF, 30 mcg/0.3 mL dose 1 completed Landy Eisenberg ATHLETE MANAGER [address] [place] [address], [address], [facility] 07/14/2022 11:50:09 SARS-COV-2 (COVID-19) vaccine, UNSPECIFIED 2 completed Landy Eisenberg ATHLETE MANAGER [address] [place] [address], [address], [facility] 04/26/2022 14:30:42 Influenza, adjuvanted, quadrivalent, PF 1 completed Landy Eisenberg ATHLETE MANAGER [address] [place] [address], [address], [facility] 07/14/2022 11:50:09 Influenza, split virus, quadrivalent, preservative 6 completed Landy Eisenberg ATHLETE MANAGER [address] [place] [address], [address], [facility] 07/14/2022 11:50:09 Influenza, split virus, quadrivalent, PF 5 completed Landy Eisenberg ATHLETE MANAGER [address] [place] [address], [address], [facility] 07/14/2022 11:50:09 Influenza, split virus, quadrivalent, preservative 7 completed Landy Eisenberg ATHLETE MANAGER [address] [place] [address], [address], [facility] 07/14/2022 11:50:09 COVID-19, mRNA, LNP-S, PF, 30 mcg/0.3 mL dose, sandip-sucrose 2 completed Landy Eisenberg ATHLETE MANAGER [address] [place] [address], [address], [facility] 07/14/2022 11:50:09 Influenza, high-dose, quadrivalent, PF 0 completed Landy Eisenberg, [address], [address], [facility] 07/14/2022 11:50:09 COVID-19, mRNA, LNP-S, PF, 30 mcg/0.3 mL dose 1 completed Landy Eisenberg [address], [address], [facility] 07/14/2022 11:50:09 Influenza, high-dose, trivalent, PF 9 completed Not Available [facility] 10/12/2019 02:28:42 Influenza, split virus, quadrivalent, preservative 8 completed Landy Eisenberg, [address], [address], [facility] 07/14/2022 11:50:09 zoster live 0 completed Landy Eisenberg [address], [address], [facility] 01/31/2019 14:24:40 Tdap 7 completed Landy Eisenberg [address], [address], [facility] 04/26/2022 14:30:42 Influenza, high-dose, quadrivalent, PF 2 completed Landy Eisenberg [address], [address], [facility] 07/14/2022 14:46:44 Hep B, adolescent or pediatric 6 completed Landy Eisenberg [address], [address], [facility] 04/26/2022 14:30:42 Hep B, adolescent or pediatric 6 completed Landy Eisenberg, ATHLETE MANAGER [address] [place], [address], [facility] 04/26/2022 14:30:42 Past Encounters Encounter ID Performer Location Encounter Start Date Encounter Closed Date Diagnosis/Indication Diagnosis SNOMED-CT Code Diagnosis ICD10 Code Diagnosis Note [id number] OP Lab/Rad/C ardio Test [address] [place] [address] 02/08/2018 11:50:00 02/09/2018 04:04:36 [id number] OP Lab/Rad/C ardio Test [address] [place] [address] 3 02/07/2019 10:21:00 02/08/2019 00:59:00 [id number] OP Lab/Rad/C ardio Test [address] [place] [address] 02/21/2019 16:31:00 02/22/2019 00:59:00 [id number] OP Lab/Rad/C ardio Test [address] [place] [address] 3 09/05/2019 11:05:00 09/06/2019 00:59:00 [id number] OP Lab/Rad/C ardio Test [address] [place] [address] 09/16/2019 11:14:00 09/17/2019 00:59:[id number] [place] [address] 11/15/2019 08:29:00 11/15/2019 11:28:00 [id number] OP Lab/Rad/C ardio Test [address] [place] [address] 04/30/2020 11:16:00 05/01/2020 00:59:00 [id number] OP Lab/Rad/C ardio Test [address] [place] [address] 11/20/2020 16:03:00 11/21/2020 00:59:00 [id number] OP Lab/Rad/C ardio Test [address] [place] [address] 01/28/2021 11:15:00 01/29/2021 00:59:00 [id number] OP Lab/Rad/C ardio Test [address] [facility] [place] [address] 05/25/2021 12:28:00 05/26/2021 00:59:00 [id number] OP Lab/Rad/C ardio Test [facility] [place] [address] 11/24/2021 14:18:00 11/25/2021 00:59:00 [id number] OP Lab/Rad/C ardio Test [facility] [place] [address] 03/08/2022 14:48:00 03/09/2022 00:59:00 [id number] OP Lab/Rad/C ardio Test [address] [place] [address], [place] [address] 03/18/2022 11:34:00 03/19/2022 00:59:00 [id number] OP Lab/Rad/C ardio Test [address] [place] [address], [place] [address] 03/29/2022 12:50:00 03/30/2022 00:59:00 [id number] Gurpreet Selma OP Lab/Rad/C ardio Test [address] [place] [address], [place] [address] 04/07/2022 14:52:00 04/08/2022 00:59:00 [id number] Gurpreet Keyes OP Lab/Rad/C ardio Test [address] [place] [address], [place] [address] 04/07/2022 17:38:00 04/08/2022 00:59:00 [id number] OP Lab/Rad/C ardio Test [address] [place] [address], [place] [address] 04/15/2022 14:24:00 04/16/2022 00:59:00 [id number] Luisa Fernando OP Lab/Rad/C ardio Test [address] [place] [address] 06/11/2022 11:15:00 06/12/2022 00:59:00 [id number] OP Lab/Rad/C ardio Test [address] [place] [address] 07/11/2022 11:27:00 07/12/2022 00:59:00 [id number] Gurpreet Hahn OP Lab/Rad/C ardio Test [address] [place] [address] 07/14/2022 01:00:00 07/15/2022 00:59:00 [id number] Gurpreet Hahn OP Lab/Rad/C ardio Test [address] [place] [address] 3 2022 14:54:00 07/29/2022 00:59:00 [id number] OP Lab/Rad/C ardio Test [address] [place] [address] 01/27/2023 11:35:00 01/28/2023 00:59:00 [id number] OP Lab/Rad/C ardio Test [address] [place] [id number] 05/12/2023 12:53:00 05/13/2023 00:59:00 [id number] OP Lab/Rad/C ardio Test [address] [place] [address] 01/05/2024 11:41:00 01/06/2024 00:59:00 [id number] OP Lab/Rad/C ardio Test [address] [place] [address] 01/05/2024 14:16:00 01/06/2024 00:59:00 Health Concerns Section Related Observation LastModified by Organization Detai ls LastModified Time None Recorded Concern Status LastModified by Organization Details LastModified Time None Recorded Advance Directives Directive Y: Payers Encounter Date Sequence Insurance Name Policy Number Policy Russell Covered Member ID Russell Member ID Guarantor Name 05/12/2023 1 [place] 0 Natalia Soliman [id number] Natalia Soliman 05/12/2023 2 [employer] SU[employer]LE[employer]AL - [employer] (MEDICARE SUPPLEMENT) PLAN F Natalia Soliman [id number] Natalia Soliman 01/05/2024 1 [place] 0 Natalia Soliman [id number] Natalia Soliman 01/05/2024 2 [employer] SU[employer]LEMENT[employer] - [employer] (MEDICARE SUPPLEMENT) PLAN F Natalia Soliman [id number] Natalia Soliman 04/12/2024 1 [place] 0 Natalia Soliman [id number] Natalia Reynater 04/12/2024 2 [employer] SU[employer]LEMENT[employer] - [employer]UR[employer] (MEDICARE SUPPLEMENT) PLAN F Natalia Soliman [id number] Natalia Soliman Notes Date Note Type Note Provider Name and Address Organization Details Recorded Time 10/21/2022 text/html 72 yowf to [facility] for 3 months f/u visit. 1) Had heart cath September 08, [address] Alfonso with [facility]. Has f/u appt w her labor commissioner, Dr Thomas Penaloza, in January () 2022. Had f/u on 09/30/22. No significant findings/ stenosis, no stents required.Denies CP, SOB, dizziness, syncope, palpitations.2) Was out of candesartan for a few weeks. Space Physicist aware, d/t out of stock at pharmacy.3) HR running 87 today, BP in office 144/764) Plans to schedule appt with DR Butler to have right hip lipoma removed. Space Physicist has cleared her for this. Sloane Lu, [address], [address], [facility] 10/21/2022 13:28:17 05/12/2023 text/html Medicare Annual Wellness [...] States she was busy.4-03/18/22 last dexa5-Follows with [facility] for annual eye exams6-Needs A1c. [...] rule out UTI.10-needs medication refills Sloane Lu, [address], [address], [place] [facility] 05/12/2023 12:49:13 01/05/2024 text/html Ms Natalia raman is a pleasant 73 yo female presenting to [facility] today for routine visit CC: 6 months f/u 1- Scheduled for scr mammogram at 1300 today at [facility].2- Labs drawn in [facility] today.3- Having b/l leg and feet pain. [...] and sits on heating pad. Sloane Lu, [address] [place] [place], [address], [facility] 01/05/2024 13:30:48 04/12/2024 text/html Ms Natalia raman is a pleasant 73 yo female who presents to [facility] Today for routine visit. She is accompanied by her daughter, Marianela, whom she lives with in [place], [place]. CC: 3 mos f/u visit (C.S. [...] gave her the name of a pain bibliographic services specialist, Dr Frances, who has an office in [place]. Ms soliman last had imaging of her [...] is affecting her cardiovascular health. Sloane Lu, [facility] [address] [place], [address], [facility] 04/12/2024 13:56:44 OBGyn Episode No OBEpisode recorded.
--- OUTSIDE RECORDS SUMMARY | 2024-12-14 13:05 | XMS_ITS | Data Portability ---
Author Organization [facility] Address [address] [place] [address] Care Team Providers Care Local Sales Associate Name Role Phone RALPH MARIE V Belt Curer Assessment No assessment recorded. Plan of Treatment Reminders Order Date Submit Date Provider Last Modified By Organization Details Last Modified Time Details Appointments None recorded . Lab None recorded . Referral rheumato logist referral 2017 018 mary Isaac MD, [address] [place], [address], 8 13:00:32 Procedures None recorded . Surgeries None recorded . Imaging electroc ardiogra m 2017 018 SUGEY In-Office Order, Internal Use Only DO Not Attach Compendium DO Not Attach Compendium, Do Not Delete/merge, [id number] 8 10:05:16 Medication Orders levoflox acin 750 mg tablet 2018 019 INTERFACE [facility]/[address], [address], 9 15:11:25 albutero l sulfate HFA 90 mcg/actu ation aerosol inhaler 2018 019 INTERFACE [facility]/[address], [address], 9 15:16:30 candesar isaac 32 mg-hydro chloroth iazide 12.5 mg tablet 2017 018 INTERFACE [facility], [address] [facility], [place], [address], 8 11:41:15 levoflox acin 500 mg tablet [address]/[facility], [address] [place], [address], 8 11:24:39 Cheratus sin AC 10 mg-100 mg/5 mL oral liquid [address]/[facility], [address] [place], [address], 8 11:25:30 Patient TargetsNo targets recorded. Patient Instructions Encounter Date Encounter Id Patient Instructions Last Modified By Organization Details Last Modified Time 12/18/2017 Take medications as prescribed. Return in 1 week if symptoms worsen. home and rest Cool mist vaporizer in bedroom. Increase oral fluids Menthol cough drops, such as Holley s Mentholyptus, or Charly s Vaporub to chest to help with cough, and open nasal passages. Robitussin, generic, 2 teaspoon as directed on package to help loosen secretions, soothe throat, and help cough. May use Robitussin CF, or DM if this doesn t help with the coughing. May use [...] days Labs next visit in 3 months [email or web address] Not available 12/18/2017 16:42:49 03/23/2018 [id number] osteoarthritis: care instructions [email or web address] Not available 03/23/2018 11:44:19 avoid added salt [...] kidney dialysis please return in 3 months [email or web address] Not available 03/26/2018 10:04:28 11/23/2018 [id number] Take antibiotics as prescribed until gone, they work for longer than they are taken. Cool mist vaporizer in bedroom. Menthol cough drops, such as Holley s Mentholyptus, to help with cough, and [...] dose of steroid to help dry secretions. 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 Referral for Osteoarthritis Referring Physician: Marcelino Garcia, Family Medicine, Encounter Date: 03/23/2018 Results Created Date Observation Date Name Description Value Unit Range Abnormal Flag Note LastModifiedBy Organization Detail LastModifiedTime 03/12/20 18 03/13/2018 CBC w/ auto diff WBC 8.0 x10e3 /uL 3.4-10 .8 Not Available [facility] ([facility]) [address] [facility], [place], [address], 03/13/2018 17:06:39 03/12/20 18 03/13/2018 CBC w/ auto diff RBC 5.03 x10e6 /uL 3.77-5 .28 Not Available [facility] ([facility]) [address] [facility], [place], [address], 03/13/2018 17:06:39 03/12/20 18 03/13/2018 CBC w/ auto diff hemoglobin 13.6 g/dL 11.1-1 5.9 Not Available [facility] ([facility]) [address] [place], [address], 03/13/2018 17:06:39 03/12/20 18 03/13/2018 CBC w/ auto diff hematocrit 42.0 % 34.0-4 6.6 Not Available [facility] ([facility]) [address] [place], [address], 03/13/2018 17:06:39 03/12/20 18 03/13/2018 CBC w/ auto diff MCV 84 fL 79-97 Not Available [facility] ([facility]) [address] [place], [address], 03/13/2018 17:06:39 03/12/20 18 03/13/2018 CBC w/ auto diff MCH 27.0 pg 26.6-3 3.0 Not Available [facility] ([facility]) [address] [place], [address], 03/13/2018 17:06:39 03/12/20 18 03/13/2018 CBC w/ auto diff MCHC 32.4 g/dL 31.5-3 5.7 Not Available [facility] ([facility]) [address] [place], [address], 03/13/2018 17:06:39 03/12/20 18 03/13/2018 CBC w/ auto diff RDW 14.2 % 12.3-1 5.4 Not Available [facility] ([facility]) [address] [place], [address], 03/13/2018 17:06:39 03/12/20 18 03/13/2018 CBC w/ auto diff platelets 305 x10e3 /uL 150-37 9 Not Available [facility] ([facility]) [address] [place], [address], 03/13/2018 17:06:39 03/12/20 18 03/13/2018 CBC w/ auto diff neutrophils 68 % not estab. Not Available [facility] ([facility]) [address] [place], [address], 03/13/2018 17:06:39 03/12/20 18 03/13/2018 CBC w/ auto diff lymphs 24 % not estab. Not Available [facility] ([facility]) [address] [place], [address], 03/13/2018 17:06:39 03/12/20 18 03/13/2018 CBC w/ auto diff monocytes 6 % not estab. Not Available [facility] ([facility]) [address] [place], [address], 03/13/2018 17:06:39 03/12/20 18 03/13/2018 CBC w/ auto diff eos 2 % not estab. Not Available [facility] ([facility]) [address] [place], [address], 03/13/2018 17:06:39 03/12/20 18 03/13/2018 CBC w/ auto diff basos 0 % not estab. Not Available [facility] ([facility]) [address] [place], [address], 03/13/2018 17:06:39 03/12/20 18 03/13/2018 CBC w/ auto diff immature cells [employer] Not Available [facility] ([facility]) [address] [place], [address], 03/13/2018 17:06:39 03/12/20 18 03/13/2018 CBC w/ auto diff neutrophils (absolute) 5.4 x10e3 /uL 1.4-7. 0 Not Available [facility] ([facility]) [address] [place], [address], 03/13/2018 17:06:39 03/12/20 18 03/13/2018 CBC w/ auto diff lymphs (absolute) 1.9 x10e3 /uL 0.7-3. 1 Not Available [facility] ([facility]) [address] [facility], [place], [address], 03/13/2018 17:06:39 03/12/20 18 03/13/2018 CBC w/ auto diff monocytes(ab solute) 0.5 x10e3 /uL 0.1-0. 9 Not Available [facility] ([facility]) [address] [facility], [place], [address], 03/13/2018 17:06:39 03/12/20 18 03/13/2018 CBC w/ auto diff eos (absolute) 0.2 x10e3 /uL 0.0-0. 4 Not Available [facility] ([facility]) [address] [facility], [place], [address], 03/13/2018 17:06:39 03/12/20 18 03/13/2018 CBC w/ auto diff baso (absolute) 0.0 x10e3 /uL 0.0-0. 2 Not Available [facility] ([facility]) [address] [facility], [place], [address], 03/13/2018 17:06:39 03/12/20 18 03/13/2018 CBC w/ auto diff immature granulocytes 0 % not estab. Not Available [facility] ([facility]) [address] [facility], [place], [address], 03/13/2018 17:06:39 03/12/20 18 03/13/2018 CBC w/ auto diff immature grans (abs) 0.0 x10e3 /uL 0.0-0. 1 Not Available [facility] ([facility]) [address] [facility], [place], [address], 03/13/2018 17:06:39 03/12/20 18 03/13/2018 CBC w/ auto diff NRBC [employer] Not Available [facility] ([facility]) [address] [facility] [place], [address], 03/13/2018 17:06:39 03/12/20 18 03/13/2018 CBC w/ auto diff hematology comments: [employer] Not Available [facility] ([facility]) [address] [facility] [place], [address], 03/13/2018 17:06:39 03/12/20 18 03/13/2018 CMP, serum or plasm a glucose 122 mg/dL 65-99 above high normal Not Available [facility] ([facility]) [address] [facility] [place], [address], 03/13/2018 17:06:40 03/12/20 18 03/13/2018 CMP, serum or plasm a BUN 25 mg/dL 8-27 Not Available [facility] ([facility]) [address] [facility] [place], [address], 03/13/2018 17:06:40 03/12/20 18 03/13/2018 CMP, serum or plasm a creatinine 0.98 mg/dL 0.57-1 .00 Not Available [facility] ([facility]) [address] [facility] [place], [address], 03/13/2018 17:06:40 03/12/20 18 03/13/2018 CMP, serum or plasm a eGFR if nonafricn AM 60 mL/mi n/1.7 3 >59 Not Available [facility] ([facility]) [address] [facility] [place], [address], 03/13/2018 17:06:40 03/12/20 18 03/13/2018 CMP, serum or plasm a eGFR if africn AM 70 mL/mi n/1.7 3 >59 Not Available [facility] ([facility]) [address] [facility] [place], [address], 03/13/2018 17:06:40 03/12/20 18 03/13/2018 CMP, serum or plasm a BUN/creatini ne ratio 26 12-28 Not Available [facility] ([facility]) [address] [place], [address], 03/13/2018 17:06:40 03/12/20 18 03/13/2018 CMP, serum or plasm a sodium 138 mmol/ L 134-14 4 Not Available [facility] ([facility]) [address] [place], [address], 03/13/2018 17:06:40 03/12/20 18 03/13/2018 CMP, serum or plasm a potassium 4.5 mmol/ L 3.5-5. 2 Not Available [facility] ([facility]) [address] [facility], [place], [address], 03/13/2018 17:06:40 03/12/20 18 03/13/2018 CMP, serum or plasm a chloride 99 mmol/ L 96-106 Not Available [facility] ([facility]) [address] [place], [address], 03/13/2018 17:06:40 03/12/20 18 03/13/2018 CMP, serum or plasm a carbon dioxide, total 22 mmol/ L 20-29 Ple ase note refer manuele ronny cha Not Available [facility] ([facility]) [address] [place], [address], 03/13/2018 17:06:40 03/12/20 18 03/13/2018 CMP, serum or plasm a calcium 9.5 mg/dL 8.7-10 .3 Not Available [facility] ([facility]) [address] [place], [address], 03/13/2018 17:06:40 03/12/20 18 03/13/2018 CMP, serum or plasm a protein, total 7.3 g/dL 6.0-8. 5 Not Available [facility] ([facility]) [address] [facility] [place], [address], 03/13/2018 17:06:40 03/12/20 18 03/13/2018 CMP, serum or plasm a albumin 4.1 g/dL 3.6-4. 8 Not Available [facility] ([facility] [address] [place] [place], [address], 03/13/2018 17:06:40 03/12/20 18 03/13/2018 CMP, serum or plasm a globulin, total 3.2 g/dL 1.5-4. 5 Not Available [facility] ([facility]) [address] [facility] [place], [address], 03/13/2018 17:06:40 03/12/20 18 03/13/2018 CMP, serum or plasm a A/G ratio 1.3 1.2-2. 2 Not Available [facility] ([facility]) [address] [facility] [place], [address], 03/13/2018 17:06:40 03/12/20 18 03/13/2018 CMP, serum or plasm a bilirubin, total 0.3 mg/dL 0.0-1. 2 Not Available [facility] ([facility]) [address] [facility] [place], [address], 03/13/2018 17:06:40 03/12/20 18 03/13/2018 CMP, serum or plasm a alkaline phosphatase 89 IU/L 39-117 Not Available [facility] ([facility]) [address] [facility] [place], [address], 03/13/2018 17:06:40 03/12/20 18 03/13/2018 CMP, serum or plasm a AST (SGOT) 16 IU/L 0-40 Not Available [facility] ([facility]) [address] [facility] [place], [address], 03/13/2018 17:06:40 03/12/20 18 03/13/2018 CMP, serum or plasm a ALT (SGPT) 15 IU/L 0-32 Not Available [facility] ([facility]) [address] [place], [address], 03/13/2018 17:06:40 03/12/20 18 03/13/2018 lipid panel , serum cholesterol, total 171 mg/dL 100-19 9 Not Available [facility] ([facility]) [address] [place], [address], 03/13/2018 17:06:40 03/12/20 18 03/13/2018 lipid panel , serum triglyceride s 136 mg/dL 0-149 Not Available [facility] ([facility]) [address] [place], [address], 03/13/2018 17:06:40 03/12/20 18 03/13/2018 lipid panel , serum HDL cholesterol 44 mg/dL >39 Not Available [facility] ([facility]) [address] [place], [address], 03/13/2018 17:06:40 03/12/20 18 03/13/2018 lipid panel , serum VLDL cholesterol sue 27 mg/dL 5-40 Not Available [facility] ([facility]) [address] [place], [address], 03/13/2018 17:06:40 03/12/20 18 03/13/2018 lipid panel , serum LDL cholesterol calc 100 mg/dL 0-99 above high normal Not Available [facility] ([facility]) [address] [place], [address], 03/13/2018 17:06:40 03/12/20 18 03/13/2018 lipid panel , serum comment: [employer] Not Available [facility] ([facility]) [address] [facility], [place], [address], 03/13/2018 17:06:40 03/12/20 18 03/13/2018 cardi ovasc ular asses sment panel , serum interpretati on Note Suppl ement al repor t is avail able. Not Available [facility] ([facility]) [address] [facility], [place], [address], 03/13/2018 17:06:41 03/12/20 18 03/13/2018 cardi ovasc ular asses sment panel , serum pdf image . Not Available [facility] ([facility]) [address] [facility], [place], [address], 03/13/2018 17:06:41 03/12/20 18 03/13/2018 speci men statu s repor t specimen status report TNP No Polym edco OC sampl ing bottl e recei britta. TEST: [id number] 9 Occul t Blood , Fecal , [place] Not Available [facility] ([facility]) [address] [facility], [place], [address], 03/13/2018 17:06:41 11/15/19 20 11/15/2019 surgi sue patho logy study raúl [facility] surgical pathology [facility] er Patho log[facility] [address] [facility] [address] Phone : [phone] Fax: Depar tment of Patho logy Patho logy Repor t SURGI SUE FINAL REPOR T Patie nt Name: OSCAR LEE mary# : [id number] : 1949 (Age: 69) Locat ion: [facility] Gende r: F Colle cted Date: 2019 Med Rec #: [id number] Date Recei britta: 2019 Date Repor [...] each measu ring 0.3 cm in [facility]. The speci men is entir manjit submi tted intac t as C1. :viri Chow ng Fee Code( s): 65585 (3) Not Available [facility] ([facility]) [address] [facility], [place], [address], 11/19/2019 13:19:09 11/28/19 18 11/17/2017 pulse oxime try (PROC ) No observ ation record ed. BARCODE Not Available 2017 12:29:55 12/21/19 18 12/18/2017 elect verena diogr am No observ ation record ed. BARCODE Not Available 2017 10:05:16 Result Notes None recorded. Problems Name Problem SNOMED Code Status Onset Date Resolution Date Notes Provider Name and Address Organization Details Recorded Time Respiratory tract infection 055219155 Active 2018 Marcelino SCALESC Attn: Miah anna,[address] [place], [address], [facility] - [facility] 9 15:10:43 Essential hypertension 11785234 Active Marcelino SCALESC Attn: Miah castillo,[address] [place], [address], [facility] - [facility] 6 21:24:12 Musculoskeleta l symptom 16125293 Active Poornima willis, [place] - [place] 5 13:18:24 Hyperlipidemia 06421714 Active [place] Valles Attn: Miah castillo,[address] [place], [address], [facility] - [facility] 6 20:47:20 Impaired glucose tolerance 8825263 Active [place] Valles Attn: Miah anna,[address] [place], [address], [facility] - [facility] 6 20:47:20 Joint pain 01798739 Active Poornima Luna null, [place] - [facility] 5 13:18:24 Vitamin D deficiency 57916643 Active Odalys Wetzel [employer] Attn: Miah castillo,[address], [place], [address], [place] - [facility] 6 20:47:20 Osteoarthritis 109714746 Active Marcelino Jose [employer] Attn: Miah castillo,[address], [place], [address], [place] - [facility] 6 21:24:12 Upper respiratory infection 59636854 Active Poornima Luna null, [place] - [facility] 4 12:24:26 Problem Notes None recorded. Procedures Surgical History Date Name Laterality Status Provider Name and Address Organization Details Recorded Time Arthroscopic Surgery completed December KERRI Carpenter [facility] 09/15/2014 12:16:27 Hysterectomy completed December KERRI Carpenter [facility] 09/15/2014 12:16:27 Imaging Results Imaging Date Name [...] Name and Address Organization Details Recorded Time 000676 Pneumococ sue vaccine Not available Not available Not available Not available 08/01/2017 20344 7 RxNorm Not Available Not Available Not Available 799745 amlodipin e / benazepri l medicatio n angioedem a moderate Not available 03/23/2018 22493 3 RxNorm Not Available Not Available Not Available 34411 Product containin g penicilli n (product) medicatio n Not available Not available Not available 09/15/2014 28533 8001 SNOMED Not Available Not Available Not Available 94877 erythromy clara medicatio n Not available Not available Not available 09/15/2014 4053 RxNorm Not Available Not Available Not Available 94488 acetamino phen / oxycodone medicatio n vomiting Not available Not available 03/17/2017 86507 3 RxNorm Not Available Not Available Not [...] 166 mm[Hg] 84 mm[Hg] Pricilla Alatorre LPN [place] - [facility] 8 15:48:48 Date Recorded Body height Body mass index (BMI) Body weight Respiratory rate Heart rate Systolic blood pressure Diastolic blood pressure Provider Name and Address Organization Details Last Updated DateTime 8 152.4 cm 40.2 kg/m2 43480.0 3 g 18 /min 80 /min 134 mm[Hg] 80 mm[Hg] Noni Luna RN [place] - [facility] 8 11:28:18 Date Recorded Body height Body mass index (BMI) Body weight Respiratory rate Body temperature Heart rate Systolic blood pressure Diastolic blood pressure Provider Name and Address Organization Details Last Updated DateTime 9 152.4 cm 41.2 kg/m2 32800.9 9 g 18 /min 98.7 [degF] 80 /min 140 mm[Hg] 80 mm[Hg] Noni Luna RN [facility] 9 15:07:09 Social History Question Answer Notes LastModified by Organizat ion Details LastModified Time Tobacco Smoking Status Never Smoker December KERRI Carpenter null, [facility] 09/15/2014 12:17:34 What Is Your Level Of [...] virus, quadrivalent, preservative 6 completed Not Available [facility] 10/12/2019 02:32:32 Influenza, split virus, quadrivalent, preservative 7 completed Not Available [facility] 10/12/2019 02:50:28 Tdap 7 completed [facility] Available [facility] 10/12/2019 02:39:53 Influenza, split virus, quadrivalent, preservative 8 completed Not Available [facility] 10/12/2019 02:43:07 Influenza, split virus, quadrivalent, PF 5 completed Not Available [facility] 10/12/2019 02:32:08 Past Encounters Encounter ID Performer Location Encounter Start Date Encounter Closed Date Diagnosis/Indication Diagnosis SNOMED-CT Code Diagnosis ICD10 Code Diagnosis Note [id number] Poornima Luna [facility] (/) [address] [place] [address] 09/15/2014 12:02:48 09/15/2014 12:32:08 Upper respiratory infection 18905640 [id number] Poornima Luna [facility] (IM/) [address] [place] [address] 07/23/2015 11:24:12 07/23/2015 13:18:58 Essential hypertension 99540415 I10 Musculoske letal symptom 72556695 R29.91 Hyperlipidemia 82501403 E78.5 Impaired g lucose tolerance 7437020 R73.02 Joint pain 80297890 M25. 50 Offered referral to rheumatolo gist; pt will consider & call if desires to proceed with referral Active or passive immunization 974261421 Z23 [id number] Ira Dunia [facility] (IM/) [address] [place] [address] 10/01/2015 11:58:20 10/01/2015 14:37:38 [id number] [place] Valles [facility] (/) [address] [place] [address] 10/13/2015 14:20:56 10/13/2015 20:48:04 Hyperlipidemia 68075860 E78.5 continue Simvastati n and check lipids 3 months with LFTs Impaired g lucose tolerance 9973546 R73.02 Dietary handout Keep working on diet and increased exercise, weight loss Essential hypertension 34975772 I10 Screening for malignant neoplasm of breast 435033240 Z12.39 Recommend yearly mammograms after age 50 Screening for malignant neoplasm of colon 881085030 Z12.11 COLONOSCOP Y RECOMMENDE D AT 50 YRS OF AGE If you decline Colonoscop y, will ask you to do yearly stool cards for blood in the stool. Postmenopausal state 764 [address]8929 Z78.0 Calcium 600mg twice daily (may take once daily if you take in several dairy products/s ervings daily) Vitamin D 1000iu daily Vitamin D deficiency 347 50142 E55.9 Check levels with next lab test. Osteoarthritis 743503990 M19.90 trial of Mobic for OA symptoms [id number] Marcelino EUCEDA [facility] ([facility]) [address] [place] [address] 03/21/2016 11:09:44 03/21/2016 15:56:01 Essential hypertension 23794768 I10 Osteoarthritis 235605595 M19.90 [id number] Lily Carpenter RN [facility] (IM/[facility]) [address] [place] [address] 07/01/2016 10:44:35 07/01/2016 11:03:01 Active or passive immunization 431554683 Z23 [id number] Marcelino EUCEDA [facility] ([facility]) [address] [place] [address] 12/08/2016 09:45:54 12/09/2016 10:23:51 Pain in left knee 7521906616 50111 M25.562 Arthritis 5386671 M19.90 Adult heal th examination 559045909 Z00.01 Fatigue 46503400 R53.83 Essential hypertension 29525192 I10 Obesity 489953661 E66.9 [id number] Marcelino EUCEDA [facility] ([facility]) [address] [place] [address] 03/17/2017 13:49:43 03/20/2017 14:56:11 Replacement of total knee joint 598771658 Z96.189 [id number] Marcelino EUCEDA [facility] ([facility]) [address] [place] [address] 08/01/2017 15:31:19 08/07/2017 11:11:39 Cough 31265804 R05 Respirator y tract infection 764765174 J98.8 Essential hypertension 40368034 I10 Osteoarthritis 596447707 M19.90 [id number] Noni Luna RN [facility] (IM/[facility]) [address] [place] [address] 08/08/2017 12:16:12 08/08/2017 15:38:21 Administration of influenza vaccine 77795645 Z23 Active or passive immunization 974755935 Z23 [id number] Marcelino Garcia [employer] (IM/[facility]) [address] [place] [address] 11/06/2017 15:25:43 11/08/2017 18:07:03 Essential hypertension 74213120 I10 Sleep john sarai disturbance 83141897 G47.9 Irregular heart beat 361 804756 R00.8 Snoring 05502936 R06.83 Joint pain 49362010 M25. 50 [id number] Marcelino Garcia [employer] ([facility]) [address] [place] [address] 11/22/2017 14:30:57 11/23/2017 12:42:48 Essential hypertension 30064826 I10 Sleep john sarai disturbance 44358267 G47.9 will consider sleep study test at a later date Irregular heart beat 361 987224 R00.8 [id number] Marcelino Garcia [employer] ([facility]) [address] [place] [address] 12/18/2017 15:37:24 12/18/2017 17:27:04 Respiratory tract infection 044019174 J98.8 Irregular heart beat 361 887755 R00.8 [id number] Noni Luna RN [facility] (IM/[facility]) [address] [place] [address] 03/12/2018 10:54:46 03/12/2018 15:27:50 [id number] Marcelino Garcia [employer] ([facility]) [address] [place] [address] 03/23/2018 10:56:24 03/26/2018 17:30:56 Essential hypertension 89126341 I10 Osteoarthritis 563760409 M19.90 [id number] Marcelino Garcia [employer] ([facility]) [address] [place] [address] 07/13/2018 15:16:25 07/18/2018 15:43:13 Administration of influenza vaccine 33117431 Z23 [id number] Marcelino Garcia [employer] ([facility]) [address] [place] [address] 11/23/2018 14:24:55 11/26/2018 17:18:41 Respiratory tract infection 167390185 J98.8 Health Concerns Section Related Observation LastModified by Organization Detai ls LastModified Time None Recorded Concern Status LastModified by Organization Details LastModified Time None Recorded Advance Directives Directive None Recorded Payers Encounter Date Sequence Insurance Name Policy Number Policy Russell Covered Member ID Russell Member ID Guarantor Name 12/18/2017 1 [place] Natalia A Rice [id number] Natalia Rice 12/18/2017 2 [employer] - [employer] (MEDICARE SUPPLEMENT) Natalia A Rice [id number] Natalia Rice 03/12/2018 1 [place] Natalia A Rice [id number] Natalia Rice 03/12/2018 2 [employer] - [employer] (MEDICARE SUPPLEMENT) Natalia A Rice [id number] Natalia Rice 03/23/2018 1 [place] Natalia A Rice [id number] Natalia Rice 03/23/2018 2 [employer] SUPPLE[employer] - [employer] (MEDICARE SUPPLEMENT) Natalia A Rice [id number] Natalia Rice 07/13/2018 1 [place] Natalia A Rice [id number] Natalia Rice 07/13/2018 2 [employer] - [employer] (MEDICARE SUPPLEMENT) Natalia A Rice [id number] Natalia Rice 11/23/2018 2 [employer] - [employer] (MEDICARE SUPPLEMENT) Natalia A Rice [id number] Natalia Rice 11/23/2018 1 [place] Natalia Rice [id number] Natalia Rice Notes Date Note Type Note Provider Name and Address Organization Details Recorded Time 12/18/2017 text/html Here for productive cough and sinus drainage x 1 week. Also wants to see about having EKG repeated. Denies fever, chills, shortness of breath, chest pain, or palpitations Marcelino Garcia NP-C Attn: [address]ing[address] [facility], [place], [address], [place] [facility] 12/19/2017 13:23:51 03/23/2018 text/html [...] shortness of breath, or dizziness Marcelino Garcia TELEMARKETING FUNDRAISER-C Attn: Accounting[address] [place], [address], [facility] 03/26/2018 10:04:41 11/23/2018 text/html cough, shortness of breath, wheezing, fever and chills for past week, went to an urgent care and was given an inhaler. preparing to fly to daughters house and doesn't want to be sick Marcelino Garcia TELEMARKETING [employer]DR[employer]ER-C Attn: [address]ing[address] [place], [address], [facility] 11/23/2018 16:03:54 OBGyn Episode No OBEpisode recorded.
--- OUTSIDE RECORDS SUMMARY | 2024-12-14 13:05 | XMS_ITS | Clinical Summary ---
Author Organization [facility] Address [address] [place] [address] Phone Care Team Providers Care Mogul Operator Name Role Phone Sloane Lu APRN, ACCOUNTANT COST Primary Care Provi eliseo Tl Cintron MD Unavailable [phone] Allergies Active Allergy Reactions Criticality Noted Date Comments Erythromycin Unknown Medium 07/05/2024 Lisinopril Other (see Comments),Unknown Medium 024 Losartan Rash Medium 07/05/2024 Oxycodone-Acetaminophen Rash High 07/05/2024 Penicillins Anaphylaxis Medium 07/05/2024 Pneumococcal Vaccine Unknown 07/05/2024 Tramadol Vomiting High 07/05/2024 Medications True Metrix Blood Glucose Test Strip USE TO TEST DAILY FOR DX E11.9 05/28/20 24 Active [facility] Lancets Ultra-Thin 30G Misc USE TO TEST BLOOD SUGARS ONCE A DAY E11.9 05/28/20 24 Active albuterol (ProAir HFA) 108 (90 Base) MCG/ACT Aerosol Solution take 2 Puffs by inhalation every 4 hours as needed. Active meloxicam (MOBIC) 15 MG TabletIndications :Osteoarthritis of multiple joints, unspecified osteoarthritis type TAKE 1 TABLET EVERY DAY BY ORAL ROUTE, FOR OSTEOARTHRITI S. 90 Tablet 1 07/08/20 24 Active traMADol (ULTRAM) 50 MG Tablet Take 50 mg by mouth every 6 hours as needed. Active metFORMIN (GLUCOPHAGE) 500 MG Tablet TAKE 1 TABLET BY MOUTH TWICE A DAY 180 Tablet 1 08/23/20 24 Active simvastatin (ZOCOR) 20 MG TabletIndications :Hyperlipidemia associated with type 2 diabetes mellitus (HCC) TAKE 1 TABLET BY MOUTH EVERY DAY IN THE EVENING 90 Tablet 1 08/23/20 24 Active allopurinol (ZYLOPRIM) 300 MG TabletIndications :Hyperuricemia without signs of inflammatory arthritis and tophaceous disease TAKE 1 TABLET BY MOUTH EVERY DAY 90 Tablet 11/21/19 25 Active metoprolol Succinate (TOPROL-XL) 25 MG TABLET SR 24 HRIndications:Tac hycardia, unspecified,Hyper tension, unspecified type TAKE 1 TABLET EVERY DAY BY ORAL ROUTE, FOR HYPERTENSION. 90 Tablet 1 11/21/19 25 Active gabapentin (NEURONTIN) 100 MG CapsuleIndication s:Lumbar radiculopathy TAKE 1 CAPSULE BY MOUTH THREE TIMES A DAY NEEDED 90 Capsule 3 11/21/19 25 Active candesartan-hydro chlorothiazide (ATACAND HCT) 32-12.5 MG TabletIndications :Essential (primary) hypertension TAKE 1 TABLET BY MOUTH EVERY DAY 90 Tablet 1 11/21/19 25 Active candesartan-hydro chlorothiazide (ATACAND HCT) 32-12.5 MG TabletIndications :Essential (primary) hypertension TAKE 1 TABLET BY MOUTH EVERY DAY 90 Tablet 1 07/05/20 24 2024 Discontinued metoprolol Succinate (TOPROL-XL) 25 MG TABLET SR 24 HRIndications:Tac hycardia, unspecified,Hyper tension, unspecified type TAKE 1 TABLET EVERY DAY BY ORAL ROUTE, FOR HYPERTENSION. 90 Tablet 1 07/08/20 24 2024 Discontinued gabapentin (NEURONTIN) 100 MG CapsuleIndication s:Lumbar radiculopathy TAKE 1 CAPSULE BY MOUTH 3 TIMES A DAY NEEDED 90 Capsule 3 07/15/20 24 2024 Discontinued allopurinol (ZYLOPRIM) 300 MG TabletIndications :Hyperuricemia without signs of inflammatory arthritis and tophaceous disease TAKE 1 TABLET BY MOUTH EVERY DAY 90 Tablet 10/08/19 25 2024 Discontinued HYDROcodone-aceta minophen (NORCO) 10-325 MG TabletIndications :Pain Take 1 Tablet by mouth 2 times daily as needed for Moderate or more severe pain for up to 30 days. Indications: Pain 60 Tablet 10/18/19 25 2024 Active Problems Problem Noted Date Diagnosed Date Other chronic pain 07/09/2024 Assessment & Plan (10/15/2024 5:03 PM SANFORIZER): 08/19/24: pt called with request for Hydrocodone refill to [facility] (her usual pharmacy. PDMP reviewed. Last filled #60 tabs on 07/15/24. Refill appropriate. #60 tabs submitted to [facility] in [place]. 09/17/24: Request for hydro[place] refill. [place] checked and last filled #60 tabs on 08/19/24. Refill appropriate and submitted at 0740 to [facility], [place] #60 tabs, no refills. 10/15/2024: Pt requesting hydrocodone refill. Hydrocodone 10 mg - 325 mg refill submitted number 60 tablets available on 10/18/2024. [place] checked and last filled number 60 tablets on 09/17/2024 Assessment & Plan (09/17/2024 7:43 AM SANFORIZER): 08/19/24: pt called with request for Hydrocodone refill to [facility] (her usual pharmacy. PDMP reviewed. Last filled #60 tabs on 07/15/24. Refill appropriate. #60 tabs submitted to [facility] in [place]. 09/17/24: Request for hydro[place] refill. [place] checked and last filled #60 tabs on 08/19/24. Refill appropriate and submitted at 0740 to [place], [place] #60 tabs, no refills. Assessment & Plan (08/19/2024 12:23 PM SANFORIZER): 08/19/24: pt called with request for Hydrocodone refill to [facility] (her usual pharmacy. PDMP reviewed. Last filled #60 tabs on 07/15/24. Refill appropriate. #60 tabs submitted to [facility] in [place]. Assessment & Plan (07/09/2024 9:06 AM CDT): From [facility] documentation: 01/05/24: Requesting hydrocodone medication for chronic pain. Osteoarthritis 06/11/2022: From radiographs-IMPRESSION: Lumbar rotary dextroscoliosis with moderate diffuse degenerative disc disease most severe at L1-L2 and L4-L5 with severe inferior lumbar facet osteoarthritis. Jboe-yu-whxojcls right hip osteoarthritis. Khlt-hl-kxfjjuqc tricompartmental right knee osteoarthritis. Mild right midfoot [...] on 03/08/24. Refill appropriate. Rx sent to [place], [place] #60 tabs 04/12/24: Had just filled hydrocodone and not yet taken any tablets from the bottle. Brought Rx to visit for provider review. Sinus tachycardia 07/09/2024 Assessment & Plan (07/09/2024 9:17 AM CDT): From [facility] documentation: egular rhythm, tachycardic rate. Trending back [...] cardiology appt 08/23/22. (Dr Thomas Penaloza at [facility]), continue as planned. Suggest starting metoprolol 25 mg ER as previously ordered, d/t tachycardia. Pt states HR monitored at homes and is usually ~100 bpm. Denies CP. SOB is at baseline for her 01/05/24: Remains under the care of hotel and dining room cashier. Taking metoprolol succ ER 25 mg daily for sinus tachycardia. Has f/u appt with hotel and dining room cashier 02/22/24 - DR Penaloza. Following every 6 [...] & Plan (07/09/2024 9:19 AM CDT): From [facility] documentation: E79.0: Hyperuricemia without signs of inflammatory arthritis and tophaceous disease. Takes allopurinol 300 mg daily. Lumbar spondylosis 04/23/2024 Assessment & Plan (07/09/2024 12:28 PM CDT): From [facility] documentation: lumbar spine (radiographs) 06/11/22 showing Lumbar rotary dextroscoliosis with moderate diffuse degenerative disc disease most severe at L1-L2 and L4-L5 with severe inferior lumbar facet osteoarthritis. 07/09/24: Lumbar radiculopathy/ lumbar spondylosis: Following with spine surgeon, Dr Cintron at [facility]. Planning for lumbar spine surgery. Morbid (severe) obesity due to excess calories 0 02/22/2024 Irregular heart beat 05/12/2023 Overview (07/05/2024): PACs and PVCs Assessment & Plan (07/09/2024 9:18 AM CDT): From [facility] documentation: PACs and PVCs - Holter Monitor 06/11/22 Arthralgia of right knee 02/27/2023 Low back pain 02/24/2023 History of cardiac catheterization 09/11/2022 Overview (07/05/2024): Follows with Dr Thomas Penaloza at [facility] ([facility]), no significant stenosis. Assessment & Plan (07/09/2024 9:23 AM CDT): From [facility] documentation: Follows with Dr Thomas Penaloza at [facility] ([facility]), no significant stenosis. Pre-operative clearance 08/23/2022 [...] Ordering MRI. Pt wants to complete at [facility] in [place], closer to home where she lives with her daughter. Post MRI wants referral to pain family development specialist, Dr Frances, who has office in [place], [place]. Rx gabapentin 100 mg po TID PRN for neuropathic pain of the R leg. Advised regarding drowsy warning and potential synergistic effect with hydrocodone. Also, monitor her BP as this may decrease BP. Call the office for any concerns. Pt and daughter Marianela state understanding. 07/09/24: Lumbar radiculopathy/ lumbar spondylosis: Following with spine surgeon, Dr Cintron at [facility]. Planning for lumbar spine surgery. Lumbar radiculopathy 04/07/2022 Assessment & Plan (07/09/2024 12:28 PM CDT): From [facility] Documentation: Chronic. Takes meloxicam Worst level of [...] Ordering MRI. Pt wants to complete at [facility] in [place], closer to home where she lives with her daughter. Post MRI wants referral to pain family development specialist, Dr Frances, who has office in [place], [place]. Rx gabapentin 100 mg po TID PRN for neuropathic pain of the R leg. Advised regarding drowsy warning and potential synergistic effect with hydrocodone. Also, monitor her BP as this may decrease BP. Call the office for any concerns. Pt and daughter Marianela state understanding. 07/09/24: Lumbar radiculopathy/ lumbar spondylosis: Following with spine surgeon, Dr Cintron at [facility]. Planning for lumbar spine surgery. Osteopenia 09/16/2019 [...] & Plan (07/09/2024 9:10 AM CDT): From [facility] documentation: Historical hyperglycemia/ diet controlled. Started Metformin [...] & Plan (07/09/2024 9:16 AM CDT): From [facility] Documentation: Chronic low back and bilateral knees. Hx of left total knee arthroplasty. 06/11/2022: From radiographs-IMPRESSION: lumbar rotary dextroscoliosis with moderate diffuse degenerative disc disease most severe at L1-L2 and L4-L5 with severe inferior lumbar facet osteoarthritis. Nxgu-bd-hujrttbi right hip osteoarthritis. Dzdz-hi-qsebmnsm tri-compartmental right knee osteoarthritis. Mild right midfoot osteoarthritis with a moderate-sized plantar calcaneal spur. 01/05/24: Refill meloxicam at 15 mg strength. Also CS agreement signed today for hydrocodone 10 mg PO BID PRN #60 tabs. Hyperlipidemia 01/31/2019 Assessment & Plan (07/09/2024 12:27 PM CDT): From [facility] documentation: Statin compliant: simvastatin 20 mg po HS Discussed healthy sources of Homer 3s, oils, nuts, eggs, lean meats. Avoid [...] & Plan (07/09/2024 9:09 AM CDT): From [facility] documentation: 10/21/22: BP 144/76 in office today [...] Encounters Date Type Department Care Team Description 11/21/2024 Refill [facility] [address] [place], [place] [phone] Sloane Lu, STAFF PHYSICIAN, ACCOUNTANT COST Medication Refill 11/12/2024 [facility] [address] [place], [place] [phone] Sloane Lu, STAFF PHYSICIAN, ACCOUNTANT COST 11/04/2024 [facility] [address] [place], [place] [phone] Sloane Lu, STAFF PHYSICIAN, ACCOUNTANT COST 11/04/2024 [facility] [address] [place], [place] [phone] Sloane Lu, STAFF PHYSICIAN, ACCOUNTANT COST 10/31/2024 [facility] [address] [place] [address] Sloane Lu STAFF PHYSICIAN, ACCOUNTANT COST 10/15/2024 [facility] [address] [place], [place] [phone] Sloane Lu APRN, ACCOUNTANT COST 10/08/2024 Refill [facility] [address] [place], [place] [phone] Sloane Lu, STAFF PHYSICIAN, ACCOUNTANT COST Medication Refill 09/24/2024 Telephone [facility] [address] [place], [place] [phone] Sloane Lu, STAFF PHYSICIAN, ACCOUNTANT COST 09/16/2024 Telephone [facility] [address] [place], [place] [phone] Sloane Lu, STAFF PHYSICIAN, ACCOUNTANT COST from Last 3 Months Immunizations Immunization Administration [...] drink = 0.6 oz pur e alcohol) [facility] Utilities Answer Date Recorded In the past 12 months has e electric, gas, oil, or water company threatened to shut off services in your [...] 07/09/2024 How often do you attend chur ch or pentecostalism services? Never 07/09/2024 Do you belong to any clubs o r organizations such as scientologist groups, unions, fraternal or athletic groups, or [...] care, and heating? Not very hard 07/09/2024 [facility] [place] of Occupat ional Health - Occupational Stress Questionnaire Answer Date Recorded [...] any time in the past 12 m [facility], were you homeless or living in a intermediate (including now)? No 07/09/2024 Comments Unknown Sex and Gender Information Value Date Recorded Sex Assigned at Not on file Legal Sex Female 1:40 PM CDT Gender Identity Female 04/08/2024 1:40 PM CDT Sexual Orientation Not on file Last Filed Vital Signs Vital Sign Reading Time Taken Comments Blood Pressure 164/82 07/09/2024 11:09 AM CDT Pulse 80 07/09/2024 11:09 AM CDT Temperature 36.6 C (97.9 F) 07/09/2024 11:09 AM CDT Respiratory Rate 17 07/09/2024 11:09 AM CDT [...] 2024 12/19/2021, 12/13/2021, 06/14/2021, Additional history exists Mammogram 01/04/2025 01/05/2024, 01/28/2021 Diabetes: Hemoglobin A1c 01/07/2025 024, 01/05/2024, 03/08/2022 Diabetes: Nephropathy Screening 07/09/2025 07/09/2024 Respiratory Syncytial Virus (RSV) Immunization (Adult) (1 [...] - 6.0 % 07/09/2024 2:[address] [facility] Est Average Glucose 137.0 mg/dL 07/09/2024 2:[address] [facility] Blood Venipuncture / Unknown 07/09/2024 12:10 PM CDT 07/09/2024 12:11 PM CDT us Sloane Lu APRN, [place] CHEMISTRY ORDERABLE S Final Result [facility] [address] [place] [address], [place] [phone] * (ABNORMAL) CMP (COMPREHENSIVE METABOLIC PANEL) (07/09/2024 12:10 PM CDT) SODIUM 140 137 - 145 mmol/L 07/09/2024 2:29 PM [facility] POTASSIUM 5.5(H) 3.5 - 5.1 mmol/L 07/09/2024 2:29 PM [facility] CHLORIDE 104 98 - 107 mmol/L 07/09/2024 2:29 PM [facility] CO2, VENOUS 23 22 - 30 mmol/L 07/09/2024 2:29 PM [facility] GLUCOSE 131(H) 70 - 106 mg/dL 07/09/2024 2:29 PM [facility] BUN 21(H) 7 - 17 mg/dL 07/09/2024 2:29 PM [facility] CREATININE, BLOOD 1.10(H) 0.52 - 1.04 mg/dL 07/09/2024 2:29 PM [facility] ALKALINE PHOSPHATASE 97 38 - 126 U/L 07/09/2024 2:29 PM [facility] SGPT (ALT) 20 1 - 34 U/L 07/09/2024 2:29 PM [facility] SGOT (AST) 56(H) 14 - 36 U/L 07/09/2024 2:29 PM [facility] ALBUMIN 4.7 3.5 - 5.0 g/dL 07/09/2024 2:29 PM [facility] T BILI 0.7 0.2 - 1.3 mg/dL 07/09/2024 2:29 PM [facility] TOTAL PROTEIN 8.0 6.3 - 8.2 g/dL 07/09/2024 2:[address] [facility] CALCIUM 10.1 8.4 - 10.2 mg/dL 07/09/2024 2:[address] [facility] ANION GAP 13.0 6.0 - 16.0 mmol/L 07/09/2024 2:[address] [facility] BUN/CREATININE RATIO 19 7 - 30 ratio 07/09/2024 2:29 PM [facility] A/G RATIO 1.4 0.9 - 2.3 07/09/2024 2:[address] [facility] GLOBULIN 3.3 2.2 - 3.9 g/dL 07/09/2024 2:29 PM [facility] GFR, ESTIMATED 53(L) >60 07/09/2024 2:[address] [facility] OSMOLALITY 284 273 - 304 mOsm/kg 07/09/2024 2:29 PM [facility] Blood Venipuncture / Unknown 07/09/2024 12:10 PM CDT 07/09/2024 12:11 PM CDT us Sloane Lu STAFF PHYSICIAN, ACCOUNTANT COST CHEMISTRY ORDERABLE S Final Result [facility] [address] [facility] [place] [address], from Last 3 Months or Most Recently Relevant to Health Maintenance Insurance MEDICARE [employer] MEDICARE SUP Advance Directives Documents on File Type Date Recorded Patient Interior Paneler Expl anation Other Advance Directive 07/23/2024 10:57 AM CPAP Order Other Advance Directive 07/22/2024 3:01 PM 07/20/2024 BMP Other Advance Directive 06/28/2024 10:[address] Cintron Care Teams Mogul Operator Relationship Specialty Start Date End Date Sloane Lu APRN, ACCOUNTANT COST [address] [place] [address] PCP - General Milking Machine Operator 07/09/24 Tl Cintron MD [address] [address] Neurological Surgery 07/09/24
--- OUTSIDE RECORDS SUMMARY | 2024-12-14 13:05 | XMS_ITS | Encounter Summary ---
Author Organization [facility] Address [facility] [place] [address] Care Team Providers Care Programming Development Project Manager Name Role Phone Marcelino Garcia BACKEND PYTHON DEVELOPER Primary Care Provider [phone] Meeta Melton MD Unavailable [phone] Encounter Details Date Type Department Care Team (Late st Contact Info) Description 12/28/2017 Abstract [facility] [address] [place] [address] , Generic Conversion, Social History Tobacco Use Types Packs/Day Years Used Date Smoking Tobacco: Never Smokeless Tobacco: Never Alcohol Use Standard Drinks/Week Comments Yes 0 (1 standard drink = 0.6 oz pur e alcohol) occasional Comments Unknown Sex and Gender Information Value Date Recorded Sex Assigned at Not on file Legal Sex Female 1:53 PM RETAIL MANAGEMENT TRAINEE Gender Identity Not on file Sexual Orientation Not on file documented as of this encounter Plan of Treatment Not on file documented as of this encounter Visit Diagnoses Not on filedocumented in this encounter Care Teams Programming Development Project Manager Relationship Specialty Start Date End Date Marcelino Garcia, RACHEL [address] [place] [address] PCP - General 11/09/17 Meeta Melton MD [address] [place] [address] CARDIOVASCULAR DISEASE 11/09/17 documented as of this encounter
--- OUTSIDE RECORDS SUMMARY | 2024-12-14 13:05 | XMS_ITS | Clinical Summary ---
Author Organization [facility] Address [address] [address] Care Team Providers Care Civil Engineering Draftsperson Name Role Phone Unavailable Primary Care Provider Unavailabl e Source Comments [facility],non-owned Affiliates and Associated Physician Practices is amultiple site organization consisting of ambulatory clinics and hospital sitesin [place], [place]. This disclosure is being madepursuant to the Care Everywhere program and may not contain all information available regarding this patient. Last updated 18.[facility] Allergies Active Allergy Reactions Criticality Noted Date [...] Comments Blood Pressure 122/74 11/14/2018 5:35 PM LABEL FUSER TENDER Pulse 98 11/14/2018 5:35 PM LABEL FUSER TENDER Temperature 37.5 C (99.5 F) 11/14/2018 5:35 PM LABEL FUSER TENDER Respiratory Rate 18 11/14/2018 5:35 PM LABEL FUSER TENDER Oxygen Saturation 97% 11/14/2018 5:53 PM LABEL FUSER TENDER Inhaled Oxygen Concentration - - Weight 90.7 kg (200 lb) 11/14/2018 5:35 PM LABEL FUSER TENDER Height 156.2 cm (5' 1.5 ) 11/14/2018 5:35 PM LABEL FUSER TENDER Body Mass Index 37.18 11/14/2018 5:35 PM LABEL FUSER TENDER Plan of Treatment Health Maintenance Due Date Last Done Comments BONE DENSITY TESTING 1950 COLOGUARD (AGES 45-75) - COL ON CA SCREENING 1950 COLON MONITORING 1950 COLONOSCOPY - COLON CA SCREENING 1950 CT COLONOGRAPHY - COLON CA SCREENING 1950 Colorectal Cancer Screening 1950 FIT - COLON CA SCREENING 1950 FLEX SIG - COLON CA SCREENING 1950 MAMMOGRAM 1950 MEDICARE AWV 12 MONTHS 1950 HEPATITIS C SCREENING 07/23/1969 [...] to complete this topic MENINGOCOCCAL (Group B) VACC INE SHARED DECISION-MAKING Aged Out No longer eligibl e based on patient's age to complete this topic MENINGOCOCCAL GROUPS A/C/Y/W VACCINE Aged Out No longer eligible b ased on patient's age to complete this topic Additional Health Concerns Infection Onset Date Last Indicated 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
--- OUTSIDE RECORDS SUMMARY | 2024-12-14 13:05 | XMS_ITS | Clinical Summary ---
Author Organization [facility] Address [address] [place] [address] Care Team Providers Care Services Engineer Name Role Phone Marcelino Garcia NP Primary Care Provider [phone] Meeta Melton MD Unavailable [phone] Allergies Active Allergy Reactions Criticality Noted Date [...] on file Legal Sex Female 1:53 PM WHEEL TUNER Gender Identity Not on file Sexual Orientation [...] age to complete this topic Insurance MEDICARE [facility] MEDICARE [facility] Advance Directives Documents on File Type Date Recorded Patient Director On Air Expl anation Advance Directives and Living Will 02/07/2018 3:45 PM 07/01/2003 - [facility]. [facility] Care Teams Services Engineer Relationship Specialty Start Date End Date Marcelino Garcia NP [address] [place] [address] PCP - General 11/09/17 Meeta Melton MD [address] [place] [address] CARDIOVASCULAR DISEASE 11/09/17
--- OUTSIDE RECORDS SUMMARY | 2024-12-14 13:05 | XMS_ITS | Encounter Summary ---
Author Organization [facility] Address [address] [place] [address] Care Team Providers Care Documentation Clerk Name Role Phone Marcelino Garcia NP Primary Care Provider [phone] Meeta Melton MD Unavailable [phone] Encounter Details Date Type Department Care Team (Late st Contact Info) Description 12/18/2017 Abstract [facility] AT [address] [address] Abstract, Doc [facility] Social History Tobacco Use Types Packs/Day Years Used Date Smoking Tobacco: Never Smokeless Tobacco: Never Alcohol Use Standard Drinks/Week Comments Yes 0 (1 standard drink = 0.6 oz pur e alcohol) occasional Comments Unknown Sex and Gender Information Value Date Recorded Sex Assigned at Not on file Legal Sex Female 1:53 PM RACQUET MAKER Gender Identity Not on file Sexual Orientation [...] on filedocumented in this encounter Care Teams Documentation Clerk Relationship Specialty Start Date End Date Marcelino Garcia NP [address] [place] [address] PCP - General 11/09/17 Meeta Melton MD [address] [place] [address] CARDIOVASCULAR DISEASE 11/09/17 documented as of this encounter
--- OUTSIDE RECORDS SUMMARY | 2024-12-14 13:05 | XMS_ITS | Data Portability ---
Author Organization [place] - [facility], DISP_HR Vascular Address [address] [place] [address] Assessment No assessment recorded. Plan of Treatment [...] appointment for physical therapy 2022 023 [email or web address] [facility] (Outpatient Physical Therapy), [address], [place], [address], 3 12:38:38 Procedures None recorded. Surgeries None recorded. Imaging None recorded. Medication Orders Kenalog 40 mg/mL suspension for injection 2022 023 [email or web address] Not available 10:07:54 tramadol 50 mg tablet 2022 023 [facility] #[id number], [address] [place], [address], 21:32:26 Patient TargetsNo targets recorded. Patient Instructions Encounter Date Encounter Id Patient Instructions Last Modified By Organization Details Last Modified Time 02/23/[id number] at this point we elected to inject her knee this is done under sterile technique and patient tolerated well we will see how she progresses with this as well as some tramadol we are going to put her in a physical therapy program and see how she does over time I will see her back for re-evaluation in 6 weeks [email or web address] Not available 02/24/2023 21:34:56 Reason for Referral [...] more view No observ ation record ed. [id number] [facility] [place] [address], [place], [address], 01/10/2023 20:44:21 Result Notes None recorded. Problems Name Problem SNOMED Code Status Onset Date Resolution Date Notes Provider Name and Address Organization Details Recorded Time Osteoarthri tis of right knee joint 9345142876085 00 Active 2022 Pedro Isaac MD [address] [place] [address], [address] , [facility] 3 21:30:25 Low back pain 951978728 Active 2022 Pedro Isaac MD [address] [place] [address], [address] , [facility] 3 21:32:45 Pain of right knee joint 0111553713815 00 Active 2022 Marianela Marley [facility] 3 15:54:34 Pain of right knee joint 7211649354843 00 Active 2022 Pedro Isaac MD [address] [place] [address], [address] , [facility] 3 15:55:12 Problem Notes None recorded. Procedures Surgical History Date Name Laterality Status Provider Name and Address Organization Details Recorded Time 02/24/20 23 Cortisone Injection (Dequervains/ Greater Trochantric/ Lateral Epicondylitis/ Medial Epicondylitis / Shoulder/ Subacromial Space/ Knee/ Trigger Finger or Plantar Fascia) completed Pedro Isaac MD [address] [place], [address], [facility] 02/24/2023 21:30:11 01/27/20 17 total replacement of right knee joint completed Not Available [facility] 10/02/2022 05:13:17 Hand completed Not Available [facility] 05:13:17 Hysterectomy completed Not Available [facility] 10/02/2022 05:13:17 Imaging Results Imaging Date Name Status LastModified by Organiz ation Details LastModified Time 2022 XR, knee, 4 or more view completed [id number] [facility] [place] [address], [place], [address], 01/10/2023 20:44:21 Procedure Notes None recorded. Medical Equipment None Reported. Allergies Allergen ID Allergen Name Allergen Category Reaction Reaction Severity Criticality Documentation Date Start Date Code Code System Note Provider Name and Address Organization Details Recorded Time 609237 Prinivil medicatio n Not available Not available Not available 10/02/2022 31205 4 RxNorm Not Available [facility] 3 05:15:29 698069 acetamino phen / oxycodone medicatio n Not available Not available Not available 10/02/2022 30829 3 RxNorm Not Available [facility] 3 05:15:29 474933 Product containin g penicilli n (product) medicatio n Not available Not available Not available 10/02/2022 15067 8001 SNOMED Not Available [facility] 3 05:15:29 623305 losartan medicatio n Not available Not available Not available 10/02/2022 23080 RxNorm Not Available [facility] 3 05:15:29 202619 erythromy clara medicatio n Not available Not available Not available 10/02/2022 4053 RxNorm Not Available [facility] 3 05:15:29 368135 lavender extract food Not available Not available Not available 02/23/2023 93363 67 RxNorm Patsy Kujawa [facility] 3 12:05:40 068449 ragweed pollen environme nt Not available Not available Not available 02/23/2023 97946 UNK Patsy Farrell [facility] 3 12:05:47 999798 Shingrix medicatio n Not available Not available Not available 02/23/2023 17629 26 RxNorm Patsy Farrell [facility] 3 12:05:59 255026 Pneumococ sue vaccine Not available Not available Not available Not available 02/23/2023 76678 7 RxNorm Pasty Farrell [facility] 3 12:06:06 259447 tramadol medicatio n nausea Not available Not available 05/26/2023 02262 RxNorm Marianela - VIVIAN Marley [facility] 3 14:29:46 Medications Name Sig Start [...] Not Available Not Available Not Demetrius labchuck TRUEplus Lancets 33 gauge TEST ONCE [...] Updated DateTime 02/23/2023 154.94 cm 37.9 kg/m2 74358.63 g [facility] 12:04:41 Date Recorded Pain severity - 0-10 verbal numeric rating [Score] - Reported Body weight Provider Name and Address Organization Details Last Updated DateTime 2022 6 72669.1 g Not Available [facility] 05:14:02 Social History Question Answer Notes LastModified by Organizat ion Details LastModified Time Tobacco Smoking Status Never Smoker Not Available [facility] 10/02/2022 05:13:11 What Was The Date Of [...] SNOMED-CT Code Diagnosis ICD10 Code Diagnosis Note [id number] [facility] [place] [address] [place] [address] 07/07/2022 00:00:00 07/07/2022 16:45:05 [id number] DISP_[facility] [place] [address] [place] [address] 2022 00:00:00 07/29/2022 07:02:20 [id number] Pedro Isaac MD [facility] [place] [address] [place] [address] 02/23/2023 11:11:26 02/27/2023 03:53:04 Osteoarthritis of right knee joint 9329268500 59679 M17.11 Low back pain 230559074 M54.50 Health Concerns Section Related Observation LastModified by Organization Detai ls LastModified Time None Recorded Concern Status LastModified by Organization Details LastModified Time None Recorded Advance Directives Directive None Recorded Payers Encounter Date Sequence Insurance Name Policy Number Policy Russell Covered Member ID Russell Member ID Guarantor Name 02/23/2023 1 [place] Natalia Rice [id number] Natalia Rice 02/23/2023 2 [employer] (MEDICARE SUPPLEMENT) Natalia Rice [id number] Natalia Rice Notes Date Note Type Note Provider Name and Address Organization Details Recorded Time 02/23/2023 text/html Natalia is a 72-year-old patient returns for evaluation of increasing pain in her right knee she has also developed pain in her lower back. She has had a history of trochanteric bursitis in her hip but this is doing well x-rays at [facility] were performed on her knee which revealed [id number] degenerative changes. She has been taking topical Tylenol Arthritis. Most of her discomfort is in her lower back region. Pedro Isaac MD [address] [place], [address], [facility] 02/24/2023 21:35:17 OBGyn Episode No OBEpisode recorded.
--- OUTSIDE RECORDS SUMMARY | 2024-12-14 13:06 | XMS_ITS | Clinical Summary ---
Author Organization [facility] [address] [facility] [address] [place] [address] Care Team Providers Care Road Crew Member Name Role Phone Sloane Lu NP Primary Care Provider [phone] Allergies Active Allergy Reactions Criticality Noted Date [...] tablet Take 1 tablet by mouth daily 06/01/2022 Active allopurinoL (ZYLOPRIM) 300 mg tablet Take 1 tablet (300 mg total) by mouth daily 05/20/2022 Active simvastatin (ZOCOR) 20 mg tablet Take 1 tablet (20 mg total) by mouth nightly 05/20/2022 Active albuterol HFA (PROVENTIL HFA,VENTOLIN HFA,PROAIR HFA) 90 mcg/actuation inhaler every 4 hours 11/14/2018 Active metoprolol XL (TOPROL-XL) 25 mg extended release tablet Take 1 tablet (25 mg total) by mouth daily 06/09/2022 Active lansoprazole (PREVACID) 15 mg capsule daily Active calcium carbonate-vit D3-min 600 mg calcium- 400 unit tablet Take by mouth Active metFORMIN (GLUCOPHAGE) 1,000 mg tablet Take 1 tablet (1,000 mg total) by mouth 2 (two) times a day with meals 01/05/2024 Active coenzyme Q10 300 mg capsule Take 1 capsule (300 mg total) by mouth daily Active MAGNESIUM GLYCINATE ORAL Take 200 mg by mouth daily Active icosapent ethyL (VASCEPA) 1 gram capsule Take 1 capsule (1 g total) by mouth 2 (two) times a day 60 capsule 11 02/22/2024 Active Active Problems Problem Noted Date Diagnosed Date Pre-operative cardiovascular examination 025 Hypertriglyceridemia 02/22/2024 Morbid (severe) obesity due to excess calories 0 02/22/2024 Pre-operative clearance 08/23/2022 Sinus tachycardia 08/23/2022 Premature atrial contractions 08/23/2022 Rheumatoid arthritis 08/23/2022 Hyperlipidemia associated with type 2 diabetes m ellitus 08/23/2022 Hypertension associated with diabetes 08/23/2022 Abnormal electrocardiogram 08/23/2022 Encounters Date Type Department Care Team Description 10/03/2024 10:00 AM DECORATIVE ENGRAVER Office Visit [facility] Card[facility] [address] [facility] [address] [place] [address] Thomas Taylor MD Hypertension associated with diabetes (HCC) (Primary Dx); Hyperlipidemia associated with type 2 diabetes mellitus (HCC); Sinus tachycardia; Premature atrial contractions; Morbid (severe) obesity due to excess calories (HCC); Pre-operative cardiovascular examination 10/03/2024 Orders Only [facility]iology [address] [facility] [address] [place] [address] Provider, MD Jazzy from Last 3 Months [...] Comments Blood Pressure 134/82 10/03/2024 10:12 AM DECORATIVE ENGRAVER Pulse 100 10/03/2024 10:12 AM DECORATIVE ENGRAVER Temperature - - Respiratory Rate - - Oxygen Saturation 96% 10/03/2024 10:12 AM DECORATIVE ENGRAVER Inhaled Oxygen Concentration - - Weight 86.2 kg (190 lb) 10/03/2024 10:12 AM DECORATIVE ENGRAVER Height 154.9 cm (5' 1 ) 10/03/2024 10:12 AM DECORATIVE ENGRAVER Body Mass Index 35.9 10/03/2024 10:12 AM DECORATIVE ENGRAVER Plan of Treatment Health Maintenance Due Date Last Done Comments Albumin Creatinine Ratio, Urine 1950 Breast Cancer Screening-Mammogram 1951 Colon Cancer Screening-Colonoscopy 1950 Depression Screening 1951 Fall Risk Assessment 1950 Hemoglobin A1C 1951 Hepatitis C Screening 1951 Osteoporosis Screening-Bone Density Scan 1950 eGFR 1950 Dilated Eye Exam 1951 Foot Exam 1951 Pneumococcal vaccine 65+ (1 of 2 - PCV) 1970 Zoster Vaccine (1 of 2) 2001 07/04/2000 Well Visit 65+ 2016 Covid-19 Vaccine (5 - 2023-2 5 season) 2024 12/19/2021, 12/13/2021, 06/14/2021, Additional history exists Lipid Panel 07/09/2025 07/09/2024, 06/25, 01/05/2024, Additional history exists DTaP/Tdap/Td Vaccine (2 - Td or Tdap) 08/08/2027 08/08/2017 Hepatitis B Screening Completed 03/27/1996, 996 Influenza Vaccine Completed 07/09/2024, , 08/10/2021, Additional history exists Procedures Procedure Name Priority Date/Time Associated Diagnosis Comments ELECTROCARDIOGRAM REPORT Routine 025 11:29 AM DECORATIVE ENGRAVER Hypertension associated with diabetes (HCC) Sinus tachycardia Premature atrial contractions Pre-operative cardiovascular examination LIPID PANEL Routine 07/09/2024 11:29 AM CDT from Last 3 Months or Most Recently Relevant to Health Maintenance Results * Electrocardiogram Report (10/03/2024 11:29 AM DECORATIVE ENGRAVER) Thomas Taylor MD ECG ORDERABLES Final Res [...] Recently Relevant to Health Maintenance Insurance MEDICARE [facility] MEDICARE SUPPLEMENT INSURANCE MEDICARE [facility] MEDICARE SUPPLEMENT INSURANCE Care Teams Road Crew Member Relationship Specialty Start Date End Date Sloane Lu NP PCP - General Nurse Practitioner 06/30/22
--- OUTSIDE RECORDS SUMMARY | 2024-12-14 13:06 | XMS_ITS | Referral Summary ---
Author Organization [place] [address] [place] [address] [address] [place] [address] Care Team Providers Care Cranberry Bog Supervisor Name Role Phone Sloane Lu NP Primary Care Provider [phone] [phone] Encounters Date Type Department Care Team Description 10/03/2024 Orders Only [facility] Cardiology [address] [place] [address] [address] [place] [address] ProviderJazzy MD 10/03/2024 10:00 AM EMERGENCY PLANNING AND RESPONSE MANAGER Office Visit [facility] Medical [facility] Cardiology [address] [place] [address] [address] [place] [address] Thomas Taylor MD Hypertension associated [...] Comments Blood Pressure 134/82 10/03/2024 10:12 AM EMERGENCY PLANNING AND RESPONSE MANAGER Pulse 100 10/03/2024 10:12 AM EMERGENCY PLANNING AND RESPONSE MANAGER Temperature - - Respiratory Rate - - Oxygen Saturation 96% 10/03/2024 10:12 AM EMERGENCY PLANNING AND RESPONSE MANAGER Inhaled Oxygen Concentration - - Weight 86.2 kg (190 lb) 10/03/2024 10:12 AM EMERGENCY PLANNING AND RESPONSE MANAGER Height 154.9 cm (5' 1 ) 10/03/2024 10:12 AM EMERGENCY PLANNING AND RESPONSE MANAGER Body Mass Index 35.9 10/03/2024 10:12 AM EMERGENCY PLANNING AND RESPONSE MANAGER Plan of Treatment Not on file Procedures Procedure Name Priority Date/Time Associated Diagnosis Comments ELECTROCARDIOGRAM REPORT Routine 025 11:29 AM EMERGENCY PLANNING AND RESPONSE MANAGER Hypertension associated with diabetes (HCC) Sinus tachycardia Premature atrial contractions Pre-operative cardiovascular examination LIPID PANEL Routine 07/09/2024 11:29 AM CDT from Last 3 Months or Most Recently Relevant to Health Maintenance Results * Electrocardiogram Report (10/03/2024 11:29 AM EMERGENCY PLANNING AND RESPONSE MANAGER) Thomas Taylor MD ECG ORDERABLES Final [...] Recently Relevant to Health Maintenance Insurance MEDICARE [facility] MEDICARE SUPPLEMENT INSURANCE MEDICARE [facility] MEDICARE SUPPLEMENT INSURANCE Care Teams Cranberry Bog Supervisor Relationship Specialty Start Date End Date Sloane Lu NP PCP - General Nurse Practitioner 06/30/22
== END 2024-12-14 13:03 | disposition home or self-care (01) ==
PROVIDERS: Visit Provider Neurological Surgery
DX: M48.062 Spinal stenosis, lumbar region with neurogenic claudication (principal); M47.896 Other spondylosis, lumbar region
CPT/HCPCS: 72100

== ENCOUNTER 2025-02-11 10:34 | Emergency (ER) | payer MEDICARE, SELFPAY ==
--- NOTE | ~2025-02-11 | XR_ITS ---
HISTORY: pain and swelling on the lateral right ankle x4 days, injury COMPARISON: None TECHNIQUE: 3 views of the right ankle were performed. FINDINGS: No acute fracture or dislocation. Moderate lateral soft tissue swelling. The ankle mortise is preserved. Bone mineralization is age-appropriate. Well-circumscribed osseous densities adjacent to the medial tibia, at the level of the tibiocalcaneal ligament, possibly representing calcific tendinitis. A large calcaneal spur is present. Ossification of the insertion of the Achilles tendon is also noted. IMPRESSION: Degenerative disease and soft tissue swelling, without acute fracture. Reviewed, dictated and finalized at location A. IMPRESSION: Degenerative disease and soft tissue swelling, without acute fract ure.
[2025-02-11 10:47] VITALS: BP 139/91; PULSE 93; RESP 16; TEMP 36.8; O2SAT 98
--- NOTE | 2025-02-11 11:03 | ED.LOWEXIN ---
HPI - Extremity Injury (Lower) General Chief Complaint: Extremity Injury, Lower Stated Complaint: R Ankle/Foot Pain Time Seen by Provider: 02/11/25 11:10 Source: patient and RN notes reviewed Mode of arrival: ambulatory Limitations: no limitations History of Present Illness HPI Narrative: 74-year-old female with history of diabetes presents with concern for right ankle pain. Reports Monday she banged her ankle against the bolt on her walker. She reports since then she has had swelling, tenderness to the lateral ankle and posterior ankle. She denies any open skin. Reports yesterday it was warm. She denies decreased strength, sensation, range of motion. MD complaint: ankle injury Related Data Home Medications ?Medication ?Instructions ?Recorded ?Confirmed ?Last Taken ?Type allopurinol 300 mg tablet 100 mg PO DAILY 05/21/22 10/14/24 09/08/22 History candesartan 32 1 tablet PO DAILY 05/21/22 10/14/24 09/08/22 History mg-hydrochlorothiazide 12.5 mg tablet simvastatin 20 mg tablet 20 mg PO DAILY 05/21/22 10/14/24 09/07/22 History lansoprazole 15 mg capsule,delayed 15 mg PO DAILY 06/24/22 10/14/24 09/08/22 History release albuterol sulfate 90 mcg/actuation 2 puff inhalation QID PRN 08/28/23 10/14/24 Unknown History aerosol inhaler (ProAir HFA) Shortness Of Breath Or Wheezing metoprolol succinate 25 mg 25 mg PO DAILY 08/28/23 10/14/24 Unknown History tablet,extended release 24 hr gabapentin 100 mg capsule 100 mg PO TID 05/30/24 10/14/24 Unknown History hydrocodone 10 mg-acetaminophen 1 tablet PO BID PRN pain 05/30/24 10/29/24 Unknown History 325 mg tablet metformin 1,000 mg tablet 1,000 mg PO BID 10/14/24 10/14/24 Unknown History Allergies Allergy/AdvReac Type Severity Reaction Status Date / Time Penicillins Allergy Severe Hives Verified 02/11/25 10:48 pneumococcal vaccine Allergy Intermediate Swelling Verified 02/11/25 10:48 erythromycin base Allergy Hives Verified 02/11/25 10:48 losartan Allergy Rash Verified 02/11/25 10:48 vaccine adjuvant system, Allergy Swelling Verified 02/11/25 10:48 AS01B liposomal (From Shingrix (PF)) varicella-zoster virus Allergy Swelling Verified 02/11/25 10:48 glycoprotein E, recombinant (From Shingrix (PF)) lisinopril AdvReac Unknown Verified 02/11/25 10:48 oxycodone (From Percocet) AdvReac Nausea and Verified 02/11/25 10:48 Vomiting tramadol AdvReac Hallucinati Verified 02/11/25 10:48 ng Lavendar Allergy Sneezing Uncoded 02/11/25 10:48 Ragweed Allergy Sneezing Uncoded 02/11/25 10:48 Review of Systems Review of Systems: CONSTITUTIONAL: Denies malaise, chills, sweats, or fever. SKIN: Denies rash or itching, open skin, laceration, abrasion, redness, warmth MUSCULOSKELETAL: Reports right ankle pain and swelling NEUROLOGIC: Denies numbness, weakness All systems reviewed & are unremarkable except as noted in HPI and below PMFSH Past Medical History Medical History Lumbar spondylosis Diabetes Hyperlipidemia Hypertension Surgical History Surgical History History of left knee replacement History of carpal tunnel surgery History of hysterectomy Family History Family History Mother Heart disease Social History Social History Smoking status: Never smoker Alcohol intake: never Alcohol use details: occasional Substance use: never Substance use type: does not use Do You Feel Safe in your Home?: Yes Lack of Transportation: No Lack of Food: Sometimes True Current Housing: I Have Housing Concerned About Future Housing: No Difficulty Paying Gas/Electric Bills: No Difficulty Paying for Meds: No Currently Unemployed: No Education: High School Diploma/GED Difficulty w/ Childcare or Family Care: No Living arrangements: with family Additional living arrangements comments: DAUGHTER Spiritual care concerns: No Comments At time of signature, agree with nursing past medical, surgical, social and family history. There is no relevant family history pertinent to the presenting complaint Exam Narrative: GENERAL: Well-appearing, well-nourished, and in no acute distress. HEAD: Normocephalic, atraumatic. EYES: PERRLA, conjunctivae clear NECK: Supple. CHEST: Speaks in full sentences. No respiratory distress. HEART: Regular rate and rhythm. Normal and equal peripheral pulses. EXTREMITIES: Left ankle, foot, digits have grossly normal strength and sensation, grossly normal range of motion. Moderate lateral edema without erythema, warmth or ecchymosis. Normal sensation with sensitivity to light touch and pain. Lateral and posterior ankle tenderness. No open wounds, no skin tenting, no devitalized tissue or atrophy, no trophic changes, no obvious deformity, alignment normal, nearby joints and structures intact. Distal pulses palpable and equal bilaterally, skin warm, dry, pink. Capillary refill less than 3 seconds. SKIN: Warm, dry, no rash. NEURO: Alert and oriented x3. PSYCH: Normal mood and affect Course Course Emergency Course: Patient is aware of diagnosis, understands and agrees to treatment plan. Anticipatory guidance given. Patient agrees to follow-up as directed and is aware of reasons to seek care at the emergency department. Portions of this record may have been created with voice recognition software Level of Care: Express Care Visit Vital Signs Vital signs: Vital Signs Temperature 98.2 F 02/11/25 10:47 Pulse Rate 93 02/11/25 10:47 Respiratory Rate 16 02/11/25 10:47 Blood Pressure 139/91 H 02/11/25 10:47 Pulse Oximetry 98 02/11/25 10:47 Temperature 98.2 F 02/11/25 10:47 Pulse Rate 93 02/11/25 10:47 Respiratory Rate 16 02/11/25 10:47 Blood Pressure 139/91 H 02/11/25 10:47 Pulse Oximetry 98 02/11/25 10:47 Reviewed. MDM - Extremity Injury (Lower) MDM Narrative Medical decision making narrative: The patient was evaluated by myself in the express care. History is obtained from patient who is an independent historian and physical exam was performed.? Available medical records were reviewed at this time. ? Exam findings show no acute concerns or changes; patient is non-toxic appearing and is in no distress. Patient is appropriate for outpatient treatment and follow-up. ? I have evaluated and discussed social determinants of health with the patient that could potentially impact subsequent diagnosis and treatment plans. ? Patients injury and pain is consistent with musculoskeletal etiology. No signs of neurological or vascular compromise on exam. Compartments and tissues are soft without signs of compartment syndrome. Pain is felt appropriate for further evaluation on an outpatient basis. Imaging Data My impression: Images reviewed, interpreted by radiologist, agree, see report. Radiologist's impression: HISTORY: pain and swelling on the lateral right ankle x4 days, injury COMPARISON: None TECHNIQUE: 3 views of the right ankle were performed. FINDINGS: No acute fracture or dislocation. Moderate lateral soft tissue swelling. The ankle mortise is preserved. Bone mineralization is age-appropriate. Well-circumscribed osseous densities adjacent to the medial tibia, at the level of the tibiocalcaneal ligament, possibly representing calcific tendinitis. A large calcaneal spur is present. Ossification of the insertion of the Achilles tendon is also noted. IMPRESSION: Degenerative disease and soft tissue swelling, without acute fracture. Critical Care Time Critical Care Time Critical Care Time: No Discharge Plan Discharge Clinical Impression: Ankle injury Patient Disposition: Home Condition: Stable Instructions: Swollen Joint (ED) Additional Instructions: Avoid activities that cause pain until the pain subsides. Ice to the area 20-30 minutes 4-6 times a day Elevate above heart Elastic wrap as directed for comfort for the next 5-7 days Tylenol for pain Follow up with your primary care provider if the condition is not improving within 1 week. If the condition worsens with numbness, tingling, decrease sensation with weakness seek treatment in the emergency room immediately. Patient Language: Mongolian Prescriptions: No Action candesartan-hydrochlorothiazid 32-12.5 mg tablet 1 tablet PO DAILY Patient Comments: QAM simvastatin 20 mg tablet 20 mg PO DAILY allopurinol 300 mg tablet 100 mg PO DAILY lansoprazole 15 mg Capsule,Delayed Release(Dr/Ec) 15 mg PO DAILY metoprolol succinate 25 mg tablet extended release 24 hr 25 mg PO DAILY Patient Comments: QAM albuterol sulfate [ProAir HFA] 90 mcg/actuation Hfa Aerosol Inhaler 2 puff INHALATION QID PRN (Reason: Shortness Of Breath Or Wheezing) (DME) Aerochamber MV Spacer See Rx Instructions .Route Qty: 1 0RF Rx Instructions: As directed hydrocodone-acetaminophen 10-325 mg tablet 1 tablet PO BID PRN (Reason: pain) gabapentin 100 mg capsule 100 mg PO TID Patient Comments: USUALLY TAKING 2 TAB IN AM AND 1 TAB HS hydrocodone-acetaminophen 5-325 mg tablet 1 - 2 tablet PO Q4H PRN (Reason: pain) Qty: 30 0RF metformin 1,000 mg tablet 1,000 mg PO BID cyclobenzaprine 10 mg tablet 10 mg PO TID PRN (Reason: Muscle Spasms) Qty: 42 0RF Follow-up/Referrals: PHYSICIAN,SENIOR PROJECT ENGINEER [Primary Care Provider] - Time of Disposition: 11:46
== END 2025-02-11 11:50 | disposition home or self-care (01) ==
PROVIDERS: Emergency Provider Nurse Practitioner
DX: S99.911A Unspecified injury of right ankle, initial encounter (principal); W22.09XA Striking against other stationary object, initial encounter; E11.9 Type 2 diabetes mellitus without complications; I10 Essential (primary) hypertension; E78.5 Hyperlipidemia, unspecified
CPT/HCPCS: 73610; 99213; G0463

== ENCOUNTER 2025-06-30 08:30 | Outpatient (CLI) | payer MEDICARE, SELFPAY ==
--- NOTE | ~2025-06-30 | US_ITS ---
Ultrasound arterial duplex lower extremity bilateral INDICATION: Claudication COMPARISON: HANNAH study earlier same day TECHNIQUE: Grayscale, color, duplex/spectral Doppler FINDINGS: Mild scattered plaque. Right leg: Triphasic common femoral through popliteal. Tibioperoneal arteries patent, biphasic. Left leg: Triphasic common femoral through popliteal. Tibioperoneal arteries patent, biphasic. IMPRESSION: 1. No hemodynamically significant stenosis within either lower extremity. 2. Mild tibioperoneal disease Reviewed, dictated and finalized at location R.
--- NOTE | ~2025-06-30 | US_ITS ---
EXAMINATION: US arterial ankle brachial ind DATE: 06/30/2025 09:57 INDICATION: Claudication bilateral lower extremities TECHNIQUE: Segmental pressures and plethysmographic and Doppler waveforms of the brachial and lower extremity arteries were obtained. COMPARISON: None. FINDINGS: Right and left brachial artery pressures of 145 mm Hg and 154 mm Hg, respectively, are concordant (normal difference <= 30 mmHg). The right ankle-brachial index (HANNAH) is 0.96 (normal >= 0.9-1.0). The right great toe-brachial index (TBI) is 0.62 (normal >= 0.65). Arterial Doppler waveforms are demonstrate brisk systolic upstrokes at both the right posterior tibial artery and dorsalis pedis arteries. The left HANNAH is 0.86. The left TBI is 0.53. Arterial Doppler waveforms demonstrate brisk systolic upstrokes at both left posterior tibial and dorsalis pedis arteries. IMPRESSION: 1. 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 Reviewed, dictated and finalized at location A.
--- OUTSIDE RECORDS SUMMARY | 2025-06-30 08:54 | XMS_ITS | Clinical Summary ---
Author Organization [facility] Address [address] [place] [address] Care Team Providers Care Building Certifier Name Role Phone Unavailable Primary Care Provider Unavailabl e Source Comments [facility],non-owned Affiliates and Associated Physician Practices is amultiple site organization consisting of ambulatory clinics and hospital sitesin [place], [place], [place] and [place]. This disclosure is being madepursuant to the Care Everywhere program and may not contain all information available regarding this patient. Last updated 18.[facility] Allergies Active Allergy Reactions Criticality Noted Date Comments Erythromycin Other 11/14/2018 Body cramps all over Losartan Cardiac Injury High 11/14/2018 Penicillins Swelling High 11/14/2018 Oxycodone-Acetaminophen Vomiting High 11/14/2018 Lisinopril Itching,Vomiting 11/14/2018 Medications * Be aware that medications may not be up to date on this document. Alwaysverify current medications with the patient. Cyclobenzaprine HCl (FLEXERIL PO) Active SIMVASTATIN PO Activ e MELOXICAM PO Active albuterol HFA (PROVENTIL;VENT MATEO;PROAIR) 108 (90 BASE) MCG/ACT inhaler Inhale 2 puffs by mouth every 6 hours as needed for Shortness of Breath, Wheezing or Cough 1 Inhaler 9 Active predniSONE (DELTASONE) 10 MG tablet 5 tabs PO x 1 day, 4 tabs PO x 1 day, 3 tabs PO x 1 day, 2 tabs PO x 1 day, 1 tab PO x 1 day 15 tablet 9 Active Social History Tobacco Use Types Packs/Day Years Used Date Smoking Tobacco: Never Smokeless Tobacco: Never Comments No Sex and Gender Information Value Date Recorded Sex Assigned at Not on file Legal Sex Female 8:55 PM [facility] Gender Identity Not on file Sexual Orientation Not on file Last Filed Vital Signs Vital Sign Reading Time Taken Comments Blood Pressure 122/74 11/14/2018 5:35 PM [facility] Pulse 98 11/14/2018 5:35 PM [facility] Temperature 37.5 C (99.5 F) 11/14/2018 5:35 PM [facility] Respiratory Rate 18 11/14/2018 5:35 PM [facility] Oxygen Saturation 97% 11/14/2018 5:53 PM [facility] Inhaled Oxygen Concentration - - Weight 90.7 kg (200 lb) 11/14/2018 5:35 PM [facility] Height 156.2 cm (5' 1.5) 11/14/2018 5:35 PM [facility] Body Mass Index 37.18 11/14/2018 5:35 PM [facility] Plan of Treatment Health Maintenance Due Date Last Done Comments BONE DENSITY TESTING 1950 COL[place]UARD (AGES 45-75) - COL ON CA SCREENING 1950 COLON MONITORING 1950 COLONOSCOPY - COLON CA SCREENING 1950 CT COLONOGRAPHY - COLON CA SCREENING 1950 Colorectal Cancer Screening 1950 FIT - COLON CA SCREENING 1950 FLEX SIG - COLON CA SCREENING 1950 MAMMOGRAM 1950 HEPATITIS C SCREENING 07/23/1969 DTAP/TDAP/TD VACCINES (1 - Tdap) 1970 PNEUMOCOCCAL VACCINE 50+ (1 of 1 - PCV) 2001 ZOSTER VACCINE (1 of 2) 2001 SCREENING FOR DIABETES 11/14/2018 DEPRESSION SCREENING 09/25/2024 COVID-19 VACCINE (1 - 2023-2 5 season) 2025 INFLUENZA VACCINE (#1) 2025 Respiratory Syncytial Virus (RSV) Vaccine Pt: or [...] Onset Date Last Indicated 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 Insurance MEDICARE [facility]ASH[facility] MEDICARE
--- OUTSIDE RECORDS SUMMARY | 2025-06-30 08:54 | XMS_ITS | Clinical Summary ---
Author Organization [facility] Address [address] [place] [address] Phone Care Team Providers Care Network Project Manager Name Role Phone Sloane Lu APRN, TOP AND SEAT COVER FITTER Primary Care Provi eliseo Tl Cintron MD Unavailable [phone] Allergies Active Allergy Reactions Criticality Noted Date Comments Erythromycin Unknown Medium 07/05/2024 Lisinopril Other (see Comments),Unknown Medium 024 Losartan Rash Medium 07/05/2024 Oxycodone-Acetaminophen Rash High 07/05/2024 Penicillins Anaphylaxis Medium 07/05/2024 Pneumococcal Vaccine Unknown 07/05/2024 Tramadol Vomiting High 07/05/2024 Medications albuterol (ProAir HFA) 108 (90 Base) MCG/ACT Aerosol Solution take 2 Puffs by inhalation every 4 hours as needed. Active candesartan-hydro chlorothiazide (ATACAND HCT) 32-12.5 MG TabletIndications :Essential (primary) hypertension Take 1 Tablet by mouth daily. 90 Tablet 1 5 Active gabapentin (NEURONTIN) 100 MG CapsuleIndication s:Lumbar radiculopathy Take 1 Capsule by mouth 3 times daily. 90 Capsule 3 5 Active simvastatin (ZOCOR) 20 MG TabletIndications :Hyperlipidemia associated with type 2 diabetes mellitus Take 1 Tablet by mouth every evening. 90 Tablet 1 5 Active True Metrix Blood Glucose Test StripIndications: Type 2 diabetes mellitus with hyperglycemia, without long-term current use of insulin Use as directed 100 Strip 5 5 Active [facility] Lancets Ultra-Thin 30G MiscIndications:T ype 2 diabetes mellitus with hyperglycemia, without long-term current use of insulin Use to check blood glucose once daily for dx code E11.9 100 Each 5 5 Active metFORMIN (GLUCOPHAGE) 1000 MG TabletIndications :Type 2 Diabetes Mellitus Take 1 Tablet by mouth 2 times daily (with meals). Indications: Type 2 Diabetes 180 Tablet 5 Active lansoprazole (PREVACID) 15 MG CAPSULE DELAYED RELEASE Take 15 mg by mouth daily. Active metoprolol Succinate (TOPROL-XL) 25 MG TABLET SR 24 HRIndications:Hyp ertension, unspecified type Take 1 Tablet by mouth daily. 90 Tablet 1 5 Active allopurinol (ZYLOPRIM) 300 MG Tablet Take 1 Tablet by mouth daily. 90 Tablet 1 5 Active Active Problems Problem Noted Date Diagnosed Date Claudication of lower extremity 05/30/2025 Overview (05/30/2025): 05/30/25: Suspect claudication bilateral lower extremities based on patient description of symptoms of muscle cramping into the ankles and feet at bedtime when feet are elevated. Symptoms are relieved with putting feet on the ground. She also reports inability to walk for prolonged period of time due to spasms in her legs. We discussed imaging to assess blood flow in the lower extremities. Doppler ultrasound bilateral arterial studies lower extremity, ultrasound ABIs bilateral. Ms Rice states that she will take the orders and complete these at [facility] in [place], [place]. - Order arterial studies bilateral lower extremities -Order ultrasound ABIs bilateral lower extremities -Will call with results once available - If these results rule out vascular compromise, then we will proceed with orthopedic evaluation of the bilateral ankles and feet. Assessment & Plan (05/30/2025 3:00 PM CDT): 05/30/25: Suspect claudication bilateral lower extremities based on patient description of symptoms of muscle cramping into the ankles and feet at bedtime when feet are elevated. Symptoms are relieved with putting feet on the ground. She also reports inability to walk for prolonged period of time due to spasms in her legs. We discussed imaging to assess blood flow in the lower extremities. Doppler ultrasound bilateral arterial studies lower extremity, ultrasound ABIs bilateral. Ms Rice states that she will take the orders and complete these at [facility] in [place], [place]. - Order arterial studies bilateral lower extremities -Order ultrasound ABIs bilateral lower extremities -Will call with results once available - If these results rule out vascular compromise, then we will proceed with orthopedic evaluation of the bilateral ankles and feet. Fusion of lumbar spine 02/27/2025 Overview (02/27/2025): L4-L5 - Dr Cintron at [facility] in [place], [place] on 10/29/24. Assessment & Plan (02/27/2025 8:59 AM CDT): Completed L4-L5 - Dr Cintron at [facility] in [place], [place] on 10/29/24. Encounter for screening mamm ogram for malignant neoplasm of breast 02/27/2025 Overview (02/28/2025): 02/27/2025: Clinical breast exam in office today normal. Patient is scheduled to complete her mammogram at [facility] radiology later today. Denies breast concerns 02/28/2025: Screening mammogram report reviewed IMPRESSION: BI-RAD 1 NEGATIVE There is no mammographic evidence of malignancy. A 1 year screening mammogram is recommended.(02/28/2026) Assessment & Plan (02/27/2025 11:13 AM CDT): 02/27/2025: Clinical breast exam in office today normal. Patient is scheduled to complete her mammogram at [facility] radiology later today. Denies breast concerns Other chronic pain 07/09/2024 Assessment & Plan (10/15/2024 5:03 PM CABLE SUPERVISOR): 08/19/24: pt called with request for Hydrocodone refill to [facility] (her usual pharmacy. PDMP reviewed. Last filled #60 tabs on 07/15/24. Refill appropriate. #60 tabs submitted to [facility] in [place]. 09/17/24: Request for hydrocodone refill. [place] PDMP checked and last filled #60 tabs on 08/19/24. Refill appropriate and submitted at 0740 to [facility], [place] #60 tabs, no refills. 10/15/2024: Pt requesting hydrocodone refill. Hydrocodone 10 mg - 325 mg refill submitted number 60 tablets available on 10/18/2024. [place] PDMP checked and last filled number 60 tablets on 09/17/2024 Assessment & Plan (09/17/2024 7:43 AM CABLE SUPERVISOR): 08/19/24: pt called with request for Hydrocodone refill to [facility] (her usual pharmacy. PDMP reviewed. Last filled #60 tabs on 07/15/24. Refill appropriate. #60 tabs submitted to [facility] in [place]. 09/17/24: Request for hydrocodone refill. [place] PDMP checked and last filled #60 tabs on 08/19/24. Refill appropriate and submitted at 0740 to [facility], [place] #60 tabs, no refills. Assessment & Plan (08/19/2024 12:23 PM CABLE SUPERVISOR): 08/19/24: pt called with request for Hydrocodone refill to [facility] (her usual pharmacy. PDMP reviewed. Last filled #60 tabs on 07/15/24. Refill appropriate. #60 tabs submitted to [facility] in [place]. Assessment & Plan (07/09/2024 9:06 AM CDT): From [facility] documentation: 01/05/24: Requesting hydrocodone medication for chronic pain. Osteoarthritis 06/11/2022: From radiographs-IMPRESSION: Lumbar rotary dextroscoliosis with moderate diffuse degenerative disc disease most severe at L1-L2 and L4-L5 with severe inferior lumbar facet osteoarthritis. Hrvy-lr-qqcictrq right hip osteoarthritis. Ttss-rb-gujgevoy tricompartmental right knee osteoarthritis. Mild right midfoot [...] on 03/08/24. Refill appropriate. Rx sent to [place], [place] #60 tabs 04/12/24: Had just filled hydrocodone and not yet taken any tablets from the bottle. Brought Rx to visit for provider review. Sinus tachycardia 07/09/2024 Overview (04/29/2025): From [facility] documentation: egular rhythm, tachycardic rate. Trending back [...] cardiology appt 08/23/22. (Dr Thomas Penaloza at [facility]), continue as planned. Suggest starting metoprolol 25 mg ER as previously ordered, d/t tachycardia. Pt states HR monitored at homes and is usually ~100 bpm. Denies CP. SOB is at baseline for her 01/05/24: Remains under the care of psychology tech. Taking metoprolol succ ER 25 mg daily for sinus tachycardia. Has f/u appt with psychology tech 02/22/24 - DR Penaloza. Following every 6 mos. R00.0: Tachycardia, unspecified 04/29/2025: Sinus tachycardia suspected to be situational since her heart rate is normal at home. Cardiology follow-up visit today -Dr. Thomas Taylor. Assessment & Plan (07/09/2024 9:17 AM CDT): From [facility] documentation: egular rhythm, tachycardic rate. Trending back [...] cardiology appt 08/23/22. (Dr Thomas Penaloza at [facility]), continue as planned. Suggest starting metoprolol 25 mg ER as previously ordered, d/t tachycardia. Pt states HR monitored at homes and is usually ~100 bpm. Denies CP. SOB is at baseline for her 01/05/24: Remains under the care of psychology tech. Taking metoprolol succ ER 25 mg daily for sinus tachycardia. Has f/u appt with psychology tech 02/22/24 - DR Penaloza. Following every 6 mos. R00.0: Tachycardia, unspecified Encounter for preventative a dult health care exam with abnormal findings 07/09/2024 Assessment & Plan (07/09/2024 9:27 AM CDT): 07/09/24: MWV completed today. 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 05/30/2025: bone density testing: DEXA scan 03/18/2022 Low bone mass, slight decline since last Dexa in 2019. Recommended calcium 1,200 mg po daily; Continue Vit D3 1,000 IU daily. Repeat DEXA scan was ordered 07/09/2024; however the order and test was not completed. Ms Rice states that she does not want to proceed with bone density testing at this time. Assessment & Plan (05/30/2025 2:58 PM CDT): 05/30/2025: bone density testing: DEXA scan 03/18/2022 Low bone mass, slight decline since last Dexa in 2019. Recommended calcium 1,200 mg po daily; Continue Vit D3 1,000 IU daily. Repeat DEXA scan was ordered 07/09/2024; however the order and test was not completed. Ms Rice states that she does not want to proceed with bone density testing at this time. Assessment & Plan (07/09/2024 12:29 PM CDT): 07/09/24: 07/09/24: DEXA scan order placed and will take order and complete at her chosen facility. Impaired mobility and endurance 07/09/2024 Overview (02/27/2025): 07/09/24: Would like a lightweight wheelchair. Pt [...] top of her. Lightweight wheelchair order placed. 02/27/2025: Reports in office today lower extremity weakness is improving post lumbar fusion surgery. Remains ambulatory with rollator today. Assessment & Plan (02/27/2025 11:15 AM CDT): 02/27/2025: Reports in office today lower extremity weakness is improving post lumbar fusion surgery. Remains ambulatory with rollator today. Assessment & Plan (07/09/2024 12:30 PM CDT): [...] & Plan (07/09/2024 9:19 AM CDT): From [facility] documentation: E79.0: Hyperuricemia without signs of inflammatory arthritis and tophaceous disease. Takes allopurinol 300 mg daily. Lumbar spondylosis 04/23/2024 Assessment & Plan (07/09/2024 12:28 PM CDT): From [facility] documentation: lumbar spine (radiographs) 06/11/22 showing Lumbar rotary dextroscoliosis with moderate diffuse degenerative disc disease most severe at L1-L2 and L4-L5 with severe inferior lumbar facet osteoarthritis. 07/09/24: Lumbar radiculopathy/ lumbar spondylosis: Following with spine surgeon, Dr Cintron at [facility]. Planning for lumbar spine surgery. Morbid (severe) obesity due to excess calories 0 02/22/2024 Overview (02/27/2025): 02/27/2025: BMI 37.50, weight 192 pounds in office today Assessment & Plan (02/27/2025 11:10 AM CDT): 02/27/2025: BMI 37.50, weight 192 pounds in office today Irregular heart beat 05/12/2023 Overview (07/05/2024): PACs and PVCs Assessment & Plan (07/09/2024 9:18 AM CDT): From [facility] documentation: PACs and PVCs - Holter Monitor 06/11/22 Arthralgia of right knee 02/27/2023 Low back pain 02/24/2023 Overview (02/27/2025): Chronic S/p L4-L5 fusion October 29, 2024-Dr. Tl Cintron, [facility]. History of cardiac catheterization 09/11/2022 Overview (07/05/2024): Follows with Dr Thomas Penaloza at [facility] ([facility]), no significant stenosis. Assessment & Plan (07/09/2024 9:23 AM CDT): From [facility] documentation: Follows with Dr Thomas Penaloza at [facility] ([facility]), no significant stenosis. Pre-operative clearance 08/23/2022 Premature atrial contractions 08/23/2022 Overview (04/29/2025): 04/29/2025: PACs stable on metoprolol. Cardiology visit note reviewed -visit date today. Dr Thomas Taylor. Degeneration of lumbar intervertebral disc 06/11 Overview (02/27/2025): Chronic, with chronic back pain. 04/12/24: low back pain with numbness/tingling/ stretching pain of the R leg. Onset 1 yr ago, worse the past 6 months. Clinical exam findings suggest nerve impingement coordinating with L4-L5 nerve root. She has muscle weakness also associated with these nerve roots on the right side. Ordering MRI. Pt wants to complete at [facility] in [place], closer to home where she lives with her daughter. Post MRI wants referral to pain autism specialist, Dr Frances, who has office in [place], [place]. Rx gabapentin 100 mg po TID PRN for neuropathic pain of the R leg. Advised regarding drowsy warning and potential synergistic effect with hydrocodone. Also, monitor her BP as this may decrease BP. Call the office for any concerns. Pt and daughter Marianela state understanding. 07/09/24: Lumbar radiculopathy/ lumbar spondylosis: Following with spine surgeon, Dr Cintron at [facility]. Planning for lumbar spine surgery. L4-L5 spine fusion surgery 10/29/24 - Dr Cintron Assessment & Plan (07/09/2024 12:27 PM CDT): [...] Ordering MRI. Pt wants to complete at [facility] in [place], closer to home where she lives with her daughter. Post MRI wants referral to pain autism specialist, Dr Frances, who has office in [place], [place]. Rx gabapentin 100 mg po TID PRN for neuropathic pain of the R leg. Advised regarding drowsy warning and potential synergistic effect with hydrocodone. Also, monitor her BP as this may decrease BP. Call the office for any concerns. Pt and daughter Marianela state understanding. 07/09/24: Lumbar radiculopathy/ lumbar spondylosis: Following with spine surgeon, Dr Cintron at [facility]. Planning for lumbar spine surgery. Osteopenia 09/16/2019 Overview (07/05/2024): 03/18/22 Dexa (R femoral neck -1.5) Assessment & Plan (07/09/2024 12:29 PM CDT): From [facility] documentation: Low bone mass, slight decline since [...] chosen facility. Type 2 diabetes mellitus 02/07/2019 Overview (05/30/2025): From [facility] documentation: Historical hyperglycemia/ diet controlled. [...] to decrease risk of diarrhea side effects 02/27/2025: Hemoglobin A1c and urine microalbumin/creatinine ratio orders entered. Specimens obtained in office today -Metformin 500 mg p.o. twice daily refill submitted to pharmacy, #180, Rf-1 02/28/2025: Uncontrolled type 2 diabetes. Hemoglobin A1c 7.7% (avg BG 167 mg/dL. It was 6.4% 7 mos ago. Per Med list in [facility] She is currently taking 500 mg of metformin twice a day. Increase metformin to 1000 mg twice daily. New Rx submitted. Check blood glucose once daily. Fasting 1 day alternating with 2-hour postprandial after the largest meal of the day. Return blood glucose log to office after 1 month at the increased dosing. Call the office for any -Urine microalbumin/creatinine ratio-normal -Call the office for any hypoglycemic symptoms, or if blood glucose readings < 83 times in 1 week. -dosing was changed 01/07/24 to 1,000 mg BID, so not sure why med list says 500 mg BID, Will verify with pharmacy and act accordingly. 02/28/25: Patient IS taking metformin 1000 mg p.o. twice daily. She has no family history of thyroid cancer. Thus we are adding GLP-1 medication. -Rx Rx Rybelsus 3 mg daily for T2 DM with hyperglycemia. #30, Rf-5. Patient to monitor blood glucose levels and return blood glucose log to office after 30 days for provider review. 03/03/25: Patient called in stating Rybelsus cost over $500 per month. She prefers to resume dietary adherence and exercise. Repeat hemoglobin A1c in 3 months. Continue metformin as prescribed 05/30/2025: Patient reports home glucose running 130 to 150 mg/dL. Prior A1c 02/27/2025 (7.7%). Did not start Rybelsus due to cost. She admits to recent dietary indiscretions. Recheck hemoglobin A1c in office today. 05/30/2025: Hemoglobin A1c 7.3%, average blood glucose 162 mg/dL. Will continue on metformin 1000 mg twice daily for now without additional therapy. Try to adhere to nutritious [employer] diet as much as possible. Assessment & Plan (05/30/2025 2:58 PM CDT): 05/30/2025: Patient reports home glucose running 130 to 150 mg/dL. Prior A1c 02/27/2025 (7.7%). Did not start Rybelsus due to cost. She admits to recent dietary indiscretions. Recheck hemoglobin A1c in office today. Assessment & Plan (02/27/2025 11:11 AM CDT): 02/27/2025: Hemoglobin A1c and urine microalbumin/creatinine ratio orders entered. Specimens obtained in office today -Metformin 500 mg p.o. twice daily refill submitted to pharmacy, #180, Rf-1 Assessment & Plan (07/09/2024 9:10 AM CDT): [...] & Plan (07/09/2024 9:16 AM CDT): From [facility] Documentation: Chronic low back and bilateral knees. Hx of left total knee arthroplasty. 06/11/2022: From radiographs-IMPRESSION: lumbar rotary dextroscoliosis with moderate diffuse degenerative disc disease most severe at L1-L2 and L4-L5 with severe inferior lumbar facet osteoarthritis. Dcqx-df-kzmrhojs right hip osteoarthritis. Fupg-pn-bebsuwlj tri-compartmental right knee osteoarthritis. Mild right midfoot osteoarthritis with a moderate-sized plantar calcaneal spur. 01/05/24: Refill meloxicam at 15 mg strength. Also CS agreement signed today for hydrocodone 10 mg PO BID PRN #60 tabs. Hyperlipidemia 01/31/2019 Overview (02/28/2025): From [facility] documentation: Statin compliant: simvastatin 20 mg po HS Discussed healthy sources of [place] 3s, oils, nuts, eggs, lean meats. Avoid [...] fasting lipid panel drawn in ofc today 02/27/2025: Fasting labs drawn in office today. Lipid panel ordered. Simvastatin 20 mg every evening refill submitted to pharmacy, #90, Rf-1. Lipids: Cholesterol 162-normal, triglycerides 212-elevated but improved from 7 months ago, HDL 46, LDL 74. 10-year ASCVD risk 31.5%, high. Continue simvastatin 20 mg daily Assessment & Plan (02/27/2025 11:12 AM CDT): 02/27/2025: Fasting labs drawn in office today. Lipid panel ordered. Simvastatin 20 mg every evening refill submitted to pharmacy, #90, Rf-1. Assessment & Plan (07/09/2024 12:27 PM CDT): From [facility] documentation: Statin compliant: simvastatin 20 mg po HS Discussed healthy sources of [place] 3s, oils, nuts, eggs, lean meats. Avoid [...] drawn in ofc today Hypertensive disorder 01/31/2019 Overview (05/30/2025): From [facility] documentation: 10/21/22: BP 144/76 in office today 01/05/24: BP in ofc today 162/88 mmHg. Routine lab orders placed and drawn in ofc. Refill candesartan 32 mg-HCTZ 12.5 mg sent to pharmacy. 02/27/2025: BP in office today 132/86 mmHg. Routine fasting labs ordered and obtained in office. Candesartan-HCTZ 32-12.5 mg tablet once daily refill submitted to pharmacy, #90 Rf-1 05/30/2025: BP in office today 138/82 mmHg. Compliant with candesartan-HCTZ 32- 12.5 mg daily, and metoprolol succinate 25 mg daily Assessment & Plan (05/30/2025 2:02 PM CDT): 05/30/2025: BP in office today 138/82 mmHg. Compliant with candesartan-HCTZ 32- 12.5 mg daily, and metoprolol succinate 25 mg daily Assessment & Plan (02/27/2025 11:14 AM CDT): 02/27/2025: BP in office today 132/86 mmHg. Routine fasting labs ordered and obtained in office. Candesartan-HCTZ 32-12.5 mg tablet once daily refill submitted to pharmacy, #90 Rf-1 Assessment & Plan (07/09/2024 9:09 AM CDT): [...] & Plan (07/09/2024 9:11 AM CDT): From [facility] documentation: takes Vit D3 supplement. 3000 units daily. 01/27/23: Vitamin D level therapeutic-44 01/05/24: [facility] Vit D level. Vit D = 41.90, sufficient. Continue daily supplement. Left ventricular hypertrophy 01/17/2018 Resolved Problems Problem Noted Date Diagnosed Date Resolved Date Lumbar radiculopathy 04/07/2022 025 Overview (02/27/2025): 7 days cardiology from [facility] Documentation: Chronic. Takes meloxicam Worst level of [...] Ordering MRI. Pt wants to complete at [facility] in [place], closer to home where she lives with her daughter. Post MRI wants referral to pain autism specialist, Dr Frances, who has office in [place], [place]. Rx gabapentin 100 mg po TID PRN for neuropathic pain of the R leg. Advised regarding drowsy warning and potential synergistic effect with hydrocodone. Also, monitor her BP as this may decrease BP. Call the office for any concerns. Pt and daughter Marianela state understanding. 07/09/24: Lumbar radiculopathy/ lumbar spondylosis: Following with spine surgeon, Dr Cintron at [facility]. Planning for lumbar spine surgery. 01/30/2025: Reviewed neurosurgery note from date of service 01/28/2025. [facility]. Dr Cintron. 3 months postop L4-5 and L5-S1 fusion. (October 2024) Doing well. Back pain of an evening. Has some right SI joint pain 02/27/25: Resolved with lumbar fusion L4-L5 on 10/29/2024-Dr. Tl Cintron - [facility] [place]. Assessment & Plan (02/27/2025 11:08 AM CDT): 02/27/25: Resolved with lumbar fusion L4-L5 on 10/29/2024-Dr. Tl Cintron - [facility] [place]. Assessment & Plan (07/09/2024 12:28 PM CDT): [...] Ordering MRI. Pt wants to complete at [facility] in [place], closer to home where she lives with her daughter. Post MRI wants referral to pain autism specialist, Dr Frances, who has office in [place], [place]. Rx gabapentin 100 mg po TID PRN for neuropathic pain of the R leg. Advised regarding drowsy warning and potential synergistic effect with hydrocodone. Also, monitor her BP as this may decrease BP. Call the office for any concerns. Pt and daughter Marianela state understanding. 07/09/24: Lumbar radiculopathy/ lumbar spondylosis: Following with spine surgeon, Dr Cintron at [facility]. Planning for lumbar spine surgery. Encounters Date Type Department Care Team Description 06/24/[address] [facility] [place] [address] [place] [phone] Sloane Lu APRN, TOP AND SEAT COVER FITTER 06/20/[address] [facility] [address] [place] [phone] Sloane Lu APRN, TOP AND SEAT COVER FITTER 05/30/2025 10:30 AM CDT Office [place] 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 [address] [place], [place] [phone] Sloane Lu APRN, CNP HEMOGLOBIN A1C W/ ESTIMATED GLUCOSE 05/30/2025 Travel 04/29/[address] [facility] [address] [place], [place] [phone] Sloane Lu APRN, CNP 04/01/[address] [facility] [address] [place] [phone] Sloane Lu APRN, [place]LA from Last 3 Months Immunizations Immunization Administration [...] Tobacco: Never Alcohol Use Standard Drinks/Week Comments Never 0 (1 standard drink = 0.6 oz pur e alcohol) Social Connection and Isolation Panel Answer Date Recorded In a typical week, how many times do you talk on the phone with family, friends, or neighbors? Three times a week 02/27/2025 How often do you get togethe r with friends or relatives? Twice a week 02/27/2025 How often do you attend chur ch or gnosticism services? Never 02/27/2025 Do you belong to any clubs o r organizations such as zoroastrianism groups, unions, [employer] or athletic groups, or school groups? No 02/27/2025 How often do you attend meet ings of the clubs or organizations you belong to? Never 02/27/2025 Are you , , di vorced, , never , or living with a partner? 02/27/2025 PHQ-2 Answer Date Recorded Total Score - Questions 1-9 4 01/2025 Housing Stability Vital Sign Answer Steven e Recorded In the last 12 months, was t here a time when you were not able to pay the mortgage or rent on time? No 02/27/2025 In the past 12 months, how m any times have you moved where you were living? 0 02/27/2025 At any time in the past 12 m [facility], were you homeless or living in a senior care (including now)? No 02/27/2025 Social Connection and Isolation Panel Answer Date Recorded In a typical week, how many times do you talk on the phone with family, friends, or neighbors? More than three times a week 05/30/2025 How often do you get togethe r with friends or relatives? Twice a week 05/30/2025 How often do you attend chur ch or gnosticism services? Never 05/30/2025 Do you belong to any clubs o r organizations such as zoroastrianism groups, unions, Breathe[employer]aternal or athletic groups, or school groups? No 05/30/2025 How often do you attend meet ings of the clubs or organizations you belong to? Never 05/30/2025 Are you , , di vorced, , never , or living with a partner? 05/30/2025 AUDIT-C Answer Date Recorded Q1: How often do you have a drink containing alcohol? Never 05/30/2025 Q2: How many drinks containi ng alcohol do you have on a typical day when you are drinking? Patient does not drink Frequency of Binge Drinking Not on file 01/2025 Overall Financial Resource Strain (CARDIA) Answe r Date Recorded How hard is it for you to pa y for the very basics like food, housing, medical care, and heating? Very hard 05/30/2025 [facility] Occupat ional Health - Occupational Stress Questionnaire Answer Date Recorded Do you feel stress - tense, restless, nervous, or anxious, or unable to sleep at night because your mind is troubled all the time - these days? Rather much 05/30/2025 Exercise Vital Sign Answer Date Recorde d On average, how many days pe r week do you engage in moderate to strenuous exercise (like a brisk walk)? 0 days 05/30/2025 On average, how many minutes do you engage in exercise at this level? 0 min 05/30/2025 Hunger Vital Sign Answer Date Recorded Within the past 12 months, y ou worried that your food would run out before you got the money to buy more. Never true 05/30/20 25 Within the past 12 months, t he food you bought just didn't last and you didn't have money to get more. Never true 05/30/2025 PRAPARE - Transportation Answer Date Re corded In the past 12 months, has l ack of transportation kept you from medical appointments or from getting medications? No 01/2025 In the past 12 months, has l ack of transportation kept you from meetings, work, or from getting things needed for daily living? No 05/30/2025 Housing Stability Vital Sign Answer Steven e Recorded In the last 12 months, was t here a time when you were not able to pay the mortgage or rent on time? No 05/30/2025 In the past 12 months, how m any times have you moved where you were living? 0 05/30/2025 At any time in the past 12 m [facility], were you homeless or living in a senior care (including now)? No 05/30/2025 [facility] Utilities Answer Date Recorded In the past 12 months has th e electric, gas, oil, or water company threatened to shut off services in your home? No 05/30/2025 Comments No Sex and Gender Information Value Date Recorded Sex Assigned at Female 02/27/2025 10:20 AM CDT Legal Sex Female 1:40 PM CDT Gender Identity Female 04/08/2024 1:40 PM CDT Sexual Orientation Not on file Last Filed Vital Signs Vital Sign Reading Time Taken Comments Blood Pressure 138/82 05/30/2025 10:16 AM CDT Pulse 85 05/30/2025 10:16 AM CDT Temperature 36.6 C (97.9 F) 05/30/2025 10:16 AM CDT Respiratory Rate 18 05/30/2025 10:16 AM CDT Oxygen Saturation 96% 05/30/2025 10:16 AM CDT Inhaled Oxygen Concentration - - Weight 86.2 kg (190 lb) 05/30/2025 10:16 AM CDT Height 152.4 cm (5') 05/30/2025 10:16 AM CDT Body Mass Index 37.11 05/30/2025 10:16 AM CDT Plan of Treatment Upcoming Encounters Date Type Department Care Team (Late st Contact Info) Description 08/29/2025 10:30 AM CABLE SUPERVISOR [place] [facility] [place] [place] [address] [place] [address] Sloane Lu, FACULTY DEAN, TOP AND SEAT COVER FITTER [address] [place], [place] Health Maintenance Due Date Last Done Comments DEXA Bone Density 1950 Diabetes: Eye Exam 1950 Cologuard 1996 Immunochemical Fecal Occult Blood 1996 Respiratory Syncytial Virus (RSV) Immunization (Adult) (1 - Risk 60-74 years 1-dose series) 2011 Influenza Immunization (#1) 05/26/202506/25, 07/14/2022, 08/10/2021, Additional history exists Medicare Subsequent AWV [id number] 07/09/2025 Diabetes: Hemoglobin A1c 11/27/2025 025, 02/27/2025, 07/09/2024, Additional history exists Diabetes: Nephropathy Screening 02/27/2026 02/27/2025, 02/27/2025, 07/09/2024 Mammogram 02/27/2026 02/27/2025, 01/05/2024, 01/28/2021 Diabetes: Foot Exam 05/30/2026 05/30/2025, SARS-COV-2 Immunization ( season) 2026 12/19/2021, 12/13/2021, 06/14/2021, Additional history exists Postponed from 05/26/2025 (Patient Temporarily Declines) Td Immunization Every 10 Years (Adults With 1 Tdap) 08/08/2027 08/08/2017 Pneumococcal Immunization (50+ years) (1 of 2 - PCV) 05/30/2028 Postponed fro m 1970 (Lower Priority for Now) Zoster Immunization (1 of 2) 05/30/2028 07/04/2000 Postponed from 2001 (Lower Priority for Now) Colonoscopy 11/14/2029 11/14/2019 Colorectal Cancer Screening 11/14/2029 Hepatitis B Immunization Aged Out 03/27/1996, 01/1996 No longer eligible based on patient's age to complete this topic TdaP Immunization Discontinued 08/08/2017 Hepatitis C Virus (HCV) Screening Completed 11/20/2020 Human Papillomavirus (HPV) Immunization Aged Out No longer eligible based on patient's age to complete this topic Meningococcal Immunization (ACWY) Aged Out No longer eligible based on patient's age to complete this topic Rotavirus Immunization Aged Out No lo nger eligible based on patient's age to complete this topic Procedures Procedure Name Priority Date/Time Associated Diagnosis Comments HEMOGLOBIN A1C W/ ESTIMATED GLUCOSE Routine 05/30/2025 11:26 AM CDT Type 2 diabetes mellitus with hyperglycemia, without long-term current use of insulin (HCC) LILIANE SCREENING BILATERAL DIGITAL W CAD Routine 02/27/2025 12:03 PM CDT Encounter for screening mammogram for malignant neoplasm of breast CMP (COMPREHENSIVE METABOLIC PANEL) Routine 02/27/2025 11:13 AM CDT Hypertension, unspecified type from Last 3 Months or Most Recently Relevant to Health Maintenance Results * (ABNORMAL) HEMOGLOBIN A1C W/ ESTIMATED GLUCOSE (05/30/2025 11:26 AM CDT) HGB-A1C 7.3(H) 4.0 - 6.0 % 05/30/2025 2:47 PM CDT [facility] Est Average Glucose 162.8 mg/dL 05/30/2025 2:47 PM CDT [facility] Blood Venipuncture / Unknown 05/30/2025 11:26 AM CDT 05/30/2025 11:26 AM CDT us Sloane Lu FACULTY DEAN, TOP AND SEAT COVER FITTER CHEMISTRY ORDERABLE S Final Result [facility] [address] [facility] [place] [address], * LILIANE SCREENING BILATERAL DIGITAL W CAD (02/27/2025 12:03 PM CDT) Anatomical Region Laterality Modality breast Bilateral Mammography 02/27/2025 11:3 9 AM CDT Narrative 02/27/2025 4:34 PM CDT - LILIANE SCREENING BILATERAL DIGITAL W CAD BILATERAL DIGITAL SCREENING MAMMOGRAM WITH CAD WITH MEDIOLATERAL OBLIQUE CRANIOCAUDAL: 02/27/2025 The study was acquired using full field digital technology and interpreted from soft copy. Current study was also evaluated with ICAD version 7.2. CLINICAL: Routine screening. Patient has no complaints. COMPARISONS: Comparison is made to exams dated: 01/05/2024, 03/29/2022, 03/18/2022, 01/28/2021, and 09/16/2019 [facility]. BREAST TISSUE:The breasts are almost entirely fatty. FINDINGS: No significant masses, calcifications, or other findings are seen in either breast. There has been no significant interval change. IMPRESSION: BI-RAD 1 NEGATIVE There is no mammographic evidence of malignancy. A 1 year screening mammogram is recommended.(02/28/2026) A letter will be sent to the patient with these results. The patient will be entered into a reminder system with a target due date of 1 year for her next screening exam. Electronically signed by: Jessica haider/genesis:02/27/2025 16:34:54 Bale Piler(s): RT Josiah(R)(M)(CT), [facility] letter sent: Normal Exam Reading location: [place] Mammogram BI-RADS: Category 1: Negative Procedure Note Jessica Yuen MD - 02/27/2025 - LILIANE SCREENING BILATERAL DIGITAL W CAD BILATERAL DIGITAL SCREENING MAMMOGRAM WITH CAD WITH MEDIOLATERAL OBLIQUE CRANIOCAUDAL: 02/27/2025 The study was acquired using full field digital technology and interpretedfrom soft copy. Current study was also evaluated with s0cketD version 7.2. CLINICAL: Routine screening. Patient has no complaints. COMPARISONS: Comparison is made to exams dated: 01/05/2024, 03/29/2022, 03/18/2022, 01/28/2021, and 09/16/2019 [facility]. BREAST TISSUE:The breasts are almost entirely fatty. FINDINGS: No significant masses, calcifications, or other findings are seen ineither breast. There has been no significant interval change. IMPRESSION: BI-RAD 1 NEGATIVE There is no mammographic evidence of malignancy. A 1 year screeningmammogram is recommended.(02/28/2026) A letter will be sent to the patient with these results. The patient will be entered into a reminder system with a target due dateof 1 year for her next screening exam. Electronically signed by: Jessica haider/genesis:02/27/2025 16:34:54 Bale Piler(s): RT Josiah(R)(M)(CT), [facility] letter sent: Normal Exam Reading location: [place] Mammogram BI-RADS: Category 1: Negative Sloane Lu APRN, TOP AND SEAT COVER FITTER IMG MAMMO ORDERABLE S Final Result * (ABNORMAL) CMP (COMPREHENSIVE METABOLIC PANEL) (02/27/2025 11:13 AM CDT) SODIUM 138 137 - 145 mmol/L 02/27/2025 5:40 PM CDT [facility] POTASSIUM 4.4 3.5 - 5.1 mmol/L 02/27/2025 5:[address] [facility] CHLORIDE 104 98 - 107 mmol/L 02/27/2025 5:[address] [facility] CO2, VENOUS 20(L) 22 - 30 mmol/L 02/27/2025 5:[address] [facility] GLUCOSE 165(H) 70 - 106 mg/dL 02/27/2025 5:[address] [facility] BUN 20(H) 7 - 17 mg/dL 02/27/2025 5:[address] [facility] CREATININE, BLOOD 0.90 0.52 - 1.04 mg/dL 02/27/2025 5:[address] [facility] ALKALINE PHOSPHATASE 129(H) 38 - 126 U/L 02/27/2025 5:[address] [facility] SGPT (ALT) 28 1 - 34 U/L 02/27/2025 5:[address] [facility] SGOT (AST) 27 14 - 36 U/L 02/27/2025 5:[address] [facility] ALBUMIN 4.4 3.5 - 5.0 g/dL 02/27/2025 5:[address] [facility] T BILI 0.4 0.2 - 1.3 mg/dL 02/27/2025 5:[address] [facility] TOTAL PROTEIN 7.7 6.3 - 8.2 g/dL 02/27/2025 5:[address] [facility] CALCIUM 9.6 8.4 - 10.2 mg/dL 02/27/2025 5:[address] [facility] ANION GAP 14.0 6.0 - 16.0 mmol/L 02/27/2025 5:[address] [facility] BUN/CREATININE RATIO 22 7 - 30 ratio 02/27/2025 5:[address] [facility] A/G RATIO 1.3 0.9 - 2.3 02/27/2025 5:[address] [facility] GLOBULIN 3.3 2.2 - 3.9 g/dL 02/27/2025 5:[address] [facility] GFR, ESTIMATED >60 >60 02/27/2025 5:40 PM CDT [facility] OSMOLALITY 282 273 - 304 mOsm/kg 02/27/2025 5:40 PM CDT [facility] Blood Venipuncture / Unknown 02/27/2025 11:13 AM CDT 02/27/2025 11:14 AM CDT us Sloane Lu FACULTY DEAN, TOP AND SEAT COVER FITTER CHEMISTRY ORDERABLE S Final Result [facility] [address] [place] [address], from Last 3 Months or Most Recently Relevant to Health Maintenance Insurance MEDICARE [employer] MEDICARE SUP Advance Directives Documents on File Type Date Recorded Patient Business Analytics Specialist Expl anation Other Advance Directive 07/23/2024 10:57 AM CPAP Order Other Advance Directive 07/22/2024 3:01 PM 07/20/2024 BMP Other Advance Directive 06/28/2024 10:[address] Cintron Care Teams Network Project Manager Relationship Specialty Start Date End Date Sloane Lu APRN, TOP AND SEAT COVER FITTER [address] [place] [address] PCP - General Bean Dumper 07/09/24 Tl Cintron MD [address] [place] [id number] Neurological Surgery 07/09/24
--- OUTSIDE RECORDS SUMMARY | 2025-06-30 08:54 | XMS_ITS | Encounter Summary ---
Author Organization [facility] Address [address] [place] [address] Phone Care Team Providers Care Nutritional Services Director Name Role Phone Sloane Lu APRN, NYLA Primary Care Provi eliseo Tl Cintron MD Unavailable [phone] Encounter Details Date Type Department Care Team (Late st Contact Info) Description 05/30/2025 Results Follow-Up [facility] [address] [place], [place] [phone] Sloane Lu APRN, BIOLOGICAL AIDE [address] [place], [place] HEMOGLOBIN A1C W/ ESTIMATED GLUCOSE Social History Tobacco Use Types Packs/Day Years [...] often do you attend chur ch or zoroastrianism services? Never 02/27/2025 Do you belong to any clubs o r organizations such as yarsani groups, unions, fraternal or athletic groups, or [...] any time in the past 12 m [facility], were you homeless or living in [...] often do you attend chur ch or zoroastrianism services? Never 05/30/2025 Do you belong to any clubs o r organizations such as yarsani groups, unions, fraternal or athletic groups, or [...] medical care, and heating? Very hard 05/30/2025 [facility] [place] [facility] Occupat [facility] Health - Occupational Stress [...] any time in the past 12 m [facility], were you homeless or living in a senior care (including now)? No 05/30/2025 [facility] Utilities Answer Date Recorded In the past 12 months has th e electric, gas, oil, or water company threatened to shut off services in your home? No 05/30/2025 Comments No Sex and Gender Information Value Date Recorded Sex Assigned at Female 02/27/2025 10:20 AM CDT Legal Sex Female 1:40 PM CDT Gender Identity Female 04/08/2024 1:40 PM CDT Sexual Orientation Not on file documented as of this encounter Functional Status * Question Answer Date of Assessment Author Little interest or pleasure in doing things Several days 05/30/2025 10:00 AM CDT Landy Eisenberg, EVELYN Feeling down, depressed, or hopeless Several days 05/30/2025 10:00 AM CDT Danae Eisenberg LPN * Over the past 2 weeks, how often have you been bothered by any of the following problems? Question Answer Date of Assessment Author Patient Health Questionnaire-2 Score 2 05/30/2025 10:00 AM CDT Lula Eisenberg LPN documented as of this encounter Progress Notes * Sloane Lu APRN, CNP - 05/30/2025 3:02 PM CDT 05/30/2025: Hemoglobin A1c 7.3%, average blood glucose 162 mg/dL. Will continue on metformin 1000 mg twice daily for now without additional therapy. Try to adhere to nutritious [employer] diet as muchas possible. documented in this encounter Plan of Treatment Upcoming Encounters Date Type Department Care Team (Late st Contact Info) Description 08/29/2025 10:30 AM PUMPER GAUGER Office Visit [facility] [address] [place], [place] [phone] Sloane Lu APRN, CNP [address] [place], [place] documented as of this encounter Visit Diagnoses Diagnosis Type 2 diabetes mellitus with hyperglycemia, without long-term current use of insulin- Primary documented in this encounter Additional Health Concerns Assessment Noted Time PHQ-9 Depression Total Score: 4 05/30/20 25 10:00 AM CDT documented as of this encounter Care Teams Nutritional Services Director Relationship Specialty Start Date End Date Sloane Lu APRN, CNP [address] [place], [place] PCP - General Microfilm Operator 07/09/24 Tl Cintron MD [address] [place] [id number] Neurological Surgery 07/09/24 documented as of this encounter
--- OUTSIDE RECORDS SUMMARY | 2025-06-30 08:54 | XMS_ITS | Clinical Summary ---
Author Organization [facility] [address] [facility] [address] Address [address] [place] [address] Care Team Providers Care Newspaper Vendor Name Role Phone Sloane Lu NP Primary Care Provider [phone] Allergies Active Allergy Reactions Criticality Noted Date [...] Encounters Date Type Department Care Team Description 04/29/2025 3:00 PM CDT Office Visit [facility] Card[facility] [address] [address] [address] [place] [address] Thomas Taylor MD Hyperlipidemia associated with type 2 diabetes mellitus (HCC) (Primary Dx); Sinus tachycardia; Rheumatoid arthritis, involving unspecified site, unspecified whether rheumatoid factor present (HCC); Hypertension associated with diabetes (HCC); Premature atrial contractions from Last 3 Months Surgical History Surgery Date Site/Laterality Comments HYSTERECTOMY TOTAL KNEE ARTHROPLASTY Left Medical History Medical History Date Comments Hypertension Diabetes mellitus Rheumatoid arthritis (HCC) Social History Tobacco Use [...] Sign Reading Time Taken Comments Blood Pressure 110/70 04/29/2025 3:11 PM CDT Pulse 111 04/29/2025 3:11 PM CDT Temperature - - Respiratory Rate - - Oxygen Saturation 98% 04/29/2025 3:11 PM CDT Inhaled Oxygen Concentration - - Weight 85.7 kg (189 lb) 04/29/2025 3:11 PM CDT Height 154.9 cm (5' 1) 04/29/2025 3:11 PM CDT Body Mass Index 35.71 04/29/2025 3:11 PM CDT Plan of Treatment Health Maintenance [...] Visit 65+ 2016 Covid-19 Vaccine ( - 2024-2 6 season) 2025 12/19/2021, 12/13/2021, 06/14/2021, Additional history exists Influenza Vaccine (#1) 2025 , 07/14/2022, 08/10/2021, Additional history exists Lipid Panel 02/27/2026 02/27/2025, 06/25, 07/09/2024, Additional history exists DTaP/Tdap/Td Vaccine (2 - Td or Tdap) 08/08/2027 08/08/2017 Hepatitis B Screening Completed 03/27/1995, 996 Procedures Procedure Name Priority Date/Time Associated Diagnosis Comments LIPID PANEL Routine 07/09/2024 11:29 AM CDT from Last 3 Months or Most Recently Relevant to Health Maintenance Results * Lipid panel (07/09/2024 11:29 AM CDT) SCRIBED Cholesterol, Total 149 <200 EXTERNAL LAB SCRIBED HDL 45 >40 EXTERNAL LAB SCRIBED LDL 51 <100 EXTERNAL LAB SCRIBED Triglycerides 264 <150 EXTERNAL LAB Blood us Historical Provider LAB BLOOD ORDERABLES Edit ed Result - Final EXTERNAL LAB from Last 3 Months or Most Recently Relevant to Health Maintenance Insurance [facility]ICARE [facility] MEDICARE SUPPLEMENT INSURANCE MEDICARE [facility] MEDICARE SUPPLEMENT INSURANCE Care Teams Newspaper Vendor Relationship Specialty Start Date End Date Sloane Lu NP PCP - General Nurse Practitioner 06/30/22
--- OUTSIDE RECORDS SUMMARY | 2025-06-30 08:55 | XMS_ITS | Data Portability ---
Author Organization [facility] [place] [address] Assessment No assessment recorded. Plan of Treatment Reminders Order Date Submit Date Provider Last Modified By Organization Details Last Modified Time Details Appointments None recorded. Lab CBC 2023 024 [facility] (Lab), [address], [place], [address], 4 15:49:25 CMP, serum or plasma 2023 024 [facility] (Lab), [address], [place], [address], 4 16:20:26 TSH, serum or plasma 2023 024 [facility] (Lab), [address], [place], [address], 4 16:46:42 vitamin B12, serum 2023 024 [facility] (Lab), [address], [address], 4 17:22:56 folate, serum 2023 024 [facility] (Lab), [address] [place], [address], 4 17:23:00 microalbumi n/creatinin e, ratio panel, urine 2023 024 [facility] (Lab), [address], [place], [address], 4 16:14:36 vitamin D, 25-hydroxy, total, serum 2023 024 [facility] (Lab), [address], [place], [address], 4 16:14:47 urinalysis, dipstick 2022 023 [facility] (Lab), [address], [place], [address], 3 12:59:17 HbA1c (hemoglobin A1c), blood 2022 023 [facility] (Lab), [address], [place], [address], 4 15:49:10 coronary risk panel, serum 2022 023 [facility] (Lab), [address], [place], [address], 4 16:00:06 Referral None recorded. Procedures None recorded. Surgeries None recorded. Imaging MRI, lumbar spine, w/o contrast - right leg radiculopat hy the past one year, worse the past 6 months. 2023 024 [facility], [address], [place], [address], 4 13:13:22 MAMMO, screening, bilateral, w/ CAD - pt will call to schedule [address] (Imaging), [address], [place], [address], 4 16:01:04 Medication Orders gabapentin 100 mg capsule [address]/Pharmacy #[id number], [address] [place], [address], 4 13:54:04 meloxicam 15 mg tablet 20[address] [facility]/Pharmacy #[id number], [address] [place], [address], 4 13:19:24 candesartan 32 mg-hydrochl orothiazide 12.5 mg tablet 2023 [address] [facility]/Pharmacy #[id number], [address] [place], [address], 4 12:49:08 metoprolol succinate ER 25 mg tablet,exte nded release 24 hr [address]/Pharmacy #[id number], [address] [place], [address], 4 13:08:06 hydrocodone 10 mg-acetamin ophen 325 mg tablet [address]/Pharmacy #[id number], [address] [place], [address], 4 13:30:44 meloxicam 7.5 mg tablet [address]/Pharmacy #[id number], [address] [place], [address], 4 13:19:31 allopurinol 300 mg tablet 20[address] [facility]/Pharmacy #[id number], [address] [place], [address], 3 12:46:15 metoprolol succinate ER 25 mg tablet,exte nded release 24 hr [address] [facility]/Pharmacy #[id number], [address] [place], [address], 3 12:46:15 simvastatin 20 mg tablet 2022 [address] [facility]/Pharmacy #[id number], [address] [place], [address], 3 12:46:15 Patient TargetsNo targets recorded. Patient Instructions Encounter Date Encounter Id Patient Instructions Last Modified By Organization Details Last Modified Time 05/12/2023 [id number] preventing falls : care instructions Not available 05/12/2023 12:33:06 preventing falls : care instructions Not available 05/12/2023 12:33:06 Discussed and explained advance directives such as standard forms to the . Face to face discussion lasted for a duration of ___ minutes. f/u in 6 months, routine f/u in one year, MWV Not available 05/12/2023 12:40:25 01/05/2024 [id number] f/u in 3 months, cs agreement signed. (routine f/u) Not available 01/05/2024 13:04:07 04/12/2024 [id number] f/u in 3 mos, routine Not available 04/12/2024 12:49:42 Hospital Discharge Instructions Patient Instructions None recorded. Patient Goals None recorded. Results Created Date Observation Date Name Description Value Unit Range Abnormal Flag Note LastModifiedBy Organization Detail LastModifiedTime 01/28/20 23 01/27/2023 Urina lysis compl ete panel - Urine U.COLOR Yellow YELLOW Not Available [facility] (Lab) [address], [place], [address], Not Available 01/28/20 23 01/27/2023 Urina lysis compl ete panel - Urine U.CLARITY Clear CLEAR Not Available [facility] (Lab) [address], [place], [address], Not Available 01/28/20 23 01/27/2023 Urina lysis compl ete panel - Urine U.GLU Negati ve NEGATI VE Not Available [facility] (Lab) [address], [place], [address], Not Available 01/28/20 23 01/27/2023 Urina lysis compl ete panel - Urine U.BILIRBN Negati ve NEGATI VE Not Available [facility] (Lab) [address], [place], [address], Not Available 01/28/20 23 01/27/2023 Urina lysis compl ete panel - Urine U.KET Negati ve NEGATI VE Not Available [facility] (Lab) [address], [place], [address], Not Available 01/28/20 23 01/27/2023 Urina lysis compl ete panel - Urine U.SPGR 1.015 1.001- 1.020 Not Available [facility] (Lab) [address], [place], [address], Not Available 01/28/20 23 01/27/2023 Urina lysis compl ete panel - Urine U.PH 6.0 5.0-8. 0 Not Available [facility] (Lab) [address], [place], [address], Not Available 01/28/20 23 01/27/2023 Urina lysis compl ete panel - Urine U.BLOOD Negati ve NEGATI VE Not Available [facility] (Lab) [address], [place], [address], Not Available 01/28/20 23 01/27/2023 Urina lysis compl ete panel - Urine U.PROTEIN Negati ve NEGATI VE Not Available [facility] (Lab) [address], [place], [address], Not Available 01/28/20 23 01/27/2023 Urina lysis compl ete panel - Urine U.NITRITE Negati ve NEGATI VE Not Available [facility] (Lab) [address], [place], [address], Not Available 01/28/20 23 01/27/2023 Urina lysis compl ete panel - Urine U.UROB. 0.2 E.U./d L 0.1-1. 0 Not Available [facility] (Lab) [address], [place], [address], Not Available 01/28/20 23 01/27/2023 Urina lysis compl ete panel - Urine U.LEUK. Negati ve NEGATI VE Not Available [facility] (Lab) [address], [place], [address], Not Available 01/28/20 23 01/27/2023 Urina lysis compl ete panel - Urine - Micros copic: Not Available [facility] (Lab) [address], [place], [address], Not Available 01/28/20 23 01/27/2023 Urina lysis compl ete panel - Urine U.WBC 0-1 Not Available [facility] (Lab) [address], [place], [address], Not Available 01/28/20 23 01/27/2023 Urina lysis compl ete panel - Urine U.RBC None Seen Not Available [facility] (Lab) [address], [place], [address], Not Available 01/28/20 23 01/27/2023 Urina lysis compl ete panel - Urine U.EPI'S 1-4 Not Available [facility] (Lab) [address], [place], [address], Not Available 01/28/20 23 01/27/2023 Urina lysis compl ete panel - Urine U.BACT None Seen Not Available [facility] (Lab) [address], [place], [address], Not Available 01/28/20 23 01/27/2023 CBC panel - Blood by Autom ated count WBC 8.0 10*3 3.9-10 .4 Not Available [facility] (Lab) [address], [place], [address], Not Available 01/28/20 23 01/27/2023 CBC panel - Blood by Autom ated count RBC 4.21 10*6 3.78-5 .29 Not Available [facility] (Lab) [address], [place], [address], Not Available 01/28/20 23 01/27/2023 CBC panel - Blood by Autom ated count HGB 12.2 g/dl 12.0-1 6.0 Not Available [facility] (Lab) [address], [place], [address], Not Available 01/28/20 23 01/27/2023 CBC panel - Blood by Autom ated count HCT 37.6 % 37.0-4 7.0 Not Available [facility] (Lab) [address], [place], [address], Not Available 01/28/20 23 01/27/2023 CBC panel - Blood by Autom ated count MCV 89.3 fl 82.0-1 00.0 Not Available [facility] (Lab) [address], [place], [address], Not Available 01/28/20 23 01/27/2023 CBC panel - Blood by Autom ated count MCH 29 pg 26-33 Not Available [facility] (Lab) [address], [place], [address], Not Available 01/28/20 23 01/27/2023 CBC panel - Blood by Autom ated count MCHC 32 g/dl 31-34 Not Available [facility] (Lab) [address], [place], [address], Not Available 01/28/20 23 01/27/2023 CBC panel - Blood by Autom ated count RDW 14.5 % 11.8-1 5.7 Not Available [facility] (Lab) [address], [place], [address], Not Available 01/28/20 23 01/27/2023 CBC panel - Blood by Autom ated count PLT 418 10*3 150-45 0 Not Available [facility] (Lab) [address], [place], [address], Not Available 01/28/20 23 01/27/2023 CBC panel - Blood by Autom ated count MPV 9.5 fl 8.7-12 .2 Not Available [facility] (Lab) [address], [place], [address], Not Available 01/28/20 23 01/27/2023 CBC panel - Blood by Autom ated count NEUT% 55.4 % 40.0-7 5.0 Not Available [facility] (Lab) [address], [place], [address], Not Available 01/28/20 23 01/27/2023 CBC panel - Blood by Autom ated count IMGRANS% 0.3 % 0.0-2. 0 Not Available [facility] (Lab) [address], [place], [address], Not Available 01/28/20 23 01/27/2023 CBC panel - Blood by Autom ated count LYMPH% 34.0 % 20.0-4 0.0 Not Available [facility] (Lab) [address], [place], [address], Not Available 01/28/20 23 01/27/2023 CBC panel - Blood by Autom ated count MONO% 7.7 % 0.0-10 .0 Not Available [facility] (Lab) [address], [place], [address], Not Available 01/28/20 23 01/27/2023 CBC panel - Blood by Autom ated count EOS% 2.0 % 0.0-4. 0 Not Available [facility] (Lab) [address], [place], [address], Not Available 01/28/20 23 01/27/2023 CBC panel - Blood by Autom ated count BASOS% 0.6 % 0.0-1. 0 Not Available [facility] (Lab) [address], [place], [address], Not Available 01/28/20 23 01/27/2023 CBC panel - Blood by Autom ated count ANC 4.41 10^3/ uL 1.50-8 .00 Not Available [facility] (Lab) [address], [place], [address], Not Available 01/28/20 23 01/27/2023 CBC panel - Blood by Autom ated count _ Not Available [facility] (Lab) [address], [place], [address], Not Available 01/28/20 23 01/27/2023 Thyro tropi n [Unit s/vol ume] in Serum or Plasm a TSH 2.50 uIu/m L 0.47-4 .68 Not Available [facility] (Lab) [address], [place], [address], Not Available 01/28/20 23 01/27/2023 Hemog lobin A1c/H emogl obin. total in Blood HGB A1C 7.1 % 4.0-6. 0 Not Available [facility] (Lab) [address], [place], [address], Not Available 01/28/20 23 01/27/2023 Hemog lobin A1c/H emogl obin. total in Blood INDICATION Indica chastity an Ave. Glucos e of: Not Available [facility] (Lab) [address], [place], [address], Not Available 01/28/20 23 01/27/2023 Hemog lobin A1c/H emogl obin. total in Blood AVE.GLU 151-16 5 mg/dl for the last 30-120 Days Not Available [facility] (Lab) [address], [place], [address], Not Available 01/28/20 23 01/27/2023 25-Hy droxy vitam in D3+25 -Hydr oxyvi tamin D2 [Mass /volu me] in Serum or Plasm a VITD 44.00 ng/mL 30.00- 100.00 Refer ence Range : <20 ng/mL - Defic ient 20 - <30 ng/mL - Insuf ficie nt 30 - 100 ng/mL - Suffi cient >100 ng/mL - Poten tial Toxic ity Not Available [facility] (Lab) [address], [place], [address], Not Available 01/28/20 23 01/27/2023 Compr ehens usman metab olic 1999 panel - Serum or Plasm a NA 138 mmol/ L 137-14 5 Not Available [facility] (Lab) [address] [place], [address], Not Available 01/28/20 23 01/27/2023 Compr ehens usman metab olic 2000 panel - Serum or Plasm a K+ 4.9 mmol/ L 3.5-5. 1 Not Available [facility] (Lab) [address], [place], [address], Not Available 01/28/20 23 01/27/2023 Compr ehens usman metab olic 2000 panel - Serum or Plasm a CL 105 mmol/ L 98-107 Not Available [facility] (Lab) [address], [place], [address], Not Available 01/28/20 23 01/27/2023 Compr ehens usman metab olic 2000 panel - Serum or Plasm a CO2 26 mmol/ L 22-30 Not Available [facility] (Lab) [address], [place], [address], Not Available 01/28/20 23 01/27/2023 Compr ehens usman metab olic 2000 panel - Serum or Plasm a GLUC 123 mg/dL 70-106 Not Available [facility] (Lab) [address], [place], [address], Not Available 01/28/20 23 01/27/2023 Compr ehens usman metab olic 2000 panel - Serum or Plasm a BUN 15.0 mg/dL 7.0-17 .0 Not Available [facility] (Lab) [address], [place], [address], Not Available 01/28/20 23 01/27/2023 Compr ehens usman metab olic 2000 panel - Serum or Plasm a CREAT 0.7 mg/dl 0.5-1. 0 Not Available [facility] (Lab) [address] [place], [address], Not Available 01/28/20 23 01/27/2023 Compr ehens usman metab olic 2000 panel - Serum or Plasm a ALK.PHOS 82 U/L 38-126 Not Available [facility] (Lab) [address] [place], [address], Not Available 01/28/20 23 01/27/2023 Compr ehens usman metab olic 2000 panel - Serum or Plasm a ALT 27 U/L 1-34 Not Available [facility] (Lab) [address], [place], [address], Not Available 01/28/20 23 01/27/2023 Compr ehens usman metab olic 2000 panel - Serum or Plasm a AST 28 U/L 14-36 Not Available [facility] (Lab) [address], [place], [address], Not Available 01/28/20 23 01/27/2023 Compr ehens usman metab olic 2000 panel - Serum or Plasm a ALB 3.9 g/dl 3.4-4. 8 Not Available [facility] (Lab) [address], [place], [address], Not Available 01/28/20 23 01/27/2023 Compr ehens usman metab olic 2000 panel - Serum or Plasm a TBIL 0.60 mg/dl 0.20-1 .30 Not Available [facility] (Lab) [address], [place], [address], Not Available 01/28/20 23 01/27/2023 Compr ehens usman metab olic 2000 panel - Serum or Plasm a TP 6.5 g/dl 6.3-8. 2 Not Available [facility] (Lab) [address], [place], [address], Not Available 01/28/20 23 01/27/2023 Compr ehens usman metab olic 2000 panel - Serum or Plasm a CA 9.9 mg/dl 8.4-10 .2 Not Available [facility] (Lab) [address], [place], [address], Not Available 01/28/20 23 01/27/2023 Compr ehens usman metab olic 2000 panel - Serum or Plasm a GAP 7.0 mmol/ L 6.0-16 .0 Not Available [facility] (Lab) [address], [place], [address], Not Available 01/28/20 23 01/27/2023 Compr ehens usman metab olic 2000 panel - Serum or Plasm a B/C 21.43 7.00-3 0.00 Not Available [facility] (Lab) [address], [place], [address], Not Available 01/28/20 23 01/27/2023 Compr ehens usman metab olic 2000 panel - Serum or Plasm a OSMO 278 mos/k g 273-30 4 Not Available [facility] (Lab) [address], [place], [address], Not Available 01/28/20 23 01/27/2023 Compr ehens usman metab olic 2000 panel - Serum or Plasm a A/G RATIO 1.50 0.90-2 .30 Not Available [facility] (Lab) [address], [place], [address], Not Available 01/28/20 23 01/27/2023 Compr ehens usman metab olic 2000 panel - Serum or Plasm a GLOBULIN 2.6 g/dl 2.2-3. 9 Not Available [facility] (Lab) [address], [place], [address], Not Available 01/28/20 23 01/27/2023 Compr ehens usman metab olic 2000 panel - Serum or Plasm a GFR- AA Greate r Than 60 mL/mi n/1.7 3_m^2 Not Available [facility] (Lab) [address], [place], [address], Not Available 01/28/20 23 01/27/2023 Compr ehens [...] - consu ltati on with a Nephr tami st Not Available [facility] (Lab) [address], [place], [address], Not Available 01/28/20 23 01/27/2023 Coron shukri heart disea se 2Y risk [#] Karol hendricks .D'Ag ivan o 2000 CHOL 150 mg/dl 127-20 0 Not Available [facility] (Lab) [address], [place], [address], Not Available 01/28/20 23 01/27/2023 Coron shukri heart disea se 2Y risk [#] Frami eladio ChoiD'Ag ivan o 2000 TRIG 237 mg/dl 0-200 Not Available [facility] (Lab) [address], [place], [address], Not Available 01/28/20 23 01/27/2023 Coron shukri heart disea se 2Y risk [#] Frami ngham .D'Ag ivan o 2000 HDL 52 mg/dl 30-80 Not Available [facility] (Lab) [address], [place], [address], Not Available 01/28/20 23 01/27/2023 Coron shukri heart disea se 2Y risk [#] Frami ngham .D'Ag ivan o 2000 LDL 50.6 mg/dl 0.0-13 0.0 Not Available [facility] (Lab) [address], [place], [address], Not Available 01/28/20 23 01/27/2023 Coron shukri heart disea se 2Y risk [#] Frami eladio .D'Ag ivan o 2000 VLDL. 47 mg/dl 2-30 Not Available [facility] (Lab) [address], [place], [address], Not Available 01/28/20 23 01/27/2023 Coron shukri heart disea se 2Y risk [#] Frami eladio .D'Ag ivan o 1999 CHOL-HDL 2.9 0.0-5. 0 Pavithra stero l/HDL Ratio (Risk assoc iated with pavithra stero l/HDL ratio ) _ Risk Femal e Ratio Male Ratio 1/2 Laurier ge 3.27 4.43 Laurier ge 4.44 4.97 2 x Laurier ge 7.05 9.55 3 x Laurier ge 11.04 23.39 Not Available [facility] (Lab) [address], [place], [address], Not Available 01/28/20 23 01/27/2023 Micro album in/Cr eatin ine panel in rando m Urine MICROALB <6.00 mg/L 0.00-3 0.00 Not Available [facility] (Lab) [address], [place], [address], Not Available 01/28/20 23 01/27/2023 Micro album in/Cr eatin ine panel in rando m Urine UR.CREATRND 35.5 MG/DL NO ESTABL ISHED REFERE NCE RANGE FOR THIS TEST Not Available [facility] (Lab) [address], [place], [address], Not Available 01/28/20 23 01/27/2023 Micro album in/Cr eatin ine panel in rando m Urine MAL/CR 16.90 Mg/G 0.00-3 0.00 Not Available [facility] (Lab) [address], [place], [address], Not Available 05/12/20 23 05/12/2023 urina lysis , dipst ick U.COLOR Yellow YELLOW Not Available [facility] (Lab) [address], [place], [address], Not Available 05/12/20 23 05/12/2023 urina lysis , dipst ick U.CLARITY Slight ly Cloudy CLEAR Not Available [facility] (Lab) [address], [place], [address], Not Available 05/12/20 23 05/12/2023 urina lysis , dipst ick U.GLU Negati ve NEGATI VE Not Available [facility] (Lab) [address], [place], [address], Not Available 05/12/20 23 05/12/2023 urina lysis , dipst ick U.BILIRBN 1+ NEGATI VE Not Available [facility] (Lab) [address], [place], [address], Not Available 05/12/20 23 05/12/2023 urina lysis , dipst ick U.KET Trace NEGATI VE Not Available [facility] (Lab) [address], [place], [address], Not Available 05/12/20 23 05/12/2023 urina lysis , dipst ick U.SPGR 1.020 1.001- 1.020 Not Available [facility] (Lab) [address], [place], [address], Not Available 05/12/20 23 05/12/2023 urina lysis , dipst ick U.PH 5.5 5.0-8. 0 Not Available [facility] (Lab) [address], [place], [address], Not Available 05/12/20 23 05/12/2023 urina lysis , dipst ick U.BLOOD Trace- intact NEGATI VE Not Available [facility] (Lab) [address], [place], [address], Not Available 05/12/20 23 05/12/2023 urina lysis , dipst ick U.PROTEIN Negati ve NEGATI VE Not Available [facility] (Lab) [address], [place], [address], Not Available 05/12/20 23 05/12/2023 urina lysis , dipst ick U.NITRITE Negati ve NEGATI VE Not Available [facility] (Lab) [address], [place], [address], Not Available 05/12/20 23 05/12/2023 urina lysis , dipst ick U.UROB. 0.2 E.U./d L 0.1-1. 0 Not Available [facility] (Lab) [address], [place], [address], Not Available 05/12/20 23 05/12/2023 urina lysis , dipst ick U.LEUK. Negati ve NEGATI VE Not Available [facility] (Lab) [address], [place], [address], Not Available 05/12/20 23 05/12/2023 urina lysis , micro scopi c U.WBC 1-2 Not Available [facility] (Lab) [address], [place], [address], Not Available 05/12/20 23 05/12/2023 urina lysis , micro scopi c U.RBC 0-2 Not Available [facility] (Lab) [address], [place], [address], Not Available 05/12/20 23 05/12/2023 urina lysis , micro scopi c U.EPI'S 4-8 Not Available [facility] (Lab) [address], [place], [address], Not Available 05/12/20 23 05/12/2023 urina lysis , micro scopi c U.BACT 1+ Not Available [facility] (Lab) [address], [place], [address], Not Available 05/12/20 23 05/12/2023 urina lysis , micro scopi c U.MUCUS Rare Not Available [facility] (Lab) [address], [place], [address], Not Available 05/12/20 23 05/12/2023 urina lysis , micro scopi c U.CASTS 0-2 Hyalin e casts Not Available [facility] (Lab) [address], [place], [address], Not Available 05/14/20 23 05/14/2023 Bacte mj ident ified in Urine by Cultu re FINAL Microb iology result s Resul t Flag (Norm al) URINE TYPE: Clean Catch Mid-S tream FINAL RESUL T: MIXED ANNAMARIA L URETH RAL TAMIKO . NOT INDIC ATIVE OF UTI. NEW SPECI MEN NOT REQUI RED. Not Available [facility] (Lab) [address], [place], [address], Not Available 01/05/20 24 01/05/2024 25-Hy droxy vitam in D3+25 -Hydr oxyvi tamin D2 [Mass /volu me] in Serum or Plasm a VITD 41.90 ng/mL 30.00- 100.00 Refer ence Range : <20 ng/mL - Defic ient 20 - <30 ng/mL - Insuf ficie nt 30 - 100 ng/mL - Suffi cient >100 ng/mL - Poten tial Toxic ity Not Available [facility] (Lab) [address], [place], [address], Not Available 01/05/20 24 01/05/2024 Cobal king [...] pg/mL will have sympt oms. Not Available [facility] (Lab) [address], [place], [address], Not Available 01/05/20 24 01/05/2024 Hemog lobin A1c/H emogl obin. total in Blood HGB A1C 7.4 % 4.0-6. 0 Not Available [facility] (Lab) [address], [place], [address], Not Available 01/05/20 24 01/05/2024 Hemog lobin A1c/H emogl obin. total in Blood INDICATION Indica chastity an Ave. Glucos e of: Not Available [facility] (Lab) [address], [place], [address], Not Available 01/05/20 24 01/05/2024 Hemog lobin A1c/H emogl obin. total in Blood AVE.GLU 151-16 5 mg/dl for the last 30-120 Days Not Available [facility] (Lab) [address], [place], [address], Not Available 01/05/20 24 01/05/2024 Compr ehens usman metab olic 2000 panel - Serum or Plasm a NA 137 mmol/ L 137-14 5 Not Available [facility] (Lab) [address], [place], [address], Not Available 01/05/20 24 01/05/2024 Compr ehens usman metab olic 2000 panel - Serum or Plasm a K+ 4.7 mmol/ L 3.5-5. 1 Not Available [facility] (Lab) [address], [place], [address], Not Available 01/05/20 24 01/05/2024 Compr ehens usman metab olic 2000 panel - Serum or Plasm a CL 103 mmol/ L 98-107 Not Available [facility] (Lab) [address], [place], [address], Not Available 01/05/20 24 01/05/2024 Compr ehens usman metab olic 2000 panel - Serum or Plasm a CO2 24 mmol/ L 22-30 Not Available [facility] (Lab) [address], [place], [address], Not Available 01/05/20 24 01/05/2024 Compr ehens usman metab olic 2000 panel - Serum or Plasm a GLUC 147 mg/dL 70-106 Not Available [facility] (Lab) [address], [place], [address], Not Available 01/05/20 24 01/05/2024 Compr ehens usman metab olic 2000 panel - Serum or Plasm a BUN 26.0 mg/dL 7.0-17 .0 Not Available [facility] (Lab) [address], [place], [address], Not Available 01/05/20 24 01/05/2024 Compr ehens usman metab olic 1999 panel - Serum or Plasm a CREAT 1.0 mg/dl 0.5-1. 0 Not Available [facility] (Lab) [address], [place], [address], Not Available 01/05/20 24 01/05/2024 Compr ehens usman metab olic 2000 panel - Serum or Plasm a ALK.PHOS 90 U/L 38-126 Not Available [facility] (Lab) [address], [place], [address], Not Available 01/05/20 24 01/05/2024 Compr ehens usman metab olic 2000 panel - Serum or Plasm a ALT 23 U/L 1-34 Not Available [facility] (Lab) [address], [place], [address], Not Available 01/05/20 24 01/05/2024 Compr ehens usman metab olic 2000 panel - Serum or Plasm a AST 28 U/L 14-36 Not Available [facility] (Lab) [address], [place], [address], Not Available 01/05/20 24 01/05/2024 Compr ehens usman metab olic 2000 panel - Serum or Plasm a ALB 4.5 g/dl 3.4-4. 8 Not Available [facility] (Lab) [address], [place], [address], Not Available 01/05/20 24 01/05/2024 Compr ehens usman metab olic 2000 panel - Serum or Plasm a TBIL 0.50 mg/dl 0.20-1 .30 Not Available [facility] (Lab) [address], [place], [address], Not Available 01/05/20 24 01/05/2024 Compr ehens usman metab olic 2000 panel - Serum or Plasm a TP 7.3 g/dl 6.3-8. 2 Not Available [facility] (Lab) [address], [place], [address], Not Available 01/05/20 24 01/05/2024 Compr ehens usman metab olic 1999 panel - Serum or Plasm a CA 10.1 mg/dl 8.4-10 .2 Not Available [facility] (Lab) [address], [place], [address], Not Available 01/05/20 24 01/05/2024 Compr ehens usman metab olic 1999 panel - Serum or Plasm a GAP 10.0 mmol/ L 6.0-16 .0 Not Available [facility] (Lab) [address], [place], [address], Not Available 01/05/20 24 01/05/2024 Compr ehens usman metab olic 1999 panel - Serum or Plasm a B/C 26.00 7.00-3 0.00 Not Available [facility] (Lab) [address], [place], [address], Not Available 01/05/20 24 01/05/2024 Compr ehens usman metab olic 1999 panel - Serum or Plasm a OSMO 281 mos/k g 273-30 4 Not Available [facility] (Lab) [address], [place], [address], Not Available 01/05/20 24 01/05/2024 Compr ehens usman metab olic 1999 panel - Serum or Plasm a A/G RATIO 1.61 0.90-2 .30 Not Available [facility] (Lab) [address], [place], [address], Not Available 01/05/20 24 01/05/2024 Compr ehens usman metab olic 1999 panel - Serum or Plasm a GLOBULIN 2.8 g/dl 2.2-3. 9 Not Available [facility] (Lab) [address], [place], [address], Not Available 01/05/20 24 01/05/2024 Compr ehens usman metab olic 1999 panel - Serum or Plasm a GFR- AA Greate r Than 60 mL/mi n/1.7 3_m^2 Not Available [facility] (Lab) [address], [place], [address], Not Available 01/05/20 24 01/05/2024 Compr ehens [...] with a Nephr ologi st Not Available [facility] (Lab) [address], [place], [address], Not Available 01/05/20 24 01/05/2024 Micro album in/Cr eatin ine panel in rando m Urine MICROALB <6.00 mg/L 0.00-3 0.00 Not Available [facility] (Lab) [address], [place], [address], Not Available 01/05/20 24 01/05/2024 Micro album in/Cr eatin ine panel in rando m Urine UR.CREATRND 73.4 MG/DL NO ESTABL ISHED REFERE NCE RANGE FOR THIS TEST Not Available [facility] (Lab) [address], [place], [address], Not Available 01/05/20 24 01/05/2024 Micro album in/Cr eatin ine panel in rando m Urine MAL/CR 8.17 Mg/G 0.00-3 0.00 Not Available [facility] (Lab) [address], [place], [address], Not Available 01/05/20 24 01/05/2024 Thyro tropi n [Unit s/vol ume] in Serum or Plasm a TSH 3.03 uIu/m L 0.47-4 .68 Not Available [facility] (Lab) [address], [place], [address], Not Available 01/05/20 24 01/05/2024 CBC panel - Blood by Autom ated count WBC 8.4 10*3 3.9-10 .4 Not Available [facility] (Lab) [address], [place], [address], Not Available 01/05/20 24 01/05/2024 CBC panel - Blood by Autom ated count RBC 4.50 10*6 3.78-5 .29 Not Available [facility] (Lab) [address], [place], [address], Not Available 01/05/20 24 01/05/2024 CBC panel - Blood by Autom ated count HGB 13.4 g/dl 12.0-1 6.0 Not Available [facility] (Lab) [address], [place], [address], Not Available 01/05/20 24 01/05/2024 CBC panel - Blood by Autom ated count HCT 40.7 % 37.0-4 7.0 Not Available [facility] (Lab) [address], [place], [address], Not Available 01/05/20 24 01/05/2024 CBC panel - Blood by Autom ated count MCV 90.4 fl 82.0-1 00.0 Not Available [facility] (Lab) [address], [place], [address], Not Available 01/05/20 24 01/05/2024 CBC panel - Blood by Autom ated count MCH 30 pg 26-33 Not Available [facility] (Lab) [address], [place], [address], Not Available 01/05/20 24 01/05/2024 CBC panel - Blood by Autom ated count MCHC 33 g/dl 31-34 Not Available [facility] (Lab) [address], [place], [address], Not Available 01/05/20 24 01/05/2024 CBC panel - Blood by Autom ated count RDW 13.4 % 11.8-1 5.7 Not Available [facility] (Lab) [address], [place], [address], Not Available 01/05/20 24 01/05/2024 CBC panel - Blood by Autom ated count PLT 333 10*3 150-45 0 Not Available [facility] (Lab) [address], [place], [address], Not Available 01/05/20 24 01/05/2024 CBC panel - Blood by Autom ated count MPV 10.3 fl 8.7-12 .2 Not Available [facility] (Lab) [address], [place], [address], Not Available 01/05/20 24 01/05/2024 CBC panel - Blood by Autom ated count NEUT% 56.1 % 40.0-7 5.0 Not Available [facility] (Lab) [address], [place], [address], Not Available 01/05/20 24 01/05/2024 CBC panel - Blood by Autom ated count IMGRANS% 0.1 % 0.0-2. 0 Not Available [facility] (Lab) [address], [place], [address], Not Available 01/05/20 24 01/05/2024 CBC panel - Blood by Autom ated count LYMPH% 33.6 % 20.0-4 0.0 Not Available [facility] (Lab) [address], [place], [address], Not Available 01/05/20 24 01/05/2024 CBC panel - Blood by Autom ated count MONO% 7.2 % 0.0-10 .0 Not Available [facility] (Lab) [address], [place], [address], Not Available 01/05/20 24 01/05/2024 CBC panel - Blood by Autom ated count EOS% 2.3 % 0.0-4. 0 Not Available [facility] (Lab) [address], [place], [address], Not Available 01/05/20 24 01/05/2024 CBC panel - Blood by Autom ated count BASOS% 0.7 % 0.0-1. 0 Not Available [facility] (Lab) [address], [place], [address], Not Available 01/05/20 24 01/05/2024 CBC panel - Blood by Autom ated count ANC 4.71 10^3/ uL 1.50-8 .00 Not Available [facility] (Lab) [address], [place], [address], Not Available 01/05/20 24 01/05/2024 CBC panel - Blood by Autom ated count _ Not Available [facility] (Lab) [address], [place], [address], Not Available 01/05/20 24 01/05/2024 Coron shukri heart disea se 2Y risk [#] Frami ngham .D'Ag ivan o 2000 CHOL 180 mg/dl 127-20 0 Not Available [facility] (Lab) [address], [place], [address], Not Available 01/05/20 24 01/05/2024 Coron shukri heart disea se 2Y risk [#] Karol ChoiD'Ag ivan o 2000 TRIG 343 mg/dl 0-200 Not Available [facility] (Lab) [address], [place], [address], Not Available 01/05/20 24 01/05/2024 Coron shukri heart disea se 2Y risk [#] Karol ChoiD'Ag ivan o 2000 HDL 50 mg/dl 30-80 Not Available [facility] (Lab) [address], [place], [address], Not Available 01/05/20 24 01/05/2024 Coron shukri heart disea se 2Y risk [#] Karol ChoiD'Ag ivan o 2000 LDL 61.4 mg/dl 0.0-13 0.0 Not Available [facility] (Lab) [address], [place], [address], Not Available 01/05/20 24 01/05/2024 Coron shukri heart disea se 2Y risk [#] Karol hendricks StephD'Ag ivan o 2000 VLDL. 69 mg/dl 2-30 Not Available [facility] (Lab) [address], [place], [address], Not Available 01/05/20 24 01/05/2024 Coron shukri heart disea se 2Y risk [#] Blakei maiham .D'Ag ivan o 2000 CHOL-HDL 3.6 0.0-5. 0 Pavithra stero l/HDL Ratio (Risk assoc iated with pavithra stero l/HDL ratio ) _ Risk Femal e Ratio Male Ratio 1/2 Laurier ge 3.27 4.43 Laurier ge 4.44 4.97 2 x Laurier ge 7.05 9.55 3 x Laurier ge 11.04 23.39 Not Available [facility] (Lab) [address], [place], [address], Not Available 01/05/20 24 01/05/2024 Folat e [Mass /volu me] in Serum or Plasm a FOLATE 18.2 ng/mL Refer ence Range : Low: <2.76 ng/mL Borde rline : 2.76- 5.4 ng/mL Annamaria l: >5.4 ng/mL Not Available [facility] (Lab) [address], [place], [address], Not Available Result Notes Documentation Provider Name and Address Organization Details Recorded Time Xr, Knee : EXAM DESCRIPTION: XR RT KNEE REASON FOR STUDY: Pt states right knee pain for last six months. No injury. Stiffness and joint achiness. Difficulty with ambulation at times Duration: six months TECHNIQUE: 4 radiographic views acquired of the right knee. COMPARISON: 06/11/2022 FINDINGS: There is no definite evidence of acute displaced fracture or dislocation involving the right knee. There are tricompartmental degenerative changes right knee with joint space narrowing and spurring. There is no significant joint effusion. IMPRESSION: 1. Tricompartmental degenerative changes of the right knee without definite evidence of acute displaced fracture or dislocation. PS: PS Report ID: [id number] Reading Location: [id number] [employer] Dictation Date: 07/29/2022 07:58 Not Available [facility] 07/29/2022 09:02:53 Mammo, Screening, Tomosynthesis, Bilateral : - SCR MAMM BEN BECKY BILATERAL DIGITAL SCREENING MAMMOGRAM 3D/2D WITH CAD WITH MEDIOLATERAL OBLIQUE CRANIOCAUDAL: 01/05/2024 The study was acquired using full field digital technology and interpreted from soft copy. Current study was also evaluated with ICAD version 7.2. 2D digital mammographic views, as well as 3D digital tomosynthesis were performed in the CC and MLO projections. CLINICAL: Routine screening. Patient has no complaints. COMPARISONS: Comparison is made to exams dated: 03/29/2022, 03/18/2022, and 01/28/2021 [facility]. BREAST TISSUE:The tissue of both breasts is predominantly fatty. FINDINGS: No significant masses, calcifications, or other findings are seen in either breast. There has been no significant interval change. IMPRESSION: BI-RAD 1 NEGATIVE There is no mammographic evidence of malignancy. A 1 year screening mammogram is recommended.(01/05/2025) A letter will be sent to the patient with these results. The patient will be entered into a reminder system with a target due date of 1 year for her next screening exam. Electronically signed by: Jessica haider/genesis:01/05/2024 16:30:15 Composing Machine Operator/Tender(s): RT Juliana(R)(M)GAB,, [facility] letter sent: Normal Exam Reading location: [facility] BI-RADS: 1 Negative Jessica Yuen MD Dictation Date: 01/05/2024 13:24 Mammo, Screening, Tomosynthesis, Bilateral : Mammogram Mammo, Screening, Tomosynthesis, Bilateral : IMPRESSION: BI-RAD 1 NEGATIVE There is no mammographic evidence of malignancy. A 1 year screening mammogram is recommended.(01/05/2025)-o rder placed. aLndy Eisenberg LPN [address] [place], [address], [facility] 01/10/2024 14:17:28 Problems Name Problem SNOMED Code Status Onset Date Resolution Date Notes Provider Name and Address Organization Details Recorded Time Tereza miranda [id number] Active Poornima Luna, [place] [address] [facility], [place], [address] , [facility] 9 12:05:12 Pain in left arm 466476806 Completed 201805/12/2023 Removal Reason: resolved Sloane Lu DNP [address] [place] [address], [address] , [facility] 3 12:25:31 Vitamin D deficien cy 84410836 Active 2018 Sloane Lu DNP [address] [place] [address], [address] , [facility] 3 12:22:47 Arthriti s 2282099 Active 2018 Sloane Lu DNP [address] [place] [address], [address] , [facility] 3 12:21:59 Arthriti s 9925677 Completed 201804/30/2020 Sloane Lu DNP [address] [place] [address], [address] , [facility] 3 12:21:59 Hyperten sive disorder 23619425 Active 2018 Sloane Lu DNP [address] [place] [address], [address] , [facility] 3 12:22:13 Irritabl e bowel syndrome 90979936 Active 2018 Sloane Lu DNP [address] [place] [address], [address] , [facility] 3 12:24:28 Pain in left arm 418727213 Completed 201804/30/2020 Sloane Lu DNP [address] [place] [address], [address] , [facility] 3 12:25:31 Osteoart hritis 788640430 Active 2018 B/L knees, lumbar spine, R foot w left total knee arthropl asty. 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 Completed 201802/12/2019 Removal Reason: converte d to diabetes type 2 Poornima [place] [address] [place] [address], [address] , [facility] 9 17:39:00 Vitamin D deficien cy 46530549 Completed 201804/30/2020 Sloane Lu DNP [address] [place] [address], [address] , [facility] 3 12:22:47 [address] infectio n 399696362 Completed 201805/12/2023 Removal Reason: resolved Sloane Lu DNP [address] [place] [address], [address] , [facility] 3 12:22:35 Pain of joint 72504674 Active 2018 Sloane Lu DNP [address] [place] [address], [address] , [facility] 3 12:24:34 Impaired glucose toleranc e 5420720 Completed 201805/12/2023 Removal Reason: type 2 diabetes Sloane Lu DNP [address] [place] [address], [address] , [facility] 3 12:24:24 Pain of joint 16198398 Completed 201804/30/2020 Sloane Lu DNP [address] [place] [address], [address] , [facility] 3 12:24:34 Impaired glucose toleranc e 4839891 Completed 201804/30/2020 Sloane Lu DNP [address] [place] [address], [address] , [facility] 3 12:24:24 [address] tract infectio n 375711569 Completed 201804/30/2020 Sloane Lu DNP [address] [place] [address], [address] , [facility] 3 12:22:35 Heart irregula r Completed 201804/30/2020 Sloane Lu DNP [address] [place] [address], [address] , [facility] 3 12:26:52 Sleep pattern disturba mse 66298350 Active 2018 Sloane Lu DNP [address] [place] [address], [address] , [facility] 3 12:22:39 Type 2 diabetes mellitus 28492112 Active 2018 Sloane Lu DNP [address] [place] [address], [address] , [facility] 3 12:22:43 Osteopen ia 095432669 Active 201803/18/22 Dexa (R femoral neck -1.5) Sloane Lu DNP [address] [place] [address], [address] , [facility] 3 12:22:55 Lumbar radiculo kendrick 902256626 Active 2021 Landy Eisenberg LPN [address] [place] [address], [address] , [facility] 3 12:14:46 Microsco pic hematuri a 667726045 Completed 202105/12/2023 04/15/22. Rare RBC on urine micro. Continue to observe unless pt becomes symptoma tic Removal Reason: resolved . Normal urine 01/27/23 Sloane Lu DNP [address] [place] [address], [address] , [facility] 3 12:24:09 Degenera tion of lumbar interver tebral disc 17915605 Active 2021 Sloane Lu DNP [address] [place] [address], [address] , [facility] 3 12:22:02 History of cardiac catheter ization 93590018546 100 Active [address] Thomas Penaloza at [facility] ([facility]), no signific ant stenosis . Sloane Lu DNP [address] [place] [address], [address] , [facility] 3 12:22:05 Irregula r heart beat 595972362 Active 2022 PACs and PVCs Sloane Lu DNP [address] [place] [address], [address] , [facility] 3 12:27:03 Scoliosi s of lumbar spine 844828686 Active 2023 rotatary dextrosc oliosis Sloane Lu DNP [address] [place] [address], [address] , [facility] 4 13:10:55 Lumbar spondylo sis 810455280 Active 2023 Sloane Lu DNP [address] [place] [address], [address] , [facility] 4 08:23:21 Problem Notes None recorded. Procedures Surgical History Date Name Laterality Status Provider Name and Address Organization Details Recorded Time 01/05/20 24 Most Recent Mammogram completed Landy Eisenberg LPN [address] [place] [address], [address], [facility] 04/12/2024 11:53:08 09/08/20 22 cardiac catheterization completed Sloane Lu DNP [address] [place] [address], [address], [facility] 10/21/2022 12:35:38 07/14/20 22 STH Injection completed Landy Eisenberg LPN [address] [place] [address], [address], [facility] 07/14/2022 12:13:36 11/15/19 COLONOSCOPY (SURG) completed Emelina Napier [employer] [address] [place] [address], [address], [facility] 11/14/2019 09:45:46 11/15/19 20 COLONOSCOPY (SURG) completed Not Available [facility] 01/22/2022 03:45:09 09/05/20 19 mammography completed Landy Eisenberg STATION ATTEND[employer] [address] [place] [address], [address], [facility] 09/13/2019 11:21:37 06/20/20 19 STH Injection completed Landy Eisenberg STATION ATTEND[employer] [address] [place] [address], [address], [facility] 06/20/2019 13:04:44 02/09/20 18 Peripheral IV Removal completed Naomi Garcia [address] [place] [address], [address], [facility] 02/08/2018 14:43:59 02/09/20 18 Peripheral IV Insertion completed Naomi Garcia [address] [place] [address], [address], [facility] 02/08/2018 14:43:37 release of kjnms-av-vbgb deformity completed Landy Eisenberg [employer]ATION ATTEND[employer] [address] [place] [address], [address], [facility] 01/31/2019 14:31:01 Total knee arthroplasty completed Sloane Lu [address], [address], [facility] 04/07/2022 14:49:26 excision of tumor of soft tissue of back completed Landy Eisenberg STATION ATTEND[employer] [address] [place] [address], [address], [facility] 01/31/2019 14:31:55 Hysterectomy completed Landy Eisenberg STATION ATTEND[employer] [address] [place] [address], [address], [facility] 02/01/2019 14:25:15 Arthroscopic Surgery completed Landy Eisenberg, STATION ATTENDANT [address] [place], [place], [address], [facility] 02/01/2019 14:25:52 Joint Replacement completed Landy Eisenberg, STATION ATTENDANT [address] [place], [address], [facility] 03/02/2023 12:54:47 Imaging Results None recorded. Procedure Notes None recorded. Medical Equipment None Reported. Allergies Allergen ID Allergen Name Allergen Category Reaction Reaction Severity Criticality Documentation Date Start Date Code Code System Note Provider Name and Address Organization Details Recorded Time 54987 Product containin g penicilli n (product) medicatio n anaphylax is moderate Not available 01/31/2019 70904 8001 SNOMED child solis Sloane Lu, [facility] [address] [place], [address], [facility] 2 14:44:11 41293 acetamino phen / oxycodone medicatio n rash severe Not available 01/31/2019 01146 3 RxNorm Lularina Mesfinrobb , STATION ATTENDANT [address] [place] [address], [address], [facility] 9 13:19:47 69781 Prinivil medicatio n dizziness moderate Not available 01/31/2019 53752 4 RxNorm Lularina Mesfinrobb , STATION ATTENDANT [address] [place], [address], [facility] 9 13:20:08 41435 losartan medicatio n rash moderate Not available 01/31/2019 43097 RxNorm Lularina Mesfinrobb , STATION ATTENDANT [address] [place], [address], [facility] 9 13:20:34 64203 Erythroci n medicatio n dizziness moderate Not available 01/31/2019 90405 3 RxNorm Lularina Mesfinrobb , STATION ATTENDANT [address] [place], [address], [facility] 9 13:20:58 51317 lisinopri l medicatio n cough moderate Not available 01/31/2019 87005 RxNorm Landy Eisenberg , STATION ATTENDANT [address] [place], [address], [facility] 9 13:21:22 91657 Pneumococ sue vaccine Not available Not available Not available Not available 02/01/2019 98016 7 RxNorm COULD NOT BONITA ATE LOSCRISTY JACINTO Landy Eisenberg , STATION ATTENDANT [address] [place], [address], [facility] 9 14:30:28 88491 amlodipin e / benazepri l medicatio n angioedem a moderate Not available 02/01/2019 52213 3 RxNorm Landy Eisenberg , [facility] [address] [place], [address], [facility] 9 14:29:34 92983 tramadol medicatio n vomiting Not available [facility] 05/12/2023 75051 RxNorm Landy Eisenberg , STATION ATTENDANT [address] [place] [address], [address], [facility] 3 12:11:52 Medications Name Sig Start [...] tabs on 05/09/24, 06/08/24, and 07/06/24 to [place], [place]. Not Available Not Available Not Available [...] every day by oral route, for hyperten mary. 2023 active Not Available Not Available Not [...] in Arterial blood by Pulse oximetry Systolic And Diastolic Provider Name and Address Organization Details Last Updated DateTime 3 154.94 cm 36.6 kg/m2 93207 g 0 87 /min 18 /min 98.6 [degF] 99 % 99 % 144/76 mm[Hg] Landy Eisenberg LPN [address] [place], [address], [facility] 3 12:19:10 Date Recorded Body height Body mass index (BMI) Body weight Oxygen saturation Oxygen saturation in Arterial blood by Pulse oximetry Heart rate Body temperature Respiratory rate Systolic And Diastolic Provider Name and Address Organization Details Last Updated DateTime 4 154.94 cm 36.6 kg/m2 84513 g 98 % 98 % 105 /min 98.5 [degF] 24 /min 162/88 mm[Hg] Landy Eisenberg LPN [address] [place] [address], [address], [facility] 4 12:22:38 Date Recorded Body height Body mass index (BMI) Body weight Oxygen saturation Oxygen saturation in Arterial blood by Pulse oximetry Heart rate Respiratory rate Body temperature Systolic And Diastolic Provider Name and Address Organization Details Last Updated DateTime 4 154.94 cm 35.9 kg/m2 66144 g 95 % 95 % 77 /min 22 /min 98.1 [degF] 132/66 mm[Hg] Landy Eisenberg LPN [address] [place] [address], [address], [facility] 4 11:56:27 Date Recorded Body height Body mass index (BMI) Body weight Oxygen saturation Oxygen saturation in Arterial blood by Pulse oximetry Pain severity - 0-10 verbal numeric rating [Score] - Reported Heart rate Respiratory rate Body temperature Systolic And Diastolic Provider Name and Address Organization Details Last Updated DateTime 3 154.94 cm 36.6 kg/m2 45589 g 96 % 96 % 0 90 /min 22 /min 98.5 [degF] 136/88 mm[Hg] Landy Eisenberg LPN [address] [place] [address], [address], [facility] 3 12:03:19 Social History Question Answer Notes LastModified by Organizat ion Details LastModified Time Tobacco Smoking Status Never Smoker Landy Eisenberg, STATION ATTENDANT [address] [place], [address], [facility] 01/31/2019 14:27:54 Do You Have An Advance Directive? Yes Information not available 03/02/2023 Are You Blind [...] 03/02/2023 If Patient Spent Time In [facility] - Does The Patient Live In [facility]? No Information not available 03/02/2023 In The 14 Days Before Symptom Onset, Have You Had Close Contact With A Person Who Is Under Investigation For COVID-19 While That Person Was Ill? No Information not available 03/02/2023 In The 14 Days Before Symptom Onset, Did The Patient Spend Time In [facility]? No Information not available 03/02/2023 Have You Been To An Area Known To Be High Risk For COVID-19? No Information not available 03/02/2023 Are You Deaf Or Do You Have [...] Is Active? No Information not available 03/02/2023 Education 12 Information n ot available 03/02/2023 Family History Of Heart Disease? [...] You Have A Medical Power Of Senior [employer] Consultant? Yes Information not available 03/02/2023 What Was [...] To Smoke? No Information not available 03/02/2023 General Stress Level Medium Information not available 03/02/2023 Has Tobacco Cessation Counseling Been Provided? No Information not available 11/24/2021 Do You Have Difficulty Walking Or Climbing Stairs? Yes Information not available 03/02/2023 Sex: Unknown Functional Status Question Answer Note LastModified by Organizat ion Details LastModified Time Do you or have you ever used smokeless tobacco? Never used smokeless tobacco Information not available 06/20/2019 Are you currently employed? No Information not available 01/31/2019 Have you been exposed to chemicals or toxins? No Information not available 03/02/2023 Do you have transportation difficulties? No Information not available 03/02/2023 Are you able to care for yourself independently? Yes Information not available 01/31/2019 Do you have difficulty dressing, bathing, grooming, or toileting? No Information not available 03/02/2023 Do you or have you ever used e-cigarettes or vape? Never used electronic cigarettes Information not available 06/20/2019 What is your exercise level? Occasional Information not available 03/02/2023 Do you use any illicit or recreational drugs? No Information not available 06/09/2022 What is your level of alcohol consumption? None mari Information not available 03/02/2023 Are you able to walk independently without assistance or assistive devices? YESWOREST Information not available 03/02/2023 Do you have difficulty doing errands alone? No Information not available 03/02/2023 What is your occupation? retired Information not available 06/20/2019 Mental Status Question Answer Note LastModified by [...] N Anemia N Constipation N Heart Attack (SC) N Mental Illness N Diabetes Y Bleeding [...] virus, quadrivalent, preservative 0 completed Not Available [facility] 05/12/2023 11:50:13 SARS-COV-2 (COVID-19) vaccine, UNSPECIFIED 1 completed Not Available [facility] 05/12/2023 11:50:13 Influenza, split virus, quadrivalent, preservative 1 completed Not Available [facility] 05/12/2023 11:50:13 COVID-19, mRNA, LNP-S, PF, 30 mcg/0.3 mL dose 1 completed Landy Eisenberg [facility] [address] [place], [address], [facility] 07/14/2022 11:50:09 SARS-COV-2 (COVID-19) vaccine, UNSPECIFIED 2 completed Landy Eisenberg [facility] [address] [place], [address], [facility] 04/26/2022 14:30:42 Influenza, adjuvanted, quadrivalent, PF 1 completed Landy Eisenberg [facility] [address] [place], [address], [facility] 07/14/2022 11:50:09 Influenza, split virus, quadrivalent, preservative 6 completed Landy Eisenberg [facility] [address] [place], [address], [facility] 07/14/2022 11:50:09 Influenza, split virus, quadrivalent, PF 5 completed Landy Eisenberg [facility] [address] [place], [address], [facility] 07/14/2022 11:50:09 Influenza, split virus, quadrivalent, preservative 7 completed Landy Eisenberg, [facility] [address] [place] [address], [place], [address], [facility] 07/14/2022 11:50:09 COVID-19, mRNA, LNP-S, PF, 30 mcg/0.3 mL dose, sandip-sucrose 2 completed Landy Eisenberg [address], [address], [facility] 07/14/2022 11:50:09 Influenza, high-dose, quadrivalent, PF 0 completed Landy Eisenberg, [address], [address], [facility] 07/14/2022 11:50:09 COVID-19, mRNA, LNP-S, PF, 30 mcg/0.3 mL dose 1 completed Landy Eisenberg [address], [address], [facility] 07/14/2022 11:50:09 Influenza, high-dose, trivalent, PF 9 completed Not Available [facility] 10/12/2019 02:28:42 Influenza, split virus, quadrivalent, preservative 8 completed Landy Eisenberg [address], [address], [facility] 07/14/2022 11:50:09 zoster live 0 completed Landy Eisenberg [address], [address], [facility] 01/31/2019 14:24:40 Tdap 7 completed Landy Eisenberg [facility] [address] [place] [address], [address], [facility] 04/26/2022 14:30:42 Influenza, high-dose, quadrivalent, PF 2 completed Landy Eisenberg, STATION ATTENDANT [address] [place], [address], [facility] 07/14/2022 14:46:44 Hep B, adolescent or pediatric 6 completed Landy Eisenberg, STATION ATTENDANT [address] [place] [address], [address], [facility] 04/26/2022 14:30:42 Hep B, adolescent or pediatric 6 completed Landy Eisenberg, [facility] [address] [place] [address], [address], [facility] 04/26/2022 14:30:42 Past Encounters Encounter ID Performer Location Encounter Start Date Encounter Closed Date Diagnosis/Indication Diagnosis SNOMED-CT Code Diagnosis ICD10 Code Diagnosis IMO Codes Diagnosis Note [id number] NOT ON STAFF OP Lab/Rad/C ardio Test [address] [place] [address] 02/08/2018 11:50:00 02/09/2018 04:04:36 [id number] NOT ON STAFF OP Lab/Rad/C ardio Test [address] [place] [address] 3 02/07/2019 10:21:00 02/08/2019 00:59:[id number] NOT ON STAFF OP Lab/Rad/C ardio Test [address] [place] [address] 3 02/21/2019 16:31:00 02/22/2019 00:59:00 [id number] NOT ON STAFF OP Lab/Rad/C ardio Test [address] [place] [address] 3 09/05/2019 11:05:00 09/06/2019 00:59:00 [id number] NOT ON STAFF OP Lab/Rad/C ardio Test [address] [place] [address] 3 09/16/2019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
== END 2025-06-30 08:31 | disposition home or self-care (01) ==
DX: I73.9 Peripheral vascular disease, unspecified (principal)
CPT/HCPCS: 93922; 93925

== ENCOUNTER 2025-09-03 13:12 | Emergency (ER) | payer MEDICARE, SELFPAY ==
--- NOTE | ~2025-09-03 | XR_ITS ---
EXAMINATION: XR chest 2V DATE: 09/03/2025 13:47 INDICATION: Cough, shortness of breath. History of pneumonia. TECHNIQUE: Frontal and lateral views of the chest were obtained. COMPARISON: Chest x-ray dated 05/21/2022. FINDINGS: Heart size is normal. Moderate atherosclerotic aorta. Lungs are free of acute processes. Severe arthritis of right shoulder is noted with chronic changes consistent with chronic rotator cuff tear at the right shoulder. IMPRESSION: 1. No acute pulmonary findings. Atherosclerotic aorta. 2. Severe chronic arthritis of right shoulder and evidence of chronic rotator cuff tear. Reviewed, dictated and finalized at location T. R QUALITY ANALYST IMPRESSION: 1. No acute pulmonary findings. Atherosclerotic aorta. 2. Severe chronic arthritis of right shoulder and evidence of chronic rotator c uff tear.
--- NOTE | 2025-09-03 13:14 | ED.URI ---
HPI - URI/Sore Throat General Chief Complaint: Upper Respiratory Infection Stated Complaint: SINUS/FEVER/SORE THROAT/EARS CLOGGED/ACHES Time Seen by Provider: 09/03/25 13:13 Source: patient Mode of arrival: ambulatory Limitations: no limitations History of Present Illness HPI Narrative: Natalia is a 75-year-old female patient presenting to the clinic today with complaints of sinus congestion, fever, productive cough sore throat, ear feel clogged, and body aches for over 2 weeks. She reports she is coughing up yellow phlegm and blowing out yellow nasal drainage. Does feel short of breath/wheezing at times. History of pneumonia in the past. Related Data Home Medications ?Medication ?Instructions ?Recorded ?Confirmed ?Last Taken ?Type allopurinol 300 mg tablet 100 mg PO DAILY 05/21/22 10/14/24 09/08/22 History candesartan 32 1 tablet PO DAILY 05/21/22 10/14/24 09/08/22 History mg-hydrochlorothiazide 12.5 mg tablet lansoprazole 15 mg capsule,delayed 15 mg PO DAILY 06/24/22 10/14/24 09/08/22 History release albuterol sulfate 90 mcg/actuation 2 puff inhalation QID PRN 08/28/23 10/14/24 Unknown History aerosol inhaler (ProAir HFA) Shortness Of Breath Or Wheezing metoprolol succinate 25 mg 25 mg PO DAILY 08/28/23 10/14/24 Unknown History tablet,extended release 24 hr gabapentin 100 mg capsule 100 mg PO TID 05/30/24 10/14/24 Unknown History metformin 1,000 mg tablet 1,000 mg PO BID 10/14/24 10/14/24 Unknown History atorvastatin 20 mg tablet (Lipitor) 20 mg PO DAILY 08/12/25 Unknown History Allergies Allergy/AdvReac Type Severity Reaction Status Date / Time Penicillins Allergy Severe Hives Verified 08/12/25 09:41 pneumococcal vaccine Allergy Intermediate Swelling Verified 08/12/25 09:41 erythromycin base Allergy Hives Verified 08/12/25 09:41 losartan Allergy Sweating Verified 09/03/25 13:35 vaccine adjuvant system, Allergy Swelling Verified 08/12/25 09:41 [id number] liposomal (From Shingrix (PF)) varicella-zoster virus Allergy Swelling Verified 08/12/25 09:41 glycoprotein E, recombinant (From Shingrix (PF)) lisinopril AdvReac Itching Verified 09/03/25 13:35 oxycodone (From Percocet) AdvReac Nausea and Verified 08/12/25 09:41 Vomiting tramadol AdvReac Hallucinati Verified 08/12/25 09:41 ng Lavendar Allergy Sneezing Uncoded 08/12/25 09:41 Ragweed Allergy Sneezing Uncoded 08/12/25 09:41 Review of Systems Review of Systems: Pertinent positives per HPI. Patient denies any rash, visual changes, dizziness, chest pain, palpitations, nausea, vomiting, diarrhea, constipation, abdominal pain, or any urinary issues. [facility] Past Medical History Medical History Lumbar spondylosis Diabetes Hyperlipidemia Hypertension Surgical History Surgical History History of left knee replacement History of carpal tunnel surgery History of hysterectomy Family History Family History Mother Heart disease Social History Social History Smoking status: Never smoker Alcohol intake: never Alcohol use details: occasional Substance use: never Substance use type: does not use Lack of Transportation: No Lack of Food: Sometimes True Current Housing: I Have Housing Concerned About Future Housing: No Difficulty Paying Gas/Electric Bills: No Difficulty Paying for Meds: No Currently Unemployed: No Education: High School Diploma/GED Difficulty w/ Childcare or Family Care: No Living arrangements: with family Additional living arrangements comments: DAUGHTER Spiritual care concerns: No Comments At the time of my signature, I reviewed and agree with the nursing past medical, surgical, social, and family history. There is no relevant family history pertinent to the patient complaint. Exam Narrative: General: Well-developed, well nourished, in no apparent distress Head: Normocephalic, atraumatic Eyes: Pupils equally round and reactive to light bilaterally, EOM intact, sclera and conjunctive clear, no discharge, lids normal Ears: TMs intact and congested, ear canals clear, no drainage, grossly hearing normal. Nose: Nares patent, yellow nasal discharge, moderate inflammation, maxillary sinus tenderness. Mouth: Oral pharynx mildly red without lesions or masses, good dentition, MMM. Postnasal drip Neck: Supple, trachea midline, no enlargement of anterior or posterior cervical nodes, no thyroid masses or goiter palpable. Cardio: Regular rate and rhythm, s1 and s2 normal, no murmur appreciated. Resp: Crackles in the left lower bases, no rhonchi, wheezing or rubs Course Course Level of Care: Express Care Visit MDM MDM Narrative Medical decision making narrative: At the time of visit patient is resting comfortably on the exam table. Patient appears to be nontoxic. Complaints of sinus congestion, fever, productive cough sore throat, ear feel clogged, and body aches for over 2 weeks. She reports she is coughing up yellow phlegm and blowing out yellow nasal drainage. Does feel short of breath/wheezing at times. History of pneumonia in the past. On exam patient has bilateral TMs intact and congested, yellow nasal drainage, moderate anterior turbinate inflammation, maxillary sinus tenderness, oral pharynx mildly red with postnasal drip, no cervical lymphadenopathy, crackles heard in the left lower bases, heart rates regular rate and rhythm. Chest x-ray was ordered. Diagnostics: Chest x-rays negative for any acute cardiopulmonary processes. Plan: I suspect patient has sinusitis/bronchitis. Prescription for doxycycline, prednisone, and albuterol inhaler was sent to the pharmacy. Supportive measures were discussed with the patient and they voiced understanding discharge instructions and agrees to treatment plan. Return precautions reviewed Differential Diagnosis Differential Diagnosis: Differential diagnostic considerations for upper respiratory infection include upper respiratory infection, croup, otitis media, sinusitis, viral infection, bronchitis, influenza, pharyngitis, strep, uvulitis. Imaging Data Radiologist's impression: ITS Impressions Chest X-Ray 09/03/25 13:48 IMPRESSION: 1. No acute pulmonary findings. Atherosclerotic aorta. 2. Severe chronic arthritis of right shoulder and evidence of chronic rotator cuff tear. Discharge Plan Discharge Clinical Impression: Sinobronchitis Patient Disposition: Home Condition: Stable Instructions: Antibiotic Form, Sinusitis (ED), Acute Bronchitis (ED) Additional Instructions: Take medications as prescribed-prednisone, Augmentin, and albuterol inhaler Increase fluids and stay well hydrated May take Tylenol or motrin as directed on bottle for pain/fever May use Flonase 1 spray in each nare daily May take OTC antihistamines such as Zyrtec or Claritin daily as directed on bottle May apply Vicks vapor rub to chest to open sinuses Sinus rinses for congestion Cepacol spray, cough drops, throat lozenges, warm tea with honey/lemon, gargle salt water to soothe throat BRAT diet for diarrhea Clear liquids x 24 hours then advance as tolerated for nausea/vomiting Go to the ED if you develop a worsening in your condition- high fever not controlled by Tylenol or Motrin, dehydration, weakness, lethargy, shortness of breath, or chest pain. Follow up with your PCP in 3-5 days if symptoms persist. Patient Language: Tamazight Prescriptions: New doxycycline monohydrate 100 mg capsule 100 mg PO BID 7 Days Qty: 14 0RF albuterol sulfate 90 mcg/actuation HFA aerosol inhaler 2 puff inhalation Q4-6H PRN (Reason: shortness of breath or wheezing) 30 Days Qty: 8.5 0RF prednisone 20 mg tablet 40 mg PO DAILY 5 Days Qty: 10 0RF No Action candesartan-hydrochlorothiazid 32-12.5 mg tablet 1 tablet PO DAILY Patient Comments: QAM allopurinol 300 mg tablet 100 mg PO DAILY lansoprazole 15 mg Capsule,Delayed Release(Dr/Ec) 15 mg PO DAILY metoprolol succinate 25 mg tablet extended release 24 hr 25 mg PO DAILY Patient Comments: QAM albuterol sulfate [ProAir HFA] 90 mcg/actuation Hfa Aerosol Inhaler 2 puff INHALATION QID PRN (Reason: Shortness Of Breath Or Wheezing) (DME) Aerochamber MV Spacer See Rx Instructions .Route Qty: 1 0RF Rx Instructions: As directed gabapentin 100 mg capsule 100 mg PO TID Patient Comments: USUALLY TAKING 2 TAB IN AM AND 1 TAB HS atorvastatin [Lipitor] 20 mg tablet 20 mg PO DAILY metformin 1,000 mg tablet 1,000 mg PO BID Follow-up/Referrals: UNKNOWN,DOCTOR [Non-Staff] Time of Disposition: 14:01 Quality NIHSS Nursing Documentation ED NIHSS nursing documentation: reviewed/agree
[2025-09-03 13:27] VITALS: BP 136/74; PULSE 98; RESP 16; TEMP 36.2; O2SAT 99
== END 2025-09-03 14:05 | disposition home or self-care (01) ==
PROVIDERS: Emergency Provider Nurse Practitioner Family
DX: J32.9 Chronic sinusitis, unspecified (principal); J40 Bronchitis, not specified as acute or chronic; E11.9 Type 2 diabetes mellitus without complications; Z79.84 Long term (current) use of oral hypoglycemic drugs; I10 Essential (primary) hypertension; E78.5 Hyperlipidemia, unspecified; Z96.652 Presence of left artificial knee joint; M47.816 Spondylosis without myelopathy or radiculopathy, lumbar region
CPT/HCPCS: 71046; 99213; G0463